=== PATIENT | female | born 1980 | race American Indian/Alaskan Native ===

== ENCOUNTER 2017-12-27 18:13 | Emergency (ER) | payer MEDICAID ==
[2017-12-27 18:47] VITALS: BP 140/86
[2017-12-27] MEDS ORDERED: NORCO 5/325 PO ONE (22:38)
--- NOTE | 2017-12-27 22:46 | Emergency Department Report ---
HPI - General Chief Complaint: Fall Time Seen by Provider: 12/27/17 22:31 - [facility] HPI: Geovany Blood The patient is 37-year-old female presenting with a chief complaint of pain after slip and fall. The patient states she was in [facility] at approximately 16: 30 she slipped and fell backwards striking her head. The patient states she did lose consciousness. The patient now complains of pain in her lower back, right foot and ankle, left shoulder and head. Location: [See above] Duration: Constant since 16:30 Quality: Pain Severity: 05/20 Modifying factors: [see above] Context: [see above] Mode of transportation: [not driving] ED Past Medical Hx - Past Medical History Hx Seizures: Yes Hx Asthma: Yes Additional medical history: BROCHITIS. ANEMIC - Surgical History Additional Surgical History: MULTIPLE FEET SURGERIES (arch support implants placement and removal), knee surgery - Family History Family history: no significant - Social History Smoking Status: Current Every Day Smoker (1/7 per day) Substance Use Type: None (denies illicit drug use) - Medications Home Medications: Home Medications Medication Instructions Recorded Confirmed Last Taken Type Cyclobenzaprine [Flexeril] 10 mg PO TID PRN #14 tablet 12/28/17 Unknown Rx HYDROcodone/ACETAMINOPHEN [[place] 1 - 2 each PO Q4-6H PRN #14 tablet 12/28/17 Unknown Rx 5-325 Tablet] ED Review of Systems ROS: Stated complaint: LOWER BACK PAIN Other details as noted in HPI Musculoskeletal: back pain, arthralgia, myalgia Neurological: headache Physical Exam - Physical Exam Vital Signs: Vital Signs 12/27/17 18:39 Temperature 98.1 F Pulse Rate 75 Respiratory 16 Rate Blood Pressure 140/86 O2 Sat by Pulse 98 Oximetry Physical Exam: GENERAL: The patient is well-developed well-nourished female sleeping on stretcher not appear to be in acute distress. [] HEENT: Normocephalic. Atraumatic. Extraocular motions are intact. Patient has moist mucous membranes. NECK: Supple. There is adnexal tenderness to palpation but no step-off CHEST/LUNGS: Clear to auscultation. There is no respiratory distress noted. HEART/CARDIOVASCULAR: Regular. There is no tachycardia. There is no gallop rub or murmur. ABDOMEN: Abdomen is soft, nontender. Patient has normal bowel sounds. There is no abdominal distention. SKIN: There is no rash. There is no edema. There is no diaphoresis. NEURO: The patient is initially asleep but is awakened with tactile stimuli and becomes alert, and oriented. The patient is cooperative. The patient has no focal neurologic deficits. The patient has normal speech MUSCULOSKELETAL: There is tenderness to palpation along the cervical and lumbar axial spine (no step-offs) there is pain in the left shoulder. There is tenderness to palpation of the medial aspect of the right ankle and dorsum of right foot. ED Course Vital Signs 12/27/17 18:39 Temperature 98.1 F Pulse Rate 75 Respiratory 16 Rate Blood Pressure 140/86 O2 Sat by Pulse 98 Oximetry ED Medical Decision Making - Radiology Data Radiology results: report reviewed (CT head, CT cervical spine), image reviewed (CT head, CT cervical spine, right ankle x-ray, right foot x-ray, left shoulder x-ray, lumbar spine x-ray) interpreted by me: right ankle x-ray-no fractures right foot x-ray- no acute fracture seen. Hardware in place from previous surgery left shoulder x-ray-no acute fracture or dislocation lumbar spine x-ray-no acute fractures [facility] [address] [place] [address] Cat Scan Report Signed Patient: KATE ZHENG MR#: [id number] : 1980 Acct:[id number] Age/Sex: 37 / F ADM Date: 12/27/17 Loc: ED Attending Dr: Ordering Physician: HERMINIA STRATTON MD Date of Service: 12/27/17 Procedure(s): CT head/brain wo con Accession Number(s): [id number] cc: HERMINIA STRATTON MD FINAL REPORT EXAM: CT HEAD/BRAIN WO CON HISTORY: pain after slip and fall COMPARISON: None available. TECHNIQUE: Axial images obtained skull base through vertex. FINDINGS: No acute intracranial hemorrhage, midline shift or pathologic extra axial fluid collection. Ventricles and cisterns are normal in size and configuration for the patient's age. Dominguez-white differentiation preserved. Calvarium grossly intact. Ocular globes are grossly unremarkable. Moderate mucosal thickening of the left maxillary sinus. Mastoid air cells are clear. IMPRESSION: No grossly acute intracranial abnormality. Transcribed By: LMA Dictated By: MILDRED DRIVER MD Electronically Authenticated By: MILDRED DRIVER MD Signed Date/Time: 12/27/172308 DD/ 08 TD/TT: 12/27/172308 [facility] [address] [place] [address] Cat Scan Report Signed Patient: KATE ZHENG MR#: [id number] : 1980 Acct:[id number] Age/Sex: 37 / F ADM Date: 12/27/17 Loc: ED Attending Dr: Ordering Physician: HERMINIA STRATTON MD Date of Service: 12/27/17 Procedure(s): CT cervical spine wo con Accession Number(s): [id number] cc: HERMINIA STRATTON MD FINAL REPORT EXAM: CT CERVICAL SPINE WO CON HISTORY: pain after slip and fall COMPARISON: None available. TECHNIQUE: Axial images obtained through the cervical spine. Additional sagittal and coronal reformatted images were obtained. FINDINGS: Straightening of the normal lordotic curvature of the cervical spine. Cervical vertebral body heights are preserved. No acute fracture or traumatic subluxation. Odontoid process, articular pillars and occipital condyles are intact. No significant bony encroachment upon the canal or foramen. IMPRESSION: No acute fracture or subluxation of the cervical spine. There is straightening of the normal lordotic curvature which may relate to patient positioning or muscle spasm. Transcribed By: LMA Dictated By: MILDRED DRIVER MD Electronically Authenticated By: MILDRED DRIVER MD Signed Date/Time: 12/27/172306 DD/ 06 TD/TT: 12/27/172306 - Differential Diagnosis close head injury, sprain, cervical strain, cervical fracture, lumbar strai Critical care attestation.: If time is entered above; I have spent that time in minutes in the direct care of this critically ill patient, excluding procedure time. ED Disposition Clinical Impression: Closed head injury, Acute cervical myofascial strain, Contusion of left shoulder, Contusion of right foot Disposition: DC-01 TO HOME OR SELFCARE Is pt being admited?: No Does the pt Need Aspirin: No Condition: Stable Instructions: Muscle Strain (ED), Minor Head Injury (ED), Concussion (ED) Additional Instructions: Return to the emergency department immediately should you develop worsening symptoms, fever, inability to tolerate food or liquid or any other concerns. Prescriptions: Cyclobenzaprine [Flexeril] 10 mg PO TID PRN #14 tablet PRN Reason: Muscle Spasm HYDROcodone/ACETAMINOPHEN [[place] 5-325 Tablet] 1 - 2 each PO Q4-6H PRN #14 tablet PRN Reason: Pain Referrals: JUNO SILVA MD [Primary Care Provider] - 3-5 Days Time of Disposition: 00:16
--- NOTE | 2017-12-27 23:11 | Cat Scan Report ---
FINAL REPORT EXAM: CT CERVICAL SPINE WO CON HISTORY: pain after slip and fall COMPARISON: None available. TECHNIQUE: Axial images obtained through the cervical spine. Additional sagittal and coronal reformatted images were obtained. FINDINGS: Straightening of the normal lordotic curvature of the cervical spine. Cervical vertebral body heights are preserved. No acute fracture or traumatic subluxation. Odontoid process, articular pillars and occipital condyles are intact. No significant bony encroachment upon the canal or foramen. IMPRESSION: No acute fracture or subluxation of the cervical spine. There is straightening of the normal lordotic curvature which may relate to patient positioning or muscle spasm.
--- NOTE | 2017-12-27 23:13 | Cat Scan Report ---
FINAL REPORT EXAM: CT HEAD/BRAIN WO CON HISTORY: pain after slip and fall COMPARISON: None available. TECHNIQUE: Axial images obtained skull base through vertex. FINDINGS: No acute intracranial hemorrhage, midline shift or pathologic extra axial fluid collection. Ventricles and cisterns are normal in size and configuration for the patient's age. Dominguez-white differentiation preserved. Calvarium grossly intact. Ocular globes are grossly unremarkable. Moderate mucosal thickening of the left maxillary sinus. Mastoid air cells are clear. IMPRESSION: No grossly acute intracranial abnormality.
--- NOTE | 2017-12-28 00:20 | XRay Report ---
FINAL REPORT EXAM: XR SHOULDER 2+V LT HISTORY: pain after slip and fall COMPARISON: None available. FINDINGS: Three views of left shoulder obtained. Mild osteophyte of the AC joint. Glenohumeral joint space preserved. No acute fracture dislocation. IMPRESSION: No acute bony abnormality.
--- NOTE | 2017-12-28 00:21 | XRay Report ---
FINAL REPORT EXAM: XR FOOT 2V RT HISTORY: pain after slip and fall COMPARISON: None available. FINDINGS: Two views of right foot obtained. Mild pes planus deformity. Small plantar calcaneal spur. Prior 1st metatarsal ostomy with bunionectomy and screw fixation. Joint spaces are preserved. No acute fracture or dislocation. IMPRESSION: No acute bony abnormality.
--- NOTE | 2017-12-28 00:22 | XRay Report ---
FINAL REPORT EXAM: XR ANKLE 2V RT HISTORY: pain after slip and fall COMPARISON: Right foot from the same date. FINDINGS: Two views of right ankle obtained. Small plantar calcaneal spur. Ankle mortise is preserved. No acute fracture or dislocation. IMPRESSION: No acute bony abnormality.
--- NOTE | 2017-12-28 00:23 | XRay Report ---
FINAL REPORT EXAM: XR SPINE LUMBOSACRAL 2-3V HISTORY: pain after slip and fall COMPARISON: None available. FINDINGS: Three views of the lumbar spine obtained. Lumbar vertebral body heights are preserved. Mild loss of disc height endplate osteophyte throughout the lumbar spine. Pedicles are intact. No spondylolisthesis. IUD projects over the midline of the pelvis. IMPRESSION: Lumbar vertebral body heights are preserved. Mild degenerative changes.
== END 2017-12-28 00:51 | disposition home or self-care (01) ==
LOC: ED 18:13
DX: S09.90XA Unspecified injury of head, initial encounter (principal); S40.012A Contusion of left shoulder, initial encounter; S90.31XA Contusion of right foot, initial encounter; S16.1XXA Strain of muscle, fascia and tendon at neck level, initial encounter; F17.200 Nicotine dependence, unspecified, uncomplicated; W01.0XXA Fall on same level from slipping, tripping and stumbling without subsequent striking against object, initial encounter; Y93.89 Activity, other specified; Y92.89 Other specified places as the place of occurrence of the external cause; Y99.8 Other external cause status
CPT/HCPCS: 36415; 70450; 72100; 72125; 84703; 99284

== ENCOUNTER 2018-09-26 19:28 | Emergency (ER) | payer MEDICAID, SELFPAY ==
[2018-09-26] MEDS ORDERED: TORADOL IM ONE (22:31)
--- NOTE | 2018-09-26 22:35 | Emergency Department Report ---
ED Lower Extremity HPI - General Chief Complaint: Extremity Injury, Lower Stated Complaint: LEFT ANKLE PAIN, RIGHT KNEE, AND CHEST PAIN Time Seen by Provider: 09/26/18 22:19 Source: patient Mode of arrival: Wheelchair Limitations: No Limitations - History of Present Illness Initial Comments: pt is a 37 y/o aaf who presents for left ankle pain and swelling s/p fall x 1 step today and twisting left ankle now only partial weight bearing wtih 7/10 pain and swelling and tingling, there are no relieving factors symptoms exacerbated by ambulation. Complaint: ankle injury Onset/Timin -: days(s) Injury: Ankle: Left Type of Injury: eversion Place: home Severity: moderate Severity scale (0 -10): 5 Improves With: nothing (regular was bothering him that L) Worsens With: weight bearing Context: fall (regular irregular. No) Associated Symptoms: snap/pop sensation, swelling, tingling, able to partially bear weight - Related Data Home Medications Medication Instructions Recorded Confirmed Last Taken ALBUTEROL Inhaler (OR & NICU) 2 puff IH QID PRN 01/25/16 12/15/17 12/15/17 [ProAir HFA Inhaler] Losartan [Cozaar] 100 mg PO QDAY 12/15/17 12/15/17 12/15/17 Previous Rx's Medication Instructions Recorded Last Taken Type levETIRAcetam [Keppra TAB] 1,000 mg PO BID #60 tab 03/04/17 12/14/17 Rx ALBUTEROL NEB's [Proventil 0.083% 2.5 mg IH Q4-6H 30 Days nebu 09/18/17 12/15/17 Rx NEBS] Codeine/Butalbital/ASA/Caffein 1 each PO Q8H PRN #15 capsule 04/10/18 Unknown Rx [Fiorinal with Codeine #3 Cap] Promethazine [Phenergan TAB] 25 mg PO Q6HR PRN #20 tab 04/10/18 Unknown Rx diazePAM TAB [Valium] 2 mg PO Q8H PRN #12 tablet 04/10/18 Unknown Rx Acetaminophen [Tylenol Arthritis] 650 mg PO Q8H PRN #12 tablet.er 05/15/18 Unknown Rx Butalb/Acetamin/Caff 50-325-40 1 tab PO Q8HR PRN #8 tablet 05/15/18 Unknown Rx [Fioricet] Acetaminophen [Tylenol Extra 1,000 mg PO QID PRN #30 tablet 09/26/18 Unknown Rx Strength] Cyclobenzaprine [Flexeril] 10 mg PO TID PRN #30 tablet 09/26/18 Unknown Rx Menthol/Camphor [[place] 1 applicatio TP QID PRN #1 tube 09/26/18 Unknown Rx Ointment] Allergies Allergy/AdvReac Type Severity Reaction Status Date / Time aspirin Allergy Hives Verified 05/15/18 09:40 ibuprofen [From Motrin] Allergy Hives Verified 05/15/18 09:40 Penicillins Allergy Hives Verified 05/15/18 09:40 shellfish derived Allergy Swelling,BREAK Verified 05/15/18 09:40 OUT WITH SCALES ED Review of Systems ROS: Stated complaint: LEFT ANKLE PAIN, RIGHT KNEE, AND CHEST PAIN Other details as noted in HPI Constitutional: denies: chills, fever Eyes: denies: eye pain, eye discharge, vision change ENT: denies: ear pain, throat pain Respiratory: no symptoms reported. denies: cough, shortness of breath, wheezing Cardiovascular: denies: chest pain, palpitations Endocrine: no symptoms reported Gastrointestinal: denies: abdominal pain, nausea, diarrhea Genitourinary: as per HPI Musculoskeletal: joint swelling Skin: denies: rash, lesions Neurological: denies: headache, weakness, paresthesias Psychiatric: denies: anxiety, depression Hematological/Lymphatic: denies: easy bleeding, easy bruising ED Past Medical Hx - Past Medical History Hx Hypertension: Yes Hx Diabetes: No Hx Headaches / Migraines: Yes (hx migraines) Hx Seizures: Yes Hx Psychiatric Treatment: Yes (depression) Hx Asthma: Yes Hx HIV: No Additional medical history: Anemia - Surgical History Additional Surgical History: right knee surgery, b/l foot surgery several years ago. foot surgery 09/2015 - Social History Smoking Status: Never Smoker Substance Use Type: None - Medications Home Medications: Home Medications Medication Instructions Recorded Confirmed Last Taken Type ALBUTEROL Inhaler (OR & NICU) 2 puff IH QID PRN 01/25/16 12/15/17 12/15/17 History [ProAir HFA Inhaler] levETIRAcetam [Keppra TAB] 1,000 mg PO BID #60 tab 03/04/17 12/15/17 12/14/17 Rx ALBUTEROL NEB's [Proventil 0.083% 2.5 mg IH Q4-6H 30 Days nebu 09/18/17 0 12/15/17 12/15/17 Rx NEBS] Losartan [Cozaar] 100 mg PO QDAY 12/15/17 12/15/17 12/15/17 History Codeine/Butalbital/ASA/Caffein 1 each PO Q8H PRN #15 capsule 04/10/18 Unknown Rx [Fiorinal with Codeine #3 Cap] Promethazine [Phenergan TAB] 25 mg PO Q6HR PRN #20 tab 04/10/18 Unknown Rx diazePAM TAB [Valium] 2 mg PO Q8H PRN #12 tablet 04/10/18 Unknown Rx Acetaminophen [Tylenol Arthritis] 650 mg PO Q8H PRN #12 tablet.er 05/15/18 Unknown Rx Butalb/Acetamin/Caff 50-325-40 1 tab PO Q8HR PRN #8 tablet 05/15/18 Unknown Rx [Fioricet] Acetaminophen [Tylenol Extra 1,000 mg PO QID PRN #30 tablet 09/26/18 Unknown Rx Strength] Cyclobenzaprine [Flexeril] 10 mg PO TID PRN #30 tablet 09/26/18 Unknown Rx Menthol/Camphor [[place] 1 applicatio TP QID PRN #1 tube 09/26/18 Unknown Rx Ointment] ED Physical Exam - General Limitations: No Limitations General appearance: alert, in no apparent distress - Head Head exam: Present: atraumatic, normocephalic - Eye Eye exam: Present: normal appearance - ENT ENT exam: Present: normal exam - Neck Neck exam: Present: normal inspection, full ROM (is management). Absent: tenderness, meningismus, lymphadenopathy, thyromegaly - Respiratory Respiratory exam: Present: normal lung sounds bilaterally. Absent: respiratory distress, wheezes, stridor, chest wall tenderness - Cardiovascular Cardiovascular Exam: Present: regular rate, normal rhythm, normal heart sounds. Absent: systolic murmur, diastolic murmur, rubs, gallop - GI/Abdominal GI/Abdominal exam: Present: soft, normal bowel sounds. Absent: tenderness, rebound, bruit, hernia - Rectal Rectal exam: Present: deferred - Extremities Exam Extremities exam: Present: tenderness (left ankle swelling ), normal capillary refill, joint swelling. Absent: pedal edema, calf tenderness - Expanded Lower Extremity Exam Left Ankle exam: Present: tenderness, swelling. Absent: abrasion, laceration, ecchymosis, deformity, crepidus, dislocation, erythema, anterior draw sign Foot/Toe exam: Present: full ROM. Absent: tenderness Neuro vascular tendon exam: Absent: motor deficit, sensory deficit, tendon deficit, abnormal 2-point discrimination, foot drop Gait: Positive: observed and limited by pain - Back Exam Back exam: Present: normal inspection, full ROM. Absent: tenderness, CVA tenderness (R), CVA tenderness (L), muscle spasm, paraspinal tenderness, rash noted - Neurological Exam Neurological exam: Present: alert, oriented X3, CN II-XII intact, abnormal gait (partial weight bearing ), reflexes normal. Absent: motor sensory deficit - Psychiatric Psychiatric exam: Present: normal affect, normal mood - Skin Skin exam: Present: warm, dry, intact, normal color. Absent: rash ED Course Vital Signs 09/26/18 19:40 Temperature 97.7 F Pulse Rate 88 Respiratory 16 Rate Blood Pressure 152/89 O2 Sat by Pulse 99 Oximetry ED Lower Extremity MDM - Radiology Data Radiology results: report reviewed, image reviewed no fracture mild soft tissue swelling , chronic ostoearthritis right knee no acute fracture no soft tissue abnormality - Medical Decision Making This is a fall down one step left ankle sprain left knee abrasion left knee with chronic osteoarthritis no acute fractureand soft tissue abnormality range of motion is intact negative drawer negative Rivera's test the left ankle is no open sore lesions are lacerations or bleeding joints are stable patient has partial weight bearing plan left [place] crutches follow up with orthopedic surgery in 2 days return to ED should symptoms worsen Splint check ankle stirrup, intact distal pulses intact spacing is appropriate pt given care instructions of same, verbalized understanding, crutches: patient demonstrated safe use of plain DC'd home in stable condition at this time Critical care attestation.: If time is entered above; I have spent that time in minutes in the direct care of this critically ill patient, excluding procedure time. ED Disposition Clinical Impression: Fall Qualifiers: Encounter type: initial encounter Qualified Code(s): W19.XXXA - Unspecified fall, initial encounter Left ankle sprain Qualifiers: Encounter type: initial encounter Involved ligament of ankle: unspecified ligament Qualified Code(s): S93.402A - Sprain of unspecified ligament of left ankle, initial encounter Strain of right knee Qualifiers: Encounter type: initial encounter Qualified Code(s): S86.911A - Strain of unspecified muscle(s) and tendon(s) at lower leg level, right leg, initial encounter Disposition: TO HOME OR SELFCARE Is pt being admited?: No Does the pt Need Aspirin: No Condition: Stable Instructions: Osteoarthritis (ED), Ankle Stirrup Splint (ED), Ankle Sprain (ED), Ankle Exercises (GEN), Knee Exercises (GEN), Crutch Instructions (ED) Prescriptions: Acetaminophen [Tylenol Extra Strength] 1,000 mg PO QID PRN #30 tablet PRN Reason: pain Cyclobenzaprine [Flexeril] 10 mg PO TID PRN #30 tablet PRN Reason: Muscle Spasm Menthol/Camphor [[place] Ointment] 1 applicatio TP QID PRN #1 tube PRN Reason: pain Referrals: JANAE GUILLAUME MD [Staff Physician] - 3-5 Days [facility] [Provider Group] - 3-5 Days Forms: Work/School Release Form(ED) Time of Disposition: 22:48
[2018-09-26] MEDS ORDERED: TYLENOL PO ONE (22:36)
[2018-09-26 23:20] VITALS: BP 123/90
--- NOTE | 2018-09-28 15:55 | XRay Report ---
FINAL REPORT EXAM: XR KNEE 3V RT HISTORY: knee injury in the right TECHNIQUE: AP, oblique, and lateral views of the right knee PRIORS: X-rays right knee 05/15/2018 FINDINGS: No acute fracture or dislocation is seen. The soft tissues are unremarkable with no evidence for sup rapatellar joint effusion. Joint spaces are maintained and bony mineralization is normal. Spurring off the posterior patella is seen. IMPRESSION: No acute abnormality of the right knee. Osteoarthritis of the patellofemoral joint.
--- NOTE | 2018-09-29 08:16 | XRay Report ---
FINAL REPORT EXAM: XR ANKLE 2V LT HISTORY: ankle injury TECHNIQUE: AP and lateral views of the left ankle PRIORS: None. FINDINGS: There is no evidence for acute fracture or dislocation. Soft tissue swelling off the medial malleolus . No radiopaque foreign bodies are seen. The ankle mortise is intact. Bony mineralization is normal and joint spaces are maintained. Small spurs off the plantar and posterior calcaneus is noted. IMPRESSION: No acute bony abnormality noted. Soft tissue swelling off the medial malleolus.
== END 2018-09-26 23:19 | disposition home or self-care (01) ==
LOC: MERGE 19:28 → ED 19:28
DX: S93.402A Sprain of unspecified ligament of left ankle, initial encounter (principal); S86.911A Strain of unspecified muscle(s) and tendon(s) at lower leg level, right leg, initial encounter; W10.9XXA Fall (on) (from) unspecified stairs and steps, initial encounter; I10 Essential (primary) hypertension; G43.909 Migraine, unspecified, not intractable, without status migrainosus; J45.909 Unspecified asthma, uncomplicated; F32.9 Major depressive disorder, single episode, unspecified; Z86.2 Personal history of diseases of the blood and blood-forming organs and certain disorders involving the immune mechanism; Z79.899 Other long term (current) drug therapy; Y93.89 Activity, other specified; Y99.8 Other external cause status; Y92.019 Unspecified place in single-family (private) house as the place of occurrence of the external cause

== ENCOUNTER 2018-10-21 20:05 | Emergency (ER) | payer MEDICAID ==
[2018-10-21] MEDS ORDERED: MORPHINE IV ONE (20:46)
[2018-10-21] MEDS ORDERED: ZOFRAN IV ONE (20:46)
--- NOTE | 2018-10-21 20:52 | Emergency Department Report ---
ED Chest Pain HPI - General Chief Complaint: Chest Pain Stated Complaint: SOB Time Seen by Provider: 10/21/18 20:39 Source: EMS Mode of arrival: Stretcher Limitations: No Limitations - History of Present Illness Initial Comments: 37-year-old female with history of asthma, anemia presents to ED with complaint of left-sided chest pain and shortness of breath 2 days. Patient states pain is sharp, constant, radiating into her left arm. Reports pain has a pleuritic component, pain is worse when lying back, better when sitting up. Patient denies leg pain or swelling. Denies cough or fever. PCP: Dr Rush ETIENNE Complaint: chest pain -: days(s) (2) Onset: during rest Pain Location: left chest Pain Radiation: LUE Severity: moderate Severity scale (0 -10): 0 Quality: sharp Consistency: constant Improves With: leaning foward Worsens With: supine re: nausea, diaphoresis, dyspnea Other Symptoms: denies: fever, leg swelling - Related Data Home Medications Medication Instructions Recorded Confirmed Last Taken ALBUTEROL Inhaler (OR & NICU) 2 puff IH QID PRN 01/25/16 12/15/17 12/15/17 [ProAir HFA Inhaler] Losartan [Cozaar] 100 mg PO QDAY 12/15/17 12/15/17 12/15/17 Previous Rx's Medication Instructions Recorded Last Taken Type levETIRAcetam [Keppra TAB] 1,000 mg PO BID #60 tab 03/04/17 12/14/17 Rx ALBUTEROL NEB's [Proventil 0.083% 2.5 mg IH Q4-6H 30 Days nebu 09/18/17 12/15/17 Rx NEBS] Codeine/Butalbital/ASA/Caffein 1 each PO Q8H PRN #15 capsule 04/10/18 Unknown Rx [Fiorinal with Codeine #3 Cap] Promethazine [Phenergan TAB] 25 mg PO Q6HR PRN #20 tab 04/10/18 Unknown Rx diazePAM TAB [Valium] 2 mg PO Q8H PRN #12 tablet 04/10/18 Unknown Rx Acetaminophen [Tylenol Arthritis] 650 mg PO Q8H PRN #12 tablet.er 05/15/18 Un known Rx Butalb/Acetamin/Caff 50-325-40 1 tab PO Q8HR PRN #8 tablet 05/15/18 Unknown Rx [Fioricet] Acetaminophen [Tylenol Extra 1,000 mg PO QID PRN #30 tablet 09/26/18 Unknown Rx Strength] Cyclobenzaprine [Flexeril] 10 mg PO TID PRN #30 tablet 09/26/18 Unknown Rx Menthol/Camphor [[place] 1 applicatio TP QID PRN #1 tube 09/26/18 Unknown Rx Ointment] ALBUTEROL Inhaler(NF) [VENTOLIN 1 puff IH Q4HR PRN #1 inha 10/21/18 Unknown Rx Inhaler(NF)] traMADol [Ultram] 50 mg PO Q6HR PRN #7 tablet 10/21/18 Unknown Rx Allergies Allergy/AdvReac Type Severity Reaction Status Date / Time aspirin Allergy Hives Verified 05/15/18 09:40 ibuprofen [From Motrin] Allergy Hives Verified 05/15/18 09:40 Penicillins Allergy Hives Verified 05/15/18 09:40 shellfish derived Allergy Swelling,BREAK Verified 05/15/18 09:40 OUT WITH SCALES Heart Score - HEART Score History: Slightly suspicious EKG: Non-specific Age: < 45 Risk factors: No known risk factors Troponin: < normal limit HEART Score: 1 ED Review of Systems ROS: Stated complaint: SOB Other details as noted in HPI Comment: All other systems reviewed and negative Constitutional: denies: chills, fever Respiratory: shortness of breath. denies: cough Cardiovascular: chest pain Gastrointestinal: nausea Musculoskeletal: other (denies leg pain or swelling) ED Past Medical Hx - Past Medical History Hx Hypertension: Yes Hx Diabetes: No Hx Headaches / Migraines: Yes (hx migraines) Hx Seizures: Yes Hx Psychiatric Treatment: Yes (depression) Hx Asthma: Yes Hx HIV: No Additional medical history: Anemia - Surgical History Additional Surgical History: right knee surgery, b/l foot surgery several years ago. foot surgery 09/2015 - Social History Smoking Status: Current Some Day Smoker Substance Use Type: None - Medications Home Medications: Home Medications Medication Instructions Recorded Confirmed Last Taken Type ALBUTEROL Inhaler (OR & NICU) 2 puff IH QID PRN 01/25/16 12/15/17 12/15/17 History [ProAir HFA Inhaler] levETIRAcetam [Keppra TAB] 1,000 mg PO BID #60 tab 03/04/17 12/15/17 12/14/17 Rx ALBUTEROL NEB's [Proventil 0.083% 2.5 mg IH Q4-6H 30 Days nebu 09/18/17 8 12/15/17 Rx NEBS] Losartan [Cozaar] 100 mg PO QDAY 12/15/17 12/15/17 12/15/17 History Codeine/Butalbital/ASA/Caffein 1 each PO Q8H PRN #15 capsule 04/10/18 Unknown Rx [Fiorinal with Codeine #3 Cap] Promethazine [Phenergan TAB] 25 mg PO Q6HR PRN #20 tab 04/10/18 Unknown Rx diazePAM TAB [Valium] 2 mg PO Q8H PRN #12 tablet 04/10/18 Unknown Rx Acetaminophen [Tylenol Arthritis] 650 mg PO Q8H PRN #12 tablet.er 05/15/18 Unknown Rx Butalb/Acetamin/Caff 50-325-40 1 tab PO Q8HR PRN #8 tablet 05/15/18 Unknown Rx [Fioricet] Acetaminophen [Tylenol Extra 1,000 mg PO QID PRN #30 tablet 09/26/18 Unknown Rx Strength] Cyclobenzaprine [Flexeril] 10 mg PO TID PRN #30 tablet 09/26/18 Unknown Rx Menthol/Camphor [[place] 1 applicatio TP QID PRN #1 tube 09/26/18 Unknown Rx Ointment] ALBUTEROL Inhaler(NF) [VENTOLIN 1 puff IH Q4HR PRN #1 inha 10/21/18 Unknown Rx Inhaler(NF)] traMADol [Ultram] 50 mg PO Q6HR PRN #7 tablet 10/21/18 Unknown Rx ED Physical Exam - General Limitations: No Limitations General appearance: alert, in no apparent distress - Head Head exam: Present: atraumatic, normocephalic - Eye Eye exam: Present: normal appearance - ENT ENT exam: Present: mucous membranes moist - Neck Neck exam: Present: normal inspection - Respiratory Respiratory exam: Present: normal lung sounds bilaterally. Absent: respiratory distress - Cardiovascular Cardiovascular Exam: Present: regular rate, normal rhythm - GI/Abdominal GI/Abdominal exam: Present: soft. Absent: distended, tenderness - Extremities Exam Extremities exam: Absent: pedal edema, calf tenderness - Neurological Exam Neurological exam: Present: alert, oriented X3 - Psychiatric Psychiatric exam: Present: normal affect, normal mood - Skin Skin exam: Present: warm, dry, intact, normal color ED Course Vital Signs 10/21/18 20:41 Temperature 99.1 F Pulse Rate 96 H Respiratory 18 Rate Blood Pressure 105/67 [Right] O2 Sat by Pulse 98 Oximetry SHA score - Sha Score Age > 65: (0) No Aspirin use within the Past 7 Days: (0) No 3 or more CAD Risk Factors: (0) No 2 or more Angina events in past 24 hrs: (1) Yes Known CAD with more than 50% Stenosis: (0) No Elevated Cardiac Markers: (0) No ST Deviation Greater than 0.5mm: (0) No SHA Score: 1 ED Medical Decision Making - Lab Data Result diagrams: 10/21/18 21:13 10/21/18 21:13 - EKG Data -: EKG Interpreted by Nv EKG shows normal: sinus rhythm, axis, intervals, QRS complexes Rate: normal - EKG Data Interpretation: other (S1Q3T3 finding) - Radiology Data Radiology results: report reviewed, image reviewed - Medical Decision Making 37-year-old female with pleuritic chest pain, shortness of breath. Patient in no respiratory distress, O2 sats normal. EKG shows no acute ST changes, troponin negative 2. Low suspicion for ACS. Patient's pain is positional and pleuritic. D-dimer elevated, so CTA chest obtained. CTA shows no evidence of PE, however shows multiple pulmonary nodules and lymphadenopathy, also enlarged spleen. Spoke with patient regarding these findings, states she has never been told of pulmonary nodules or lymphadenopathy. Advised patient that she will need repeat follow-up CT in 6 months to assess size of a nodules. 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 Advised patient to follow with her PCP as well. Will give pulmonology referral. Will also give a prescription for pain meds and albuterol inhaler. - Differential Diagnosis PE, ACS, pneumonia Critical care attestation.: If time is entered above; I have spent that time in minutes in the direct care of this critically ill patient, excluding procedure time. ED Disposition Clinical Impression: Chest pain, Pulmonary nodules/lesions, multiple, Hilar lymphadenopathy, Axillary lymphadenopathy Disposition: TO HOME OR SELFCARE Is pt being admited?: No Condition: Stable Instructions: Chest Pain (ED), Lymphadenopathy (ED), Pulmonary Nodules (ED) Prescriptions: traMADol [Ultram] 50 mg PO Q6HR PRN #7 tablet PRN Reason: Pain ALBUTEROL Inhaler(NF) [VENTOLIN Inhaler(NF)] 1 puff IH Q4HR PRN #1 inha PRN Reason: Wheezing Referrals: BETHANY CADENA MD [Staff Physician] - 3-5 Days PORSCHE JUSTIN MD [Staff Physician] - 3-5 Days JOSEF MARS MD [Staff Physician] - 3-5 Days PRIMARY CAREMD [Referring] - 3-5 Days Time of Disposition: 23:36
[2018-10-21 21:34] LABS: Basophils % (Auto) 0.7 % (0.0-1.8); Eosinophils % (Auto) 1.2 % (0.0-4.3); Hematocrit 35.4 % (30.3-42.9); Hemoglobin 12.3 gm/dl (10.1-14.3); Lymphocytes # (Auto) 0.6 K/mm3 (1.2-5.4); Mean Corpuscular HGB Conc 35 % (30-34); Mean Corpuscular Volume 100 fl (79-97); Monocytes # (Auto) 0.4 K/mm3 (0.0-0.8); Monocytes % (Auto) 11.3 % (0.0-7.3); Platelet Count 197 K/mm3 (140-440); Red Blood Count 3.52 M/mm3 (3.65-5.03); Red Cell Distribution Width 16.4 % (13.2-15.2)
[2018-10-21 21:50] LABS: INR 0.89 (0.87-1.13)
[2018-10-21 21:51] LABS: BUN/Creatinine Ratio 24; Blood Urea Nitrogen 12 mg/dL (7-17); Calcium 8.6 mg/dL (8.4-10.2); Hemolysis Index 24; Partial Thromboplastin Time 22.6 Sec. (24.2-36.6)
--- NOTE | 2018-10-21 22:33 | XRay Report ---
PROCEDURE: XR CHEST 1V AP TECHNIQUE: Frontal view of the chest HISTORY: chest pain COMPARISONS: None FINDINGS: There is no evidence of infiltrate, pneumothorax or pleural fluid collection. There appears to be mild prominence of the hilar structures bilaterally. The cardiac silhouette appears to be enlarged. The thoracic aorta and bony structures are unremarkable. Visualization of detail of the thoracic spin e is limited. IMPRESSION: 1. No evidence of an acute pulmonary process. 2. Enlarged cardiac silhouette. This may be exaggerated by AP technique. 3. Prominence of the hilar structures bilaterally. Comparison with previous imaging studies would be helpful. Alternatively PA and lateral views of the chest or CT chest may be helpful for further evaluation. This document is electronically signed by Radha Flores MD., October 21 2018 10:31:07 PM ET
--- NOTE | 2018-10-21 23:10 | Cat Scan Report ---
PROCEDURE: CT ANGIO CHEST HISTORY: chest pain FINDINGS: Contrast-enhanced CT angiography of the chest was performed following the intravenous admin istration of iodinated contrast. Sagittal and coronal MIP three-dimensional reformatted images were g enerated. These images demonstrate no CT evidence of pulmonary thromboembolic disease. There is no aortic disse ction. There is cardiomegaly. The thyroid gland is unremarkable. There are bilateral moderately enlarged axillary lymph nodes. Left axillary node, sagittal image 18 m easures 2.9 x 1.6 cm. Right axillary node, sagittal image 150 measures 4.5 x 1.1 cm. Right hilar node, image 48 measures 1.4 x 0.9 cm. Right hilar node, sagittal image 95 measures 1.8 x 1.4 cm left hilar node, image 50 measures 1.0 x 1.6 cm. There is a left upper lobe nodule, image 45, 0.7 cm. There is a left upper lobe nodule, image 44, 0.5 cm. There is a left upper lobe nodule, image 32, 0.4 cm. There is a second left upper lobe nodule, also image 32, 0.3 cm. There is a right lower lobe subpleural nodule, image 53, 0.5 cm. There is no pleural or pericardial effusion. In the upper abdomen the spleen is enlarged at 14.9 x 7.6 cm. There is a right adrenal nodule, 2.6 x 1.9 cm not characterized. The left adrenal is unremarkable. IMPRESSION: No CT evidence of pulmonary thromboembolic disease Cardiomegaly Pulmonary nodules. Follow-up chest CT is recommended in 6 months. Bilateral axillary and bilateral hilar lymphadenopathy Enlarged spleen Right adrenal nodule This document is electronically signed by Tomy Bowling MD., October 21 2018 11:08:21 PM ET
[2018-10-21 23:51] VITALS: BP 124/84
== END 2018-10-21 23:50 | disposition home or self-care (01) ==
LOC: ED 20:05 → MERGE 20:05 → ED 23:50
DX: R91.1 Solitary pulmonary nodule (principal); R59.1 Generalized enlarged lymph nodes; R07.89 Other chest pain; I10 Essential (primary) hypertension; G43.909 Migraine, unspecified, not intractable, without status migrainosus; F32.9 Major depressive disorder, single episode, unspecified; J45.909 Unspecified asthma, uncomplicated; F17.200 Nicotine dependence, unspecified, uncomplicated; Z86.2 Personal history of diseases of the blood and blood-forming organs and certain disorders involving the immune mechanism; Z79.899 Other long term (current) drug therapy; Z88.0 Allergy status to penicillin; Z88.6 Allergy status to analgesic agent; Z91.013 Allergy to seafood
CPT/HCPCS: 36415; 71045; 71275; 80048; 84484; 84703; 85025; 85379; 85610; 85730; 93005; 93010; 96374; 96375; 99285; J2270; J2405; Q9967

== ENCOUNTER 2018-10-25 00:39 | Emergency (ER) | payer MEDICAID ==
[2018-10-25] MEDS ORDERED: ASPIRIN PO ONE (01:12)
[2018-10-25 02:03] LABS: Eosinophils % (Auto) 0.9 % (0.0-4.3); Hematocrit 35.9 % (30.3-42.9); Hemoglobin 12.3 gm/dl (10.1-14.3); Lymphocytes # (Auto) 0.5 K/mm3 (1.2-5.4); Lymphocytes % (Auto) 14.5 % (13.4-35.0); Mean Corpuscular HGB Conc 34 % (30-34); Mean Corpuscular Volume 100 fl (79-97); Monocytes # (Auto) 0.3 K/mm3 (0.0-0.8); Monocytes % (Auto) 9.6 % (0.0-7.3); Platelet Count 223 K/mm3 (140-440); Red Blood Count 3.58 M/mm3 (3.65-5.03); Red Cell Distribution Width 16.3 % (13.2-15.2)
[2018-10-25 02:16] LABS: BUN/Creatinine Ratio 20; Blood Urea Nitrogen 10 mg/dL (7-17); Calcium 8.7 mg/dL (8.4-10.2); Hemolysis Index 10
--- NOTE | 2018-10-25 02:51 | Emergency Department Report ---
ED Chest Pain HPI - General Chief Complaint: Chest Pain Stated Complaint: CHEST PAIN Time Seen by Provider: 10/25/18 02:43 Source: patient, EMS Mode of arrival: Wheelchair Limitations: No Limitations - History of Present Illness Initial Comments: Ms. Jimenez is a 37-year-old female with history of asthma who presents with chest pain beginning since Friday. She has subjective fever with nonproductive cough. She also has shortness of breath. She currently has walking boot in place in the left lower extremity. Pain is 5/10. Sternal pain radiating to the left chest. Pain is worse with lying flat. MD Complaint: chest pain -: Gradual, days(s) (2) Onset: during rest Severity: moderate Severity scale (0 -10): 10 Quality: sharp Consistency: constant - Related Data Home Medications Medication Instructions Recorded Confirmed Last Taken ALBUTEROL Inhaler (OR & NICU) 2 puff IH QID PRN 01/25/16 12/15/17 12/15/17 [ProAir HFA Inhaler] Losartan [Cozaar] 100 mg PO QDAY 12/15/17 12/15/17 12/15/17 Previous Rx's Medication Instructions Recorded Last Taken Type levETIRAcetam [Keppra TAB] 1,000 mg PO BID #60 tab 03/04/17 12/14/17 Rx ALBUTEROL NEB's [Proventil 0.083% 2.5 mg IH Q4-6H 30 Days nebu 09/18/17 12/15/17 Rx NEBS] Codeine/Butalbital/ASA/Caffein 1 each PO Q8H PRN #15 capsule 04/10/18 Unknown Rx [Fiorinal with Codeine #3 Cap] Promethazine [Phenergan TAB] 25 mg PO Q6HR PRN #20 tab 04/10/18 Unknown Rx diazePAM TAB [Valium] 2 mg PO Q8H PRN #12 tablet 04/10/18 Unknown Rx Acetaminophen [Tylenol Arthritis] 650 mg PO Q8H PRN #12 tablet.er 05/15/18 Unknown Rx Butalb/Acetamin/Caff 50-325-40 1 tab PO Q8HR PRN #8 tablet 05/15/18 Unknown Rx [Fioricet] Acetaminophen [Tylenol Extra 1,000 mg PO QID PRN #30 tablet 09/26/18 Unknown Rx Strength] Cyclobenzaprine [Flexeril] 10 mg PO TID PRN #30 tablet 09/26/18 Unknown Rx Menthol/Camphor [[place] 1 applicatio TP QID PRN #1 tube 09/26/18 Unknown Rx Ointment] ALBUTEROL Inhaler(NF) [VENTOLIN 1 puff IH Q4HR PRN #1 inha 10/21/18 Unknown Rx Inhaler(NF)] traMADol [Ultram] 50 mg PO Q6HR PRN #7 tablet 10/21/18 Unknown Rx Prednisone [predniSONE 10 mg 10 mg PO .TAPER #1 tab.ds.pk 10/25/18 Unknown Rx (6-Day Pack, 21 Tabs)] Allergies Allergy/AdvReac Type Severity Reaction Status Date / Time aspirin Allergy Hives Verified 05/15/18 09:40 ibuprofen [From Motrin] Allergy Hives Verified 05/15/18 09:40 Penicillins Allergy Hives Verified 05/15/18 09:40 shellfish derived Allergy Swelling,BREAK Verified 05/15/18 09:40 OUT WITH SCALES Heart Score - HEART Score History: Slightly suspicious EKG: Normal Age: < 45 Risk factors: 1-2 risk factors Troponin: < normal limit HEART Score: 1 ED Review of Systems ROS: Stated complaint: CHEST PAIN Other details as noted in HPI Comment: All other systems reviewed and negative Constitutional: denies: fever, malaise Respiratory: shortness of breath Cardiovascular: chest pain ED Past Medical Hx - Past Medical History Previous Medical History?: Yes Hx Hypertension: Yes Hx Diabetes: No Hx Headaches / Migraines: Yes (hx migraines) Hx Seizures: Yes Hx Psychiatric Treatment: Yes (depression) Hx Asthma: Yes Hx HIV: No Additional medical history: Anemia - Surgical History Additional Surgical History: right knee surgery, b/l foot surgery several years ago. foot surgery 09/2015 - Social History Smoking Status: Never Smoker Substance Use Type: None - Medications Home Medications: Home Medications Medication Instructions Recorded Confirmed Last Taken Type ALBUTEROL Inhaler (OR & NICU) 2 puff IH QID PRN 01/25/16 12/15/17 12/15/17 History [ProAir HFA Inhaler] levETIRAcetam [Keppra TAB] 1,000 mg PO BID #60 tab 03/04/17 12/15/17 12/14/17 Rx ALBUTEROL NEB's [Proventil 0.083% 2.5 mg IH Q4-6H 30 Days nebu 09/18/17 12/15/17 12/15/17 Rx NEBS] Losartan [Cozaar] 100 mg PO QDAY 12/15/17 12/15/17 12/15/17 History Codeine/Butalbital/ASA/Caffein 1 each PO Q8H PRN #15 capsule 04/10/18 Unknown Rx [Fiorinal with Codeine #3 Cap] Promethazine [Phenergan TAB] 25 mg PO Q6HR PRN #20 tab 04/10/18 Unknown Rx diazePAM TAB [Valium] 2 mg PO Q8H PRN #12 tablet 04/10/18 Unknown Rx Acetaminophen [Tylenol Arthritis] 650 mg PO Q8H PRN #12 tablet.er 05/15/18 Unknown Rx Butalb/Acetamin/Caff 50-325-40 1 tab PO Q8HR PRN #8 tablet 05/15/18 Unknown Rx [Fioricet] Acetaminophen [Tylenol Extra 1,000 mg PO QID PRN #30 tablet 09/26/18 Unknown Rx Strength] Cyclobenzaprine [Flexeril] 10 mg PO TID PRN #30 tablet 09/26/18 Unknown Rx Menthol/Camphor [[place] 1 applicatio TP QID PRN #1 tube 09/26/18 Unknown Rx Ointment] ALBUTEROL Inhaler(NF) [VENTOLIN 1 puff IH Q4HR PRN #1 inha 10/21/18 Unknown Rx Inhaler(NF)] traMADol [Ultram] 50 mg PO Q6HR PRN #7 tablet 10/21/18 Unknown Rx Prednisone [predniSONE 10 mg 10 mg PO .TAPER #1 tab.ds.pk 10/25/18 Unknown Rx (6-Day Pack, 21 Tabs)] ED Physical Exam - General Limitations: No Limitations General appearance: alert, in no apparent distress - Head Head exam: Present: atraumatic, normocephalic - Eye Eye exam: Present: normal appearance - ENT ENT exam: Present: mucous membranes moist - Neck Neck exam: Present: normal inspection, full ROM - Respiratory Respiratory exam: Present: normal lung sounds bilaterally. Absent: respiratory distress, wheezes, rales, rhonchi - Cardiovascular Cardiovascular Exam: Present: regular rate, normal rhythm, normal heart sounds. Absent: systolic murmur, diastolic murmur, rubs, gallop - GI/Abdominal GI/Abdominal exam: Present: soft, normal bowel sounds. Absent: distended, tenderness, guarding, rebound - Extremities Exam Extremities exam: Present: normal inspection - Back Exam Back exam: Present: normal inspection - Neurological Exam Neurological exam: Present: alert, oriented X3 - Psychiatric Psychiatric exam: Present: normal affect, normal mood - Skin Skin exam: Present: warm, dry, intact, normal color. Absent: rash ED Course Vital Signs 10/25/18 10/25/18 01:00 01:08 Temperature 97.4 F L 97.4 F L Pulse Rate 101 H 100 H Respiratory 18 18 Rate Blood Pressure 149/100 149/100 O2 Sat by Pulse 100 100 Oximetry HAWA score - [place] Score Age > 65: (0) No Aspirin use within the Past 7 Days: (0) No 3 or more CAD Risk Factors: (0) No 2 or more Angina events in past 24 hrs: (1) Yes Known CAD with more than 50% Stenosis: (0) No Elevated Cardiac Markers: (0) No ST Deviation Greater than 0.5mm: (0) No HAWA Score: 1 ED Medical Decision Making - Lab Data Result diagrams: 10/25/18 01:51 10/25/18 01:51 Laboratory Results - last 24 hr 10/25/18 10/25/18 10/25/18 01:51 01:51 01:51 WBC 3.5 L RBC 3.58 L Hgb 12.3 Hct 35.9 MCV 100 H MCH 34 H MCHC 34 RDW 16.3 H Plt Count 223 Lymph % (Auto) 14.5 Angelina % (Auto) 9.6 H Eos % (Auto) 0.9 Baso % (Auto) 1.0 Lymph # 0.5 L Angelina # 0.3 Eos # 0.0 Baso # 0.0 Seg Neutrophils % 74.0 H Seg Neutrophils # 2.6 Sodium 138 Potassium 3.7 Chloride 100.8 Carbon Dioxide 26 Anion Gap 15 BUN 10 Creatinine 0.5 L Estimated GFR > 60 BUN/Creatinine Ratio 20 Glucose 116 H Calcium 8.7 Troponin T < 0.010 HCG, Qual Negative 10/25/18 03:35 WBC RBC Hgb Hct MCV MCH MCHC RDW Plt Count Lymph % (Auto) Angelina % (Auto) Eos % (Auto) Baso % (Auto) Lymph # Angelina # Eos # Baso # Seg Neutrophils % Seg Neutrophils # Sodium Potassium Chloride Carbon Dioxide Anion Gap BUN Creatinine Estimated GFR BUN/Creatinine Ratio Glucose Calcium Troponin T < 0.010 HCG, Qual - EKG Data -: EKG Interpreted by Me EKG shows normal: sinus rhythm, axis, intervals, QRS complexes, ST-T waves Rate: normal - Radiology Data Radiology results: report reviewed CT anginal chest negative for pulmonary embolism positive emphysematous changes positive gallstones - Medical Decision Making Mrs. Ledesma presents with chest pain shortness of breath cough subjective fever. CTA negative for pulmonary embolism negative for pneumonia. Prescribed prednisone for asthma exacerbation. Critical care attestation.: If time is entered above; I have spent that time in minutes in the direct care of this critically ill patient, excluding procedure time. ED Disposition Clinical Impression: Asthma exacerbation Disposition: DC-01 TO HOME OR SELFCARE Is pt being admited?: No Does the pt Need Aspirin: No Condition: Stable Instructions: Asthma (ED) Prescriptions: Prednisone [predniSONE 10 mg (6-Day Pack, 21 Tabs)] 10 mg PO .TAPER #1 tab.ds.pk Referrals: ALEX DE LA CRUZ MD [Primary Care Provider] - 3-5 Days
--- NOTE | 2018-10-25 03:30 | XRay Report ---
PROCEDURE: XR CHEST 1V AP TECHNIQUE: Chest radiograph single view. HISTORY: Chest Pain COMPARISONS: 10/21/2018 . FINDINGS: Heart: Normal. Mediastinum/Vessels: Normal. Lungs/Pleural space: Normal. Bony thorax: No acute osseous abnormality. Life support devices: None. IMPRESSION: No acute cardiopulmonary abnormality. This document is electronically signed by Esha Beltre DO., October 25 2018 03:27:49 AM ET
[2018-10-25] MEDS ORDERED: ASPIRIN ONE (04:00)
[2018-10-25] MEDS ORDERED: NORCO 5/325 ONE (04:01)
--- NOTE | 2018-10-25 04:38 | Cat Scan Report ---
PROCEDURE: CT ANGIO CHEST TECHNIQUE: A CT angiogram was performed following the intravenous injection of iodinated contrast. S agittal and coronal MIP reconstructions reviewed. HISTORY: chest pain COMPARISONS: 10/21/2018 FINDINGS: The heart size and thoracic aorta appear normal. Pericardial fluid is not seen. There is stable bilateral hilar adenopathy. The lungs reveal scattered stable subcentimeter in diameter nodules. The lungs appear slightly emphysematous. There are no infi ltrates or effusions. There is no evidence of pulmonary embolus or congestion. At the thoracic inlet the thyroid gland appears normal. In the upper abdomen there is stable splenomegaly. The gallbladder is normal size and contains multiple stones. The skeletal structures are well-maintained. IMPRESSION: No evidence of pulmonary embolus, vascular congestion, or aortic dissection. Mild emphysematous changes with a stable subcentimeter in diameter nodule is in both lungs since the prior study. Stable bilateral hilar adenopathy. Gallstones. Splenomegaly.. This document is electronically signed by Adam Renee MD., October 25 2018 04:36:23 AM ET
[2018-10-25] MEDS ORDERED: NORCO 5/325 PO ONE (05:51)
[2018-10-25 05:59] VITALS: BP 122/74
== END 2018-10-25 05:54 | disposition home or self-care (01) ==
LOC: MERGE 00:39 → ED 00:39
DX: J45.901 Unspecified asthma with (acute) exacerbation (principal); I10 Essential (primary) hypertension; G43.909 Migraine, unspecified, not intractable, without status migrainosus; F32.9 Major depressive disorder, single episode, unspecified; Z86.2 Personal history of diseases of the blood and blood-forming organs and certain disorders involving the immune mechanism; Z79.899 Other long term (current) drug therapy; Z91.013 Allergy to seafood; Z88.0 Allergy status to penicillin
CPT/HCPCS: 36415; 71045; 71275; 80048; 84484; 84703; 85025; 93005; 93010; 99285; Q9967

== ENCOUNTER 2018-11-02 14:21 | Inpatient (IN) | payer MEDICAID ==
[2018-11-02 15:22] LABS: Basophils % (Auto) 1.3 % (0.0-1.8); Eosinophils % (Auto) 0.5 % (0.0-4.3); Hematocrit 32.1 % (30.3-42.9); Lymphocytes # (Auto) 0.5 K/mm3 (1.2-5.4); Lymphocytes % (Auto) 15.9 % (13.4-35.0); Mean Corpuscular HGB Conc 34 % (30-34); Mean Corpuscular Volume 101 fl (79-97); Monocytes # (Auto) 0.3 K/mm3 (0.0-0.8); Monocytes % (Auto) 11.2 % (0.0-7.3); Platelet Count 186 K/mm3 (140-440); Red Blood Count 3.19 M/mm3 (3.65-5.03); Red Cell Distribution Width 16.4 % (13.2-15.2)
--- NOTE | 2018-11-02 15:35 | Emergency Department Report ---
ED Chest Pain HPI - General Chief Complaint: Chest Pain Stated Complaint: CHEST PAIN Time Seen by Provider: 11/02/18 14:40 Source: patient, EMS Mode of arrival: Stretcher Limitations: No Limitations - History of Present Illness Initial Comments: 37 year-old female presents to the emergency department with a complaint of midsternal left-sided chest pain that started earlier this morning. The patient says that this has been an acute on chronic problem that she has been here multiple times in the past week or so for similar symptoms. The chest pain is associated with some shortness of breath, nausea without vomiting. She has a past medical history of asthma, hypertension, anemia, seizures. The symptoms are worse when laying flat but there are no known alleviating factors. Her primary care physician is Dr. Mesha Beverly but she has not seen her regarding her symptoms. She denies any tobacco or illicit drug use or abuse. Recent travel or sick contacts at home. She says it feels like there are "bricks sitting on my chest." Severity scale (0 -10): 10 - Related Data Home Medications Medication Instructions Recorded Confirmed Last Taken Losartan [Cozaar] 100 mg PO QDAY 12/15/17 12/15/17 12/15/17 Previous Rx's Medication Instructions Recorded Last Taken Type levETIRAcetam [Keppra TAB] 1,000 mg PO BID #60 tab 03/04/17 12/14/17 Rx diazePAM TAB [Valium] 2 mg PO Q8H PRN #12 tablet 04/10/18 Unknown Rx Cyclobenzaprine [Flexeril] 10 mg PO TID PRN #30 tablet 09/26/18 Unknown Rx Menthol/Camphor [[place] 1 applicatio TP QID PRN #1 tube 09/26/18 Unknown Rx Ointment] ALBUTEROL Inhaler(NF) [VENTOLIN 1 puff IH Q4HR PRN #1 inha 10/21/18 Unknown Rx Inhaler(NF)] traMADol [Ultram] 50 mg PO Q6HR PRN #7 tablet 10/21/18 Unknown Rx Butalb/Acetaminophen/Caffeine 1 cap PO Q8HR PRN #10 cap 10/28/18 Unknown Rx [Fioricet 50-300-40 mg CAP] Allergies Allergy/AdvReac Type Severity Reaction Status Date / Time aspirin Allergy Hives Verified 05/15/18 09:40 ibuprofen [From Motrin] Allergy Hives Verified 05/15/18 09:40 Penicillins Allergy Hives Verified 05/15/18 09:40 shellfish derived Allergy Swelling,BREAK Verified 05/15/18 09:40 OUT WITH SCALES Heart Score - HEART Score History: Moderately suspicious EKG: Non-specific Age: < 45 Risk factors: 1-2 risk factors Troponin: < normal limit HEART Score: 3 - Critical Actions Critical Actions: 0-3 pts:0.9-1.7%risk of adverse cardiac event.Candidate for discharge ED Review of Systems ROS: Stated complaint: CHEST PAIN Other details as noted in HPI Comment: All other systems reviewed and negative Constitutional: denies: chills, fever Eyes: denies: eye pain, vision change ENT: denies: ear pain, throat pain Respiratory: shortness of breath. denies: cough Cardiovascular: chest pain. denies: edema Gastrointestinal: nausea. denies: vomiting Genitourinary: denies: dysuria, frequency Musculoskeletal: denies: back pain, joint swelling Skin: denies: rash, lesions Neurological: denies: headache, weakness ED Past Medical Hx - Past Medical History Hx Hypertension: Yes Hx Diabetes: No Hx Headaches / Migraines: Yes (hx migraines) Hx Seizures: Yes Hx Psychiatric Treatment: (depression) Hx Asthma: Yes Hx HIV: No Additional medical history: Anemia - Surgical History Additional Surgical History: right knee surgery, b/l foot surgery several years ago. foot surgery 09/2015 - Social History Smoking Status: Current Some Day Smoker Substance Use Type: None - Medications Home Medications: Home Medications Medication Instructions Recorded Confirmed Last Taken Type levETIRAcetam [Keppra TAB] 1,000 mg PO BID #60 tab 03/04/17 12/15/17 12/14/17 Rx Losartan [Cozaar] 100 mg PO QDAY 12/15/17 12/15/17 12/15/17 History diazePAM TAB [Valium] 2 mg PO Q8H PRN #12 tablet 04/10/18 Unknown Rx Cyclobenzaprine [Flexeril] 10 mg PO TID PRN #30 tablet 09/26/18 Unknown Rx Menthol/Camphor [[place] 1 applicatio TP QID PRN #1 tube 09/26/18 Unknown Rx Ointment] ALBUTEROL Inhaler(NF) [VENTOLIN 1 puff IH Q4HR PRN #1 inha 10/21/18 Unknown Rx Inhaler(NF)] traMADol [Ultram] 50 mg PO Q6HR PRN #7 tablet 10/21/18 Unknown Rx Butalb/Acetaminophen/Caffeine 1 cap PO Q8HR PRN #10 cap 10/28/18 Unknown Rx [Fioricet 50-300-40 mg CAP] ED Physical Exam - General Limitations: No Limitations - Other Other exam information: GENERAL: The patient is well-developed well-nourished. HEENT: Normocephalic. Atraumatic. Patient has moist mucous membranes. EYES: Extraocular motions are intact. Pupils are equal and reactive to light bilaterally. NECK: Supple. Trachea is midline. CHEST/LUNGS: Clear to auscultation. There is no respiratory distress noted. HEART/CARDIOVASCULAR: Regular. There is no tachycardia. There is no obvious murmur. ABDOMEN: Abdomen is soft, nontender. Patient has normal bowel sounds. There is no abdominal distention. SKIN: Skin is warm and dry. NEURO: The patient is awake, alert, and oriented. The patient is cooperative. The patient has no focal neurologic deficits. The patient has normal speech. MUSCULOSKELETAL: There is no tenderness or deformity. There is no evidence of acute injury. ED Course Vital Signs 11/02/18 11/02/18 11/02/18 15:05 15:07 15:09 Temperature Pulse Rate 84 84 84 Respiratory 20 16 22 Rate Blood Pressure 105/56 105/56 Blood Pressure [Right] O2 Sat by Pulse 94 94 Oximetry 11/02/18 11/02/18 11/02/18 15:11 16:07 16:08 Temperature 98.9 F Pulse Rate 87 97 H Respiratory 17 18 18 Rate Blood Pressure 105/56 Blood Pressure 108/63 [Right] O2 Sat by Pulse 97 100 Oximetry 11/02/18 19:31 Temperature Pulse Rate 89 Respiratory 18 Rate Blood Pressure Blood Pressure 139/78 [Right] O2 Sat by Pulse 98 Oximetry SHA score - Sha Score Age > 65: (0) No Aspirin use within the Past 7 Days: (0) No 3 or more CAD Risk Factors: (0) No 2 or more Angina events in past 24 hrs: (1) Yes Known CAD with more than 50% Stenosis: (0) No Elevated Cardiac Markers: (0) No ST Deviation Greater than 0.5mm: (0) No SHA Score: 1 ED Medical Decision Making - Lab Data Result diagrams: 11/02/18 14:59 11/02/18 14:59 - EKG Data -: EKG Interpreted by Me EKG shows normal: sinus rhythm, axis, intervals (prolonged QT and QTC intervals), QRS complexes, ST-T waves (flattening of T waves) Rate: normal - EKG Data When compared to previous EKG there are: changes noted (previous EKG did not have prolongation of QT and QTC intervals) Interpretation: other (sinus rhythm, normal axis, prolonged QT and QTC intervals, flattening of the T waves) - Radiology Data Radiology results: image reviewed - Medical Decision Making This patient presents with midsternal and left-sided chest pain that restarted this morning that has been going on essentially for the past week. EKG shows some nonspecific T-wave changes but there are no signs of ST elevation MA or dysrhythmia. Chest x-ray did not show any focal consolidation, pneumothorax, pneumonia, pleural effusions, or any other acute process. Labs thus far been unremarkable including negative troponins 2 and a negative d-dimer. However the patient continues to have chest pressure that feels like a "stack of bricks" and has failed outpatient treatment. Therefore the patient will be admitted to the hospital for further evaluation and treatment was accepted for admission by the hospitalist, Dr. Fuller. - Differential Diagnosis MA, PE, costochondritis, GERD Critical Care Time: No Critical care attestation.: If time is entered above; I have spent that time in minutes in the direct care of this critically ill patient, excluding procedure time. ED Disposition Clinical Impression: Acute chest pain, Ruled out for myocardial infarction Disposition: OP ADMIT IP TO THIS HOSP Is pt being admited?: Yes Condition: Fair Instructions: Chest Pain (ED) Referrals: PRIMARY CARE, [Primary Care Provider] - 3-5 Days Time of Disposition: 19:38
[2018-11-02 15:42] LABS: Alanine Aminotransferase 21 units/L (7-56); Albumin 3.7 g/dL (3.9-5); BUN/Creatinine Ratio 10; Blood Urea Nitrogen 6 mg/dL (7-17); Calcium 8.3 mg/dL (8.4-10.2); Hemolysis Index 11
[2018-11-02] MEDS ORDERED: PERCOCET 5/325 PO ONE (15:49)
[2018-11-02] MEDS ORDERED: TORADOL IM ONE (15:50)
[2018-11-02 16:06] LABS: INR 0.94 (0.87-1.13)
[2018-11-02 16:07] LABS: Partial Thromboplastin Time 33.9 Sec. (24.2-36.6)
--- NOTE | 2018-11-02 16:19 | XRay Report ---
AP CHEST : 11/02/18 14:21:00 CLINICAL: Chest pain. COMPARISON:10/28/18 and 10/25/18 FINDINGS: Normal heart and pulmonary vessels. The lungs are normally expanded and clear. The bones and soft tissues are unremarkable. IMPRESSION: No acute cardiopulmonary process.
[2018-11-02] MEDS ORDERED: MORPHINE IM ONE (17:45)
--- NOTE | 2018-11-02 19:08 | History and Physical Report ---
History of Present Illness Chief complaint: My chest keeps hurting History of present illness: 37 YO Female with Obesity, HTN, Migraine [place], NIcotine Dependence, Seizure Disorder, Depression, Asthma presents to ED for evaluation. Pt states that she has experienced pain in her chest over the past 1 week, with increasing frequency and intensity over the same time frame but acutely worsening this morning upon waking from sleep. Pt states that her pain is 10/10, Intermittent, substernal, crushing in nature, feels like "bricks sitting on my chest", nonradiating, worsened with exertion, relieved with rest, associated with shortness of breath. Pt acknowledges decreased exercise tolerance, Orthopnea/PND. Pt denies recent ill contacts, prolonged travel/immobility, individual/family history of DVT/PE, Hemoptysis, Skin Rash, Headache, productive cough, unintentional weight loss, or night sweats. EMS notified, and upon arrival the patient was found to be in distress and transported to [facility]. Pt seen and evaluated in ED and found to have symptoms consistent with Angina, as well as CHF. Pt admitted to telemetry. Cardiology consulted in ED. Past History Past Medical History: hypertension, migraines, seizures, other (Asthma, Depression) Past Surgical History: Other (Foot surgery) Social history: single, smoking. denies: alcohol abuse Family history: hypertension Medications and Allergies Allergies Allergy/AdvReac Type Severity Reaction Status Date / Time aspirin Allergy Hives Verified 05/15/18 09:40 ibuprofen [From Motrin] Allergy Hives Verified 05/15/18 09:40 Penicillins Allergy Hives Verified 05/15/18 09:40 shellfish derived Allergy Swelling,BREAK Verified 05/15/18 09:40 OUT WITH SCALES Home Medications Medication Instructions Recorded Confirmed Last Taken Type levETIRAcetam [Keppra TAB] 1,000 mg PO BID #60 tab 03/04/17 12/15/17 12/14/17 Rx Losartan [Cozaar] 100 mg PO QDAY 12/15/17 12/15/17 12/15/17 History diazePAM TAB [Valium] 2 mg PO Q8H PRN #12 tablet 04/10/18 Unknown Rx Cyclobenzaprine [Flexeril] 10 mg PO TID PRN #30 tablet 09/26/18 Unknown Rx Menthol/Camphor [[place] 1 applicatio TP QID PRN #1 tube 09/26/18 Unknown Rx Ointment] ALBUTEROL Inhaler(NF) [VENTOLIN 1 puff IH Q4HR PRN #1 inha 10/21/18 Unknown Rx Inhaler(NF)] traMADol [Ultram] 50 mg PO Q6HR PRN #7 tablet 10/21/18 Unknown Rx Butalb/Acetaminophen/Caffeine 1 cap PO Q8HR PRN #10 cap 10/28/18 Unknown Rx [Fioricet 50-300-40 mg CAP] Review of Systems Constitutional: no weight loss, no weight gain, no fever, no chills Ears, nose, mouth and throat: no ear pain, no ear discharge, no tinnitis, no decreased hearing, no nose pain, no nasal congestion, no nasal discharge Breasts: no change in shape, no swelling, no mass Cardiovascular: chest pain, orthopnea, shortness of breath, paroxysmal nocturnal dyspnea, decreased exercise tolerance Respiratory: no cough, no cough with sputum, no excessive sputum, no hemoptysis Gastrointestinal: no nausea, no vomiting, no diarrhea, no constipation Genitourinary Female: no pelvic pain, no flank pain, no menorrhagia, no dysuria, no urinary frequency Rectal: no pain, no incontinence, no bleeding Musculoskeletal: no neck pain, no shooting arm pain, no arm numbness/tingling, no low back pain Integumentary: no rash, no pruritis, no redness, no sores, no wounds Neurological: no transient paralysis, no paralysis, no weakness, no numbness, no tingling Psychiatric: no anxiety, no memory loss, no change in sleep habits, no sleep disturbances, no insomnia, no hypersomnia, no change in libido Endocrine: no cold intolerance, no heat intolerance, no excessive thirst, no polydipsia, no excessive sweating Hematologic/Lymphatic: no easy bruising, no easy bleeding, no lymphadenopathy, no lymphedema Allergic/Immunologic: no urticaria, no allergic rhinitis, no wheezing, no persistent infections, no anaphylaxis, no angioedema Exam - Constitutional Vitals: Temp Pulse Resp BP Pulse Ox 98.9 F 97 H 18 108/63 100 11/02/18 16:07 11/02/18 16:07 11/02/18 16:08 11/02/18 16:07 03/25/19 16:07 General appearance: Present: no acute distress, well-nourished - EENT Eyes: Present: PERRL ENT: hearing intact, clear oral mucosa - Neck Neck: Present: supple, normal ROM - Respiratory Respiratory effort: normal Respiratory: bilateral: CTA - Cardiovascular Heart Sounds: Present: S1 & S2. Absent: rub, click - Extremities Extremities: pulses symmetrical, No edema Peripheral Pulses: within normal limits - Abdominal General gastrointestinal: Present: soft, non-tender, non-distended, normal bowel sounds Female genitourinary: Present: normal - Integumentary Integumentary: Present: clear, warm, dry - Musculoskeletal Musculoskeletal: gait normal, strength equal bilaterally - Psychiatric Psychiatric: appropriate mood/affect, intact judgment & insight - Neurologic Neurologic: CNII-XII intact, moves all extremities Results - Labs CBC & Chem 7: 11/02/18 14:59 11/02/18 14:59 Labs: Abnormal lab results 11/02/18 11/02/18 Range/Units 14:59 14:59 WBC 2.9 L (4.5-11.0) K/mm3 RBC 3.19 L (3.65-5.03) M/mm3 MCV 101 H (79-97) fl MCH 35 H (28-32) pg RDW 16.4 H (13.2-15.2) % [place] % (Auto) 11.2 H (0.0-7.3) % Lymph # 0.5 L (1.2-5.4) K/mm3 Seg Neutrophils % 71.1 H (40.0-70.0) % BUN 6 L (7-17) mg/dL Creatinine 0.6 L (0.7-1.2) mg/dL Calcium 8.3 L (8.4-10.2) mg/dL Albumin 3.7 L (3.9-5) g/dL Assessment and Plan - Patient Problems (1) Angina at rest Current Visit: Yes Status: Acute Plan to address problem: Admit to telemetry, serial cardiac enzymes, stress test, BNP, D dimer, cardiology consulted in ED, morphine, supplemental oxygen, nitro, aspirin. (2) CHF (congestive heart failure) Current Visit: Yes Status: Suspected Qualifiers: Heart failure type: diastolic Heart failure chronicity: acute Qualified Code(s): I50.31 - Acute diastolic (congestive) heart failure Plan to address problem: Admit to telemetry, Echo, cardiology consulted in ED, strict I/O, daily weight, BNP, chest x ray, D dimer, afterload reduction, blood pressure control. (3) Fibromyalgia Current Visit: Yes Status: Suspected Plan to address problem: ESR, CRP, Rheumatoid Factor,lupus anticoagulant, outpatient rheumatology F/U (4) Seizure Current Visit: Yes Status: Acute Plan to address problem: Continue Keppra, seizure precautions, (5) Migraine Current Visit: Yes Status: Acute Qualifiers: Intractability: not intractable Plan to address problem: Currently stable, continue current therapy. (6) DVT prophylaxis Current Visit: No Status: Acute Plan to address problem: SCD to BLE while in bed,
[2018-11-02] MEDS ORDERED: PROVENTIL IH PRN (19:32)
[2018-11-02] MEDS ORDERED: NITROSTAT SL PRN (19:32)
[2018-11-02] MEDS ORDERED: ZOFRAN IV PRN (19:32)
[2018-11-02] MEDS ORDERED: SODIUM CHLORIDE FLUSH SYRINGE 10 ML IV PRN ×2 (19:32)
[2018-11-02] MEDS ORDERED: BABY ASPIRIN PO STA (19:32)
[2018-11-02] MEDS ORDERED: TYLENOL PO PRN (19:32)
[2018-11-02] MEDS ORDERED: NON-FORMULARY (Butalb/Acetaminophen/Caffeine [Fioricet 50-300-40 Mg Cap] 1 CAP) PO PRN (19:35)
[2018-11-02] MEDS ORDERED: VALIUM PO PRN (19:35)
[2018-11-02] MEDS ORDERED: NON-FORMULARY (Menthol/Camphor [Tiger Balm Ointment] 1 APPLICATIO) TP PRN (19:35)
[2018-11-02] MEDS ORDERED: FLEXERIL PO PRN (19:35)
[2018-11-02] MEDS ORDERED: ULTRAM PO PRN (19:35)
[2018-11-02] MEDS ORDERED: FIORICET PO PRN (19:45)
[2018-11-02 20:29] LABS: C-Reactive Protein 0.4 mg/dL (0.00-1.30); Chol/HDL Ratio 4.12 %
[2018-11-02] MEDS: SODIUM CHLORIDE FLUSH SYRINGE 10 ML IV SCH (21:29)
[2018-11-02] MEDS: KEPPRA PO SCH (21:32)
[2018-11-02] MEDS: MORPHINE IV PRN (21:33)
[2018-11-02] MEDS ORDERED: NON-FORMULARY (Levetiracetam [Keppra Tab] 1,000 MG) PO SCH (22:00)
[2018-11-03] MEDS: MORPHINE IV PRN ×3 (01:40→15:20)
[2018-11-03] MEDS ORDERED: COZAAR PO SCH (10:00)
[2018-11-03] MEDS ORDERED: NON-FORMULARY (Losartan [Cozaar] 100 MG) PO SCH (10:00)
--- NOTE | 2018-11-03 10:57 | Consultation ---
History of Present Illness Consult date: 11/03/18 Consult reason: chest pain History of present illness: Patient is a 37 year old woman who is admitted with chest pain. Patient reports intermittent chest pain for several weeks. Patient has been here multiple times in the past week or so for similar symptoms. The chest pain is associated with some shortness of breath, worse with lying. Patient gives a past medical history of asthma, hypertension, anemia, seizures. She denies prior cardiac history. An ECG shows sinus rhythm, no acute ischemic changes. Past History Past Medical History: hypertension, migraines, seizures, other (Asthma, Depression) Social history: single, smoking. denies: alcohol abuse Family history: hypertension Medications and Allergies Allergies Allergy/AdvReac Type Severity Reaction Status Date / Time aspirin Allergy Hives Verified 05/15/18 09:40 ibuprofen [From Motrin] Allergy Hives Verified 05/15/18 09:40 Penicillins Allergy Hives Verified 05/15/18 09:40 shellfish derived Allergy Swelling,BREAK Verified 05/15/18 09:40 OUT WITH SCALES Home Medications Medication Instructions Recorded Confirmed Last Taken Type levETIRAcetam [Keppra TAB] 1,000 mg PO BID #60 tab 03/04/17 12/15/17 12/14/17 Rx Losartan [Cozaar] 100 mg PO QDAY 12/15/17 12/15/17 12/15/17 History diazePAM TAB [Valium] 2 mg PO Q8H PRN #12 tablet 04/10/18 Unknown Rx Cyclobenzaprine [Flexeril] 10 mg PO TID PRN #30 tablet 09/26/18 Unknown Rx Menthol/Camphor [[place] 1 applicatio TP QID PRN #1 tube 09/26/18 Unknown Rx Ointment] ALBUTEROL Inhaler(NF) [VENTOLIN 1 puff IH Q4HR PRN #1 inha 10/21/18 Unknown Rx Inhaler(NF)] traMADol [Ultram] 50 mg PO Q6HR PRN #7 tablet 10/21/18 Unknown Rx Butalb/Acetaminophen/Caffeine 1 cap PO Q8HR PRN #10 cap 10/28/18 Unknown Rx [Fioricet 50-300-40 mg CAP] Active Meds: Active Medications Acetaminophen (Tylenol) 650 mg PO Q4H PRN PRN Reason: Pain MILD(1-3)/Fever >100.5/[place] Acetaminophen/Butalbital/Caffeine (Fioricet) 1 tab PO Q8H PRN PRN Reason: Pain, Moderate (4-6) Albuterol (Proventil) 2.5 mg IH Q4HRT PRN PRN Reason: Shortness Of Breath Cyclobenzaprine HCl (Flexeril) 10 mg PO TID PRN PRN Reason: Muscle Spasm Diazepam (Valium) 2 mg PO Q8H PRN PRN Reason: Anxiety/stress Enoxaparin Sodium (Lovenox) 40 mg SUB-Q QDAY@2200 [facility] Levetiracetam (Keppra) 1,000 mg PO BID [facility] Last Admin: 11/02/18 21:32 Dose: 1,000 mg Documented by: Losartan Potassium (Cozaar) 100 mg PO QDAY [facility] Morphine Sulfate (Morphine) 2 mg IV Q4H PRN PRN Reason: Pain, Moderate (4-6) Last Admin: 11/03/18 08:54 Dose: 2 mg Documented by: Nitroglycerin (Nitrostat) 0.4 mg SL Q5M PRN PRN Reason: Chest Pain Ondansetron HCl (Zofran) 4 mg IV Q8H PRN PRN Reason: Nausea And Vomiting Last Admin: 11/03/18 01:42 Dose: 4 mg Documented by: Sodium Chloride (Sodium Chloride Flush Syringe 10 Ml) 10 ml IV BID [facility] Last Admin: 11/02/18 21:29 Dose: 10 ml Documented by: Sodium Chloride (Sodium Chloride Flush Syringe 10 Ml) 10 ml IV PRN PRN PRN Reason: LINE FLUSH Tramadol HCl (Ultram) 50 mg PO Q6HR PRN PRN Reason: Pain Physical Examination Vital Signs Pulse Resp 84 20 11/02/18 15:05 11/02/18 15:05 General appearance: no acute distress HEENT: Positive: PERRL Neck: Positive: trachea midline Cardiac: Positive: Reg Rate and Rhythm Lungs: Positive: Decreased Breath Sounds Neuro: Positive: Grossly Intact Results 11/02/18 14:59 11/02/18 14:59 Cardiac Enzymes 11/02/18 Range/Units 14:59 AST 32 (5-40) units/L Coagulation 11/02/18 Range/Units 14:59 PT 13.1 (12.2-14.9) Sec. INR 0.94 (0.87-1.13) APTT 33.9 (24.2-36.6) Sec. Lipids 11/02/18 Range/Units 19:54 Triglycerides 161 H (2-149) mg/dL Cholesterol 128 (50-199) mg/dL HDL Cholesterol 31 L (40-59) mg/dL Cholesterol/HDL Ratio 4.12 % CBC 11/02/18 Range/Units 14:59 WBC 2.9 L (4.5-11.0) K/mm3 RBC 3.19 L (3.65-5.03) M/mm3 Hgb 11.0 (10.1-14.3) gm/dl Hct 32.1 (30.3-42.9) % Plt Count 186 (140-440) K/mm3 Lymph # 0.5 L (1.2-5.4) K/mm3 [place] # 0.3 (0.0-0.8) K/mm3 Eos # 0.0 (0.0-0.4) K/mm3 Baso # 0.0 (0.0-0.1) K/mm3 Comprehensive Metabolic Panel 11/02/18 Range/Units 14:59 Sodium 137 (137-145) mmol/L Potassium 3.9 (3.6-5.0) mmol/L Chloride 100.0 (98-107) mmol/L Carbon Dioxide 27 (22-30) mmol/L BUN 6 L (7-17) mg/dL Creatinine 0.6 L (0.7-1.2) mg/dL Glucose 82 (65-100) mg/dL Calcium 8.3 L (8.4-10.2) mg/dL AST 32 (5-40) units/L ALT 21 (7-56) units/L Alkaline Phosphatase 66 (35-129) units/L Total Protein 7.8 (6.3-8.2) g/dL Albumin 3.7 L (3.9-5) g/dL Assessment and Plan Chest pain Hypertension Seizure disorder Patient will undergo a persantine stress thallium test today, results are pending.
[2018-11-03] MEDS ORDERED: AFLURIA QUAD 2018-2019 SYRINGE IM ONE (12:00)
--- NOTE | 2018-11-03 14:35 | Progress Note ---
Assessment and Plan Assessment and plan: Chest pain. For stress test today cardiology following Shortness of breath. Echocardiogram to r/o CHF seizure disorder. Cont Keppra asthma Depression Obesity. diet and exercise Full code stataus History Interval history: Chest pain Shortness of breath Hospitalist Physical - Physical exam Narrative exam: GEN: Not in acute distress, lying in bed, Obese HEENT: Normocephalic, atraumatic, Neck: supple, No JVD heart: S1 and S2 reg, no murmurs, rubs or gallop Lungs: Clear to auscultation bilaterally, no wheeze Abd:soft, non tender, non distended, normal bowel sounds Ext: No edema,no clubbing, no cyanosis, Neuro:Awake,alert,oriented X 3, no focal signs, moves all ext Psych: normal mood - Constitutional Vitals: Temp Pulse Resp BP Pulse Ox 98.3 F 87 20 94/58 98 11/03/18 09:09 11/03/18 09:07 11/03/18 09:07 11/03/18 09:07 11/03/18 09:08 General appearance: Present: no acute distress Results - Labs CBC & Chem 7: 11/02/18 14:59 11/02/18 14:59 Labs: Laboratory Last Values WBC 2.9 K/mm3 (4.5-11.0) L 11/02/18 14:59 RBC 3.19 M/mm3 (3.65-5.03) L 11/02/18 14:59 Hgb 11.0 gm/dl (10.1-14.3) 11/02/18 14:59 Hct 32.1 % (30.3-42.9) 11/02/18 14:59 MCV 101 fl (79-97) H 11/02/18 14:59 MCH 35 pg (28-32) H 11/02/18 14:59 MCHC 34 % (30-34) 11/02/18 14:59 RDW 16.4 % (13.2-15.2) H 11/02/18 14:59 Plt Count 186 K/mm3 (140-440) 11/02/18 14:59 Lymph % (Auto) 15.9 % (13.4-35.0) 11/02/18 14:59 Day % (Auto) 11.2 % (0.0-7.3) H 11/02/18 14:59 Eos % (Auto) 0.5 % (0.0-4.3) 11/02/18 14:59 Baso % (Auto) 1.3 % (0.0-1.8) 11/02/18 14:59 Lymph # 0.5 K/mm3 (1.2-5.4) L 11/02/18 14:59 Day # 0.3 K/mm3 (0.0-0.8) 11/02/18 14:59 Eos # 0.0 K/mm3 (0.0-0.4) 11/02/18 14:59 Baso # 0.0 K/mm3 (0.0-0.1) 11/02/18 14:59 Seg Neutrophils % 71.1 % (40.0-70.0) H 11/02/18 14:59 Seg Neutrophils # 2.1 K/mm3 (1.8-7.7) 11/02/18 14:59 ESR 35 mm/Hr (0-20) 11/03/18 07:04 PT 13.1 Sec. (12.2-14.9) 11/02/18 14:59 INR 0.94 (0.87-1.13) 11/02/18 14:59 APTT 33.9 Sec. (24.2-36.6) 11/02/18 14:59 D-Dimer 181.40 ng/mlDDU (0-234) 11/02/18 14:59 Sodium 137 mmol/L (137-145) 11/02/18 14:59 Potassium 3.9 mmol/L (3.6-5.0) 11/02/18 14:59 Chloride 100.0 mmol/L (98-107) 11/02/18 14:59 Carbon Dioxide 27 mmol/L (22-30) 11/02/18 14:59 Anion Gap 14 mmol/L 11/02/18 14:59 BUN 6 mg/dL (7-17) L 11/02/18 14:59 Creatinine 0.6 mg/dL (0.7-1.2) L 11/02/18 14:59 Estimated GFR > 60 ml/min 11/02/18 14:59 BUN/Creatinine Ratio 10 % 11/02/18 14:59 Glucose 82 mg/dL (65-100) 11/02/18 14:59 Calcium 8.3 mg/dL (8.4-10.2) L 11/02/18 14:59 Total Bilirubin 0.60 mg/dL (0.1-1.2) 11/02/18 14:59 AST 32 units/L (5-40) 11/02/18 14:59 ALT 21 units/L (7-56) 11/02/18 14:59 Alkaline Phosphatase 66 units/L (35-129) 11/02/18 14:59 Troponin T < 0.010 ng/mL (0.00-0.029) 11/03/18 00:28 C-Reactive Protein 0.40 mg/dL (0.00-1.30) 11/03/18 07:04 NT-Pro-B Natriuret Pep 47.76 pg/mL (0-450) 11/02/18 19:54 Total Protein 7.8 g/dL (6.3-8.2) 11/02/18 14:59 Albumin 3.7 g/dL (3.9-5) L 11/02/18 14:59 Albumin/Globulin Ratio 0.9 % 11/02/18 14:59 Triglycerides 161 mg/dL (2-149) H 11/02/18 19:54 Cholesterol 128 mg/dL (50-199) 11/02/18 19:54 LDL Cholesterol Direct 86 mg/dL (50-130) 11/02/18 19:54 HDL Cholesterol 31 mg/dL (40-59) L 11/02/18 19:54 Cholesterol/HDL Ratio 4.12 % 11/02/18 19:54 Rheumatoid Factor < 10 IU/ml (0-13) 11/03/18 07:04 Active Medications - Current Medications Current Medications: Generic Name Dose Route Start Last Admin Trade Name Freq PRN Reason Stop Dose Admin Acetaminophen 650 mg 11/02/18 19:32 Tylenol PO Q4H PRN Pain MILD(1-3)/Fever >100.5/HAMLIN Acetaminophen/Butalbital/Caffeine 1 tab 11/02/18 19:45 Fioricet PO Q8H PRN Pain, Moderate (4-6) Albuterol 2.5 mg 11/02/18 19:32 Proventil IH Q4HRT PRN Shortness Of Breath Cyclobenzaprine HCl 10 mg 11/02/18 19:35 Flexeril PO TID PRN Muscle Spasm Diazepam 2 mg 11/02/18 19:35 Valium PO Q8H PRN Anxiety/stress Enoxaparin Sodium 40 mg 11/03/18 22:00 Lovenox SUB-Q QDAY@2200 DUSTIN Levetiracetam 1,000 mg 11/02/18 22:00 11/02/18 21:32 Keppra PO 1,000 mg BID [facility] Administration Losartan Potassium 100 mg 11/03/18 10:00 Cozaar PO QDAY DUSTIN Morphine Sulfate 2 mg 11/02/18 19:32 11/03/18 08:54 Morphine IV 2 mg Q4H PRN Administration Pain, Moderate (4-6) Nitroglycerin 0.4 mg 11/02/18 19:32 Nitrostat SL Q5M PRN Chest Pain Ondansetron HCl 4 mg 11/02/18 19:32 11/03/18 01:42 Zofran IV 4 mg Q8H PRN Administration Nausea And Vomiting Regadenoson 0.4 mg 11/03/18 15:07 11/03/18 14:12 Lexiscan IV 11/03/18 15:08 0.4 mg ONCE ONE Administration Sodium Chloride 10 ml 11/02/18 22:00 11/02/18 21:29 Sodium Chloride Flush Syringe 10 Ml IV 10 ml BID DUSTIN Administration Sodium Chloride 10 ml 11/02/18 19:32 Sodium Chloride Flush Syringe 10 Ml IV PRN PRN LINE FLUSH Tramadol HCl 50 mg 11/02/18 19:35 Ultram PO Q6HR PRN Pain
[2018-11-03] MEDS ORDERED: LEXISCAN IV ONE (15:07)
[2018-11-03] MEDS: KEPPRA PO SCH ×2 (15:19→21:00)
[2018-11-03] MEDS: SODIUM CHLORIDE FLUSH SYRINGE 10 ML IV SCH ×2 (15:20→21:00)
[2018-11-03] MEDS ORDERED: LOVENOX SUB-Q SCH (22:00)
--- NOTE | 2018-11-04 01:55 | Treadmill Report ---
THALLIUM STRESS TEST LEFT VENRICLE: Left ventricular chamber size is within normal spread. Perfusion study demonstrates some apical thinning, otherwise homogeneous uptake of the tracer in all segments, no significant defects identified. Gated analysis demonstrates normal left ventricular systolic function, ejection fraction of 67%. CONCLUSION: Normal myocardial perfusion study. JOB# [id number] CA/NTS
[2018-11-04] MEDS: MORPHINE IV PRN ×3 (08:14→16:19)
[2018-11-04] MEDS: KEPPRA PO SCH (09:34)
[2018-11-04] MEDS: SODIUM CHLORIDE FLUSH SYRINGE 10 ML IV SCH (09:36)
--- NOTE | 2018-11-04 11:43 | Progress Note ---
Assessment and Plan Chest pain normal myocardial perfusion stress thallium test. Hypertension Seizure disorder Plan: Echocardiogram for LVEF assessment. Subjective Date of service: 11/04/18 Interval history: Patient reports she is feeling somewhat better. Chest pain is less. Objective Vital Signs Temp Pulse Resp BP BP Pulse Ox 11/04/18 09:34 87 134/77 11/04/18 08:00 99.1 F 87 18 134/77 93 11/04/18 04:27 98.6 F 95 H 20 146/71 95 11/04/18 00:14 98.4 F 90 20 119/80 96 11/03/18 20:04 101.4 F H 93 H 20 104/75 100 11/03/18 20:00 90 11/03/18 14:23 102/52 11/03/18 14:20 104/54 11/03/18 14:19 96/51 11/03/18 14:18 87/51 11/03/18 14:16 90/53 11/03/18 14:15 101/59 11/03/18 14:13 106/58 11/03/18 14:12 109/60 11/03/18 14:10 105/57 11/03/18 12:19 105/58 11/03/18 12:15 103/58 11/03/18 12:14 93/47 11/03/18 12:10 108/54 - Physical Examination General: No Apparent Distress HEENT: Positive: PERRL Neck: Positive: trachea midline Cardiac: Positive: Reg Rate and Rhythm Lungs: Positive: Decreased Breath Sounds Neuro: Positive: Grossly Intact
--- NOTE | 2018-11-04 15:03 | Progress Note ---
Assessment and Plan Assessment and plan: Chest pain. Stress test neg cardiology following Shortness of breath. Echocardiogram to r/o CHF seizure disorder. Cont Keppra Asthma Depression Obesity. diet and exercise Full code status Discussed with Dr. Ching. Will obtain CT Angio. History Interval history: Still having Chest pain, shortness of breath Hospitalist Physical - Physical exam Narrative exam: GEN: Not in acute distress, lying in bed, Obese HEENT: Normocephalic, atraumatic, Neck: supple, No JVD heart: S1 and S2 reg, no murmurs, rubs or gallop Lungs: Clear to auscultation bilaterally, no wheeze Abd:soft, non tender, non distended, normal bowel sounds Ext: No edema,no clubbing, no cyanosis, Neuro:Awake,alert,oriented X 3, no focal signs, moves all ext Psych: normal mood - Constitutional Vitals: Temp Pulse Resp BP Pulse Ox 98.5 F 95 H 18 116/71 93 11/04/18 11:57 11/04/18 11:57 11/04/18 11:57 11/04/18 11:57 11/04/18 11:57 General appearance: Present: no acute distress Results - Labs CBC & Chem 7: 11/02/18 14:59 11/02/18 14:59 Labs: Laboratory Last Values WBC 2.9 K/mm3 (4.5-11.0) L 11/02/18 14:59 RBC 3.19 M/mm3 (3.65-5.03) L 11/02/18 14:59 Hgb 11.0 gm/dl (10.1-14.3) 11/02/18 14:59 Hct 32.1 % (30.3-42.9) 11/02/18 14:59 MCV 101 fl (79-97) H 11/02/18 14:59 MCH 35 pg (28-32) H 11/02/18 14:59 MCHC 34 % (30-34) 11/02/18 14:59 RDW 16.4 % (13.2-15.2) H 11/02/18 14:59 Plt Count 186 K/mm3 (140-440) 11/02/18 14:59 Lymph % (Auto) 15.9 % (13.4-35.0) 11/02/18 14:59 Tyler % (Auto) 11.2 % (0.0-7.3) H 11/02/18 14:59 Eos % (Auto) 0.5 % (0.0-4.3) 11/02/18 14:59 Baso % (Auto) 1.3 % (0.0-1.8) 11/02/18 14:59 Lymph # 0.5 K/mm3 (1.2-5.4) L 11/02/18 14:59 Tyler # 0.3 K/mm3 (0.0-0.8) 11/02/18 14:59 Eos # 0.0 K/mm3 (0.0-0.4) 11/02/18 14:59 Baso # 0.0 K/mm3 (0.0-0.1) 11/02/18 14:59 Seg Neutrophils % 71.1 % (40.0-70.0) H 11/02/18 14:59 Seg Neutrophils # 2.1 K/mm3 (1.8-7.7) 11/02/18 14:59 ESR 35 mm/Hr (0-20) 11/03/18 07:04 PT 13.1 Sec. (12.2-14.9) 11/02/18 14:59 INR 0.94 (0.87-1.13) 11/02/18 14:59 APTT 33.9 Sec. (24.2-36.6) 11/02/18 14:59 D-Dimer 181.40 ng/mlDDU (0-234) 11/02/18 14:59 Sodium 137 mmol/L (137-145) 11/02/18 14:59 Potassium 3.9 mmol/L (3.6-5.0) 11/02/18 14:59 Chloride 100.0 mmol/L (98-107) 11/02/18 14:59 Carbon Dioxide 27 mmol/L (22-30) 11/02/18 14:59 Anion Gap 14 mmol/L 11/02/18 14:59 BUN 6 mg/dL (7-17) L 11/02/18 14:59 Creatinine 0.6 mg/dL (0.7-1.2) L 11/02/18 14:59 Estimated GFR > 60 ml/min 11/02/18 14:59 BUN/Creatinine Ratio 10 % 11/02/18 14:59 Glucose 82 mg/dL (65-100) 11/02/18 14:59 Calcium 8.3 mg/dL (8.4-10.2) L 11/02/18 14:59 Total Bilirubin 0.60 mg/dL (0.1-1.2) 11/02/18 14:59 AST 32 units/L (5-40) 11/02/18 14:59 ALT 21 units/L (7-56) 11/02/18 14:59 Alkaline Phosphatase 66 units/L (35-129) 11/02/18 14:59 Troponin T < 0.010 ng/mL (0.00-0.029) 11/03/18 00:28 C-Reactive Protein 0.40 mg/dL (0.00-1.30) 11/03/18 07:04 NT-Pro-B Natriuret Pep 47.76 pg/mL (0-450) 11/02/18 19:54 Total Protein 7.8 g/dL (6.3-8.2) 11/02/18 14:59 Albumin 3.7 g/dL (3.9-5) L 11/02/18 14:59 Albumin/Globulin Ratio 0.9 % 11/02/18 14:59 Triglycerides 161 mg/dL (2-149) H 11/02/18 19:54 Cholesterol 128 mg/dL (50-199) 11/02/18 19:54 LDL Cholesterol Direct 86 mg/dL (50-130) 11/02/18 19:54 HDL Cholesterol 31 mg/dL (40-59) L 11/02/18 19:54 Cholesterol/HDL Ratio 4.12 % 11/02/18 19:54 Rheumatoid Factor < 10 IU/ml (0-13) 11/03/18 07:04 Active Medications - Current Medications Current Medications: Generic Name Dose Route Start Last Admin Trade Name Freq PRN Reason Stop Dose Admin Acetaminophen 650 mg 11/02/18 19:32 11/03/18 20:59 Tylenol PO 650 mg Q4H PRN Administration Pain MILD(1-3)/Fever >100.5/HAMLIN Acetaminophen/Butalbital/Caffeine 1 tab 11/02/18 19:45 Fioricet PO Q8H PRN Pain, Moderate (4-6) Albuterol 2.5 mg 03/25/19 19:32 Proventil IH Q4HRT PRN Shortness Of Breath Cyclobenzaprine HCl 10 mg 11/02/18 19:35 11/03/18 21:00 Flexeril PO 10 mg TID PRN Administration Muscle Spasm Diazepam 2 mg 11/02/18 19:35 Valium PO Q8H PRN Anxiety/stress Enoxaparin Sodium 40 mg 11/03/18 22:00 11/03/18 21:00 Lovenox SUB-Q 40 mg QDAY@2200 DUSTIN Administration Levetiracetam 1,000 mg 11/02/18 22:00 11/04/18 09:34 Keppra PO 1,000 mg BID DUSTIN Administration Losartan Potassium 100 mg 11/03/18 10:00 11/04/18 09:34 Cozaar PO 100 mg QDAY DUSTIN Administration Morphine Sulfate 2 mg 11/02/18 19:32 11/04/18 12:12 Morphine IV 2 mg Q4H PRN Administration Pain, Moderate (4-6) Nitroglycerin 0.4 mg 11/02/18 19:32 Nitrostat SL Q5M PRN Chest Pain Ondansetron HCl 4 mg 11/02/18 19:32 11/03/18 01:42 Zofran IV 4 mg Q8H PRN Administration Nausea And Vomiting Sodium Chloride 10 ml 11/02/18 22:00 11/04/18 09:36 Sodium Chloride Flush Syringe 10 Ml IV 10 ml BID DUSTIN Administration Sodium Chloride 10 ml 11/02/18 19:32 Sodium Chloride Flush Syringe 10 Ml IV PRN PRN LINE FLUSH Tramadol HCl 50 mg 11/02/18 19:35 11/03/18 21:03 Ultram PO 50 mg Q6HR PRN Administration Pain
--- NOTE | 2018-11-04 16:44 | Discharge Summary ---
Providers - Providers Date of Admission: 11/02/18 19:32 Date of discharge: 11/04/18 Attending physician: LIZABETH CABRERA 11/02/18 Consult to Cardiac Rehabilitation [CONS] Routine Reason For Exam: Phase I 11/02/18 19:32 Consult to Cardiology [CONS] Routine Consulting Provider: DIANN DOZIER Reason For Exam: chest pain Primary care physician: MAK MANCINI MD Hospitalization Condition: Fair Hospital course: Patient is 37-year-old with a hypertension, seizure disorder, asthma, obesity, depression. She presented with chest pain to the emergency department. She was seen and evaluated in the ED. Initial troponin was normal. She was admitted to rule out acute coronary syndrome. Stress test was done and it was negative. Patient was evaluated by cardiology. Chest pain determined to be noncardiac. She was subsequently discharged home to follow as an outpatient. Total time spent on discharge, 32 mins Disposition: DC-01 TO HOME OR SELFCARE - Discharge Diagnoses (1) SIRS (systemic inflammatory response syndrome) Status: Acute (2) GERD (gastroesophageal reflux disease) Status: Acute (3) Acute chest pain Status: Acute (4) Hypertension Status: Chronic Core Measure Documentation - Palliative Care Palliative Care/ Comfort Measures: Not Applicable - Core Measures Any of the following diagnoses?: none Exam - Constitutional Vitals: Temp Pulse Resp BP Pulse Ox 98.5 F 95 H 18 116/71 93 11/04/18 11:57 11/04/18 11:57 11/04/18 11:57 11/04/18 11:57 11/04/18 11:57 Plan Activity: advance as tolerated Diet: low fat, low cholesterol, low salt Additional Instructions: 1.Follow up with PCP in 1 week. 2.Follow up with Dr. Ching in 1 week Follow up with: PRIMARY CAREMD [Primary Care Provider] - 3-5 Days Prescriptions: Famotidine [Pepcid] 20 mg PO BID #30 tablet
[2018-11-04 17:00] VITALS: BP 99/57
[2018-11-04 19:09] LABS: BUN/Creatinine Ratio 18; Blood Urea Nitrogen 11 mg/dL (7-17); Calcium 8.2 mg/dL (8.4-10.2); Hemolysis Index 13
== END 2018-11-04 18:37 | disposition home or self-care (01) | DRG 292 ==
LOC: ED 14:21 → EEVIPCON 14:21 → 4A 19:32 → MERGE 19:32
PROVIDERS: ADMIT Internal Medicine; ATTEND Internal Medicine
DX: I11.0 Hypertensive heart disease with heart failure (principal); R65.10 Systemic inflammatory response syndrome (SIRS) of non-infectious origin without acute organ dysfunction; I50.31 Acute diastolic (congestive) heart failure; I20.8 Other forms of angina pectoris; G40.909 Epilepsy, unspecified, not intractable, without status epilepticus; J45.909 Unspecified asthma, uncomplicated; E66.9 Obesity, unspecified; G43.909 Migraine, unspecified, not intractable, without status migrainosus; F17.200 Nicotine dependence, unspecified, uncomplicated; M79.7 Fibromyalgia; F32.9 Major depressive disorder, single episode, unspecified; Z71.3 Dietary counseling and surveillance; Z68.31 Body mass index [BMI] 31.0-31.9, adult; Z82.49 Family history of ischemic heart disease and other diseases of the circulatory system; Z88.6 Allergy status to analgesic agent; Z88.0 Allergy status to penicillin; Z91.013 Allergy to seafood; Z79.899 Other long term (current) drug therapy
CPT/HCPCS: 36415; 71045; 78452; 80048; 80053; 80061; 83880; 84484; 85025; 85379; 85610; 85613; 85652; 85730; 86140; 86618; 90686; 93005; 93010; 93017; 93306; 96372; 96374; G0378; A9502; J1650; J1885; J2270; J2405; J2785; J3246

== ENCOUNTER 2018-11-16 17:57 | Emergency (ER) | payer MEDICAID ==
[2018-11-16 20:33] LABS: Hematocrit 33.6 % (30.3-42.9); Hemoglobin 11.2 gm/dl (10.1-14.3); Mean Corpuscular HGB Conc 33 % (30-34); Mean Corpuscular Volume 100 fl (79-97); Platelet Count 201 K/mm3 (140-440); Red Blood Count 3.37 M/mm3 (3.65-5.03); Red Cell Distribution Width 16.5 % (13.2-15.2)
--- NOTE | 2018-11-16 20:43 | Emergency Department Report ---
ED General Adult HPI - General Chief complaint: Seizure Stated complaint: SEIZURE Time Seen by Provider: 11/16/18 20:38 Source: patient, EMS (ems notes not available at time of chart dictation), RN notes reviewed, old records reviewed Mode of arrival: Stretcher Limitations: Physical Limitation - History of Present Illness Initial comments: Visit the [id number]-xry female. The patient has a past medical history of chronic broken right ankle, currently in a boot, reported fibromyalgia, chronic pain, hypertension, migraine, seizure disorder, depression, PTSD She reports her pain specialist, neurologist is Dr. Karen Fletcher She reports that she takes Keppra, 1 g, twice daily. She reports that she has not had a seizure for 2 years. She reports that she didn't take her seizure medicine today. She reports being on the bus, and believes that she had a seizure. Prior to the seizure, she denied any pain or complaints. She has no recollection of the event, but she reports that bystanders and the bus indicated that she had a generalized convulsive event, moving all extremities, that "looks like a seizure." After the seizure, the patient makes no complaint of headache, complains of neck pain, and right ankle pain. Pain is sharp, increases with palpation, range of motion, and it decreases with rest. The patient reports that she is not p regnant, reports that she has not delivery given within the past 6 weeks. She denies cough, abdominal pain, focal extremity weakness, numbness, bladder or bowel retention or incontinence, saddle anesthesia, and she denies urinary symptoms as well. -: Sudden Location: neck, right, lower extremity Radiation: non-radiation Severity scale (0 -10): 10 Quality: aching Consistency: intermittent Improves with: rest Worsens with: movement - Related Data Home Medications Medication Instructions Recorded Confirmed Last Taken Losartan [Cozaar] 100 mg PO QDAY 12/15/17 12/15/17 12/15/17 Previous Rx's Medication Instructions Recorded Last Taken Type diazePAM TAB [Valium] 2 mg PO Q8H PRN #12 tablet 04/10/18 Unknown Rx predniSONE [Deltasone] 3 tab PO QDAY 4 Days #12 tab 07/10/18 Unknown Rx Menthol/Camphor [[place] 1 applicatio TP QID PRN #1 tube 09/26/18 Unknown Rx Ointment] ALBUTEROL Inhaler(NF) [VENTOLIN 1 puff IH Q4HR PRN #1 inha 10/21/18 Unknown Rx Inhaler(NF)] Famotidine [Pepcid] 20 mg PO BID #30 tablet 11/04/18 Unknown Rx levETIRAcetam [Keppra TAB] 1,000 mg PO BID #60 tab 11/16/18 Unknown Rx Allergies Allergy/AdvReac Type Severity Reaction Status Date / Time aspirin Allergy Hives Verified 11/06/18 09:38 ibuprofen [From Motrin] Allergy Hives Verified 11/06/18 09:38 Penicillins Allergy Hives Verified 11/06/18 09:38 shellfish derived Allergy Hives Verified 11/06/18 09:38 ED Review of Systems ROS: Stated complaint: SEIZURE Other details as noted in HPI Constitutional: denies: fever, malaise Eyes: denies: vision change ENT: denies: epistaxis Respiratory: denies: cough Cardiovascular: denies: chest pain Genitourinary: denies: dysuria Musculoskeletal: arthralgia, myalgia Neurological: confusion. denies: weakness, numbness, paresthesias Psychiatric: denies: anxiety ED Past Medical Hx - Past Medical History Previous Medical History?: Yes Hx Hypertension: Yes Hx Diabetes: No Hx Headaches / Migraines: Yes (hx migraines) Hx Seizures: Yes Hx Psychiatric Treatment: (depression) Hx Asthma: Yes Hx HIV: No Additional medical history: Anemia - Surgical History Past Surgical History?: Yes Additional Surgical History: right knee surgery, b/l foot surgery several years ago. foot surgery 09/2015 - Social History Smoking Status: Former Smoker Substance Use Type: Prescribed - Medications Home Medications: Home Medications Medication Instructions Recorded Confirmed Last Taken Type Losartan [Cozaar] 100 mg PO QDAY 12/15/17 12/15/17 12/15/17 History diazePAM TAB [Valium] 2 mg PO Q8H PRN #12 tablet 04/10/18 Unknown Rx predniSONE [Deltasone] 3 tab PO QDAY 4 Days #12 tab 07/10/18 Unknown Rx Menthol/Camphor [[place] 1 applicatio TP QID PRN #1 tube 09/26/18 Unknown Rx Ointment] ALBUTEROL Inhaler(NF) [VENTOLIN 1 puff IH Q4HR PRN #1 inha 10/21/18 Unknown Rx Inhaler(NF)] Famotidine [Pepcid] 20 mg PO BID #30 tablet 11/04/18 Unknown Rx levETIRAcetam [Keppra TAB] 1,000 mg PO BID #60 tab 11/16/18 Unknown Rx ED Physical Exam - General Limitations: No Limitations General appearance: alert, in no apparent distress, obese, other (patient noted to be reading a book, speaking on a cellular phone, playing on a cellular phone, during her ER evaluation) - Head Head exam: Present: atraumatic, normocephalic - Eye Eye exam: Present: normal appearance, PERRL, EOMI, other (visual acuity intact to finger counting, color perception, reading at a close distance). Absent: nystagmus - ENT ENT exam: Present: normal exam, normal orophraynx, mucous membranes moist, normal external ear exam - Neck Neck exam: Present: normal inspection, tenderness (there is midline cervical spine tenderness, at/around C3, C4. No step-offs noted.) - Respiratory Respiratory exam: Present: normal lung sounds bilaterally. Absent: respiratory distress - Cardiovascular Cardiovascular Exam: Present: regular rate, normal rhythm, normal heart sounds. Absent: bradycardia, tachycardia, irregular rhythm, systolic murmur, diastolic murmur, rubs, gallop - GI/Abdominal GI/Abdominal exam: Present: soft. Absent: distended, tenderness, guarding, rebound, rigid, pulsatile mass - Extremities Exam Extremities exam: Present: normal inspection, full ROM, tenderness (the right ankle is tender on the right lateral malleolus, and right medial malleolus. There is no tenderness on the foot. The left foot is noted to be in a boot.), other (2+ pulses noted in the bilateral upper extremities, and right lower extremity. There is no long bony tenderness. There are no step-offs. The muscular compartments are soft.) - Back Exam Back exam: Present: normal inspection, full ROM. Absent: tenderness, CVA tenderness (R), paraspinal tenderness, vertebral tenderness - Neurological Exam Neurological exam: Present: alert, oriented X3, other (Extraocular movements intact. Tongue midline. No facial droop. Facial sensation intact to light touch in the V1, V2, V3 distribution bilaterally. 5 and 5 strength in 4 extremities.. Sensation is intact to light touch in 4 extremities.). Absent: motor sensory deficit - Psychiatric Psychiatric exam: Present: normal affect, normal mood - Skin Skin exam: Present: warm, dry, intact, normal color. Absent: rash ED Course Vital Signs 11/16/18 11/16/18 11/16/18 19:40 19:46 20:00 Temperature 99.1 F Pulse Rate 74 92 H 97 H Respiratory 15 Rate Blood Pressure 124/79 129/74 Blood Pressure 124/79 [Left] O2 Sat by Pulse 97 95 95 Oximetry 11/16/18 11/16/18 11/16/18 21:00 21:09 21:16 Temperature Pulse Rate 94 H 100 H Respiratory 17 24 20 Rate Blood Pressure 120/71 125/72 Blood Pressure [Left] O2 Sat by Pulse 93 99 Oximetry 11/16/18 11/16/18 11/16/18 21:39 22:34 22:46 Temperature Pulse Rate 93 H Respiratory 24 30 H Rate Blood Pressure 125/72 Blood Pressure [Left] O2 Sat by Pulse 95 98 Oximetry 11/16/18 23:00 Temperature Pulse Rate 88 Respiratory Rate Blood Pressure 119/75 Blood Pressure [Left] O2 Sat by Pulse 96 Oximetry - Reevaluation(s) Reevaluation #1: ga signal repairer aware 11/16/18 20:43 11/10/2018 2 11/10/2018 ALPRAZOLAM 1 MG TABLET 60.0 30 [place] STA [id number] ELA ([id number]) 0 [place] 10/31/2018 2 10/29/2018 OXYCODONE-ACETAMINOPHEN 10-325 120.0 30 [place] STA [id number] REBECCA ([id number]) 0 60.0 MME Comm Ins 10/31/2018 2 10/29/2018 CARISOPRODOL 350 MG TABLET 30.0 30 [place] STA [id number] REBECCA ([id number]) 0 Comm Ins 10/14/2018 1 10/14/2018 ALPRAZOLAM 1 MG TABLET 60.0 30 RI STA [id number] EXPRE ([id number]) 0 Comm Ins 10/05/2018 2 09/16/2018 OXYCODONE-ACETAMINOPHEN 10-325 120.0 30 [place] STA [id number] REBECCA ([id number]) 0 60.0 MME Comm Ins 10/05/2018 2 09/16/2018 CARISOPRODOL 350 MG TABLET 30.0 30 [place] STA [id number] REBECCA ([id number]) 0 [place] 09/16/2018 2 09/16/2018 ALPRAZOLAM 1 MG TABLET 60.0 30 [place] STA [id number] ELA ([id number]) 0 [place] 09/07/2018 2 08/16/2018 OXYCODONE-ACETAMINOPHEN 10-325 120.0 30 [place] STA [id number] REBECCA ([id number]) 0 60.0 MME Comm Ins 09/07/2018 2 08/18/2018 CARISOPRODOL 350 MG TABLET 30.0 30 [place] STA [id number] REBECCA ([id number]) 0 Comm Ins 08/24/2018 1 08/19/2018 ALPRAZOLAM 1 MG TABLET 30.0 30 RI STA [id number] EXPRE ([id number]) 0 Comm Ins 08/10/2018 2 07/20/2018 OXYCODONE-ACETAMINOPHEN 10-325 120.0 30 [place] STA [id number] REBECCA ([id number]) 0 60.0 MME Comm Ins Reevaluation #2: 11/16/18 23:21 Differential diagnosis, including but not limited to: Intracranial injury, cervical spine injury, musculoskeletal pain, right ankle sprain, strain, seizure, breakthrough seizure, medication noncompliance \\ Assessment and plan: 37-year-old female with probable breakthrough seizure, lik jocelin secondary to medication noncompliance. The patient is afebrile, with reassuring vital signs, clinically sober at this time, with a GCS of 15. Physical exam is unremarkable. She is loaded with Keppra, and her pain is treated with fentanyl. [place] prescription monitoring database is reviewed, patient on chronic pain and sedating medications, although she does not appear to be clinically impaired at this time. Noncontrast CT scan of the brain is negative, laboratory studies unremarkable, x-ray of the right ankle also unremarkable. We are waiting for CT scan of the cervical spine interpretation. Patient has been observed in the emergency room less far, for many hours, she is noted to be reading her book, without distress, and also has not had an additional convulsive event. Reevaluation #3: 11/17/18 00:37 CT scan of the cervical spine negative for acute disease. Patient appears comfortable. Patient observed in the ER for greater than 6 hours without recurrent event. Ankle pain is improved. She is counseled to expect to be sore. She is counseled to take the pain medication prescribed by her pain specialist, oxycodone, acetaminophen. Medically suitable for discharge at this point in time. She can follow up with an outpatient orthopedist for her chronic and acute ankle pain. ED Medical Decision Making - Lab Data Result diagrams: 11/16/18 20:09 11/16/18 20:09 Vital Signs 11/16/18 11/16/18 11/16/18 19:40 19:46 20:00 Temperature 99.1 F Pulse Rate 74 92 H 97 H Respiratory 15 Rate Blood Pressure 124/79 129/74 Blood Pressure 124/79 [Left] O2 Sat by Pulse 97 95 95 Oximetry 11/16/18 11/16/18 11/16/18 21:00 21:09 21:16 Temperature Pulse Rate 94 H 100 H Respiratory 17 24 20 Rate Blood Pressure 120/71 125/72 Blood Pressure [Left] O2 Sat by Pulse 93 99 Oximetry 11/16/18 21:39 Temperature Pulse Rate Respiratory 24 Rate Blood Pressure Blood Pressure [Left] O2 Sat by Pulse Oximetry Lab Results 11/16/18 11/16/18 11/16/18 Range/Units 20:04 20:09 20:09 WBC 3.0 L (4.5-11.0) K/mm3 RBC 3.37 L (3.65-5.03) M/mm3 Hgb 11.2 (10.1-14.3) gm/dl Hct 33.6 (30.3-42.9) % MCV 100 H (79-97) fl MCH 33 H (28-32) pg MCHC 33 (30-34) % RDW 16.5 H (13.2-15.2) % Plt Count 201 (140-440) K/mm3 Sodium 140 (137-145) mmol/L Potassium 4.0 (3.6-5.0) mmol/L Chloride 105.4 (98-107) mmol/L Carbon Dioxide 26 (22-30) mmol/L Anion Gap 13 mmol/L BUN 15 (7-17) mg/dL Creatinine 0.6 L (0.7-1.2) mg/dL Estimated GFR > 60 ml/min BUN/Creatinine Ratio 25 % Glucose 99 (65-100) mg/dL POC Glucose 94 (70-105) Calcium 8.4 (8.4-10.2) mg/dL - EKG Data 11/16/18 23:23 This is a normal sinus rhythm, 91 bpm, normal axis, QTC prolonged, borderline atrial enlargement, not consistent with ST elevation myocardial infarction, appears unchanged from prior EKG from 11/03/2018. This EKG is not consistent with ST elevation [place]. Of note, patient has had a negative nuclear stress test within the past year. - Radiology Data Radiology results: report reviewed, image reviewed Noncontrast CT scan of the brain is negative for acute disease. X-ray the ankle is negative for acute disease. Noncontrast CT scan of the cervical spine Critical care attestation.: If time is entered above; I have spent that time in minutes in the direct care of this critically ill patient, excluding procedure time. ED Disposition Clinical Impression: Seizure disorder, Right ankle pain, Neck pain Disposition: TO HOME OR SELFCARE Is pt being admited?: No Does the pt Need Aspirin: No Condition: Stable Additional Instructions: Do not drive or operate motor vehicles for the next 6 months. Make certain to remain compliant with Keppra medication. Noncompliance with seizure medications may result in breakthrough seizure, which in turn can cause , disability, paralysis, loss of quality of life. Weightbearing on the ankle as tolerated, take acetaminophen [id number] as needed for pain, and continue the long-term pain medications that your private neurologist has prescribed a few as needed for ankle pain, knee pain. Keep the soft collar in place, and follow up with either orthopedic surgery, spinal surgery, or neurology within the next 5-7 days for neck pain. Rest, avoid heavy lifting, strenuous physical activities, and Contact sports, athletics. Physical activity as tolerated. Avoid consumption of alcohol, and sedating substances. Return to the emergency room right away with new pain, worsened pain, migration of pain, projectile vomiting, change in mental status, confusion, inability to tolerate liquid feeds, new, worsening or different symptoms. Prescriptions: levETIRAcetam [Keppra TAB] 1,000 mg PO BID #60 tab Referrals: ASHLEY SMITH MD [Staff Physician] - 3-5 Days (spine surgery) DAVID DESAI MD [Staff Physician] - 3-5 Days (neurology/seizure/pain specialist) JANAE GUILLAUME MD [Staff Physician] - 3-5 Days (orthopedics)
[2018-11-16 20:49] LABS: BUN/Creatinine Ratio 25; Blood Urea Nitrogen 15 mg/dL (7-17); Calcium 8.4 mg/dL (8.4-10.2); Hemolysis Index 4
[2018-11-16] MEDS ORDERED: KEPPRA 1,000 MG/NS 0.75% 100ML 1,000 MG/100 ML BAG IV ONE (20:56)
[2018-11-16] MEDS ORDERED: SUBLIMAZE IV ONE (20:56)
--- NOTE | 2018-11-16 22:05 | XRay Report ---
PROCEDURE: XR ANKLE 3+V RT TECHNIQUE: Right ankle radiographs, AP, lateral, and oblique views. HISTORY: right ankle pain COMPARISONS: None . FINDINGS: Fracture (s) and/or Dislocation(s): None . Alignment: Normal . Joint space(s): Normal . Soft tissues: Normal . Bone mineralization: Normal . Foreign bodies: None . Calcaneal spurring: None . IMPRESSION: No acute abnormality. This document is electronically signed by Obey Ibrahim MD., November 16 2018 10:03:56 PM ET
--- NOTE | 2018-11-16 22:40 | Cat Scan Report ---
PROCEDURE: CT HEAD/BRAIN WO CON TECHNIQUE: CT images of the head were obtained without the use of IV contrast HISTORY: fall, seizure, amnesia COMPARISONS: 12/27/2017 FINDINGS: No CT evidence of intracranial mass, hemorrhage, acute territorial infarction, or hydrocephalus. Intr acranial arteries are symmetric in density. Calvarium is intact. Visualized paranasal sinuses and mas toids are aerated. IMPRESSION: No CT evidence of acute abnormality. This document is electronically signed by Laury Lee MD., November 16 2018 10:38:57 PM ET
[2018-11-16 23:32] VITALS: BP 119/75
--- NOTE | 2018-11-17 00:27 | Cat Scan Report ---
PROCEDURE: CT CERVICAL SPINE WO CON TECHNIQUE: Routine axial imaging was obtained of the cervical spine without IV contrast with sagitta l and coronal reconstructions. HISTORY: fall, seizure, amnesia COMPARISONS: 12/27/2017 FINDINGS: There is straightening of the usual cervical lordosis. The disc heights and alignment appear normal. The canal size is normal. The facet joints are normal in configuration. The prevertebral soft tissues and C1-C2 articulation appear intact. The surrounding soft tissues reveal secretions in the maxillar y and sphenoid sinuses bilaterally. IMPRESSION: No evidence of acute cervical spine trauma. Secretions in the maxillary and sphenoid sinuses bilaterally.. This document is electronically signed by Adam Renee MD., November 17 2018 12:25:34 AM ET
== END 2018-11-17 01:08 | disposition home or self-care (01) ==
LOC: ED 17:57
DX: G40.909 Epilepsy, unspecified, not intractable, without status epilepticus (principal); M25.571 Pain in right ankle and joints of right foot; M54.2 Cervicalgia; G43.909 Migraine, unspecified, not intractable, without status migrainosus; J45.909 Unspecified asthma, uncomplicated; F32.9 Major depressive disorder, single episode, unspecified; Z86.2 Personal history of diseases of the blood and blood-forming organs and certain disorders involving the immune mechanism; Z87.891 Personal history of nicotine dependence; Z79.899 Other long term (current) drug therapy; Z88.6 Allergy status to analgesic agent; Z88.0 Allergy status to penicillin; Z91.013 Allergy to seafood
CPT/HCPCS: 36415; 70450; 72125; 73610; 80048; 82962; 85027; 93005; 93010; 96365; 96375; 99285; J1953; J3010

== ENCOUNTER 2018-11-20 14:26 | Observation (INO) | payer MEDICAID ==
[2018-11-20] MEDS ORDERED: NACL 0.9% 1000 ML 1,000 ML IV ONE (14:54)
[2018-11-20] MEDS ORDERED: NACL 0.9% 500 ML 500 ML IV ONE (15:01)
[2018-11-20 15:24] LABS: Basophils % (Auto) 0.5 % (0.0-1.8); Eosinophils % (Auto) 0.8 % (0.0-4.3); Hematocrit 30.6 % (30.3-42.9); Hemoglobin 10.6 gm/dl (10.1-14.3); Lymphocytes # (Auto) 0.4 K/mm3 (1.2-5.4); Mean Corpuscular HGB Conc 35 % (30-34); Mean Corpuscular Volume 100 fl (79-97); Monocytes # (Auto) 0.3 K/mm3 (0.0-0.8); Monocytes % (Auto) 11.2 % (0.0-7.3); Platelet Count 186 K/mm3 (140-440); Red Blood Count 3.07 M/mm3 (3.65-5.03); Red Cell Distribution Width 16.2 % (13.2-15.2)
[2018-11-20 15:39] LABS: BUN/Creatinine Ratio 13; Blood Urea Nitrogen 8 mg/dL (7-17); Calcium 8.3 mg/dL (8.4-10.2); Hemolysis Index 10
[2018-11-20 15:53] LABS: Amphetamine Screen,Urine PRESUMPTIVE NEGATIVE; Benzodiazepines Screen,Urine PRESUMPTIVE NEGATIVE; Cannabinoid Screen,Urine PRESUMPTIVE NEGATIVE; Cocaine Screen,Urine PRESUMPTIVE NEGATIVE; Methadone Screen,Urine PRESUMPTIVE NEGATIVE; Opiate Screen,Urine PRESUMPTIVE NEGATIVE
[2018-11-20] MEDS ORDERED: KEPPRA 1,000 MG/NS 0.75% 100ML 1,000 MG/100 ML BAG IV ONE (16:00)
[2018-11-20] MEDS ORDERED: NORCO 5/325 PO ONE (16:07)
--- NOTE | 2018-11-20 16:10 | Emergency Department Report ---
HPI - General Chief Complaint: Seizure Time Seen by Provider: 11/20/18 15:58 - HPI HPI: 37 year-old female presents to the emergency department after having a seizure prior to arrival. The patient says that she was either on her way to [facility] or had just gotten there does not really remember what happened after that. She is currently awake and alert and complains of a headache and some generalized body aches. The patient has a past medical history of a seizure disorder, fibromyalgia, chronic pain, hypertension. She is on Keppra 1000 mg twice daily and says that she has been taking compliantly. Her primary care physician is a Dr. Beverly. The patient was just here about 4 days ago for a seizure and had a negative CT of the head done at that time. Prior to that, the patient says she has not had a seizure in 2 years. ED Past Medical Hx - Past Medical History Hx Hypertension: Yes Hx Diabetes: No Hx Headaches / Migraines: Yes (hx migraines) Hx Seizures: Yes Hx Psychiatric Treatment: (depression) Hx Asthma: Yes Hx HIV: No Additional medical history: Anemia - Surgical History Additional Surgical History: right knee surgery, b/l foot surgery several years ago. foot surgery 09/2015 - Social History Smoking Status: Former Smoker Substance Use Type: None - Medications Home Medications: Home Medications Medication Instructions Recorded Confirmed Last Taken Type Losartan [Cozaar] 100 mg PO QDAY 12/15/17 11/20/18 12/15/17 History diazePAM TAB [Valium] 2 mg PO Q8H PRN #12 tablet 04/10/18 11/20/18 Unknown Rx ALBUTEROL Inhaler(NF) [VENTOLIN 1 puff IH Q4HR PRN #1 inha 10/21/18 11/20/18 Unknown Rx Inhaler(NF)] Famotidine [Pepcid] 20 mg PO BID #30 tablet 11/04/18 11/20/18 Unknown Rx levETIRAcetam [Keppra TAB] 1,000 mg PO BID #60 tab 11/16/18 11/20/18 Unknown Rx ED Review of Systems ROS: Stated complaint: SEIZURES Other details as noted in HPI Comment: All other systems reviewed and negative Constitutional: denies: chills, fever Eyes: denies: eye pain, vision change ENT: denies: ear pain, throat pain Respiratory: denies: cough, shortness of breath Cardiovascular: denies: chest pain, palpitations Gastrointestinal: denies: abdominal pain, vomiting Genitourinary: denies: dysuria, discharge Musculoskeletal: myalgia. denies: back pain Skin: denies: rash, lesions Neurological: headache, other (seizure). denies: weakness, numbness Physical Exam - Physical Exam Vital Signs: Vital Signs 11/20/18 14:49 Temperature 98.6 F Pulse Rate 92 H Respiratory 18 Rate Blood Pressure 92/55 O2 Sat by Pulse 92 Oximetry Physical Exam: GENERAL: The patient is well-developed well-nourished. HEENT: Normocephalic. Atraumatic. Patient has moist mucous membranes. EYES: Extraocular motions are intact. Pupils are equal and reactive to light bilaterally. NECK: Supple. Trachea is midline. CHEST/LUNGS: Clear to auscultation. There is no respiratory distress noted. HEART/CARDIOVASCULAR: Regular. There is no tachycardia. There is no obvious murmur. ABDOMEN: Abdomen is soft, nontender. Patient has normal bowel sounds. There is no abdominal distention. SKIN: Skin is warm and dry. NEURO: The patient is awake, alert, and oriented. The patient is cooperative. The patient has no focal neurologic deficits. The patient has normal speech. Cranial nerves II through XII grossly intact. No pronator drip. No facial asymmetry. MUSCULOSKELETAL: There is no tenderness or deformity. There is no limitation range of motion. There is no evidence of acute injury. ED Course Vital Signs 11/20/18 14:49 Temperature 98.6 F Pulse Rate 92 H Respiratory 18 Rate Blood Pressure 92/55 O2 Sat by Pulse 92 Oximetry - Reevaluation(s) Reevaluation #1: 11/20/18 18:02 Patient does experience some seizure-like activity. With her history of seizure disorder, the patient was given some Ativan. Seizures have now stopped and the patient may be in a postictal state. ED Medical Decision Making - Lab Data Result diagrams: 11/20/18 15:00 11/20/18 15:00 - Radiology Data Radiology results: report reviewed PROCEDURE: CT HEAD/BRAIN WO CON TECHNIQUE: Axial helical imaging from the skull base to the vertex. HISTORY: seizures COMPARISONS: Head CT dated November 16, 2018 FINDINGS: There is no evidence of an acute intracranial process, intracranial hemorrhage or mass effect. The ventricles are normal size. The visualized portions of the orbits, paranasal and mastoid sinuses are notable for mild to moderate bilateral maxillary and sphenoid sinus mucosal thickening with an air- fluid level in the sphenoid sinus. The bony structures are unremarkable. There is no evidence of fracture. There is moderate to marked prominence of the adenoids. This is similar in appearance to the previous study. IMPRESSION: 1. No evidence of an acute intracranial process, intracranial hemorrhage or mass effect. 2. Paranasal sinus mucosal thickening with an air-fluid level in sphenoid sinus. This may represent changes of acute sinusitis. 3. Moderate to marked prominence of the adenoids. 4. No evidence of fracture. This document is electronically signed by Radha Flores MD., November 20 2018 07:34:18 PM ET Transcribed By: ED Dictated By: RADHA FLORES MD Electronically Authenticated By: RADHA FLORES MD Signed Date/Time: 11/20/181935 - Medical Decision Making This patient presents to the emergency department after having a seizure prior to presentation. However the patient also had some seizure-like activity once in the emergency department. She does apparently have a seizure disorder for which he takes Keppra by also think there could be a chance that the seizure- like activity witnessed here in the department was more likely to be pseudoseizures. A CT of the head was done and does not show any bleed, shift, mass, ischemia or any other acute process. Patient's labs are grossly unremarkable except for some low magnesium level which was replaced with 1 g of magnesium sulfate. She was loaded with a gram of Keppra and she was given some Ativan when the seizure-like activity began. The patient's pain control physician is also her neurologist and has privileges at this hospital. She will be admitted to the hospital for further evaluation and treatment and was acce pted by the hospitalist, Dr. Cardoso. - Differential Diagnosis epilepsy, pseudoseizures, electrolyte abnormalities, TIA Critical Care Time: No Critical care attestation.: If time is entered above; I have spent that time in minutes in the direct care of this critically ill patient, excluding procedure time. ED Disposition Clinical Impression: Seizure disorder, Recurrent seizures, Hypomagnesemia Disposition: [id number] OP ADMIT IP TO THIS HOSP Is pt being admited?: Yes Condition: Fair Time of Disposition: 20:52
[2018-11-20] MEDS ORDERED: MAGNESIUM SULFATE 1 GM in NACL 0.9% 50 ML IV ONE (16:30)
[2018-11-20] MEDS ORDERED: SUBLIMAZE IV ONE (17:43)
[2018-11-20] MEDS ORDERED: ATIVAN ONE (17:55)
[2018-11-20] MEDS ORDERED: ATIVAN IV ONE (17:59)
--- NOTE | 2018-11-20 19:36 | Cat Scan Report ---
PROCEDURE: CT HEAD/BRAIN WO CON TECHNIQUE: Axial helical imaging from the skull base to the vertex. HISTORY: seizures COMPARISONS: Head CT dated November 16, 2018 FINDINGS: There is no evidence of an acute intracranial process, intracranial hemorrhage or mass effect. The ventricles are normal size. The visualized portions of the orbits, paranasal and mastoid sinuses are notable for mild to moderate bilateral maxillary and sphenoid sinus mucosal thickening with an air-fluid level in the sphenoid si nus. The bony structures are unremarkable. There is no evidence of fracture. There is moderate to marked prominence of the adenoids. This is similar in appearance to the previous study. IMPRESSION: 1. No evidence of an acute intracranial process, intracranial hemorrhage or mass effect. 2. Paranasal sinus mucosal thickening with an air-fluid level in sphenoid sinus. This may represent c hanges of acute sinusitis. 3. Moderate to marked prominence of the adenoids. 4. No evidence of fracture. This document is electronically signed by Radha Flores MD., November 20 2018 07:34:18 PM ET
[2018-11-20] MEDS ORDERED: ZOFRAN IV PRN (21:55)
[2018-11-20] MEDS ORDERED: SODIUM CHLORIDE FLUSH SYRINGE 10 ML IV PRN (21:55)
[2018-11-20] MEDS ORDERED: DILAUDID IV PRN (21:55)
[2018-11-20] MEDS ORDERED: TYLENOL PO PRN (21:55)
[2018-11-20] MEDS ORDERED: PEPCID IV SCH (22:00)
[2018-11-20] MEDS ORDERED: D5NS 1,000 ML IV SCH (22:00)
[2018-11-20] MEDS: SODIUM CHLORIDE FLUSH SYRINGE 10 ML IV SCH (23:05)
[2018-11-20] MEDS: VIMPAT 100 MG in NACL 0.9% 100 ML IV SCH (23:05)
[2018-11-20] MEDS: PERCOCET 5/325 PO PRN (23:14)
[2018-11-21] MEDS ORDERED: KEPPRA 1,000 MG in NACL 0.9% 100 ML IV SCH (04:00)
[2018-11-21 05:57] LABS: Mean Corpuscular HGB Conc 34 % (30-34); Mean Corpuscular Volume 101 fl (79-97); Platelet Count 194 K/mm3 (140-440); Red Blood Count 3.26 M/mm3 (3.65-5.03)
[2018-11-21] MEDS ORDERED: PROAIR IH PRN (06:41)
[2018-11-21] MEDS ORDERED: VALIUM PO PRN (06:41)
--- NOTE | 2018-11-21 06:45 | Event Note ---
Date: 11/20/18 See H/p in reports Recurrent seizures Htn Asthma Added Vimpat IV Pt follows with Dr Perez
[2018-11-21] MEDS ORDERED: PROVENTIL IH PRN (06:51)
[2018-11-21 06:58] LABS: Alanine Aminotransferase 23 units/L (7-56); Albumin 3.6 g/dL (3.9-5); BUN/Creatinine Ratio 12; Blood Urea Nitrogen 7 mg/dL (7-17); Calcium 8.1 mg/dL (8.4-10.2); Hemolysis Index 6
[2018-11-21] MEDS: PERCOCET 5/325 PO PRN ×2 (07:05→12:58)
--- NOTE | 2018-11-21 07:13 | History and Physical Report ---
CHIEF COMPLAINT: Seizures prior to arrival. HISTORY OF PRESENT ILLNESS: A 37-year-old female with history of seizures, comes in for recurrent seizures. Two episodes of seizure prior to the Emergency Room. In the Emergency Room, apparently 3 episodes of tonic-clonic convulsions. The last seizures where 2 years ago. The patient states that she is compliant with p.o. Keppra. No noncompliance. The patient apparently had seizure 4 days ago, which she does not mention. PAST MEDICAL HISTORY: As mentioned, hypertension, seizure disorder, asthma and anemia. PAST SURGICAL HISTORY: Right knee surgery, bilateral foot surgery at the age of 3. SOCIAL HISTORY: Former smoker. FAMILY HISTORY: Hypertension. CURRENT MEDICATIONS: Losartan 100 mg once a day, Keppra 1000 mg twice a day. REVIEW OF SYSTEMS: Significant for recurrent seizures in the last 24 hours. Slightly postictal. Otherwise, no symptoms. A 14-point review of systems done. PHYSICAL EXAMINATION: GENERAL: A young female, cooperative during examination, able to give history. VITAL SIGNS: Temperature 98.6. Pulse is 108. Respirations are 18, blood pressure 136/76. HEENT: Unremarkable. Pupils equal and reactive. NECK: Supple, no lymphadenopathy, no thyromegaly. LUNGS: Clear to auscultation and percussion. Good air entry. CARDIOVASCULAR SYSTEM: S1, S2 heard. No gallop, no murmur, no rub. Apical impulse in left fifth intercostal space in midclavicular line. ABDOMEN: Soft and benign. No hepatosplenomegaly. No guarding, no rigidity. Hernial orifices are normal. EXTREMITIES: Good pedal pulses. No pedal edema. CENTRAL NERVOUS SYSTEM: Nonfocal exam. Alert and oriented. Slightly fatigued. LABORATORY DATA: Significant for white count of 2700, H and H of 10.6 and 30.6, platelet count of 186,000. Electrolytes are normal. Magnesium is low 1.5. Calcium is 8.3. Urine drug screen was negative. DIAGNOSTIC DATA: Head CT was no acute findings. Paranasal sinus mucosal thickening with air fluid level in the sphenoid sinus present. Moderate to marked prominence of the adenoids. No evidence of fracture. ASSESSMENT AND PLAN: 1. Uncontrolled seizure disorder. The patient's Keppra was increased to 1000 mg q. 12. IV Keppra initiated. To be transitioned to p.o. Keppra. The patient follows with Dr. Dunne. Dr. Dunne was asked to see the patient as a Neurology consult. IV Vimpat was added. To be transitioned to p.o. Vimpat if Dr. Dunne agrees. 2. Hypertension. Continue antihypertensives. 3. Asthma. Continue albuterol p.r.n. 4. Deep venous thrombosis prophylaxis, Lovenox 40 mg subcutaneous daily. JOB# [id number] PEACE/NTS
[2018-11-21 07:37] LABS: Basophils % (Manual) 0 % (0.0-1.8); Eosinophils % (Manual) 0 % (0.0-4.3); Total Cells Counted 100
[2018-11-21 07:38] LABS: Target Cells Rare
[2018-11-21 07:39] LABS: Tear Drop Cells Rare
[2018-11-21 07:40] LABS: Platelet Estimate Consistent w Auto
[2018-11-21] MEDS: SODIUM CHLORIDE FLUSH SYRINGE 10 ML IV SCH (09:03)
[2018-11-21] MEDS: VIMPAT 100 MG in NACL 0.9% 100 ML IV SCH (09:21)
[2018-11-21] MEDS ORDERED: NON-FORMULARY (Losartan [Cozaar] 100 MG) PO SCH (10:00)
[2018-11-21] MEDS ORDERED: COZAAR PO SCH (10:00)
[2018-11-21] MEDS ORDERED: PEPCID PO SCH (10:00)
--- NOTE | 2018-11-21 10:12 | Progress Note ---
Subjective Date of service: 11/21/18 Interval history: went over the ED note and did see that the potassium is low she has been on keppra therapy the spells as described is no typical she has negative CT of the head at this point lab's are ordered Thanks Objective - Vital Sign Vital Signs - 12hr 11/21/18 11/21/18 11/21/18 05:36 08:46 09:03 Temperature 98.4 F Pulse Rate 96 H Respiratory 24 Rate Blood Pressure 151/93 116/79 116/79 O2 Sat by Pulse 98 Oximetry 11/21/18 09:42 Temperature Pulse Rate Respiratory Rate Blood Pressure O2 Sat by Pulse 97 Oximetry - Laboratory Findings CBC and BMP: 11/21/18 05:29 11/21/18 05:29 Abnormal Lab Findings: Abnormal Labs 11/20/18 11/20/18 11/20/18 15:00 15:00 15:06 WBC 2.7 L RBC 3.07 L MCV 100 H MCH 34 H MCHC 35 H RDW 16.2 H [place] % (Auto) 11.2 H Lymph # 0.4 L Seg Neutrophils % 73.5 H Seg Neuts % (Manual) Nucleated RBC % Seg Neutrophils # Man Lymphocytes # (Manual) Chloride Creatinine 0.6 L Calcium 8.3 L Magnesium 1.50 L Albumin 11/21/18 11/21/18 05:29 05:29 WBC 2.3 L RBC 3.26 L MCV 101 H MCH 34 H MCHC RDW 17.0 H [place] % (Auto) Lymph # Seg Neutrophils % Seg Neuts % (Manual) 74.0 H Nucleated RBC % 1.0 H Seg Neutrophils # Man 1.7 L Lymphocytes # (Manual) 0.5 L Chloride 107.6 H Creatinine 0.6 L Calcium 8.1 L Magnesium Albumin 3.6 L
[2018-11-21 11:47] VITALS: BP 92/57
--- NOTE | 2018-11-21 14:50 | Consultation ---
HISTORY OF PRESENT ILLNESS: This is a 37-year-old black female, who ordinarily followed in the office. She presented to the Emergency Room for a seizure and was admitted subsequently. Plan to review my office notes. We will check blood levels. We will monitor the situation further. PAST MEDICAL HISTORY: Asthma, depression. Review of the Emergency Room note indicates that she was on her way to the [facility] and then she had difficulty with remembering, had a headache, generalized body aches. She has been taking Keppra twice daily, had a negative CT scan in the past. When she presented, her blood pressure is 92/55, pulse rate is 92. The patient had a low potassium at 2.7. PHYSICAL EXAMINATION: Reveals the patient to be alert, responsive. Affect is appropriate. Speech is clear. Motor and sensory examination was otherwise unremarkable. She is fully conscious and alert, but no focal motor weakness is noted. IMPRESSION: Generalized seizure disorder, history of depression, low potassium. CT scan of the head at this point is negative. PLAN: I review my outpatient office notes to make further recommendations. Obviously is worthwhile getting a Keppra blood level. We will get an MRI scan of the EEG once available. JOB# [id number] NELSY/NTS
--- NOTE | 2018-11-21 15:28 | Discharge Summary ---
Providers - Providers Date of Admission: 11/20/18 18:56 Date of discharge: 11/21/18 Attending physician: JESICA BRUNSON 11/20/18 21:55 Consult to Physician [CONS] Routine Comment: Consulting Provider: DAVID DESAI Physician Instructions: Reason For Exam: Seizures Primary care physician: [facility] Hospitalization Condition: Fair Hospital course: Seizures well controlled Discharge on Vimpat and Keppra 1000 po q12 F/u with Dr Guillen Disposition: DC-01 TO HOME OR SELFCARE Core Measure Documentation - Palliative Care Palliative Care/ Comfort Measures: Not Applicable - Core Measures Any of the following diagnoses?: none Exam - Constitutional Vitals: Temp Pulse Resp BP Pulse Ox 98.2 F 89 16 92/57 97 11/21/18 11:22 11/21/18 11:22 11/21/18 11:22 11/21/18 11:22 11/21/18 11:22 General appearance: Present: no acute distress, well-nourished - EENT Eyes: Present: PERRL ENT: hearing intact, clear oral mucosa - Neck Neck: Present: supple, normal ROM - Respiratory Respiratory effort: normal Respiratory: bilateral: CTA - Cardiovascular Heart Sounds: Present: S1 & S2. Absent: rub, click - Extremities Extremities: pulses symmetrical, No edema Peripheral Pulses: within normal limits - Abdominal General gastrointestinal: Present: soft, non-tender, non-distended, normal bowel sounds Female genitourinary: Present: normal - Integumentary Integumentary: Present: clear, warm, dry - Musculoskeletal Musculoskeletal: gait normal, strength equal bilaterally - Psychiatric Psychiatric: appropriate mood/affect, intact judgment & insight - Neurologic Neurologic: CNII-XII intact, moves all extremities Plan Activity: no restrictions Diet: regular Follow up with: MAK MANCINI MD [Primary Care Provider] - 3-5 Days DAVID DESAI MD [Staff Physician] - 7 Days
== END 2018-11-21 16:00 | disposition home or self-care (01) ==
LOC: ED 14:26 → 3A 18:40 → UNDOADMOB 18:40 → 3A 18:56
PROVIDERS: ADMIT Internal Medicine; ATTEND Internal Medicine
DX: G40.909 Epilepsy, unspecified, not intractable, without status epilepticus (principal); I10 Essential (primary) hypertension; J45.909 Unspecified asthma, uncomplicated; F32.9 Major depressive disorder, single episode, unspecified; G43.909 Migraine, unspecified, not intractable, without status migrainosus; Z87.891 Personal history of nicotine dependence; Z79.899 Other long term (current) drug therapy
CPT/HCPCS: 36415; 70450; 80048; 80053; 80177; 80307; 83036; 83735; 84703; 85007; 85025; 93005; 93010; 96365; 96366; 96367; 96375; 96376; 99284; C9254; G0378; J1953; J2060; J3010; J3475; J7040; J7042

== ENCOUNTER 2018-12-31 12:10 | Emergency (ER) | payer MEDICAID ==
[2018-12-31] MEDS ORDERED: KEPPRA 1,000 MG/NS 0.75% 100ML 1,000 MG/100 ML BAG IV ONE (12:48)
[2018-12-31] MEDS ORDERED: FIORICET PO ONE (12:56)
--- NOTE | 2018-12-31 13:02 | Emergency Department Report ---
HPI - General Chief Complaint: Seizure Time Seen by Provider: 12/31/18 12:47 - HPI HPI: Room 24 The patient is a 38-year-old female presenting with a chief complaint seizure. The patient has a history of epilepsy and says she's been compliant with her Keppra. The patient states this afternoon she is postop foam in her next memory is waking up on the ground with people around her. A witness at the bus stop stated patient seized for approximately 30 seconds. Patient now complains of headache which she states is unusual after her seizures. The patient states her last seizure occurred approximately one month ago. Location: Head, Duration: [See above] Quality: Pain Severity: 05/20 Modifying factors: [see above] Context: [see above] Mode of transportation: [not driving] ED Past Medical Hx - Past Medical History Hx Hypertension: Yes Hx Headaches / Migraines: Yes (hx migraines) Hx Seizures: Yes Hx Psychiatric Treatment: (depression) Hx Asthma: Yes Additional medical history: Anemia - Surgical History Past Surgical History?: No Additional Surgical History: right knee surgery, b/l foot surgery several years ago. foot surgery 09/2015 - Family History Family history: no significant - Social History Smoking Status: Never Smoker Substance Use Type: None (denies illicit drug use) - Medications Home Medications: Home Medications Medication Instructions Recorded Confirmed Last Taken Type Losartan [Cozaar] 100 mg PO QDAY 12/15/17 11/20/18 12/15/17 History diazePAM TAB [Valium] 2 mg PO Q8H PRN #12 tablet 04/10/18 11/20/18 Unknown Rx ALBUTEROL Inhaler(NF) [VENTOLIN 1 puff IH Q4HR PRN #1 inha 10/21/18 11/20/18 Unknown Rx Inhaler(NF)] Famotidine [Pepcid] 20 mg PO BID #30 tablet 11/04/18 11/20/18 Unknown Rx Lacosamide [Vimpat] 150 mg PO BID #60 tablet 11/21/18 Unknown Rx levETIRAcetam [Keppra] 1,000 mg PO Q12H #60 tablet 11/21/18 Unknown Rx levETIRAcetam [Keppra TAB] 1,000 mg PO BID #60 tab 12/31/18 Unknown Rx ED Review of Systems ROS: Stated complaint: LOC Other details as noted in HPI Constitutional: no symptoms reported Eyes: denies: eye pain ENT: denies: throat pain Respiratory: no symptoms reported Cardiovascular: denies: chest pain Endocrine: no symptoms reported Gastrointestinal: denies: abdominal pain Genitourinary: denies: dysuria Musculoskeletal: myalgia Neurological: headache Physical Exam - Physical Exam Vital Signs: Vital Signs 12/31/18 12:11 Temperature 98.5 F Pulse Rate 89 Respiratory 15 Rate Blood Pressure 119/67 O2 Sat by Pulse 96 Oximetry Physical Exam: GENERAL: The patient is well-developed well-nourished female lying on stretcher not appearing to be in acute distress. [] HEENT: Normocephalic. Atraumatic. Extraocular motions are intact. Patient has moist mucous membranes. NECK: Supple. There is mild axial tenderness to palpation. No axial step offs CHEST/LUNGS: Clear to auscultation. There is no respiratory distress noted. HEART/CARDIOVASCULAR: Regular. There is no tachycardia. There is no gallop rub or murmur. ABDOMEN: Abdomen is soft, nontender. Patient has normal bowel sounds. There is no abdominal distention. SKIN: There is no rash. There is no edema. There is no diaphoresis. NEURO: The patient is awake, alert, and oriented. The patient is cooperative. The patient has no focal neurologic deficits. The patient has normal speech. Cranial nerves II through XII grossly intact, no drift MUSCULOSKELETAL: There is no limitation range of motion. ED Course Vital Signs 12/31/18 12:11 Temperature 98.5 F Pulse Rate 89 Respiratory 15 Rate Blood Pressure 119/67 O2 Sat by Pulse 96 Oximetry - Reevaluation(s) Reevaluation #1: 12/31/18 18:05 Patient had apparent pseudoseizure-like activity. The patient stopped "shaking" when instructed ED Medical Decision Making - Lab Data Result diagrams: 12/31/18 13:00 12/31/18 13:00 Laboratory Tests 12/31/18 12/31/18 12/31/18 13:00 13:00 13:00 WBC 2.4 L RBC 3.21 L Hgb 10.8 Hct 32.5 MCV 101 H MCH 34 H MCHC 33 RDW 18.1 H Plt Count 189 Lymph % (Auto) 18.0 [place] % (Auto) 10.7 H Eos % (Auto) 0.8 Baso % (Auto) 1.0 Lymph # 0.4 L [place] # 0.3 Eos # 0.0 Baso # 0.0 Seg Neutrophils % 69.5 Seg Neutrophils # 1.7 L Sodium 137 Potassium 4.3 Chloride 101.5 Carbon Dioxide 25 Anion Gap 15 BUN 10 Creatinine 0.6 L Estimated GFR > 60 BUN/Creatinine Ratio 17 Glucose 91 Calcium 8.3 L Magnesium 1.50 L HCG, Qual Negative - Radiology Data Radiology results: report reviewed (CT head, CT cervical spine), image reviewed (CT head, CT cervical spine) [address] [address] Cat Scan Report Signed Patient: KATE ZHENG MR #: [id number] : 1980 Acct:[id number] Age/Sex: 38 / F ADM Date: 12/31/18 Loc: ED Attending Dr: Ordering Physician: HERMINIA STRATTON MD Date of Service: 12/31/18 Procedure(s): CT head/brain wo con Accession Number(s): [id number] cc: HERMINIA STRATTON MD PROCEDURE: CT HEAD/BRAIN WO CON TECHNIQUE: Computerized tomography of the head was performed without contrast material. CT DOSE LENGTH PRODUCT: 920.5 mGycm HISTORY: headache after seizure COMPARISONS: 11/20/2018 . FINDINGS: Interval clearing of paranasal sinuses. No acute air-fluid level visualized in the included air-filled sinuses. Bone windows demonstrate no acute fracture. The brain is without mass, mass effect, hemorrhage, or acute infarct. There is no extra-axial intracranial bleed, brain bleed, or midline shift. The ventricles and sulci are age-appropriate. IMPRESSION: No acute CVA, intracranial bleed, or brain mass This document is electronically signed by Robert Barnett MD., Dec 31 2018 02:24:51 PM ET Transcribed By: HARSHA Dictated By: ROBERT BARNETT MD Electronically Authenticated By: ROBERT BARNETT MD Signed Date/Time: 12/31/18 1426 DD/ 10 TD/TT: 12/31/[address] [address] Cat Scan Report Signed Patient: KATE ZHENG MR #: [id number] : 1980 Acct:[id number] Age/Sex: 38 / F ADM Date: 12/31/18 Loc: ED Attending Dr: Ordering Physician: HERMINIA STRATTON MD Date of Service: 12/31/18 Procedure(s): CT cervical spine wo con Accession Number(s): [id number] cc: HERMINIA STRATTON MD PROCEDURE: CT CERVICAL SPINE WO CON TECHNIQUE: Computerized tomography of the cervical spine was performed from the skull base to T1 without contrast material. CT DOSE LENGTH PRODUCT: 619.9 mGycm HISTORY: pain after seizure COMPARISONS: CT of the cervical spine performed on 11/16/2018 . FINDINGS: Straightening and mild reversal of the normal lordosis of the cervical spine. The paravertebral soft tissues are normal. Airways patent. C1-2: No significant abnormality . C2-3: No significant abnormality . C3-4: No significant abnormality . C4-5: No significant abnormality . C5-6: No significant abnormality . C6-7: No significant abnormality . C7-T1: No significant abnormality . Fractures: None . Other: No additional findings . IMPRESSION: No acute bony abnormality of the cervical spine . This document is electronically signed by Charu Reese MD., Dec 31 2018 02:48:23 PM ET Transcribed By: TASNEEM Dictated By: CHARU REESE MD Electronically Authenticated By: CHARU REESE MD Signed Date/Time: 12/31/18 145 DD/ 11 TD/TT: 12/31/181411 - Differential Diagnosis seizure Critical care attestation.: If time is entered above; I have spent that time in minutes in the direct care of this critically ill patient, excluding procedure time. ED Disposition Clinical Impression: Seizure Disposition: DC-01 TO HOME OR SELFCARE Is pt being admited?: No Does the pt Need Aspirin: No Condition: Stable Instructions: Epilepsy (ED) Additional Instructions: Return to the emergency department immediately should you develop worsening symptoms, fever, inability to tolerate food or liquid or any other concerns. Prescriptions: levETIRAcetam [Keppra TAB] 1,000 mg PO BID #60 tab Referrals: MARIVEL WILLS MD [Primary Care Provider] - 3-5 Days DAVID DESAI MD [Staff Physician] - 3-5 Days Time of Disposition: 18:07
[2018-12-31 13:16] LABS: Eosinophils % (Auto) 0.8 % (0.0-4.3); Hematocrit 32.5 % (30.3-42.9); Hemoglobin 10.8 gm/dl (10.1-14.3); Lymphocytes # (Auto) 0.4 K/mm3 (1.2-5.4); Mean Corpuscular HGB Conc 33 % (30-34); Mean Corpuscular Volume 101 fl (79-97); Monocytes # (Auto) 0.3 K/mm3 (0.0-0.8); Monocytes % (Auto) 10.7 % (0.0-7.3); Platelet Count 189 K/mm3 (140-440); Red Blood Count 3.21 M/mm3 (3.65-5.03); Red Cell Distribution Width 18.1 % (13.2-15.2)
[2018-12-31 13:35] LABS: BUN/Creatinine Ratio 17; Blood Urea Nitrogen 10 mg/dL (7-17); Calcium 8.3 mg/dL (8.4-10.2); Hemolysis Index 15
--- NOTE | 2018-12-31 14:26 | Cat Scan Report ---
PROCEDURE: CT HEAD/BRAIN WO CON TECHNIQUE: Computerized tomography of the head was performed without contrast material. CT DOSE LENGTH PRODUCT: 920.5 mGycm HISTORY: headache after seizure COMPARISONS: 11/20/2018 . FINDINGS: Interval clearing of paranasal sinuses. No acute air-fluid level visualized in the included air-fille d sinuses. Bone windows demonstrate no acute fracture. The brain is without mass, mass effect, hemorrhage, or acute infarct. There is no extra-axial intracranial bleed, brain bleed, or midline shift. The ventricles and sulci are age-appropriate. IMPRESSION: No acute CVA, intracranial bleed, or brain mass This document is electronically signed by Robert Barnett MD., Dec 31 2018 02:24:51 PM ET
[2018-12-31] MEDS ORDERED: ATIVAN ONE (14:27)
[2018-12-31] MEDS ORDERED: ATIVAN IM PRN (14:30)
[2018-12-31] MEDS ORDERED: AMMONIA INHALANT IH ONE ×2 (14:30→14:34)
--- NOTE | 2018-12-31 14:50 | Cat Scan Report ---
PROCEDURE: CT CERVICAL SPINE WO CON TECHNIQUE: Computerized tomography of the cervical spine was performed from the skull base to T1 wit hout contrast material. CT DOSE LENGTH PRODUCT: 619.9 mGycm HISTORY: pain after seizure COMPARISONS: CT of the cervical spine performed on 11/16/2018 . FINDINGS: Straightening and mild reversal of the normal lordosis of the cervical spine. The paravertebral soft tissues are normal. Airways patent. C1-2: No significant abnormality . C2-3: No significant abnormality . C3-4: No significant abnormality . C4-5: No significant abnormality . C5-6: No significant abnormality . C6-7: No significant abnormality . C7-T1: No significant abnormality . Fractures: None . Other: No additional findings . IMPRESSION: No acute bony abnormality of the cervical spine . This document is electronically signed by Charu Walker MD., Dec 31 2018 02:48:23 PM ET
[2018-12-31] MEDS ORDERED: MAGNESIUM SULFATE 2GM/50ML 2 GM/50 ML BAG IV ONE (15:09)
[2018-12-31] MEDS ORDERED: NACL 0.9% 1000 ML 1,000 ML IV ONE (16:34)
[2018-12-31] MEDS ORDERED: NACL 0.9% 1000 ML 1,000 ML ONE (16:35)
[2018-12-31 17:45] VITALS: BP 92/42
== END 2018-12-31 18:30 | disposition home or self-care (01) ==
LOC: ED 12:10
DX: R56.9 Unspecified convulsions (principal); I10 Essential (primary) hypertension; G43.909 Migraine, unspecified, not intractable, without status migrainosus; J45.909 Unspecified asthma, uncomplicated; Z88.8 Allergy status to other drugs, medicaments and biological substances; Z88.6 Allergy status to analgesic agent; Z88.0 Allergy status to penicillin; Z91.013 Allergy to seafood
CPT/HCPCS: 36415; 70450; 72125; 80048; 83735; 84703; 85025; 96361; 96365; 96375; 99285; J1953; J2060; J3475; J7030

== ENCOUNTER 2019-01-31 14:21 | Emergency (ER) | payer MEDICAID ==
--- NOTE | 2019-01-31 14:27 | Event Note ---
ED Screening Note ED Screening Note: pt presents with left sided CP that began 3 days ago states the pain is constant sharp, stabbing has associated N/V had before and states muscle strain worse with movement states she cannot lay all the way down no lifting +SOB PMHx asthma, HTN, anemia, seizures allergy: motrin/aspirin-swelling, PCN-swelling/rash former smoker, states quit week ago no ETOH no drug use This initial assessment/diagnostic orders/clinical plan/treatment(s) is/are subject to change based on patients health status, clinical progression and re- assessment by fellow clinical providers in the ED. Further treatment and workup at subsequent clinical providers discretion. Patient/guardian urged not to elope from the ED as their condition may be serious if not clinically assessed and managed. Initial orders include: CP protocol
[2019-01-31 15:36] LABS: Basophils # (Auto) 0.1 K/mm3 (0.0-0.1); Basophils % (Auto) 1.9 % (0.0-1.8); Eosinophils % (Auto) 0.5 % (0.0-4.3); Hematocrit 32.4 % (30.3-42.9); Lymphocytes # (Auto) 0.5 K/mm3 (1.2-5.4); Lymphocytes % (Auto) 18.7 % (13.4-35.0); Mean Corpuscular HGB Conc 34 % (30-34); Mean Corpuscular Volume 102 fl (79-97); Monocytes # (Auto) 0.3 K/mm3 (0.0-0.8); Monocytes % (Auto) 11.4 % (0.0-7.3); Platelet Count 215 K/mm3 (140-440); Red Blood Count 3.19 M/mm3 (3.65-5.03); Red Cell Distribution Width 18.8 % (13.2-15.2)
--- NOTE | 2019-01-31 15:36 | XRay Report ---
PROCEDURE: XR CHEST ROUTINE 2V TECHNIQUE: PA and lateral chest radiographs were obtained. HISTORY: CP COMPARISONS: None. FINDINGS: Frontal and lateral views of the chest were acquired and compared to the prior examination of July 10, 2018. The heart is normal in size. The lungs appear clear. The pleura and mediastinum are within normal patel its. IMPRESSION: No active disease in the chest This document is electronically signed by Tomy Bowling MD., January 31 2019 03:34:48 PM ET
[2019-01-31 16:15] LABS: BUN/Creatinine Ratio 17; Blood Urea Nitrogen 10 mg/dL (7-17); Calcium 8.5 mg/dL (8.4-10.2); Hemolysis Index 9
--- NOTE | 2019-01-31 17:37 | Emergency Department Report ---
<RAJ BELTRE - Last Filed: 01/31/19 17:34> ED Chest Pain HPI - General Chief Complaint: Chest Pain Stated Complaint: CHEST PAIN Time Seen by Provider: 01/31/19 14:24 Source: patient, EMS Mode of arrival: Wheelchair Limitations: No Limitations - History of Present Illness Initial Comments: Patient is a 38-year-old [place] female who is presenting with constant chest pain in the left chest and center chest for the past 3 days. Patient states she was moving and daughter and after watching a movie she left the movie theater became very nauseous and started having sharp chest pains have persisted since then. Patient states she's had nausea vomiting as well numerous times. He says she has some upper abdominal discomfort as well. She denies any cough cold congestion fevers or chills. She states there is no pleuritic component. Patient has had similar pains throughout the last year but has not been diagnosed with anything in particular. She had a stress test in October of this year that was negative. - Related Data Home Medications Medication Instructions Recorded Confirmed Last Taken Losartan [Cozaar] 100 mg PO QDAY 12/15/17 11/20/18 12/15/17 Previous Rx's Medication Instructions Recorded Last Taken Type diazePAM TAB [Valium] 2 mg PO Q8H PRN #12 tablet 04/10/18 Unknown Rx ALBUTEROL Inhaler(NF) [VENTOLIN 1 puff IH Q4HR PRN #1 inha 10/21/18 Unknown Rx Inhaler(NF)] Famotidine [Pepcid] 20 mg PO BID #30 tablet 11/04/18 Unknown Rx Lacosamide [Vimpat] 150 mg PO BID #60 tablet 11/21/18 Unknown Rx levETIRAcetam [Keppra] 1,000 mg PO Q12H #60 tablet 11/21/18 Unknown Rx levETIRAcetam [Keppra TAB] 1,000 mg PO BID #60 tab 12/31/18 Unknown Rx Hyoscyamine Subl [Levsin Sl 0.125 0.125 mg SL Q4HR PRN #20 tablet 01/31/19 Unkno wn Rx TAB] Ondansetron [Zofran Odt] 4 mg PO Q8HR #10 tab.rapdis 01/31/19 Unknown Rx Allergies Allergy/AdvReac Type Severity Reaction Status Date / Time aspirin Allergy Hives Verified 01/31/19 14:23 ibuprofen [From Motrin] Allergy Hives Verified 01/31/19 14:23 ketorolac [From Toradol] Allergy Unknown Verified 01/31/19 18:40 Penicillins Allergy Hives Verified 01/31/19 14:23 shellfish derived Allergy Hives Verified 01/31/19 14:23 Heart Score - HEART Score History: Slightly suspicious EKG: Normal Age: < 45 Risk factors: 1-2 risk factors Troponin: < normal limit HEART Score: 1 ED Review of Systems Comment: All other systems reviewed and negative ED Past Medical Hx - Past Medical History Hx Hypertension: Yes Hx Diabetes: No Hx Headaches / Migraines: Yes (hx migraines) Hx Seizures: Yes Hx Psychiatric Treatment: Yes (depression) Hx Asthma: Yes Hx HIV: No Additional medical history: Anemia - Surgical History Additional Surgical History: right knee surgery, b/l foot surgery several years ago. foot surgery 09/2015 - Social History Smoking Status: Former Smoker Substance Use Type: None - Medications Home Medications: Home Medications Medication Instructions Recorded Confirmed Last Taken Type Losartan [Cozaar] 100 mg PO QDAY 12/15/17 11/20/18 12/15/17 History diazePAM TAB [Valium] 2 mg PO Q8H PRN #12 tablet 04/10/18 11/20/18 Unknown Rx ALBUTEROL Inhaler(NF) [VENTOLIN 1 puff IH Q4HR PRN #1 inha 10/21/18 11/20/18 Unknown Rx Inhaler(NF)] Famotidine [Pepcid] 20 mg PO BID #30 tablet 11/04/18 11/20/18 Unknown Rx Lacosamide [Vimpat] 150 mg PO BID #60 tablet 11/21/18 Unknown Rx levETIRAcetam [Keppra] 1,000 mg PO Q12H #60 tablet 11/21/18 Unknown Rx levETIRAcetam [Keppra TAB] 1,000 mg PO BID #60 tab 12/31/18 Unknown Rx Hyoscyamine Subl [Levsin Sl 0.125 0.125 mg SL Q4HR PRN #20 tablet 01/31/19 Unknown Rx TAB] Ondansetron [Zofran Odt] 4 mg PO Q8HR #10 tab.rapdis 01/31/19 Unknown Rx ED Physical Exam - General Limitations: No Limitations General appearance: alert, in no apparent distress - Head Head exam: Present: atraumatic, normocephalic - Eye Eye exam: Present: normal appearance - ENT ENT exam: Present: mucous membranes moist - Neck Neck exam: Present: normal inspection - Respiratory Respiratory exam: Present: normal lung sounds bilaterally. Absent: respiratory distress, wheezes, rales, rhonchi - Cardiovascular Cardiovascular Exam: Present: regular rate, normal rhythm. Absent: systolic murmur, diastolic murmur, rubs, gallop - GI/Abdominal GI/Abdominal exam: Present: soft, tenderness, normal bowel sounds. Absent: distended, guarding, rebound - Extremities Exam Extremities exam: Present: normal inspection - Back Exam Back exam: Present: normal inspection - Neurological Exam Neurological exam: Present: alert, oriented X3 - Psychiatric Psychiatric exam: Present: normal affect, normal mood - Skin Skin exam: Present: warm, dry, intact, normal color. Absent: rash ED Course - Reevaluation(s) Reevaluation #1: 01/31/19 17:36 Patient has had several cardiac workups over the last year but has not had any evaluation for biliary colic. Patient has ultrasound has been ordered. Patient was given Toradol and Zofran for pain SHA score - Hsa Score Age > 65: (0) No Aspirin use within the Past 7 Days: (0) No 3 or more CAD Risk Factors: (0) No 2 or more Angina events in past 24 hrs: (1) Yes Known CAD with more than 50% Stenosis: (0) No Elevated Cardiac Markers: (0) No ST Deviation Greater than 0.5mm: (0) No SHA Score: 1 ED Medical Decision Making - Lab Data Result diagrams: 01/31/19 15:03 01/31/19 15:03 Lab Results 01/31/19 01/31/19 Range/Units 15:03 15:03 WBC 2.7 L (4.5-11.0) K/mm3 RBC 3.19 L (3.65-5.03) M/mm3 Hgb 11.0 (10.1-14.3) gm/dl Hct 32.4 (30.3-42.9) % MCV 102 H (79-97) fl MCH 34 H (28-32) pg MCHC 34 (30-34) % RDW 18.8 H (13.2-15.2) % Plt Count 215 (140-440) K/mm3 Lymph % (Auto) 18.7 (13.4-35.0) % [place] % (Auto) 11.4 H (0.0-7.3) % Eos % (Auto) 0.5 (0.0-4.3) % Baso % (Auto) 1.9 H (0.0-1.8) % Lymph # 0.5 L (1.2-5.4) K/mm3 [place] # 0.3 (0.0-0.8) K/mm3 Eos # 0.0 (0.0-0.4) K/mm3 Baso # 0.1 (0.0-0.1) K/mm3 Seg Neutrophils % 67.5 (40.0-70.0) % Seg Neutrophils # 1.8 (1.8-7.7) K/mm3 Sodium 137 (137-145) mmol/L Potassium 3.9 (3.6-5.0) mmol/L Chloride 102.1 (98-107) mmol/L Carbon Dioxide 25 (22-30) mmol/L Anion Gap 14 mmol/L BUN 10 (7-17) mg/dL Creatinine 0.6 L (0.7-1.2) mg/dL Estimated GFR > 60 ml/min BUN/Creatinine Ratio 17 % Glucose 123 H (65-100) mg/dL Calcium 8.5 (8.4-10.2) mg/dL Troponin T < 0.010 (0.00-0.029) ng/mL - EKG Data -: EKG Interpreted by Pr EKG shows normal: sinus rhythm, axis, intervals, QRS complexes, ST-T waves Rate: normal ED Disposition Clinical Impression: Abdominal pain, Gallbladder pain, Cholelithiasis Disposition: TO HOME OR SELFCARE Condition: Stable Instructions: Cholecystitis (ED), Biliary Colic (ED), Acute Nausea and Vomiting (ED) Prescriptions: Hyoscyamine Subl [Levsin Sl 0.125 TAB] 0.125 mg SL Q4HR PRN #20 tablet PRN Reason: Spasms Ondansetron [Zofran Odt] 4 mg PO Q8HR #10 tab.rapdis Referrals: ALEX DE LA CRUZ MD [Primary Care Provider] - 3-5 Days <INDERJITJAY JAY - Last Filed: 01/31/19 19:48> ED Review of Systems ROS: Stated complaint: CHEST PAIN Other details as noted in HPI ED Course Vital Signs 01/31/19 14:26 Temperature 99.3 F Pulse Rate 90 Respiratory 17 Rate Blood Pressure 117/79 O2 Sat by Pulse 99 Oximetry ED Medical Decision Making - Lab Data Result diagrams: 01/31/19 15:03 01/31/19 15:03 - Radiology Data Radiology results: report reviewed (ultrasound for probably record shows cholelithiasis without cholecystitis. No gallbladder wall thickening noted. No pericholecystic fluid noted.) - Medical Decision Making 38-year-old female to emergency Department complaining of nausea, vomiting and abdominal pain seen with Dr. Beltre. Gallbladder ultrasound was was ordered and does show: The physis. There is no evidence of any cholecystitis or any per icholecystic fluid. Patient had no reported history of diabetes. She has a long history of pain that has been suspected to be acid reflux and was in the movies consuming popcorn and other beverages and foods when this pain had beginning. It is very likely that the chest pain has been secondary to biliary system and patient's been advised of the importance of follow-up with GI for further testing likely a HIDA scan. We'll manage the patient's pain and advised her on a gallbladder diet until she can follow-up with the appropriate gastrointestinal specialist Critical care attestation.: If time is entered above; I have spent that time in minutes in the direct care o f this critically ill patient, excluding procedure time. ED Disposition Is pt being admited?: No Does the pt Need Aspirin: No
--- NOTE | 2019-01-31 18:33 | Ultrasound Report ---
PROCEDURE: US ABDOMEN LIMITED TECHNIQUE: Real-time sonography was performed of the right upper quadrant with image documentation. HISTORY: RUQ pain w/ n/v COMPARISONS: None . FINDINGS: Examination of the gallbladder demonstrates a gallbladder full of echogenic shadowing gallstones. The re is no evidence for distention, wall thickening, or pericholecystic fluid. No sonographic Hernandez's sign is elicited. Common bile duct is normal in diameter measuring 0.9 mm. The liver is normal and homogeneous in echogenicity without focal abnormality or intrahepatic biliary dilatation. The pancreas is not visualized due to bowel gas. The right kidney is normal in size without calculi or hydronephrosis. The right measures 11.8 cm in craniocaudal length. Aorta is normal in caliber measuring 2.3 cm in its proximal portion IMPRESSION: Cholelithiasis This document is electronically signed by Shabana Watson MD., January 31 2019 06:32:13 PM ET
[2019-01-31] MEDS ORDERED: TORADOL ONE (18:36)
[2019-01-31] MEDS ORDERED: TORADOL IM ONE (18:37)
[2019-01-31] MEDS ORDERED: LEVSIN SL SL ONE (19:50)
[2019-01-31 20:12] VITALS: BP 126/72
== END 2019-01-31 20:17 | disposition home or self-care (01) ==
LOC: ED 14:21
DX: K80.20 Calculus of gallbladder without cholecystitis without obstruction (principal); K82.9 Disease of gallbladder, unspecified; G43.909 Migraine, unspecified, not intractable, without status migrainosus; F32.9 Major depressive disorder, single episode, unspecified; D64.9 Anemia, unspecified; I10 Essential (primary) hypertension; Z87.891 Personal history of nicotine dependence; Z79.899 Other long term (current) drug therapy; Z88.6 Allergy status to analgesic agent; Z88.0 Allergy status to penicillin; Z91.013 Allergy to seafood
CPT/HCPCS: 36415; 71046; 76705; 80048; 84484; 85025; 93005; 93010; J1885

== ENCOUNTER 2019-03-07 18:09 | Emergency (ER) | payer SELFPAY ==
--- NOTE | 2019-03-07 18:38 | Emergency Department Report ---
ED Fall HPI - General Stated Complaint: FALL/ NECK,BACK PAIN Time Seen by Provider: 03/07/19 18:26 Source: patient, EMS Mode of arrival: Stretcher Limitations: No Limitations - History of Present Illness Initial Comments: She was 38-year-old female that presents emergency room after a fall. Patient states as a ground-level fall. Patient states she was at a store and slipped. Patient states she's not been able to move since falling due to pain. Patient is complaining of headache, neck pain and middle and lower back pain. She is also complaining of leg numbness. 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 denies: chest paint, shortness of breath, abdominal pain, hematuria, vertigo, confusion - Related Data Home Medications Medication Instructions Recorded Confirmed Last Taken Losartan [Cozaar] 100 mg PO QDAY 12/15/17 11/20/18 12/15/17 Previous Rx's Medication Instructions Recorded Last Taken Type diazePAM TAB [Valium] 2 mg PO Q8H PRN #12 tablet 04/10/18 Unknown Rx ALBUTEROL Inhaler(NF) [VENTOLIN 1 puff IH Q4HR PRN #1 inha 10/21/18 Unknown Rx Inhaler(NF)] Famotidine [Pepcid] 20 mg PO BID #30 tablet 11/04/18 Unknown Rx Lacosamide [Vimpat] 150 mg PO BID #60 tablet 11/21/18 Unknown Rx levETIRAcetam [Keppra] 1,000 mg PO Q12H #60 tablet 11/21/18 Unknown Rx levETIRAcetam [Keppra TAB] 1,000 mg PO BID #60 tab 12/31/18 Unknown Rx Hyoscyamine Subl [Levsin Sl 0.125 0.125 mg SL Q4HR PRN #20 tablet 01/31/19 Unknown Rx TAB] Ondansetron [Zofran Odt] 4 mg PO Q8HR #10 tab.rapdis 01/31/19 Unknown Rx HYDROcodone/APAP 5-325 [[place] 1 each PO Q4HR PRN #10 tablet 03/07/19 Unknown Rx 5/325] Metaxalone [Skelaxin] 800 mg PO TID PRN #15 tablet 03/07/19 Unknown Rx Allergies Allergy/AdvReac Type Severity Reaction Status Date / Time aspirin Allergy Hives Verified 01/31/19 14:23 ibuprofen [From Motrin] Allergy Hives Verified 01/31/19 14:23 ketorolac [From Toradol] Allergy Unknown Verified 01/31/19 18:40 Penicillins Allergy Hives Verified 01/31/19 14:23 shellfish derived Allergy Hives Verified 01/31/19 14:23 ED Review of Systems ROS: Stated complaint: FALL/ NECK,BACK PAIN Other details as noted in HPI Constitutional: denies: chills, fever Eyes: denies: eye pain, eye discharge, vision change ENT: denies: ear pain, throat pain Respiratory: denies: cough, shortness of breath, wheezing Cardiovascular: denies: chest pain, palpitations Endocrine: no symptoms reported Gastrointestinal: denies: abdominal pain, nausea, diarrhea Genitourinary: denies: urgency, dysuria, discharge Musculoskeletal: back pain. denies: joint swelling, arthralgia Skin: denies: rash, lesions Neurological: numbness. denies: headache, weakness Psychiatric: denies: anxiety, depression Hematological/Lymphatic: denies: easy bleeding, easy bruising ED Past Medical Hx - Past Medical History Previous Medical History?: Yes Hx Hypertension: Yes Hx Diabetes: No Hx Headaches / Migraines: Yes (hx migraines) Hx Seizures: Yes Hx Psychiatric Treatment: Yes (depression) Hx Asthma: Yes Hx HIV: No Additional medical history: Anemia - Surgical History Past Surgical History?: Yes Additional Surgical History: right knee surgery, b/l foot surgery several years ago. foot surgery 09/2015 - Family History Family history: no significant - Social History Smoking Status: Former Smoker Substance Use Type: None - Medications Home Medications: Home Medications Medication Instructions Recorded Confirmed Last Taken Type Losartan [Cozaar] 100 mg PO QDAY 12/15/17 11/20/18 12/15/17 History diazePAM TAB [Valium] 2 mg PO Q8H PRN #12 tablet 04/10/18 11/20/18 Unknown Rx ALBUTEROL Inhaler(NF) [VENTOLIN 1 puff IH Q4HR PRN #1 inha 10/21/18 11/20/18 Unknown Rx Inhaler(NF)] Famotidine [Pepcid] 20 mg PO BID #30 tablet 11/04/18 11/20/18 Unknown Rx Lacosamide [Vimpat] 150 mg PO BID #60 tablet 11/21/18 Unknown Rx levETIRAcetam [Keppra] 1,000 mg PO Q12H #60 tablet 11/21/18 Unknown Rx levETIRAcetam [Keppra TAB] 1,000 mg PO BID #60 tab 12/31/18 Unknown Rx Hyoscyamine Subl [Levsin Sl 0.125 0.125 mg SL Q4HR PRN #20 tablet 01/31/19 U nknown Rx TAB] Ondansetron [Zofran Odt] 4 mg PO Q8HR #10 tab.rapdis 01/31/19 Unknown Rx HYDROcodone/APAP 5-325 [[place] 1 each PO Q4HR PRN #10 tablet 03/07/19 Unknown Rx 5/325] Metaxalone [Skelaxin] 800 mg PO TID PRN #15 tablet 03/07/19 Unknown Rx ED Physical Exam - General Limitations: Physical Limitation General appearance: alert, in no apparent distress - Head Head exam: Present: atraumatic, normocephalic - Eye Eye exam: Present: normal appearance - ENT ENT exam: Present: mucous membranes moist - Neck Neck exam: Present: normal inspection, tenderness - Respiratory Respiratory exam: Present: normal lung sounds bilaterally. Absent: respiratory distress - Cardiovascular Cardiovascular Exam: Present: regular rate, normal rhythm. Absent: systolic murmur, diastolic murmur, rubs, gallop - GI/Abdominal GI/Abdominal exam: Present: soft, normal bowel sounds. Absent: distended, tenderness, guarding - Rectal Rectal exam: Present: normal inspection, normal rectal tone. Absent: tenderness - Extremities Exam Extremities exam: Present: normal inspection, full ROM. Absent: tenderness - Back Exam Back exam: Present: normal inspection, tenderness, vertebral tenderness - Neurological Exam Neurological exam: Present: alert, oriented X3 - Psychiatric Psychiatric exam: Present: normal affect, normal mood - Skin Skin exam: Present: warm, dry, intact, normal color. Absent: rash ED Course Vital Signs 03/07/19 03/07/19 03/07/19 18:33 20:46 21:55 Temperature 98 F Pulse Rate 74 89 Respiratory 16 20 20 Rate Blood Pressure 124/54 Blood Pressure 115/74 [Right] O2 Sat by Pulse 96 98 98 Oximetry 03/07/19 03/07/19 22:00 22:03 Temperature 98.2 F Pulse Rate 85 Respiratory 20 20 Rate Blood Pressure Blood Pressure 120/68 [Right] O2 Sat by Pulse 99 Oximetry - Reevaluation(s) Reevaluation #1: Initial evaluation done. The patient log rolled in accordance with ATLS guidelines. Patient complains of tenderness throughout the T and L-spine. Rectal exam done and normal rectal tone noted with female nurse in the room 03/07/19 18:38 Reevaluation #2: C-collar removed. Patient ambulatory room and around the ER without difficulties. Discussed all results with patient. Patient is stable discharge. Patient will be discharged home. Patient agrees to plan of care. Patient given discharge instructions. Patient given follow-up instructions. Patient voiced understanding of instructions. 03/07/19 21:38 ED Medical Decision Making - Lab Data Result diagrams: 03/07/19 19:15 03/07/19 19:15 - Radiology Data Radiology results: report reviewed CT thoracic spine wo con IMPRESSION: 1. No signs of acute bony trauma to the thoracic spine. CT L SPINE IMPRESSION: 1. No signs of acute bony trauma to the lumbar spine. 2. Right adrenal nodule seen. CT head/brain wo con IMPRESSION: 1. No focal mass, hemorrhage, hydrocephalus, or acute, large territorial infarct. CT cervical spine wo con IMPRESSION: 1. No signs of acute bony trauma to the cervical spine. - Medical Decision Making Patient is a 38-year-old female that presents emergency room with complaints of fall. Patient also complained of numbness in her legs. Patient has multiple complaints, to include back pain, neck pain and head injury and numbness in her legs. Patient ambulatory in ER. Patient had multiple CTs done which were all negative. Patient's labs unremarkable. Patient stable for discharge. Patient discharged home. - Differential Diagnosis fall. Neck pain. Back pain. Numbness. Critical care attestation.: If time is entered above; I have spent that time in minutes in the direct care of this critically ill patient, excluding procedure time. ED Disposition Clinical Impression: Neck pain Back pain Qualifiers: Back pain location: low back pain Chronicity: acute Back pain laterality: midline Sciatica presence: without sciatica Qualified Code(s): M54.5 - Low back pain Headache Qualifiers: Headache type: post-traumatic Headache chronicity pattern: acute headache Intractability: not intractable Qualified Code(s): G44.319 - Acute post- traumatic headache, not intractable Head injury Qualifiers: Encounter type: initial encounter Qualified Code(s): S09.90XA - Unspecified injury of head, initial encounter Thoracic back pain Qualifiers: Chronicity: acute Back pain laterality: midline Qualified Code(s): M54.6 - Pain in thoracic spine Low back sprain Qualifiers: Encounter type: initial encounter Qualified Code(s): S33.5XXA - Sprain of ligaments of lumbar spine, initial encounter Back contusion Qualifiers: Encounter type: initial encounter Laterality: unspecified laterality Qualified Code(s): S20.229A - Contusion of unspecified back wall of thorax, initial encounter Disposition: DC-01 TO HOME OR SELFCARE Is pt being admited?: No Does the pt Need Aspirin: No Condition: Stable Instructions: Minor Head Injury (ED), Low Back Strain (ED), Acute Low Back Pain (ED), Contusion in Adults (ED), Muscle Spasm (ED) Additional Instructions: Patient follow up with primary care in 2-3 days. Patient to follow up with orthopedist in 2-3 days. Patient to return to ER if condition worsens. Patient to rest. Patient to take meds as directed. Patient to avoid strenuous exercise until cleared by orthopedist or primary care. Prescriptions: HYDROcodone/APAP 5-325 [[place] 5/325] 1 each PO Q4HR PRN #10 tablet PRN Reason: Pain Metaxalone [Skelaxin] 800 mg PO TID PRN #15 tablet PRN Reason: Spasms Referrals: MARIVEL WILLS MD [Primary Care Provider] - 2-3 Days JANAE GUILLAUME MD [Staff Physician] - 2-3 Days Forms: Work/School Release Form(ED) Time of Disposition: 21:45
--- NOTE | 2019-03-07 19:22 | Cat Scan Report ---
CT head/brain wo con INDICATION / CLINICAL INFORMATION: 38 years Female; fall. head injury. neck/back pain. leg numbness. 38-year-old female with fall; head injury TECHNIQUE: Routine CT head without contrast. All CT scans at this location are performed using CT dos e reduction for ALARA by means of automated exposure control. Motion artifact COMPARISON: None. FINDINGS: BRAIN / INTRACRANIAL CONTENTS: No acute hemorrhage, mass effect, midline shift, hydrocephalus, or acu te, large territorial infarct. No significant white matter disease appreciated. CRANIOCERVICAL JUNCTION: No significant abnormality. ORBITS: No significant abnormality of visualized orbits. SINUSES / MASTOIDS: Mild to moderate mucosal thickening seen in the ethmoids. ADDITIONAL FINDINGS: Prominent soft tissues seen in the roof the nasopharynx, presumably related to r eactive adenoidal tissue. Small to moderately sized intraparotid lymph nodes seen bilaterally. IMPRESSION: 1. No focal mass, hemorrhage, hydrocephalus, or acute, large territorial infarct. Signer Name: Willard Whitley MD, III Signed: 03/07/2019 7:17 PM Workstation Name: [id number]
[2019-03-07 19:43] LABS: Hematocrit 31.9 % (30.3-42.9); Mean Corpuscular HGB Conc 34 % (30-34); Mean Corpuscular Volume 102 fl (79-97); Platelet Count 218 K/mm3 (140-440); Red Blood Count 3.14 M/mm3 (3.65-5.03); Red Cell Distribution Width 16.9 % (13.2-15.2)
--- NOTE | 2019-03-07 19:49 | Cat Scan Report ---
CT cervical spine wo con INDICATION / CLINICAL INFORMATION: 38 years Female; fall. head injury. neck/back pain. leg numbness. 38-year-old female TECHNIQUE: Axial CT images of the cervical spine were obtained. Sagittal and coronal reformatted images were pr oduced. All CT scans at this location are performed using CT dose reduction for ALARA by means of aut omated exposure control. Study limited by patient body habitus. COMPARISON: None available. FINDINGS: POST-SURGICAL CHANGES: None. ALIGNMENT: Normal cervical lordosis seen without significant scoliosis. VERTEBRAE: No signs of fracture. Vertebral bodies are grossly normal in height throughout. No signif icant facet joint disease or osseous foraminal narrowing appreciated. INTRAVERTEBRAL DISCS:Disc spaces are fairly well-maintained throughout without significant canal sten osis. PARASPINAL SOFT TISSUES: No significant abnormality. ADDITIONAL FINDINGS: Mild prominent lymph nodes identified, which are presumably reactive-please clin ically correlate. IMPRESSION: 1. No signs of acute bony trauma to the cervical spine. Signer Name: Willard Whitley MD, III Signed: 03/07/2019 7:45 PM Workstation Name: [id number]
--- NOTE | 2019-03-07 19:56 | Cat Scan Report ---
CT lumbar spine wo con INDICATION / CLINICAL INFORMATION: 38 years Female; MAIN: slip and fall injury. neck/back pain. leg numbness. TECHNIQUE: Axial CT images of the lumbar spine were obtained after administration of intrathecal contrast. Sagi ttal and coronal reformatted images were produced. All CT scans at this location are performed using CT dose reduction for ALARA by means of automated exposure control. COMPARISON: None available. FINDINGS: POST-SURGICAL CHANGES: None. ALIGNMENT: No significant abnormality. VERTEBRAE: No signs of fracture. Vertebral bodies are grossly normal in height throughout. No signif icant facet joint disease or osseous foraminal narrowing appreciated. INTERVERTEBRAL DISCS: There may be minimal disc bulge at L4-5. Overall, no significant canal stenosis appreciated. PARASPINAL SOFT TISSUES: No significant abnormality. ADDITIONAL FINDINGS: Intrauterine device noted. 2.5 cm soft tissue adrenal nodule seen on the right. Hounsfield units are estimated at a mean of 32. In and out of phase MRI may be helpful for further evaluation-this can be performed on an outpatient basis.. IMPRESSION: 1. No signs of acute bony trauma to the lumbar spine. 2. Right adrenal nodule seen. Signer Name: Willard Whitley MD, III Signed: 03/07/2019 7:52 PM Workstation Name: [id number]
--- NOTE | 2019-03-07 19:58 | Cat Scan Report ---
CT thoracic spine wo con INDICATION / CLINICAL INFORMATION: 38 years Female; fall. head injury. neck/back pain. leg numbness. TECHNIQUE: Axial CT images of the thoracic spine were obtained. Sagittal and coronal reformatted images were pr oduced. All CT scans at this location are performed using CT dose reduction for ALARA by means of aut omated exposure control. COMPARISON: None available. FINDINGS: POST-SURGICAL CHANGES: None. ALIGNMENT: No significant abnormality. VERTEBRAE: No signs of fracture. Vertebral bodies are grossly normal in height throughout. No signif icant facet joint disease or osseous foraminal narrowing appreciated. INTERVERTEBRAL DISCS: Mild disc space narrowing seen at multiple levels. There is anterior spondylosi s seen. No definitive signs of dominant herniation appreciated. PARASPINAL SOFT TISSUES: No significant abnormality. ADDITIONAL FINDINGS: Right adrenal nodule again noted-please see report from CT of the lumbar spine, performed same day, for pertinent information. IMPRESSION: 1. No signs of acute bony trauma to the thoracic spine. Signer Name: Willard Whitley MD, III Signed: 03/07/2019 7:54 PM Workstation Name: [id number]
[2019-03-07 20:06] LABS: Alanine Aminotransferase 24 units/L (7-56); Albumin 3.7 g/dL (3.9-5); BUN/Creatinine Ratio 14; Blood Urea Nitrogen 10 mg/dL (7-17); Calcium 8.7 mg/dL (8.4-10.2); Hemolysis Index 13
[2019-03-07] MEDS ORDERED: DILAUDID IV ONE (21:32)
[2019-03-07 22:53] VITALS: BP 120/68
== END 2019-03-07 22:00 | disposition home or self-care (01) ==
LOC: ED 18:09
DX: S33.5XXA Sprain of ligaments of lumbar spine, initial encounter (principal); S20.229A Contusion of unspecified back wall of thorax, initial encounter; S09.90XA Unspecified injury of head, initial encounter; M54.2 Cervicalgia; I10 Essential (primary) hypertension; G43.909 Migraine, unspecified, not intractable, without status migrainosus; F32.9 Major depressive disorder, single episode, unspecified; J45.909 Unspecified asthma, uncomplicated; Z98.890 Other specified postprocedural states; Z87.891 Personal history of nicotine dependence; Z79.899 Other long term (current) drug therapy; Z88.8 Allergy status to other drugs, medicaments and biological substances; Z88.6 Allergy status to analgesic agent; Z88.0 Allergy status to penicillin; Z91.013 Allergy to seafood; W01.0XXA Fall on same level from slipping, tripping and stumbling without subsequent striking against object, initial encounter; Y93.89 Activity, other specified; Y92.89 Other specified places as the place of occurrence of the external cause; Y99.8 Other external cause status
CPT/HCPCS: 36415; 70450; 72125; 72128; 72131; 80053; 84703; 85027; 99284

== ENCOUNTER 2019-04-04 17:51 | Inpatient (IN) | payer MEDICAID ==
--- NOTE | 2019-04-04 19:21 | Consultation ---
History of Present Illness Consult date: 04/04/19 Reason for Consult: STROKE History of present illness: 38 y/o woman presents with headache and dizziness and right sided numbness since 1030. Emergent telestroke consult requested. CT head reviewed and case discussed with ED staff. Medications and Allergies Allergies Allergy/AdvReac Type Severity Reaction Status Date / Time aspirin Allergy Hives Verified 04/04/19 18:09 ibuprofen [From Motrin] Allergy Hives Verified 04/04/19 18:09 ketorolac [From Toradol] Allergy Unknown Verified 04/04/19 18:09 Penicillins Allergy Hives Verified 04/04/19 18:09 shellfish derived Allergy Hives Verified 04/04/19 18:09 Home Medications Medication Instructions Recorded Confirmed Last Taken Type Losartan [Cozaar] 100 mg PO QDAY 12/15/17 11/20/18 12/15/17 History diazePAM TAB [Valium] 2 mg PO Q8H PRN #12 tablet 04/10/18 11/20/18 Unknown Rx ALBUTEROL Inhaler(NF) [VENTOLIN 1 puff IH Q4HR PRN #1 inha 10/21/18 11/20/18 Unknown Rx Inhaler(NF)] Famotidine [Pepcid] 20 mg PO BID #30 tablet 11/04/18 11/20/18 Unknown Rx Lacosamide [Vimpat] 150 mg PO BID #60 tablet 11/21/18 Unknown Rx levETIRAcetam [Keppra] 1,000 mg PO Q12H #60 tablet 11/21/18 Unknown Rx levETIRAcetam [Keppra TAB] 1,000 mg PO BID #60 tab 12/31/18 Unknown Rx Hyoscyamine Subl [Levsin Sl 0.125 0.125 mg SL Q4HR PRN #20 tablet 01/31/19 Unknown Rx TAB] Ondansetron [Zofran Odt] 4 mg PO Q8HR #10 tab.rapdis 01/31/19 Unknown Rx HYDROcodone/APAP 5-325 [[place] 1 each PO Q4HR PRN #10 tablet 03/07/19 Unknown Rx 5/325] Metaxalone [Skelaxin] 800 mg PO TID PRN #15 tablet 03/07/19 Unknown Rx Physical Examination - Vital Signs Vital Signs: Vital Signs Temp Pulse Resp BP Pulse Ox 98.9 F 76 16 105/68 96 04/04/19 18:09 04/04/19 18:09 04/04/19 18:09 04/04/19 18:09 04/04/19 18:09 - Assessment Assessment Interval: Baseline - Level of Consciousness 1a. Level of Consciousness: alert/keenly responsive - LOC Questions 1b. LOC Questions: answers both correctly - LOC Command 1c. LOC Commands: performs tasks correctly - Best Gaze 2. Best Gaze: normal - Visual 3. Visual: no visual loss - Facial Palsy 4. Facial Palsy: normal symmetrical movement - Motor Arm 5a. Motor Arm Left: no drift 5b. Motor Arm Right: no drift - Motor Leg 6a. Motor Leg Left: no drift 6b. Motor Leg Right: no drift - Limb Ataxia 7. Limb Ataxia: absent - Sensory 8. Sensory: mild/moderate sensory loss - Best Language 9. Best Language: no aphasia - Dysarthria 10. Dysarthria: normal - Extinction and Inattention 11. Extinction/Inattention: no abnormality - Scoring Total Score: 1 Stroke Severity: Minor Stroke Assessment and Plan [facility] Tele[facility]urology Consult Services Impression: R/O Stroke Differential Diagnosis: 1. Cardioembolic stroke 2. Small vessel disease/lacune 3. Thromboembolic, [id number] mechanism 4. Hypercoagulable state-related infarct 5. Thrombotic mechanism, large artery disease 6. Transient ischemic attack Comments: Last known well: 1030 Door time:1751 [facility] contacted: 1 [facility] at bedside: 1914 NIHSS assessment time:1914 Needle time:TPA not considered since she is out of the TPA window Patient was informed the Neurology Consult would happen via TeleHealth consult by way of interactive audio and video telecommunications and consented to receiving care in this manner. Discussion: Our recommendations are outlined below. Recommendations: STAT CTA head/neck given possible concern for posterior circulation stroke ASA, IV fluids and permissive hypertension (Keep BP < 220/110) Neurochecks Cardiac Telemetry Check lipid panel PT/OT/ST DVT prophylaxis Follow up with Neurology for further testing/evaluation Medical Decision Making: - Extensive number of diagnosis or management options are considered above. - Extensive amount of complex data reviewed. - High risk of complication and/or morbidity or mortality are associated with differential diagnostic considerations above. - There may be uncertain outcome and increased probability of prolonged functional impairment or high probability of severe prolonged functional impairment associated with some of these differential diagnosis. Medical Data Reviewed: 1.Data reviewed include clinical labs, radiology, Medical Tests; 2.Tests results discussed w/performing or interpreting physician; 3.Obtaining/reviewing old medical records; 4.Obtaining case history from another source; 5.Independent review of image, tracing or specimen.
--- NOTE | 2019-04-04 19:21 | Emergency Department Report ---
ED Headache HPI - General Chief Complaint: Headache Stated Complaint: HEADACHE/FALL/SEIZURE Time Seen by Provider: 04/04/19 18:57 Source: patient Exam Limitations: no limitations - History of Present Illness Initial Comments: 38 year-old female with a past medical history of obesity, migraines, seizures, hypertension, depression, and anemia presents to Hospital with a syncopal versus seizure episode, headache, and right-sided weakness/numbness. Patient states that she developed right-sided weakness to her arm and elevate since 10:30 AM that was mild. She continued to go to religion. At religion she started to feel sick. Her symptoms included a right-sided headache that felt like somebody was hitting her in the head, nausea, photosensitivity, dizzy like the room was spinn ing, and double vision. She was going to sit down and that was the last thing that she remembered. When she woke up she was surrounded by religion members. Patient has been compliant with her Keppra 1000 mg twice a day. Medical record review shows that she was on Vimpat in November, she is no longer taking that medication. She denies any current pain medication use. Her neurologist: Dr. Denton I called a code stroke after my initial contact with the patient Allergies/Adverse Reactions: Allergies aspirin Allergy (Verified 04/04/19 18:09) Hives ibuprofen [From Motrin] Allergy (Verified 04/04/19 18:09) Hives ketorolac [From Toradol] Allergy (Verified 04/04/19 18:09) Unknown Penicillins Allergy (Verified 04/04/19 18:09) Hives shellfish derived Allergy (Verified 04/04/19 18:09) Hives Home Medications: Ambulatory Orders diazePAM TAB [Valium] 2 mg PO Q8H PRN #12 tablet 04/10/18 ALBUTEROL Inhaler(NF) [VENTOLIN Inhaler(NF)] 1 puff IH Q4HR PRN #1 inha 10/21/18 Famotidine [Pepcid] 20 mg PO BID #30 tablet 11/04/18 levETIRAcetam [Keppra] 1,000 mg PO Q12H #60 tablet 11/21/18 HYDROcodone/APAP 5-325 [[place] 5/325] 1 each PO Q4HR PRN #10 tablet 03/07/19 amLODIPine 10 mg PO DAILY 04/04/19 ED Review of Systems ROS: Stated complaint: HEADACHE/FALL/SEIZURE Other details as noted in HPI Comment: All other systems reviewed and negative ED Past Medical Hx - Past Medical History Hx Hypertension: Yes Hx Diabetes: No Hx Headaches / Migraines: Yes (hx migraines) Hx Seizures: Yes Hx Psychiatric Treatment: Yes (depression) Hx Asthma: Yes Hx HIV: No Additional medical history: Anemia - Surgical History Additional Surgical History: right knee surgery, b/l foot surgery several years ago. foot surgery 09/2015 - Social History Smoking Status: Current Every Day Smoker Substance Use Type: None - Medications Home Medications: Home Medications Medication Instructions Recorded Confirmed Last Taken Type diazePAM TAB [Valium] 2 mg PO Q8H PRN #12 tablet 04/10/18 04/04/19 Unknown Rx ALBUTEROL Inhaler(NF) [VENTOLIN 1 puff IH Q4HR PRN #1 inha 10/21/18 04/04/19 Unknown Rx Inhaler(NF)] Famotidine [Pepcid] 20 mg PO BID #30 tablet 11/04/18 04/04/19 Unknown Rx levETIRAcetam [Keppra] 1,000 mg PO Q12H #60 tablet 11/21/18 04/04/19 Unknown Rx HYDROcodone/APAP 5-325 [[place] 1 each PO Q4HR PRN #10 tablet 03/07/19 04/04/19 Unknown Rx 5/325] amLODIPine 10 mg PO DAILY 04/04/19 04/04/19 Unknown History ED Physical Exam - General Limitations: No Limitations - Other Other exam information: General: No acute distress Head: Atraumatic Eyes: Normal appearance, Pupils equal and reactive to light, extraocular movements intact, photosensitivity to light ENT: Normal oropharynx Neck: Normal appearance, no posterior or midline tenderness, no meningismus Chest: Clear to auscultation bilaterally, no wheezes, rales, or crackles CV: Regular rate and rhythm Abdomen: soft, nontender, nondistended, no rebound or guarding Back: Nontender Extremity: Normal inspection, full range of motion, nontender Neuro: Alert and oriented 3, speech clear, patient is equal strength of right and left leg 5/5 in, she states she does not feel me touching her right arm or right leg Skin: No rash, redness, warmth ED Course Vital Signs 04/04/19 04/04/19 04/04/19 18:06 18:09 18:15 Temperature 98.9 F Pulse Rate 92 H 76 84 Respiratory 20 16 29 H Rate Blood Pressure 105/68 105/61 Blood Pressure [Left] O2 Sat by Pulse 97 96 97 Oximetry 04/04/19 04/04/19 04/04/19 18:31 18:45 19:01 Temperature Pulse Rate 87 90 85 Respiratory 37 H 32 H 22 Rate Blood Pressure 105/61 105/61 105/61 Blood Pressure [Left] O2 Sat by Pulse 96 99 97 Oximetry 04/04/19 04/04/19 04/04/19 19:15 19:21 19:33 Temperature Pulse Rate 89 94 H 106 H Respiratory 28 H 18 Rate Blood Pressure 105/61 117/59 Blood Pressure 117/59 [Left] O2 Sat by Pulse 97 100 98 Oximetry 04/04/19 04/04/19 04/04/19 19:45 20:17 20:31 Temperature Pulse Rate 80 88 Respiratory 25 H 23 33 H Rate Blood Pressure 117/59 117/59 131/77 Blood Pressure [Left] O2 Sat by Pulse 98 95 Oximetry 04/04/19 04/04/19 04/04/19 20:45 21:00 21:15 Temperature Pulse Rate 85 81 82 Respiratory 34 H 35 H 34 H Rate Blood Pressure 131/77 94/54 94/54 Blood Pressure [Left] O2 Sat by Pulse 95 93 92 Oximetry 04/04/19 04/04/19 04/04/19 21:31 21:45 22:00 Temperature Pulse Rate Respiratory 33 H 30 H 22 Rate Blood Pressure 94/54 94/54 117/80 Blood Pressure [Left] O2 Sat by Pulse 91 100 99 Oximetry 04/04/19 04/04/19 04/04/19 22:16 22:31 22:45 Temperature Pulse Rate Respiratory 33 H 35 H Rate Blood Pressure 117/80 112/71 112/71 Blood Pressure [Left] O2 Sat by Pulse 92 95 93 Oximetry 04/04/19 22:54 Temperature Pulse Rate 86 Respiratory Rate Blood Pressure Blood Pressure [Left] O2 Sat by Pulse Oximetry - Consultations Consultation #1: 04/04/19 19:43 Patient evaluated by neurology who recommends a CTA head and neck to rule out posterior circulation stroke. Awaiting lab results. Initial CT head unremarkable. ED Medical Decision Making - Lab Data Result diagrams: 04/04/19 19:45 04/04/19 19:45 Lab Results 04/04/19 04/04/19 04/04/19 Range/Units 19:23 19:45 19:45 WBC 2.8 L (4.5-11.0) K/mm3 RBC 3.34 L (3.65-5.03) M/mm3 Hgb 11.5 (10.1-14.3) gm/dl Hct 33.6 (30.3-42.9) % MCV 101 H (79-97) fl MCH 34 H (28-32) pg MCHC 34 (30-34) % RDW 16.0 H (13.2-15.2) % Plt Count 205 (140-440) K/mm3 Lymph % (Auto) 18.2 (13.4-35.0) % [place] % (Auto) 13.4 H (0.0-7.3) % Eos % (Auto) 1.5 (0.0-4.3) % Baso % (Auto) 2.2 H (0.0-1.8) % Lymph # 0.5 L (1.2-5.4) K/mm3 Ramsey # 0.4 (0.0-0.8) K/mm3 Eos # 0.0 (0.0-0.4) K/mm3 Baso # 0.1 (0.0-0.1) K/mm3 Seg Neutrophils % 64.7 (40.0-70.0) % Seg Neutrophils # 1.8 (1.8-7.7) K/mm3 PT 13.3 (12.2-14.9) Sec. INR 1.04 (0.87-1.13) APTT 33.6 (24.2-36.6) Sec. Thrombin Time 18.0 (15.1-19.6) Sec. Sodium (137-145) mmol/L Potassium (3.6-5.0) mmol/L Chloride (98-107) mmol/L Carbon Dioxide (22-30) mmol/L Anion Gap mmol/L BUN (7-17) mg/dL Creatinine (0.7-1.2) mg/dL Estimated GFR ml/min BUN/Creatinine Ratio % Glucose (65-100) mg/dL POC Glucose 162 H (70-105) Calcium (8.4-10.2) mg/dL Magnesium (1.7-2.3) mg/dL Total Creatine Kinase (30-135) units/L CK-MB (CK-2) (0.0-4.0) ng/mL CK-MB (CK-2) Rel Index (0-4) Troponin T (0.00-0.029) ng/mL HCG, Quant (0-4) mIU/mL Urine Color (Yellow) Urine Turbidity (Clear) Urine pH (5.0-7.0) Ur Specific [place] (1.003-1.030) Urine Protein (Negative) mg/dL Urine Glucose (UA) (Negative) mg/dL Urine Ketones (Negative) mg/dL Urine Blood (Negative) Urine Nitrite (Negative) Urine Bilirubin (Negative) Urine Urobilinogen (<2.0) mg/dL Ur Leukocyte Esterase (Negative) Urine WBC (Auto) (0.0-6.0) /HPF Urine RBC (Auto) (0.0-6.0) /HPF U Epithel Cells (Auto) (0-13.0) /HPF Urine Mucus /HPF Urine Opiates Screen Urine Methadone Screen Ur Barbiturates Screen Ur Phencyclidine Scrn Ur Amphetamines Screen U Benzodiazepines Scrn Urine Cocaine Screen U Marijuana (THC) Screen Drugs of Abuse Note Plasma/Serum Alcohol (0-0.07) % 04/04/19 04/04/19 04/04/19 Range/Units 19:45 19:45 19:45 WBC (4.5-11.0) K/mm3 RBC (3.65-5.03) M/mm3 Hgb (10.1-14.3) gm/dl Hct (30.3-42.9) % MCV (79-97) fl MCH (28-32) pg MCHC (30-34) % RDW (13.2-15.2) % Plt Count (140-440) K/mm3 Lymph % (Auto) (13.4-35.0) % [place] % (Auto) (0.0-7.3) % Eos % (Auto) (0.0-4.3) % Baso % (Auto) (0.0-1.8) % Lymph # (1.2-5.4) K/mm3 [place] # (0.0-0.8) K/mm3 Eos # (0.0-0.4) K/mm3 Baso # (0.0-0.1) K/mm3 Seg Neutrophils % (40.0-70.0) % Seg Neutrophils # (1.8-7.7) K/mm3 PT (12.2-14.9) Sec. INR (0.87-1.13) APTT (24.2-36.6) Sec. Thrombin Time (15.1-19.6) Sec. Sodium 142 (137-145) mmol/L Potassium 3.3 L (3.6-5.0) mmol/L Chloride 103.4 (98-107) mmol/L Carbon Dioxide 26 (22-30) mmol/L Anion Gap 16 mmol/L BUN 6 L (7-17) mg/dL Creatinine 0.5 L (0.7-1.2) mg/dL Estimated GFR > 60 ml/min BUN/Creatinine Ratio 12 % Glucose 115 H (65-100) mg/dL POC Glucose (70-105) Calcium 8.0 L (8.4-10.2) mg/dL Magnesium (1.7-2.3) mg/dL Total Creatine Kinase 219 H (30-135) units/L CK-MB (CK-2) 3.3 (0.0-4.0) ng/mL CK-MB (CK-2) Rel Index 1.5 (0-4) Troponin T < 0.010 (0.00-0.029) ng/mL HCG, Quant < 2 (0-4) mIU/mL Urine Color (Yellow) Urine Turbidity (Clear) Urine pH (5.0-7.0) Ur Specific [place] (1.003-1.030) Urine Protein (Negative) mg/dL Urine Glucose (UA) (Negative) mg/dL Urine Ketones (Negative) mg/dL Urine Blood (Negative) Urine Nitrite (Negative) Urine Bilirubin (Negative) Urine Urobilinogen (<2.0) mg/dL Ur Leukocyte Esterase (Negative) Urine WBC (Auto) (0.0-6.0) /HPF Urine RBC (Auto) (0.0-6.0) /HPF U Epithel Cells (Auto) (0-13.0) /HPF Urine Mucus /HPF Urine Opiates Screen Urine Methadone Screen Ur Barbiturates Screen Ur Phencyclidine Scrn Ur Amphetamines Screen U Benzodiazepines Scrn Urine Cocaine Screen U Marijuana (THC) Screen Drugs of Abuse Note Plasma/Serum Alcohol (0-0.07) % 04/04/19 04/04/19 04/04/19 Range/Units 19:45 19:45 Unknown WBC (4.5-11.0) K/mm3 RBC (3.65-5.03) M/mm3 Hgb (10.1-14.3) gm/dl Hct (30.3-42.9) % MCV (79-97) fl MCH (28-32) pg MCHC (30-34) % RDW (13.2-15.2) % Plt Count (140-440) K/mm3 Lymph % (Auto) (13.4-35.0) % [place] % (Auto) (0.0-7.3) % Eos % (Auto) (0.0-4.3) % Baso % (Auto) (0.0-1.8) % Lymph # (1.2-5.4) K/mm3 [place] # (0.0-0.8) K/mm3 Eos # (0.0-0.4) K/mm3 Baso # (0.0-0.1) K/mm3 Seg Neutrophils % (40.0-70.0) % Seg Neutrophils # (1.8-7.7) K/mm3 PT (12.2-14.9) Sec. INR (0.87-1.13) APTT (24.2-36.6) Sec. Thrombin Time (15.1-19.6) Sec. Sodium (137-145) mmol/L Potassium (3.6-5.0) mmol/L Chloride (98-107) mmol/L Carbon Dioxide (22-30) mmol/L Anion Gap mmol/L BUN (7-17) mg/dL Creatinine (0.7-1.2) mg/dL Estimated GFR ml/min BUN/Creatinine Ratio % Glucose (65-100) mg/dL POC Glucose (70-105) Calcium (8.4-10.2) mg/dL Magnesium 1.70 (1.7-2.3) mg/dL Total Creatine Kinase (30-135) units/L CK-MB (CK-2) (0.0-4.0) ng/mL CK-MB (CK-2) Rel Index (0-4) Troponin T (0.00-0.029) ng/mL HCG, Quant (0-4) mIU/mL Urine Color Yellow (Yellow) Urine Turbidity Cloudy (Clear) Urine pH 6.0 (5.0-7.0) Ur Specific [place] 1.046 H (1.003-1.030) Urine Protein 30 mg/dl (Negative) mg/dL Urine Glucose (UA) Neg (Negative) mg/dL Urine Ketones Neg (Negative) mg/dL Urine Blood Neg (Negative) Urine Nitrite Neg (Negative) Urine Bilirubin Neg (Negative) Urine Urobilinogen 4.0 (<2.0) mg/dL Ur Leukocyte Esterase Tr (Negative) Urine WBC (Auto) 5.0 (0.0-6.0) /HPF Urine RBC (Auto) 3.0 (0.0-6.0) /HPF U Epithel Cells (Auto) 10.0 (0-13.0) /HPF Urine Mucus Few /HPF Urine Opiates Screen Urine Methadone Screen Ur Barbiturates Screen Ur Phencyclidine Scrn Ur Amphetamines Screen U Benzodiazepines Scrn Urine Cocaine Screen U Marijuana (THC) Screen Drugs of Abuse Note Plasma/Serum Alcohol < 0.01 (0-0.07) % 04/04/19 Range/Units Unknown WBC (4.5-11.0) K/mm3 RBC (3.65-5.03) M/mm3 Hgb (10.1-14.3) gm/dl Hct (30.3-42.9) % MCV (79-97) fl MCH (28-32) pg MCHC (30-34) % RDW (13.2-15.2) % Plt Count (140-440) K/mm3 Lymph % (Auto) (13.4-35.0) % [place] % (Auto) (0.0-7.3) % Eos % (Auto) (0.0-4.3) % Baso % (Auto) (0.0-1.8) % Lymph # (1.2-5.4) K/mm3 [place] # (0.0-0.8) K/mm3 Eos # (0.0-0.4) K/mm3 Baso # (0.0-0.1) K/mm3 Seg Neutrophils % (40.0-70.0) % Seg Neutrophils # (1.8-7.7) K/mm3 PT (12.2-14.9) Sec. INR (0.87-1.13) APTT (24.2-36.6) Sec. Thrombin Time (15.1-19.6) Sec. Sodium (137-145) mmol/L Potassium (3.6-5.0) mmol/L Chloride (98-107) mmol/L Carbon Dioxide (22-30) mmol/L Anion Gap mmol/L BUN (7-17) mg/dL Creatinine (0.7-1.2) mg/dL Estimated GFR ml/min BUN/Creatinine Ratio % Glucose (65-100) mg/dL POC Glucose (70-105) Calcium (8.4-10.2) mg/dL Magnesium (1.7-2.3) mg/dL Total Creatine Kinase (30-135) units/L CK-MB (CK-2) (0.0-4.0) ng/mL CK-MB (CK-2) Rel Index (0-4) Troponin T (0.00-0.029) ng/mL HCG, Quant (0-4) mIU/mL Urine Color (Yellow) Urine Turbidity (Clear) Urine pH (5.0-7.0) Ur Specific [place] (1.003-1.030) Urine Protein (Negative) mg/dL Urine Glucose (UA) (Negative) mg/dL Urine Ketones (Negative) mg/dL Urine Blood (Negative) Urine Nitrite (Negative) Urine Bilirubin (Negative) Urine Urobilinogen (<2.0) mg/dL Ur Leukocyte Esterase (Negative) Urine WBC (Auto) (0.0-6.0) /HPF Urine RBC (Auto) (0.0-6.0) /HPF U Epithel Cells (Auto) (0-13.0) /HPF Urine Mucus /HPF Urine Opiates Screen Presumptive negative Urine Methadone Screen Presumptive negative Ur Barbiturates Screen Presumptive negative Ur Phencyclidine Scrn Presumptive negative Ur Amphetamines Screen Presumptive negative U Benzodiazepines Scrn Presumptive negative Urine Cocaine Screen Presumptive negative U Marijuana (THC) Screen Presumptive negative Drugs of Abuse Note Disclamer Plasma/Serum Alcohol (0-0.07) % - EKG Data -: EKG Interpreted by Mt EKG shows normal: sinus rhythm, axis (qrs 46), QRS complexes (qrsd 83), ST-T waves (no stemi/t inv) Rate: normal (85) - Radiology Data Radiology results: report reviewed CT HEAD WITHOUT CONTRAST INDICATION : Code stroke. Right sided weakness. TECHNIQUE: Axial, coronal and sagittal CT imaging was performed from the skull apex through the skull base without contrast. All CT scans at this location are performed using CT dose reduction for ALARA by means of automated exposure control. COMPARISON: Head CT from 03/07/2019. FINDINGS: PARENCHYMA: No mass, midline shift, hemorrhage, extraaxial collection or acute territorial infarction. VENTRICLES: Symmetric and normal in size. SOFT TISSUES: Soft tissues including the orbits appear normal. BONES: No acute osseous abnormality. SINUSES: No significant abnormality. ADDITIONAL FINDINGS: None. IMPRESSION: No acute intracranial abnormality. CTA of the brain: HISTORY: Right-sided weakness FINDINGS: Following intravenous injection of 100 mL of Omnipaque 350, thin section transverse images were obtained. Sagittal and coronal reformatted images are obtained. Distal vertebral arteries, origin of right PICA and basilar formation are normal. The Basilar artery and the basilar tip are normal. Posterior cerebral arteries are normal. Internal carotid arteries are normal from skull base to termination is. A1 and M1 segments are normal. All CT scans at this location are performed using CT dose reduction for ALARA by means of automated exposure control. Incidentally, focal calcific densities seen to the gland. This is nonspecific. IMPRESSION: Normal CTA of the brain. CTA NECK WITH CONTRAST HISTORY: Right-sided weakness COMPARISON: None. TECHNIQUE: Routine CTA of the neck was performed. 3-D/MIP reformats were postprocessed. Percentage stenosis is determined by direct quantitative measurements of diseased internal carotid artery diameter compared with normal distal internal carotid artery reference segments or by criteria similar to NASCET where applicable. All CT scans at this location are performed using CT dose reduction for ALARA by means of automated exposure control. CONTRAST: 100 ml of Omnipaque 350 FINDINGS: Aortic arch: No significant abnormality. Cervical vertebral arteries: No significant abnormality. Common carotid arteries: No significant abnormality. Carotid bifurcations: Normal Cervical internal carotid arteries: No significant abnormality. Additional findings: None. IMPRESSION: Normal carotid bifurcations - Medical Decision Making Neurology evaluated patient. Patient has a TPA candidate Recommend admission and stroke workup My differential also includes complex migraine Neuro consult rec cta to r/o post circ cva Benadryl and Reglan ordered for unilateral headache with associated right sided sensory deficit patient reports allergy to aspirin and therefore not provided ct head/cta head and neck: naf mild hypokalemia tx with po kcl, normal mag keppra 1 g provided for sz d/o - Differential Diagnosis complex migraine, CVA, ICH, seizure, Critical Care Time: No Critical care attestation.: If time is entered above; I have spent that time in minutes in the direct care of this critically ill patient, excluding procedure time. ED Disposition Clinical Impression: Right sided numbness, Seizure disorder, Hypokalemia Syncope Qualifiers: Syncope type: unspecified Qualified Code(s): R55 - Syncope and collapse Migraine Qualifiers: Intractability: not intractable Disposition: OP ADMIT IP TO THIS HOSP Is pt being admited?: Yes Condition: Stable Time of Disposition: 21:33 (Dr De Santiago/hosp) - Assessment Assessment Interval: Baseline - Level of Consciousness 1a. Level of Consciousness: alert/keenly responsive - LOC Questions 1b. LOC Questions: answers both correctly - LOC Command 1c. LOC Commands: performs tasks correctly - Best Gaze 2. Best Gaze: normal - Visual 3. Visual: no visual loss - Facial Palsy 4. Facial Palsy: normal symmetrical movement - Motor Arm 5a. Motor Arm Left: no drift 5b. Motor Arm Right: no drift - Motor Leg 6a. Motor Leg Left: no drift 6b. Motor Leg Right: no drift - Limb Ataxia 7. Limb Ataxia: absent - Sensory 8. Sensory: mild/moderate sensory loss - Best Language 9. Best Language: no aphasia - Dysarthria 10. Dysarthria: normal - Extinction and Inattention 11. Extinction/Inattention: no abnormality - Scoring Total Score: 1 Stroke Severity: Minor Stroke
[2019-04-04] MEDS ORDERED: BENADRYL IV ONE (19:25)
[2019-04-04] MEDS ORDERED: REGLAN IV ONE (19:25)
--- NOTE | 2019-04-04 19:46 | Cat Scan Report ---
CT HEAD WITHOUT CONTRAST INDICATION : Code stroke. Right sided weakness. TECHNIQUE: Axial, coronal and sagittal CT imaging was performed from the skull apex through the skul l base without contrast. All CT scans at this location are performed using CT dose reduction for ALA RA by means of automated exposure control. COMPARISON: Head CT from 03/07/2019. FINDINGS: PARENCHYMA: No mass, midline shift, hemorrhage, extraaxial collection or acute territorial infarctio n. VENTRICLES: Symmetric and normal in size. SOFT TISSUES: Soft tissues including the orbits appear normal. BONES: No acute osseous abnormality. SINUSES: No significant abnormality. ADDITIONAL FINDINGS: None. IMPRESSION: No acute intracranial abnormality. COMMUNICATION: Radiologist: Dr. Akbar Time of Discovery: 18:40 Time of Communication: 18:42 Licensed Practitioner Receiving Report: Dr. Fernandes Read Back Performed: Yes. Signer Name: Amrit Akbar MD Signed: 04/04/2019 7:42 PM Workstation Name: [id number]
[2019-04-04 19:56] LABS: Basophils # (Auto) 0.1 K/mm3 (0.0-0.1); Basophils % (Auto) 2.2 % (0.0-1.8); Eosinophils % (Auto) 1.5 % (0.0-4.3); Hematocrit 33.6 % (30.3-42.9); Hemoglobin 11.5 gm/dl (10.1-14.3); Lymphocytes # (Auto) 0.5 K/mm3 (1.2-5.4); Lymphocytes % (Auto) 18.2 % (13.4-35.0); Mean Corpuscular HGB Conc 34 % (30-34); Mean Corpuscular Volume 101 fl (79-97); Monocytes # (Auto) 0.4 K/mm3 (0.0-0.8); Monocytes % (Auto) 13.4 % (0.0-7.3); Platelet Count 205 K/mm3 (140-440); Red Blood Count 3.34 M/mm3 (3.65-5.03)
[2019-04-04 20:09] LABS: INR 1.04 (0.87-1.13)
[2019-04-04 20:13] LABS: BUN/Creatinine Ratio 12; Blood Urea Nitrogen 6 mg/dL (7-17); Hemolysis Index 8
[2019-04-04 20:27] LABS: Partial Thromboplastin Time 33.6 Sec. (24.2-36.6)
[2019-04-04 20:30] LABS: Creatine Kinase MB 3.3 ng/mL (0.0-4.0)
--- NOTE | 2019-04-04 20:50 | Cat Scan Report ---
CTA NECK WITH CONTRAST HISTORY: Right-sided weakness COMPARISON: None. TECHNIQUE: Routine CTA of the neck was performed. 3-D/MIP reformats were postprocessed. Percentage s tenosis is determined by direct quantitative measurements of diseased internal carotid artery diamete r compared with normal distal internal carotid artery reference segments or by criteria similar to NA SCET where applicable. All CT scans at this location are performed using CT dose reduction for ALARA by means of automated exposure control. CONTRAST: 100 ml of Omnipaque 350 FINDINGS: Aortic arch: No significant abnormality. Cervical vertebral arteries: No significant abnormality. Common carotid arteries: No significant abnormality. Carotid bifurcations: Normal Cervical internal carotid arteries: No significant abnormality. Additional findings: None. IMPRESSION: Normal carotid bifurcations Signer Name: Alberto Bernardo MD Signed: 04/04/2019 8:46 PM Workstation Name: [id number]
--- NOTE | 2019-04-04 20:57 | Cat Scan Report ---
CTA of the brain: HISTORY: Right-sided weakness FINDINGS: Following intravenous injection of 100 mL of Omnipaque 350, thin section transverse images were obtained. Sagittal and coronal reformatted images are obtained. Distal vertebral arteries, origin of right PICA and basilar formation are normal. The Basilar artery and the basilar tip are normal. Posterior cerebral arteries are normal. Internal carotid arteries are normal from skull base to termination is. A1 and M1 segments are normal . All CT scans at this location are performed using CT dose reduction for ALARA by means of automated e xposure control. Incidentally, focal calcific densities seen to the gland. This is nonspecific. IMPRESSION: Normal CTA of the brain. Signer Name: Albreto Bernardo MD Signed: 04/04/2019 8:53 PM Workstation Name: [id number]
[2019-04-04 20:59] LABS: Bilirubin,Urine NEG (Negative); Blood,Urine NEG (Negative); Color,Urine Yellow (Yellow); Mucus,Urine FEW /HPF
[2019-04-04 21:08] LABS: Amphetamine Screen,Urine PRESUMPTIVE NEGATIVE; Benzodiazepines Screen,Urine PRESUMPTIVE NEGATIVE; Cannabinoid Screen,Urine PRESUMPTIVE NEGATIVE; Cocaine Screen,Urine PRESUMPTIVE NEGATIVE; Methadone Screen,Urine PRESUMPTIVE NEGATIVE; Opiate Screen,Urine PRESUMPTIVE NEGATIVE
[2019-04-04] MEDS ORDERED: K-DUR PO ONE (21:16)
[2019-04-04] MEDS ORDERED: KEPPRA 1,000 MG/NS 0.75% 100ML 1,000 MG/100 ML BAG IV ONE (21:29)
--- NOTE | 2019-04-04 21:55 | History and Physical Report ---
History of Present Illness Date of examination: 04/04/19 History of present illness: 38-year-old woman with a history of hypertension, seizure, migraine comes emergency room because all she was at [employer] she felt dizzy. She sat down and then she tried to get and almost passed out. She did not lose consciousness, also complaining that she's been having right-sided weakness and numbness since 10 am, no headache eview Of Systems: Constitutional: no weight loss, fever, chills Ears, eyes, nose, mouth and throat: no nasal congestion, no nasal discharge, no sinus pressure, blurry vision, diplopia Neck: No neck pain or rigidity. Cardiovascular: No palpitations, chest pain Respiratory: No shortness of breath, cough Gastrointestinal: No hematochezia, abdominal pain Genitourinary : no dysuria, frequency , hematuria Musculoskeletal: no muscle ache , joint pain Integumentary: no rash, no pruritis Neurological: no parathesias, focal weakness Endocrine: no cold or heat intolerance, no polyuria or polydipsia Hematologic/Lymphatic: no easy bruising, no easy bleeding, no gland swelling Allergic/Immunologic: no urticaria, no angioedema. PAST MEDICAL HISTORY:hypertension, seizure, migraine PAST SURGICAL HISTORY: Foot FAMILY HISTORY:hypertension, diabetes SOCIAL HISTORY: Smoked 3 cigarettes a day, no drugs, alcohol Medications and Allergies Allergies Allergy/AdvReac Type Severity Reaction Status Date / Time aspirin Allergy Hives Verified 04/04/19 18:09 ibuprofen [From Motrin] Allergy Hives Verified 04/04/19 18:09 ketorolac [From Toradol] Allergy Unknown Verified 04/04/19 18:09 Penicillins Allergy Hives Verified 04/04/19 18:09 shellfish derived Allergy Hives Verified 04/04/19 18:09 Home Medications Medication Instructions Recorded Confirmed Last Taken Type diazePAM TAB [Valium] 2 mg PO Q8H PRN #12 tablet 04/10/18 04/04/19 Unknown Rx ALBUTEROL Inhaler(NF) [VENTOLIN 1 puff IH Q4HR PRN #1 inha 10/21/18 04/04/19 Unknown Rx Inhaler(NF)] Famotidine [Pepcid] 20 mg PO BID #30 tablet 11/04/18 04/04/19 Unknown Rx levETIRAcetam [Keppra] 1,000 mg PO Q12H #60 tablet 11/21/18 04/04/19 Unknown Rx HYDROcodone/APAP 5-325 [[place] 1 each PO Q4HR PRN #10 tablet 03/07/19 04/04/19 Unknown Rx 5/325] amLODIPine 10 mg PO DAILY 04/04/19 04/04/19 Unknown History Exam - Physical Exam Narrative exam: General Apperance: The patient sitting in bed no acute distress HEENT: Normocephalic, atraumatic. Pupils equally round and reactive to light, extraocular movement intact, and no sclericterus or JVD or thyromegaly or nodule. Neck supple, no carotid bruit, mucous membranes moist, no exudate or erythema Heart: S1-S2, regular is rhythm Lungs: Clear to auscultation bilaterally, breathing comfortable Abdomen: Positive bowel sounds, soft, nontender, nondistended, no organomegaly Extremities: No edema cyanosis clubbing Skin: no rash, nodule, warm and dry Neuro:CN 2 -12 intact, motor intact, right side paresthesia, speech is fluent - Constitutional Vitals: Temp Pulse Resp BP Pulse Ox 98.9 F 85 34 H 131/77 95 04/04/19 18:09 04/04/19 20:45 04/04/19 20:45 04/04/19 20:45 04/04/19 20:45 Results - Labs CBC & Chem 7: 04/04/19 19:45 04/04/19 19:45 Labs: Abnormal lab results 04/04/19 04/04/19 04/04/19 Range/Units 19:23 19:45 19:45 WBC 2.8 L (4.5-11.0) K/mm3 RBC 3.34 L (3.65-5.03) M/mm3 MCV 101 H (79-97) fl MCH 34 H (28-32) pg RDW 16.0 H (13.2-15.2) % [place] % (Auto) 13.4 H (0.0-7.3) % Baso % (Auto) 2.2 H (0.0-1.8) % Lymph # 0.5 L (1.2-5.4) K/mm3 Potassium (3.6-5.0) mmol/L BUN (7-17) mg/dL Creatinine (0.7-1.2) mg/dL Glucose (65-100) mg/dL POC Glucose 162 H (70-105) Calcium (8.4-10.2) mg/dL Total Creatine Kinase 219 H (30-135) units/L Ur Specific [place] (1.003-1.030) 04/04/19 04/04/19 Range/Units 19:45 Unknown WBC (4.5-11.0) K/mm3 RBC (3.65-5.03) M/mm3 MCV (79-97) fl MCH (28-32) pg RDW (13.2-15.2) % [place] % (Auto) (0.0-7.3) % Baso % (Auto) (0.0-1.8) % Lymph # (1.2-5.4) K/mm3 Potassium 3.3 L (3.6-5.0) mmol/L BUN 6 L (7-17) mg/dL Creatinine 0.5 L (0.7-1.2) mg/dL Glucose 115 H (65-100) mg/dL POC Glucose (70-105) Calcium 8.0 L (8.4-10.2) mg/dL Total Creatine Kinase (30-135) units/L Ur Specific [place] 1.046 H (1.003-1.030) - Imaging and Cardiology CT Scan - head: report reviewed Assessment and Plan Head and neck CTA Assessment Acute CVA Hypertension seizure Admit to medicine [facility] [place] MRI of the head, cardiac enzymes, lipid profile do neuro checks consult neurology, PT, OT Diet Plavix, statin IV hydralazine as needed for blood pressure control DVT prophylaxis
[2019-04-04] MEDS ORDERED: ZOFRAN IV PRN (23:34)
[2019-04-04] MEDS ORDERED: REGLAN PO PRN (23:34)
[2019-04-04] MEDS ORDERED: DULCOLAX PR PRN (23:34)
[2019-04-04] MEDS ORDERED: SODIUM CHLORIDE FLUSH SYRINGE 10 ML IV PRN (23:34)
[2019-04-04] MEDS ORDERED: MILK OF MAGNESIA PO PRN (23:34)
[2019-04-05 08:34] LABS: Chol/HDL Ratio 3.6 %
[2019-04-05] MEDS: TYLENOL PO PRN ×3 (09:10→22:02)
[2019-04-05] MEDS: PLAVIX PO SCH (09:10)
[2019-04-05] MEDS: LOVENOX SUB-Q SCH (09:10)
--- NOTE | 2019-04-05 10:58 | Progress Note ---
Assessment and Plan Assessment and plan: Acute CVA. Continue CVA pathway. Follow-up MRI/MRA, echocardiogram. PT/OT. CTA head and neck unremarkable. Patient has a history of migraines. Therefore, I question possible complex migraine presentation. Neurology consultation pending. Seizure disorder. Continue AEDs and seizure precautions. Hypertension. Continue antihypertensive medications. History Interval history: 38-year-old woman with a history of hypertension, seizure, migraine comes [facility] room because all she was at [employer] she felt dizzy. She sat down and then she tried to get and almost passed out. She did not lose consciousness, also complaining that she's been having right-sided weakness and numbness Hospitalist Physical - Constitutional Vitals: Temp Pulse Resp BP Pulse Ox 98.7 F 83 18 118/77 98 04/05/19 08:16 04/05/19 07:08 04/05/19 08:16 04/05/19 08:16 04/05/19 04:43 General appearance: Present: no acute distress, well-nourished - EENT Eyes: Present: PERRL, EOM intact ENT: hearing intact, clear oral mucosa, dentition normal - Neck Neck: Present: supple, normal ROM - Respiratory Respiratory effort: normal Respiratory: bilateral: CTA - Cardiovascular Rhythm: regular Heart Sounds: Present: S1 & S2. Absent: gallop, rub - Extremities Extremities: no ischemia, No edema, Full ROM - Abdominal General gastrointestinal: soft, non-tender, non-distended, normal bowel sounds - Integumentary Integumentary: Present: clear, warm, dry - Neurologic Neurologic: CNII-XII intact, moves all extremities Results - Labs CBC & Chem 7: 04/04/19 19:45 04/04/19 19:45 Labs: Laboratory Last Values WBC 2.8 K/mm3 (4.5-11.0) L 04/04/19 19:45 RBC 3.34 M/mm3 (3.65-5.03) L 04/04/19 19:45 Hgb 11.5 gm/dl (10.1-14.3) 04/04/19 19:45 Hct 33.6 % (30.3-42.9) 04/04/19 19:45 MCV 101 fl (79-97) H 04/04/19 19:45 MCH 34 pg (28-32) H 04/04/19 19:45 MCHC 34 % (30-34) 04/04/19 19:45 RDW 16.0 % (13.2-15.2) H 04/04/19 19:45 Plt Count 205 K/mm3 (140-440) 04/04/19 19:45 Lymph % (Auto) 18.2 % (13.4-35.0) 04/04/19 19:45 [place] % (Auto) 13.4 % (0.0-7.3) H 04/04/19 19:45 Eos % (Auto) 1.5 % (0.0-4.3) 04/04/19 19:45 Baso % (Auto) 2.2 % (0.0-1.8) H 04/04/19 19:45 Lymph # 0.5 K/mm3 (1.2-5.4) L 04/04/19 19:45 [place] # 0.4 K/mm3 (0.0-0.8) 04/04/19 19:45 Eos # 0.0 K/mm3 (0.0-0.4) 04/04/19 19:45 Baso # 0.1 K/mm3 (0.0-0.1) 04/04/19 19:45 Seg Neutrophils % 64.7 % (40.0-70.0) 04/04/19 19:45 Seg Neutrophils # 1.8 K/mm3 (1.8-7.7) 04/04/19 19:45 PT 13.3 Sec. (12.2-14.9) 04/04/19 19:45 INR 1.04 (0.87-1.13) 04/04/19 19:45 APTT 33.6 Sec. (24.2-36.6) 04/04/19 19:45 18.0 Sec. (15.1-19.6) 04/04/19 19:45 Sodium 142 mmol/L (137-145) 04/04/19 19:45 Potassium 3.3 mmol/L (3.6-5.0) L 04/04/19 19:45 Chloride 103.4 mmol/L (98-107) 04/04/19 19:45 Carbon Dioxide 26 mmol/L (22-30) 04/04/19 19:45 16 mmol/L 04/04/19 19:45 BUN 6 mg/dL (7-17) L 04/04/19 19:45 0.5 mg/dL (0.7-1.2) L 04/04/19 19:45 Estimated GFR > 60 ml/min 04/04/19 19:45 12 % 04/04/19 19:45 Glucose 115 mg/dL (65-100) H 04/04/19 19:45 POC Glucose 162 (70-105) H 04/04/19 19:23 Calcium 8.0 mg/dL (8.4-10.2) L 04/04/19 19:45 Magnesium 1.70 mg/dL (1.7-2.3) 04/04/19 19:45 219 units/L (30-135) H 04/04/19 19:45 CK-MB (CK-2) 3.3 ng/mL (0.0-4.0) 04/04/19 19:45 CK-MB (CK-2) Rel Index 1.5 (0-4) 04/04/19 19:45 < 0.010 ng/mL (0.00-0.029) 04/04/19 19:45 Triglycerides 92 mg/dL (2-149) 04/05/19 07:01 Cholesterol 119 mg/dL (50-199) 04/05/19 07:01 85 mg/dL (50-130) 04/05/19 07:01 33 mg/dL (40-59) L 04/05/19 07:01 3.60 % 04/05/19 07:01 HCG, Quant < 2 mIU/mL (0-4) 04/04/19 19:45 Yellow (Yellow) 04/04/19 Unknown Cloudy (Clear) 04/04/19 Unknown 6.0 (5.0-7.0) 04/04/19 Unknown Ur Specific [place] 1.046 (1.003-1.030) H 04/04/19 Unknown 30 mg/dl mg/dL (Negative) 04/04/19 Unknown Neg mg/dL (Negative) 04/04/19 Unknown Neg mg/dL (Negative) 04/04/19 Unknown Neg (Negative) 04/04/19 Unknown Neg (Negative) 04/04/19 Unknown Neg (Negative) 04/04/19 Unknown 4.0 mg/dL (<2.0) 04/04/19 Unknown Ur Leukocyte Esterase Tr (Negative) 04/04/19 Unknown 5.0 /HPF (0.0-6.0) 04/04/19 Unknown 3.0 /HPF (0.0-6.0) 04/04/19 Unknown U Epithel Cells (Auto) 10.0 /HPF (0-13.0) 04/04/19 Unknown Few /HPF 04/04/19 Unknown Presumptive negative 04/04/19 Unknown Presumptive negative 04/04/19 Unknown Ur Barbiturates Screen Presumptive negative 04/04/19 Unknown Ur Phencyclidine Scrn Presumptive negative 04/04/19 Unknown Ur Amphetamines Screen Presumptive negative 04/04/19 Unknown U Benzodiazepines Scrn Presumptive negative 04/04/19 Unknown Presumptive negative 04/04/19 Unknown U Marijuana (THC) Screen Presumptive negative 04/04/19 Unknown Disclamer 04/04/19 Unknown Plasma/Serum Alcohol < 0.01 % (0-0.07) 04/04/19 19:45 Active Medications - Current Medications Current Medications: Generic Name Dose Route Start Last Admin Trade Name Freq PRN Reason Stop Dose Admin Acetaminophen 650 mg 04/04/19 23:34 04/05/19 09:10 Tylenol PO 650 mg Q4H PRN Administration Pain, Mild (1-3) Atorvastatin Calcium 40 mg 04/05/19 22:00 Lipitor PO QHS [facility] Bisacodyl 10 mg 04/04/19 23:34 Dulcolax [place] QDAY PRN Constipation Clopidogrel Bisulfate 75 mg 04/05/19 10:00 04/05/19 09:10 Plavix PO 75 mg QDAY [facility] Administration Enoxaparin Sodium 40 mg 04/05/19 10:00 04/05/19 09:10 Lovenox SUB-Q 40 mg QDAY [facility] Administration Magnesium Hydroxide 30 ml 04/04/19 23:34 Milk Of Magnesia PO Q4H PRN Constipation Metoclopramide HCl 10 mg 04/04/19 23:34 Reglan PO Q6H PRN Nausea And Vomiting Ondansetron HCl 4 mg 04/04/19 23:34 Zofran IV Q8H PRN Nausea And Vomiting Oxycodone/Acetaminophen 1 tab 04/04/19 23:34 Percocet 5/325 PO Q6H PRN Pain, Moderate (4-6) Sodium Chloride 10 ml 04/04/19 23:34 Sodium Chloride Flush Syringe 10 Ml IV PRN PRN LINE FLUSH
[2019-04-05] MEDS: PERCOCET 5/325 PO PRN (12:21)
--- NOTE | 2019-04-05 14:06 | Consultation ---
History of Present Illness Consult date: 04/05/19 Reason for Consult: Right sided weakness/numbness Chief complaint: Right sided weakness/numbness History of present illness: Patient is a 38-year-old woman with a history of hypertension, obesity, migraines, history of seizures, depression, anemia. She presented yesterday with symptoms of right-sided numbness and weakness, and with a loss of consciousness while at [employer]. Patient states that around 10:30 or 11 AM yesterday, she was getting ready for [employer], and she noted that her right arm and right leg were weak and also noted decreased sensation on the right side. She then went to [employer], and while at [employer] she noted that she began to have symptoms of hot flashes, and sat down. When standing up approximately 10-15 minutes later, she suddenly lost consciousness, and woke up a few minutes later. She is not aware if she had seizure-like activity while she had lost consciousness yesterday. She states that she's been compliant with Keppra 1000 mg twice a day. The patient also states that her right-sided numbness and weakness has persisted since yesterday. She notes that she is planning to move to [place] soon, and has been under increased stress due to the impending move. Past History Past Medical History: other (hypertension, depression, obesity, migraines, seizures, anemia) Social history: lives with family, smoking (smokes about 3 cigarettes per day) Family history: no significant family history Medications and Allergies Allergies Allergy/AdvReac Type Severity Reaction Status Date / Time aspirin Allergy Hives Verified 04/04/19 18:09 ibuprofen [From Motrin] Allergy Hives Verified 04/04/19 18:09 ketorolac [From Toradol] Allergy Unknown Verified 04/04/19 18:09 Penicillins Allergy Hives Verified 04/04/19 18:09 shellfish derived Allergy Hives Verified 04/04/19 18:09 Home Medications Medication Instructions Recorded Confirmed Last Taken Type diazePAM TAB [Valium] 2 mg PO Q8H PRN #12 tablet 04/10/18 04/04/19 Unknown Rx ALBUTEROL Inhaler(NF) [VENTOLIN 1 puff IH Q4HR PRN #1 inha 10/21/18 04/04/19 Unknown Rx Inhaler(NF)] Famotidine [Pepcid] 20 mg PO BID #30 tablet 11/04/18 04/04/19 Unknown Rx levETIRAcetam [Keppra] 1,000 mg PO Q12H #60 tablet 11/21/18 04/04/19 Unknown Rx HYDROcodone/APAP 5-325 [[place] 1 each PO Q4HR PRN #10 tablet 03/07/19 04/04/19 Unknown Rx 5/325] amLODIPine 10 mg PO DAILY 04/04/19 04/04/19 Unknown History Active Meds: Active Medications Acetaminophen (Tylenol) 650 mg PO Q4H PRN PRN Reason: Pain, Mild (1-3) Last Admin: 04/05/19 09:10 Dose: 650 mg Documented by: Atorvastatin Calcium (Lipitor) 40 mg PO QHS [facility] Bisacodyl (Dulcolax) 10 mg ND QDAY PRN PRN Reason: Constipation Clopidogrel Bisulfate (Plavix) 75 mg PO QDAY [facility] Last Admin: 04/05/19 09:10 Dose: 75 mg Documented by: Enoxaparin Sodium (Lovenox) 40 mg SUB-Q QDAY [facility] Last Admin: 04/05/19 09:10 Dose: 40 mg Documented by: Magnesium Hydroxide (Milk Of Magnesia) 30 ml PO Q4H PRN PRN Reason: Constipation Metoclopramide HCl (Reglan) 10 mg PO Q6H PRN PRN Reason: Nausea And Vomiting Ondansetron HCl (Zofran) 4 mg IV Q8H PRN PRN Reason: Nausea And Vomiting Oxycodone/Acetaminophen (Percocet 5/325) 1 tab PO Q6H PRN PRN Reason: Pain, Moderate (4-6) Last Admin: 04/05/19 12:21 Dose: 1 tab Documented by: Sodium Chloride (Sodium Chloride Flush Syringe 10 Ml) 10 ml IV PRN PRN PRN Reason: LINE FLUSH Review of Systems All systems: negative Neurological: weakness, parathesias Physical Examination - Vital Signs Vital Signs: Vital Signs Pulse Resp Pulse Ox 92 H 20 97 04/04/19 18:06 04/04/19 18:06 04/04/19 18:06 - Constitutional General appearance: comfortable - EENT EENT: Present: ATNC, PERRL, mucous membranes moist, hearing intact, vision intact - Respiratory Respiratory: Present: lungs clear, normal breath sounds - Cardiovascular Cardiovascular: Present: regular rate, normal S1, normal S2 Extremities: Present: no peripheral edema bilatateraly, no clubbing, cyanosis, no inflammation - Gastrointestinal Gastrointestinal: Present: normoactive bowel sounds, soft, non-tender - Integumentary Integumentary: Present: normal - Neurologic Cranial nerve examination: PERRL, EOMI, VFF, face symmetric, intact shoulder shrug, other ( decreased sensations on the right side of the face) Speech examination: intact Sensorimotor examination: other (vision known to have normal and equal strength in all extremities, however when testing for right upper extremity drift, the patient had an abrupt drift of the right arm.) Motor examination - right side: 5/5: biceps, triceps, wrist flexion, wrist extension, shelving supervisor, hip flexors, knee extensors, dorsiflexion, toe extension (EHL), plantarflexion Motor examination - left side: 5/5: biceps, triceps, wrist flexion, wrist extension, shelving supervisor, hip flexors, knee extensors, dorsiflexion, toe extension (EHL), plantarflexion Detailed sensory examination: other (decreased on the right side upper extremity and lower extremity to light touch.) Reflexes: 2+: ankle, bicep, knee, tricep Cerebellar examination: other (b/l intact to FTN and HTS) - Musculoskeletal Musculoskeletal: Present: no fluid collection, no pain, normal range of motion - Level of Consciousness 1a. Level of Consciousness: alert/keenly responsive - LOC Questions 1b. LOC Questions: answers both correctly - LOC Command 1c. LOC Commands: performs tasks correctly - Best Gaze 2. Best Gaze: normal - Visual 3. Visual: no visual loss - Facial Palsy 4. Facial Palsy: normal symmetrical movement - Motor Arm 5a. Motor Arm Left: no drift 5b. Motor Arm Right: drift (Noted to have no abrupt drift however has normal strength when tested objectively.) - Motor Leg 6a. Motor Leg Left: no drift 6b. Motor Leg Right: no drift - Limb Ataxia 7. Limb Ataxia: absent - Sensory 8. Sensory: mild/moderate sensory loss - Best Language 9. Best Language: no aphasia - Dysarthria 10. Dysarthria: normal - Extinction and Inattention 11. Extinction/Inattention: no abnormality - Scoring Total Score: 2 Stroke Severity: Minor Stroke Results - Laboratory Findings CBC and BMP: 04/04/19 19:45 04/04/19 19:45 Abnormal Lab Findings: Abnormal Labs 04/04/19 04/04/19 04/04/19 19:23 19:45 19:45 WBC 2.8 L RBC 3.34 L MCV 101 H MCH 34 H RDW 16.0 H [place] % (Auto) 13.4 H Baso % (Auto) 2.2 H Lymph # 0.5 L Potassium BUN Creatinine Glucose POC Glucose 162 H Calcium Total Creatine Kinase 219 H HDL Cholesterol Ur Specific [place] 04/04/19 04/04/19 04/05/19 19:45 Unknown 07:01 WBC RBC MCV MCH RDW [place] % (Auto) Baso % (Auto) Lymph # Potassium 3.3 L BUN 6 L Creatinine 0.5 L Glucose 115 H POC Glucose Calcium 8.0 L Total Creatine Kinase HDL Cholesterol 33 L Ur Specific [place] 1.046 H Assessment and Plan Patient is a 38-year-old woman with a history of hypertension, obesity, migraines, history of seizures, depression, anemia, who p/w right sided numbness and weakness, and a loss of consciousness. According the patient's clinical findings, it is possible that she's had an acute ischemic stroke. Alternatively, the patient may have conversion disorder, as she is under increased amounts of stress with her upcoming move to [place]. MRI is pending. Plan: 1. Possible ischemic stroke. - MRI brain pending. Echocardiogram pending. LDL 85. - CT brain revealed possible chronic subcortical ischemic stroke - CTA head and neck did not reveal any significant abnormalities. Continue patient on aspirin 81 mg daily, as there is evidence of possible previous stroke on CT scan. - Check hemoglobin A1c. 2. Blood pressure: - Recommend BP goal of less than 220/120 fpr the next 24 hours, to allow for permissive hypertension. Telemetry monitoring while in-house Recommend PT and OT. Speech therapy not indicated as patient does not have any evidence of dysarthri a or aphagia. - DVT Ppx: Recommend lovenox Will continue to follow this patient. Js Jones M.D. Neurology
--- NOTE | 2019-04-05 18:00 | Magnetic Resonance Report ---
MR brain wo con INDICATION / CLINICAL INFORMATION: 38 years Female; stroke. TECHNIQUE: Multiplanar, multisequence MR images of the brain were obtained. Motion artifact COMPARISON: CT - 04/04/2019 FINDINGS: BRAIN / INTRACRANIAL CONTENTS: No acute hemorrhage, mass effect, midline shift, hydrocephalus, or acu te, large territorial infarct. No chronic infarct or atrophy. No significant white matter abnormality . CRANIOCERVICAL JUNCTION: No significant abnormality. VASCULAR FLOW-VOIDS: No significant abnormality. ORBITS: No significant abnormality of visualized orbits. SINUSES / MASTOIDS: No significant abnormality of the visualized paranasal sinuses or mastoid air jayjay ls. ADDITIONAL FINDINGS: Mildly prominent soft tissues seen in the roof the nasopharynx, presumably relat ed to reactive adenoidal tissue. Small, presumed intraparotid lymph nodes seen bilaterally. IMPRESSION: 1. No focal mass, hemorrhage, hydrocephalus, or acute ischemia. Signer Name: Willard Whitley MD, III Signed: 04/05/2019 5:55 PM Workstation Name: [id number]
--- NOTE | 2019-04-05 18:01 | Magnetic Resonance Report ---
MRA head without contrast CLINICAL HISTORY: Cerebrovascular accident, weakness FINDINGS: No MRA exams available for comparison. The motion degrades the image quality at. 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 The distal right vertebral artery is clearly dominant. The irregularity of the distal internal carotid a rteries appears to be related to the degree of motion or possibly mild atherosclerotic disease. There is no clear evidence of significant focal stenosis involving anterior circulation vessels. Furthermo re, there is no gross evidence of intracranial aneurysm. 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 The motion degrades image quality. However, the MRA of the head is otherwise grossly unremarkable. Signer Name: Alan Vides MD Signed: 04/05/2019 5:57 PM Workstation Name: [id number]
[2019-04-06 07:43] VITALS: BP 100/66
[2019-04-06] MEDS: PERCOCET 5/325 PO PRN (08:42)
[2019-04-06] MEDS: PLAVIX PO SCH (10:18)
[2019-04-06] MEDS: LOVENOX SUB-Q SCH (10:18)
--- NOTE | 2019-04-06 11:20 | Progress Note ---
Assessment and Plan Patient is a 38-year-old woman with a history of hypertension, obesity, migraines, history of seizures, depression, anemia, who p/w right sided numbness and weakness, and a loss of consciousness. According the patient's clinical findings, it is likely that the patient has conversion disorder, as she is under increased amounts of stress with her upcoming move to [place]. MRI did not show any evidence of infarction.. Plan: 1. Conversion disorder: - MRI brain did not show any acute abnormalities. - Echo: 55-60%, LA normal size. LDL 85. - CT brain unremarkable - CTA head and neck did not reveal any significant abnormalities. Can discontinue Aspirin, as there no evidence of stroke on CT scan or MRI brain. Recommend for patient to continue to follow up with psychiatry outpatient, and she stated that she has an appointment scheduled for this Friday. 2. Blood pressure: - Recommend BP goal of normotension. Telemetry monitoring while in-house Speech therapy not indicated as patient does not have any evidence of dysarthri a or aphagia. - DVT Ppx: Recommend lovenox Ok to discharge patient from neurologic standpoint. Will sign off. Please call with any questions. Js Jones M.D. Neurology Subjective Date of service: 04/06/19 Principal diagnosis: conversion disorder Interval history: No acute events overnight. Right sided paresthesias somewhat improved today. Objective - Vital Sign Vital Signs - 12hr 04/05/19 04/06/19 04/06/19 23:35 03:57 04:00 Temperature 98.2 F 98.2 F Pulse Rate 82 79 Respiratory 18 18 18 Rate Blood Pressure 108/60 94/45 O2 Sat by Pulse 92 98 Oximetry 04/06/19 04/06/19 04/06/19 07:42 08:42 08:47 Temperature 98.6 F Pulse Rate Respiratory 18 20 Rate Blood Pressure 100/66 O2 Sat by Pulse 97 Oximetry - General Apperance Constitutional: comfortable - EENT EENT: ATNC, PERRL, mucous membranes moist, hearing intact, vision intact - Respiratory Respiratory: lungs clear, normal breath sounds - Cardiovascular Cardiovascular: regular rate, normal S1, normal S2 Extremities: no peripheral edema bilat, no clubbing, cyanosis - Gastrointestinal Gastrointestinal: normoactive bowel sounds, soft, non-tender - Integumentary Integumentary: normal - Neurologic Cranial nerve examination: PERRL, EOMI, VFF, V1/V2/V3 grossly intact, face symmetric, tongue midline, intact shoulder shrug Speech examination: intact Detailed motor examination: full strength in all kendra Motor examination - right side: 5/5: biceps, triceps, wrist flexion, wrist extension, revenue stamper, hip flexors, knee extensors, dorsiflexion, toe extension (EHL), plantarflexion Motor examination - left side: 5/5: biceps, triceps, wrist flexion, wrist extension, revenue stamper, hip flexors, knee extensors, dorsiflexion, toe extension (EHL), plantarflexion Detailed sensory examination: intact, light touch Reflex and gait examination: intact Reflexes: 2+: ankle, bicep, knee, tricep Cerebellar examination: other (b/l intact FTN and HTS) - Musculoskeletal Musculoskeletal: no fluid collection, no pain, normal range of motion - Psychiatric Psychiatric: mood/affect appropriate - Laboratory Findings CBC and BMP: 04/04/19 19:45 04/04/19 19:45 Abnormal Lab Findings: Abnormal Labs 04/04/19 04/04/19 04/04/19 19:23 19:45 19:45 WBC 2.8 L RBC 3.34 L MCV 101 H MCH 34 H RDW 16.0 H Aiken % (Auto) 13.4 H Baso % (Auto) 2.2 H Lymph # 0.5 L Potassium BUN Creatinine Glucose POC Glucose 162 H Calcium Total Creatine Kinase 219 H HDL Cholesterol Ur Specific [place] 04/04/19 04/04/19 04/05/19 19:45 Unknown 07:01 WBC RBC MCV MCH RDW Aiken % (Auto) Baso % (Auto) Lymph # Potassium 3.3 L BUN 6 L Creatinine 0.5 L Glucose 115 H POC Glucose Calcium 8.0 L Total Creatine Kinase HDL Cholesterol 33 L Ur Specific [place] 1.046 H
--- NOTE | 2019-04-06 12:31 | Discharge Summary ---
Providers - Providers Date of Admission: 04/04/19 21:53 Date of discharge: 04/06/19 Attending physician: LIZABETH CABRERA 04/04/19 Consult to Physician [CONS] Routine Comment: Consulting Provider: SHIRLEY DUTTON Physician Instructions: Reason For Exam: rt side weakned=nn 04/04/19 23:34 Occupational Therapy Evaluate and Treat [CONS] Routine Comment: Reason For Exam: Neuro deficits Physical Therapy Evaluation and Treat [CONS] Routine Comment: Reason For Exam: Neuro deficits [facility] Condition: Fair Disposition: DC-01 TO HOME OR SELFCARE Exam - Constitutional Vitals: Temp Pulse Resp BP Pulse Ox 98.6 F 79 20 100/66 97 04/06/19 07:42 04/06/19 03:57 04/06/19 08:42 04/06/19 07:42 04/06/19 08:47 Plan Activity: advance as tolerated Diet: low fat, low cholesterol, low salt Plan of Treatment: 1.Follow up with PCP or Marie Cardenas in 1 week. 2.follow up with Psychiatry, [facility] in 1 week. Assessment: 1.Conversion disorder Follow up with: MARIE WILLS MD [Primary Care Provider] - 7 Days
== END 2019-04-06 13:57 | disposition home or self-care (01) | DRG 880 ==
LOC: ED 17:51 → 4A 21:53
PROVIDERS: ADMIT Internal Medicine; ATTEND Internal Medicine
DX: F44.6 Conversion disorder with sensory symptom or deficit (principal); E87.6 Hypokalemia; G40.909 Epilepsy, unspecified, not intractable, without status epilepticus; I10 Essential (primary) hypertension; F32.9 Major depressive disorder, single episode, unspecified; F17.210 Nicotine dependence, cigarettes, uncomplicated; Z82.49 Family history of ischemic heart disease and other diseases of the circulatory system; Z83.3 Family history of diabetes mellitus; Z88.6 Allergy status to analgesic agent; Z88.8 Allergy status to other drugs, medicaments and biological substances; Z88.0 Allergy status to penicillin; Z91.013 Allergy to seafood; Z79.51 Long term (current) use of inhaled steroids; Z71.6 Tobacco abuse counseling
CPT/HCPCS: 36415; 70450; 70496; 70498; 70544; 70551; 80048; 80061; 80307; 80320; 81001; 82550; 82553; 82962; 83036; 83735; 84484; 84702; 85025; 85610; 85670; 85730; 93005; 93010; 93308; 93321; 93325; 96365; 96375; 99406; G0378; A9270-GY; G0480; J1200; J1650; J1953; J2765; Q9967

== ENCOUNTER 2019-04-20 16:23 | Emergency (ER) | payer MEDICAID ==
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
[2019-04-20] MEDS ORDERED: PERCOCET 5/325 PO ONE (19:45)
[2019-04-20] MEDS ORDERED: ZOFRAN ODT PO ONE (19:45)
[2019-04-20] MEDS ORDERED: BACTRIM DS PO ONE (19:45)
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
[2019-04-21 06:38] VITALS: BP 116/70
== END 2019-04-20 20:15 | disposition home or self-care (01) ==
LOC: ED 16:23
DX: S71.131A Puncture wound without foreign body, right thigh, initial encounter (principal); L03.115 Cellulitis of right lower limb; I10 Essential (primary) hypertension; G43.909 Migraine, unspecified, not intractable, without status migrainosus; F32.9 Major depressive disorder, single episode, unspecified; J45.909 Unspecified asthma, uncomplicated; D64.9 Anemia, unspecified; F17.200 Nicotine dependence, unspecified, uncomplicated; Z79.899 Other long term (current) drug therapy; Z98.890 Other specified postprocedural states; Z88.6 Allergy status to analgesic agent; Z88.0 Allergy status to penicillin; Z91.013 Allergy to seafood; W32.0XXA Accidental handgun discharge, initial encounter; Y93.89 Activity, other specified; Y92.009 Unspecified place in unspecified non-institutional (private) residence as the place of occurrence of the external cause; Y99.8 Other external cause status
CPT/HCPCS: Q0162

== ENCOUNTER 2019-06-12 16:48 | Emergency (ER) | payer MEDICAID ==
[2019-06-12] MEDS ORDERED: levETIRAcetam 1000 MG/NS 0.75% 1,000 MG/100 ML BAG IV ONE (17:27)
[2019-06-12 18:21] LABS: Hematocrit 38.3 % (30.3-42.9); Hemoglobin 12.9 gm/dl (10.1-14.3); Mean Corpuscular HGB Conc 34 % (30-34); Mean Corpuscular Volume 99 fl (79-97); Platelet Count 176 K/mm3 (140-440); Red Blood Count 3.87 M/mm3 (3.65-5.03); Red Cell Distribution Width 14.4 % (13.2-15.2)
[2019-06-12 18:32] LABS: BUN/Creatinine Ratio 20; Blood Urea Nitrogen 12 mg/dL (7-17); Calcium 8.6 mg/dL (8.4-10.2); Hemolysis Index 27
--- NOTE | 2019-06-12 18:37 | Emergency Department Report ---
ED Seizure HPI - General Chief Complaint: Seizure Stated Complaint: SEIZURE Source: patient Mode of arrival: Stretcher Limitations: No Limitations - History of Present Illness Initial Comments: Patient is a 38-year-old -[place] female with a history of chronic seizure disorder and migraine headaches who presented to the ED after having a single seizure episode about one hour ago that he states was witnessed and that it lasted about one minute. Patient states that she is on Keppra but has not taken her medications in the last 2 days after she ran out of it. Patient states that she has a prescription already in the pharmacy she just has not been able to pick it up. Patient states that she is currently having headache and dizziness following the seizure. Patient denies chest pain, nausea, vomiting, change in vision, syncope, palpitations, shortness of breath, fever, chills, cough, abdominal pain, loss of consciousness. MD Complaint: seizure, other (dizziness and headache) -: Sudden, hour(s) (1) Description of Episode: loss of consciousness -: minutes(s) (1) Witnessed:: Yes Trauma: No Seizure History: known seizure disorder, history of non-compliance Place: home Possible Precipitating Event: medication (noncompliant with medications) Associated Symptoms: denies other symptoms. denies: chest pain, confusion, cough, diaphoresis, fever/chills, loss of appetite, malaise, rash, shortness of breath, syncope, weakness, shoulder dislocation Treatments Prior to Arrival: none - Related Data Home Medications Medication Instructions Recorded Confirmed Last Taken amLODIPine 10 mg PO DAILY 04/04/19 04/04/19 Unknown Previous Rx's Medication Instructions Recorded Last Taken Type diazePAM TAB [Valium] 2 mg PO Q8H PRN #12 tablet 04/10/18 Unknown Rx ALBUTEROL Inhaler(NF) [VENTOLIN 1 puff IH Q4HR PRN #1 inha 10/21/18 Unknown Rx Inhaler(NF)] Famotidine [Pepcid] 20 mg PO BID #30 tablet 11/04/18 Unknown Rx levETIRAcetam [Keppra] 1,000 mg PO Q12H #60 tablet 11/21/18 Unknown Rx HYDROcodone/APAP 5-325 [[place] 1 each PO Q4HR PRN #10 tablet 03/07/19 Unknown Rx 5-325 mg TAB] Acetaminophen/Codeine [Tylenol 1 tab PO Q6H PRN #15 tab 04/20/19 Unknown Rx /Codeine # 3 tab] Sulfamethoxazole/Trimethoprim 1 each PO Q12H #20 tablet 04/20/19 Unknown Rx [Bactrim DS TAB] Allergies Allergy/AdvReac Type Severity Reaction Status Date / Time aspirin Allergy Hives Verified 04/04/19 18:09 ibuprofen [From Motrin] Allergy Hives Verified 04/04/19 18:09 ketorolac [From Toradol] Allergy Unknown Verified 04/04/19 18:09 Penicillins Allergy Hives Verified 04/04/19 18:09 shellfish derived Allergy Hives Verified 04/04/19 18:09 ED Review of Systems ROS: Stated complaint: SEIZURE Other details as noted in HPI Constitutional: denies: chills, fever Eyes: denies: eye pain, eye discharge, vision change ENT: denies: ear pain, throat pain Respiratory: denies: cough, shortness of breath, wheezing Cardiovascular: denies: chest pain, palpitations Endocrine: no symptoms reported Gastrointestinal: denies: abdominal pain, nausea, diarrhea Genitourinary: denies: urgency, dysuria, discharge Musculoskeletal: denies: back pain, joint swelling, arthralgia Skin: denies: rash, lesions Neurological: headache, other (seizure). denies: weakness, paresthesias Psychiatric: denies: anxiety, depression Hematological/Lymphatic: denies: easy bleeding, easy bruising ED Past Medical Hx - Past Medical History Hx Hypertension: Yes Hx Congestive Heart Failure: No Hx Diabetes: No Hx Headaches / Migraines: Yes (hx migraines) Hx Seizures: Yes Hx Psychiatric Treatment: Yes (depression) Hx Asthma: Yes Hx COPD: No Hx HIV: No Additional medical history: Anemia - Surgical History Past Surgical History?: No Additional Surgical History: right knee surgery, b/l foot surgery several years ago. foot surgery 09/2015 - Social History Smoking Status: Current Every Day Smoker Substance Use Type: None - Medications Home Medications: Home Medications Medication Instructions Recorded Confirmed Last Taken Type diazePAM TAB [Valium] 2 mg PO Q8H PRN #12 tablet 04/10/18 04/04/19 Unknown Rx ALBUTEROL Inhaler(NF) [VENTOLIN 1 puff IH Q4HR PRN #1 inha 10/21/18 04/04/19 Unknown Rx Inhaler(NF)] Famotidine [Pepcid] 20 mg PO BID #30 tablet 11/04/18 04/04/19 Unknown Rx levETIRAcetam [Keppra] 1,000 mg PO Q12H #60 tablet 11/21/18 04/04/19 Unknown Rx HYDROcodone/APAP 5-325 [[place] 1 each PO Q4HR PRN #10 tablet 03/07/19 04/04/19 Unknown Rx 5-325 mg TAB] amLODIPine 10 mg PO DAILY 04/04/19 04/04/19 Unknown History Acetaminophen/Codeine [Tylenol 1 tab PO Q6H PRN #15 tab 04/20/19 Unknown Rx /Codeine # 3 tab] Sulfamethoxazole/Trimethoprim 1 each PO Q12H #20 tablet 04/20/19 Unknown Rx [Bactrim DS TAB] ED Physical Exam - General Limitations: No Limitations General appearance: alert, in no apparent distress - Head Head exam: Present: atraumatic, normocephalic, normal inspection - Eye Eye exam: Present: normal appearance, PERRL, EOMI. Absent: scleral icterus Pupils: Present: normal accommodation - ENT ENT exam: Present: normal exam, normal orophraynx, mucous membranes moist, TM's normal bilaterally, normal external ear exam - Neck Neck exam: Present: normal inspection, full ROM - Respiratory Respiratory exam: Present: normal lung sounds bilaterally. Absent: respiratory distress, wheezes, rales, stridor, chest wall tenderness, accessory muscle use, decreased breath sounds - Cardiovascular Cardiovascular Exam: Present: regular rate, normal rhythm, normal heart sounds. Absent: systolic murmur, diastolic murmur, rubs, gallop - GI/Abdominal GI/Abdominal exam: Present: soft, normal bowel sounds. Absent: tenderness, guarding, hyperactive bowel sounds, hypoactive bowel sounds - Extremities Exam Extremities exam: Present: normal inspection, full ROM, normal capillary refill - Back Exam Back exam: Present: normal inspection, full ROM - Neurological Exam Neurological exam: Present: alert, oriented X3, CN II-XII intact, normal gait, reflexes normal - Psychiatric Psychiatric exam: Present: normal affect, normal mood - Skin Skin exam: Present: warm, dry, intact, normal color. Absent: rash ED Course - Reevaluation(s) Reevaluation #1: 06/12/19 18:49 This is a 38-year-old female with a history of chronic seizure disorder and who is noncompliant with her medications who presented to the ED with a single episode of seizure about one hour ago. Patient also complained of dizziness and headache after the seizure episode. She is noncompliant with her medications having taken her last Keppra medications 2 days ago. Labs were drawn and patient started on Keppra 1g IV. Just when the patient was receiving her IV Keppra, the patient got news that her daughter had just in an MVC and was needed at home urgently. Patient decided to sign out AMA immediately. Patient was offered an Oral Keppra before she left but she declined. She said that she would pick her Keppra prescriptions the next day. Patient was otherwise advised to return to the ED immediately if symptoms get worse. 06/12/19 19:03 ED Medical Decision Making - Lab Data Result diagrams: 06/12/19 18:07 - Medical Decision Making This is a 38-year-old female with a history of chronic seizure disorder and who is noncompliant with her medications who presented to the ED with a single episode of seizure about one hour ago. Patient also complained of dizziness and headache after the seizure episode. She is noncompliant with her medications having taken her last Keppra medications 2 days ago. Labs were drawn and patient started on Keppra 1g IV. Just when the patient was receiving her IV Keppra, the patient got news that her daughter had just in an MVC and was needed at home urgently. Patient decided to sign out AMA immediately. Patient was offered an Oral Keppra before she left but she declined. She said that she would pick her Keppra prescriptions the next day. Patient was otherwise advised to return to the ED immediately if symptoms get worse. - Differential Diagnosis seizures; headache Critical care attestation.: If time is entered above; I have spent that time in minutes in the direct care of this critically ill patient, excluding procedure time. ED Disposition Clinical Impression: Seizure disorder, Dizziness and giddiness Headache Qualifiers: Headache type: post-traumatic Headache chronicity pattern: unspecified pattern Intractability: not intractable Qualified Code(s): G44.309 - Post-traumatic headache, unspecified, not intractable Disposition: DC-07 LEFT AGAINST MED ADVICE Is pt being admited?: No Does the pt Need Aspirin: No Condition: Stable Instructions: Recurrent Seizures Adult (ED) Time of Disposition: 18:24 Print Language: LITHUANIAN
[2019-06-12 18:55] LABS: Alanine Aminotransferase 27 units/L (7-56); Albumin 3.7 g/dL (3.9-5); Bilirubin,Direct < 0.2 mg/dL (0-0.2)
[2019-06-12 19:00] LABS: Basophils % (Manual) 0 % (0.0-1.8); Total Cells Counted 100
[2019-06-12 19:01] LABS: Anisocytosis Few; Platelet Estimate Consistent w Auto; Poikilocytosis Few
[2019-06-12 19:02] LABS: Ovalocytes Few
[2019-06-12 19:11] VITALS: BP 129/81
== END 2019-06-12 18:23 | disposition left against medical advice (07) ==
LOC: ED 16:48
DX: G40.909 Epilepsy, unspecified, not intractable, without status epilepticus (principal); I10 Essential (primary) hypertension; E11.9 Type 2 diabetes mellitus without complications; G43.909 Migraine, unspecified, not intractable, without status migrainosus; F32.9 Major depressive disorder, single episode, unspecified; J45.909 Unspecified asthma, uncomplicated; D64.9 Anemia, unspecified; F17.200 Nicotine dependence, unspecified, uncomplicated; Z98.890 Other specified postprocedural states; Z79.899 Other long term (current) drug therapy; Z88.0 Allergy status to penicillin; Z91.14 Patient's other noncompliance with medication regimen; Z91.013 Allergy to seafood; Z88.6 Allergy status to analgesic agent; Z88.8 Allergy status to other drugs, medicaments and biological substances
CPT/HCPCS: 36415; 80048; 80076; 83735; 84703; 85007; 85025; 99284; J1953

== ENCOUNTER 2019-10-01 10:09 | Emergency (ER) | payer MEDICAID ==
[2019-10-01 10:13] VITALS: BP 127/93
== END 2019-10-01 11:10 | disposition left against medical advice (07) ==
LOC: ED 10:09
DX: M79.605 Pain in left leg (principal); Z53.21 Procedure and treatment not carried out due to patient leaving prior to being seen by health care provider

== ENCOUNTER 2020-02-08 07:50 | Emergency (ER) | payer MEDICAID ==
--- NOTE | 2020-02-08 09:22 | XRay Report ---
CHEST 2 VIEWS INDICATION: cough. COMPARISON: 10/28/2018 FINDINGS: Support devices: None. Heart: Within normal limits. Lungs/pleura: No acute air space or interstitial disease. No pneumothorax. Additional findings: None. IMPRESSION: No acute findings. Signer Name: Peña Valentino Jr, MD Signed: 02/08/2020 9:18 AM Workstation Name: [id number]
--- NOTE | 2020-02-08 09:34 | Emergency Department Report ---
- General Chief Complaint: Upper Respiratory Infection Stated Complaint: CHEST PAIN, COUGH, HEADACHE Time Seen by Provider: 02/08/20 08:42 Source: patient Mode of arrival: Ambulatory Limitations: No Limitations - History of Present Illness Initial Comments: Patient is 39 years old female with history of asthma. Patient presented to the ER with chief complaint of persistent cough for approximately 1 month now. Patient stated that she has been using her albuterol with no improvement. Patient denied any fever or chills. No chest pain or shortness of breath. Patient also denied any nausea or vomiting. MD Complaint: cough -: week(s) Severity: moderate - Related Data Home Medications Medication Instructions Recorded Confirmed Last Taken amLODIPine 10 mg PO DAILY 04/04/19 04/04/19 Unknown Previous Rx's Medication Instructions Recorded Last Taken Type diazePAM TAB [Valium] 2 mg PO Q8H PRN #12 tablet 04/10/18 Unknown Rx ALBUTEROL Inhaler(NF) [VENTOLIN 1 puff IH Q4HR PRN #1 inha 10/21/18 Unknown Rx Inhaler(NF)] Famotidine [Pepcid] 20 mg PO BID #30 tablet 11/04/18 Unknown Rx levETIRAcetam [Keppra] 1,000 mg PO Q12H #60 tablet 11/21/18 Unknown Rx HYDROcodone/APAP 5-325 [[place] 1 each PO Q4HR PRN #10 tablet 03/07/19 Unknown Rx 5-325 mg TAB] Acetaminophen/Codeine [Tylenol 1 tab PO Q6H PRN #15 tab 04/20/19 Unknown Rx /Codeine # 3 tab] Sulfamethoxazole/Trimethoprim 1 each PO Q12H #20 tablet 04/20/19 Unknown Rx [Bactrim DS TAB] HYDROcodone/APAP 5-325 [[place] 1 each PO Q6HR PRN #10 tablet 01/28/20 Unknown Rx 5/325] Allergies Allergy/AdvReac Type Severity Reaction Status Date / Time aspirin Allergy Hives Verified 10/01/19 10:11 ibuprofen [From Motrin] Allergy Hives Verified 10/01/19 10:11 ketorolac [From Toradol] Allergy Unknown Verified 10/01/19 10:18 Penicillins Allergy Hives Verified 10/01/19 10:11 shellfish derived Allergy Hives Verified 10/01/19 10:11 ED Review of Systems ROS: Stated complaint: CHEST PAIN, COUGH, HEADACHE Other details as noted in HPI Comment: All other systems reviewed and negative Constitutional: denies: chills, fever Respiratory: cough. denies: shortness of breath, SOB with exertion, SOB at rest, wheezing Cardiovascular: denies: chest pain, palpitations Gastrointestinal: denies: abdominal pain, nausea, vomiting Musculoskeletal: denies: back pain Neurological: denies: headache, weakness, numbness, paresthesias, confusion ED Past Medical Hx - Past Medical History Previous Medical History?: Yes Hx Hypertension: Yes Hx Congestive Heart Failure: No Hx Diabetes: No Hx Headaches / Migraines: Yes (hx migraines) Hx Seizures: Yes Hx Psychiatric Treatment: Yes (depression) Hx Asthma: Yes Hx COPD: No Hx HIV: Yes Additional medical history: Anemia - Surgical History Past Surgical History?: Yes Additional Surgical History: right knee surgery, b/l foot surgery several years ago. foot surgery 09/2015 - Social History Smoking Status: Current Every Day Smoker Substance Use Type: None - Medications Home Medications: Home Medications Medication Instructions Recorded Confirmed Last Taken Type diazePAM TAB [Valium] 2 mg PO Q8H PRN #12 tablet 04/10/18 04/04/19 Unknown Rx ALBUTEROL Inhaler(NF) [VENTOLIN 1 puff IH Q4HR PRN #1 inha 10/21/18 04/04/19 Unknown Rx Inhaler(NF)] Famotidine [Pepcid] 20 mg PO BID #30 tablet 11/04/18 04/04/19 Unknown Rx levETIRAcetam [Keppra] 1,000 mg PO Q12H #60 tablet 11/21/18 04/04/19 Unknown Rx HYDROcodone/APAP 5-325 [[place] 1 each PO Q4HR PRN #10 tablet 03/07/19 04/04/19 Unknown Rx 5-325 mg TAB] amLODIPine 10 mg PO DAILY 04/04/19 04/04/19 Unknown History Acetaminophen/Codeine [Tylenol 1 tab PO Q6H PRN #15 tab 04/20/19 Unknown Rx /Codeine # 3 tab] Sulfamethoxazole/Trimethoprim 1 each PO Q12H #20 tablet 04/20/19 Unknown Rx [Bactrim DS TAB] HYDROcodone/APAP 5-325 [[place] 1 each PO Q6HR PRN #10 tablet 01/28/20 Unknown Rx 5/325] ED Physical Exam - General Limitations: No Limitations General appearance: alert, in no apparent distress - Head Head exam: Present: atraumatic, normocephalic, normal inspection - Eye Eye exam: Present: normal appearance, PERRL - ENT ENT exam: Present: normal exam, normal orophraynx, mucous membranes moist - Neck Neck exam: Present: normal inspection, full ROM. Absent: tenderness, meningismus - Respiratory Respiratory exam: Present: normal lung sounds bilaterally, rales. Absent: res piratory distress, wheezes, rhonchi, chest wall tenderness, accessory muscle use, decreased breath sounds, prolonged expiratory - Cardiovascular Cardiovascular Exam: Present: regular rate, normal rhythm, normal heart sounds - GI/Abdominal GI/Abdominal exam: Present: soft, normal bowel sounds. Absent: distended, tenderness, guarding, rebound, rigid, organomegaly, mass, bruit, pulsatile mass, hernia - Extremities Exam Extremities exam: Present: normal inspection, full ROM, normal capillary refill. Absent: tenderness, pedal edema, joint swelling, calf tenderness - Back Exam Back exam: Present: normal inspection, full ROM. Absent: CVA tenderness (R), CVA tenderness (L) - Neurological Exam Neurological exam: Present: alert, oriented X3, CN II-XII intact, normal gait, reflexes normal. Absent: motor sensory deficit - Psychiatric Psychiatric exam: Present: normal mood - Skin Skin exam: Present: warm, intact, normal color ED Course Vital Signs 02/08/20 07:53 Temperature 97.4 F L Pulse Rate 95 H Respiratory 16 Rate Blood Pressure 127/71 O2 Sat by Pulse 98 Oximetry ED Medical Decision Making - Radiology Data Radiology results: report reviewed - Medical Decision Making Patient is 39 years old female with history of asthma. Patient presented to the ER with chief complaint of persistent cough for approximately 1 month now. Patient stated that she has been using her albuterol with no improvement. Patient denied any fever or chills. No chest pain or shortness of breath. Patient also denied any nausea or vomiting. Chest x-ray is unremarkable. Patient symptoms is consistent for asthmatic bronchitis. Patient given a Solu-Medrol and given prescription for Zithromax prednisone and Robitussin and advised to follow-up with her primary care physician in the next 2 to 3 days and to return to the ER if she develop any new symptoms. Critical care attestation.: If time is entered above; I have spent that time in minutes in the direct care of this critically ill patient, excluding procedure time. ED Disposition Clinical Impression: Asthmatic bronchitis Disposition: TO HOME OR SELFCARE Is pt being admited?: No Condition: Stable Instructions: Chronic Bronchitis (ED) Referrals: PHYLLIS MCCRAY JR, MD [Primary Care Provider] - 3-5 Days
[2020-02-08] MEDS ORDERED: methylPREDNISolone Sod Succinate 125 MG/2 ML INJ IM ONE (09:35)
[2020-02-08 10:00] VITALS: BP 134/75
== END 2020-02-08 10:09 | disposition home or self-care (01) ==
LOC: ED 07:50
DX: J45.909 Unspecified asthma, uncomplicated (principal); I10 Essential (primary) hypertension; G43.909 Migraine, unspecified, not intractable, without status migrainosus; Z21 Asymptomatic human immunodeficiency virus [HIV] infection status; F32.9 Major depressive disorder, single episode, unspecified; F17.200 Nicotine dependence, unspecified, uncomplicated; Z79.1 Long term (current) use of non-steroidal anti-inflammatories (NSAID); Z79.899 Other long term (current) drug therapy; Z88.6 Allergy status to analgesic agent; Z88.0 Allergy status to penicillin; Z91.013 Allergy to seafood; Z88.8 Allergy status to other drugs, medicaments and biological substances
CPT/HCPCS: 71046; 96372; 99283; J2930

== ENCOUNTER 2020-02-28 08:08 | Emergency (ER) | payer MEDICAID | END 2020-02-28 08:09 | disposition left against medical advice (07) | LOC: ED 08:08 | DX: M54.9 Dorsalgia, unspecified (principal); Z53.21 Procedure and treatment not carried out due to patient leaving prior to being seen by health care provider ==

== ENCOUNTER 2020-05-02 12:04 | Emergency (ER) | payer MEDICAID ==
--- NOTE | 2020-05-02 13:14 | XRay Report ---
LEFT FOOT 2 VIEW INDICATION / CLINICAL INFORMATION: trauma/pain. COMPARISON: None available. FINDINGS: BONES/JOINT(S): No acute fracture or subluxation. Previous arthrodesis in the hindfoot without apprec iable hardware fracture or malalignment. Previous bunionectomy in the great toe. SOFT TISSUES: No significant abnormality. ADDITIONAL FINDINGS: None. Signer Name: Delonte Lind MD Signed: 05/02/2020 1:09 PM Workstation Name: [id number]
--- NOTE | 2020-05-02 13:14 | XRay Report ---
LEFT ANKLE 2 VIEW INDICATION / CLINICAL INFORMATION: trauma/pain. COMPARISON: None available. FINDINGS: BONES/JOINT(S): No acute fracture or subluxation. Previous arthrodesis in the hindfoot without apprec iable hardware fracture or malalignment. Previous bunionectomy in the great toe. SOFT TISSUES: No significant abnormality. ADDITIONAL FINDINGS: None. Signer Name: Delonte Lind MD Signed: 05/02/2020 1:10 PM Workstation Name: [id number]
[2020-05-02] MEDS ORDERED: HYDROcodone/ACETAMINOPHEN 10-325MG TAB PO ONE (14:26)
--- NOTE | 2020-05-02 14:33 | Emergency Department Report ---
ED Lower Extremity HPI - General Chief Complaint: Extremity Injury, Lower Stated Complaint: SWOLLEN ANKLES Time Seen by Provider: 05/02/20 14:24 Source: patient Mode of arrival: Wheelchair Limitations: No Limitations - History of Present Illness Initial Comments: 39-year-old obese female presents to the emergency room for left ankle pain and injury. Patient states that she was walking up the stairs and took a step and felt something pop. Patient states that she has had prior surgery to the affected foot a couple months ago. Patient states his pain to ambulate or dorsiflex. MD Complaint: ankle injury Onset/Timin -: days(s) Injury: Ankle: Left Type of Injury: hyperflexion Place: home Severity scale (0 -10): 7 Improves With: immobilization Worsens With: weight bearing, movement, palpation Associated Symptoms: snap/pop sensation, swelling - Related Data Home Medications Medication Instructions Recorded Confirmed Last Taken amLODIPine 10 mg PO DAILY 04/04/19 04/04/19 Unknown Previous Rx's Medication Instructions Recorded Last Taken Type diazePAM TAB [Valium] 2 mg PO Q8H PRN #12 tablet 04/10/18 Unknown Rx ALBUTEROL Inhaler(NF) [VENTOLIN 1 puff IH Q4HR PRN #1 inha 10/21/18 Unknown Rx Inhaler(NF)] Famotidine [Pepcid] 20 mg PO BID #30 tablet 11/04/18 Unknown Rx levETIRAcetam [Keppra] 1,000 mg PO Q12H #60 tablet 11/21/18 Unknown Rx HYDROcodone/APAP 5-325 [[place] 1 each PO Q4HR PRN #10 tablet 03/07/19 Unknown Rx 5-325 mg TAB] Acetaminophen/Codeine [Tylenol 1 tab PO Q6H PRN #15 tab 04/20/19 Unknown Rx /Codeine # 3 tab] Sulfamethoxazole/Trimethoprim 1 each PO Q12H #20 tablet 04/20/19 Unknown Rx [Bactrim DS TAB] HYDROcodone/APAP 5-325 [[place] 1 each PO Q6HR PRN #10 tablet 01/28/20 Unknown Rx 5/325] Azithromycin [Zithromax Z-JOSE] 250 mg PO DAILY 1 Days tab 02/08/20 Unknown Rx Prednisone [predniSONE 10 mg 10 mg PO .TAPER #1 tab.ds.pk 02/08/20 Unknown Rx (6-Day Pack, 21 Tabs)] guaiFENesin/CODEINE [Robitussin AC] 10 ml PO TID PRN #100 ml 02/08/20 Unknown Rx Acetaminophen/Codeine [Tylenol 1 tab PO Q8H PRN #3 tab 03/27/20 Unknown Rx /Codeine # 3 tab] traMADoL [Ultram 50 MG tab] 50 mg PO Q6HR PRN #12 tablet 05/02/20 Unknown Rx Allergies Allergy/AdvReac Type Severity Reaction Status Date / Time aspirin Allergy Hives Verified 10/01/19 10:11 ibuprofen [From Motrin] Allergy Hives Verified 10/01/19 10:11 ketorolac [From Toradol] Allergy Unknown Verified 10/01/19 10:18 Penicillins Allergy Hives Verified 10/01/19 10:11 shellfish derived Allergy Hives Verified 10/01/19 10:11 ED Review of Systems ROS: Stated complaint: SWOLLEN ANKLES Other details as noted in HPI ED Past Medical Hx - Past Medical History Previous Medical History?: Yes Hx Hypertension: Yes Hx Congestive Heart Failure: No Hx Diabetes: No Hx Headaches / Migraines: Yes (hx migraines) Hx Seizures: Yes Hx Psychiatric Treatment: Yes (depression) Hx Asthma: Yes Hx COPD: No Hx HIV: Yes Additional medical history: Anemia - Surgical History Past Surgical History?: Yes Additional Surgical History: right knee surgery, b/l foot surgery several years ago. foot surgery 09/2015 - Social History Smoking Status: Never Smoker Substance Use Type: None - Medications Home Medications: Home Medications Medication Instructions Recorded Confirmed Last Taken Type diazePAM TAB [Valium] 2 mg PO Q8H PRN #12 tablet 04/10/18 04/04/19 Unknown Rx ALBUTEROL Inhaler(NF) [VENTOLIN 1 puff IH Q4HR PRN #1 inha 10/21/18 04/04/19 Unknown Rx Inhaler(NF)] Famotidine [Pepcid] 20 mg PO BID #30 tablet 11/04/18 04/04/19 Unknown Rx levETIRAcetam [Keppra] 1,000 mg PO Q12H #60 tablet 11/21/18 04/04/19 Unknown Rx HYDROcodone/APAP 5-325 [[place] 1 each PO Q4HR PRN #10 tablet 03/07/19 04/04/19 Unknown Rx 5-325 mg TAB] amLODIPine 10 mg PO DAILY 04/04/19 04/04/19 Unknown History Acetaminophen/Codeine [Tylenol 1 tab PO Q6H PRN #15 tab 04/20/19 Unknown Rx /Codeine # 3 tab] Sulfamethoxazole/Trimethoprim 1 each PO Q12H #20 tablet 04/20/19 Unknown Rx [Bactrim DS TAB] HYDROcodone/APAP 5-325 [[place] 1 each PO Q6HR PRN #10 tablet 01/28/20 Unknown Rx 5/325] Azithromycin [Zithromax Z-JOSE] 250 mg PO DAILY 1 Days tab 02/08/20 Unknown Rx Prednisone [predniSONE 10 mg 10 mg PO .TAPER #1 tab.ds.pk 02/08/20 Unknown Rx (6-Day Pack, 21 Tabs)] guaiFENesin/CODEINE [Robitussin AC] 10 ml PO TID PRN #100 ml 02/08/20 Unknown Rx Acetaminophen/Codeine [Tylenol 1 tab PO Q8H PRN #3 tab 03/27/20 Unknown Rx /Codeine # 3 tab] traMADoL [Ultram 50 MG tab] 50 mg PO Q6HR PRN #12 tablet 05/02/20 Unknown Rx ED Physical Exam - General Limitations: No Limitations General appearance: alert, in no apparent distress - Head Head exam: Present: atraumatic, normocephalic - Eye Eye exam: Present: normal appearance - ENT ENT exam: Present: mucous membranes moist - Expanded Lower Extremity Exam Left Upper Leg exam: Present: normal inspection Knee exam: Present: normal inspection Lower Leg exam: Present: normal inspection Ankle exam: Present: full ROM, tenderness, swelling Foot/Toe exam: Present: normal inspection, full ROM Neuro vascular tendon exam: Present: no vascular compromise - Neurological Exam Neurological exam: Present: alert, oriented X3, normal gait - Psychiatric Psychiatric exam: Present: normal affect, normal mood - Skin Skin exam: Present: warm, dry, intact, normal color. Absent: rash ED Course Vital Signs 05/02/20 12:10 Temperature 97.9 F Pulse Rate 108 H Respiratory 18 Rate Blood Pressure 109/65 O2 Sat by Pulse 98 Oximetry ED Lower Extremity MDM - Radiology Data Radiology results: report reviewed Patient: KATE ZHENG MR #: [id number] : 1980 Acct:[id number] Age/Sex: 39 / F ADM Date: 05/02/20 Loc: ED Attending Dr: Ordering Physician: AL SARABIA MD Date of Service: 05/02/20 Procedure(s): XR ankle 2V LT Accession Number(s): [id number] cc: AL SARABIA MD Fluoro Time In Minutes: LEFT ANKLE 2 VIEW INDICATION / CLINICAL INFORMATION: trauma/pain. COMPARISON: None available. FINDINGS: BONES/JOINT(S): No acute fracture or subluxation. Previous arthrodesis in the hindfoot without appreciable hardware fracture or malalignment. Previous bunionectomy in the great toe. SOFT TISSUES: No significant abnormality. ADDITIONAL FINDINGS: None. Signer Name: Delonte Lind MD Signed: 05/02/2020 1:10 PM Workstation Name: [id number] Transcribed By: FANTASMA Dictated By: Delonte Lind MD Electronically Authenticated By: Delonte Lind MD Signed Date/Time: 05/02/201309 DD/ 09 TD/TT: - Medical Decision Making 39-year-old obese female presents to the emergency room for left ankle pain and injury. Patient states that she was walking up the stairs and took a step and felt something pop. Patient states that she has had prior surgery to the affected foot a couple months ago. Patient states his pain to ambulate or dorsiflex. X-ray is negative for any acute abnormalities but does show hardware but no misalignment or fracture. Patient will be given [place] 10 mg p.o. in ER and to follow-up with her orthopedic provider. Patient can take Tylenol for pain management. Critical care attestation.: If time is entered above; I have spent that time in minutes in the direct care of this critically ill patient, excluding procedure time. ED Disposition Clinical Impression: Ankle sprain Disposition: DC-01 TO HOME OR SELFCARE Is pt being admited?: No Does the pt Need Aspirin: No Condition: Stable Instructions: Ankle Sprain (ED), Ankle Stirrup Splint (ED) Additional Instructions: X-rays negative for any acute findings hardware is intact with no fractures. I recommend that ankle splint and to follow-up with orthopedic provider. You can take Tylenol or tramadol for pain management. Prescriptions: traMADoL [Ultram 50 MG tab] 50 mg PO Q6HR PRN #12 tablet PRN Reason: Pain Referrals: PRIMARY CAREMD [Primary Care Provider] - 3-5 Days JANAE GUILLAUME MD [Staff Physician] - 3-5 Days Forms: Work/School Release Form(ED)
[2020-05-02 14:34] VITALS: BP 109/65
== END 2020-05-02 15:22 | disposition home or self-care (01) ==
LOC: ED 12:04
DX: S93.402A Sprain of unspecified ligament of left ankle, initial encounter (principal); I10 Essential (primary) hypertension; G43.909 Migraine, unspecified, not intractable, without status migrainosus; F32.9 Major depressive disorder, single episode, unspecified; J45.909 Unspecified asthma, uncomplicated; D64.9 Anemia, unspecified; Z21 Asymptomatic human immunodeficiency virus [HIV] infection status; Z79.899 Other long term (current) drug therapy; Z86.69 Personal history of other diseases of the nervous system and sense organs; Z88.6 Allergy status to analgesic agent; Z88.8 Allergy status to other drugs, medicaments and biological substances; Z88.0 Allergy status to penicillin; Z91.013 Allergy to seafood; Z98.890 Other specified postprocedural states; X58.XXXA Exposure to other specified factors, initial encounter; Y93.01 Activity, walking, marching and hiking; Y92.009 Unspecified place in unspecified non-institutional (private) residence as the place of occurrence of the external cause; Y99.8 Other external cause status

== ENCOUNTER 2020-05-12 11:19 | Emergency (ER) | payer MEDICAID ==
[2020-05-12] MEDS ORDERED: oxyCODONE /ACETAMINOPHEN 5-325MG TAB PO ONE ×2 (12:15→13:51)
--- NOTE | 2020-05-12 12:31 | Emergency Department Report ---
ED General Adult HPI - General Chief complaint: Extremity Injury, Lower Stated complaint: LFT FOOT SWELLING/PAIN PUI?: No Time Seen by Provider: 05/12/20 12:03 Source: family Mode of arrival: Wheelchair Limitations: No Limitations - History of Present Illness Initial comments: 39-year-old female presenting with chief complaint of left foot and ankle pain onset over 1 week ago. She was seen here at that time and had x-rays that were negative for acute findings. She has had prior surgery in this area. She states that symptoms have not worsened but denies any associated systemic symptoms such as fever, chills. Does report associated swelling. Pain worsens with movement and improves with immobilization. No definite injury. She describes the pain is severe. - Related Data Home Medications Medication Instructions Recorded Confirmed Last Taken amLODIPine 10 mg PO DAILY 04/04/19 04/04/19 Unknown Previous Rx's Medication Instructions Recorded Last Taken Type diazePAM TAB [Valium] 2 mg PO Q8H PRN #12 tablet 04/10/18 Unknown Rx ALBUTEROL Inhaler(NF) [VENTOLIN 1 puff IH Q4HR PRN #1 inha 10/21/18 Unknown Rx Inhaler(NF)] Famotidine [Pepcid] 20 mg PO BID #30 tablet 11/04/18 Unknown Rx levETIRAcetam [Keppra] 1,000 mg PO Q12H #60 tablet 11/21/18 Unknown Rx HYDROcodone/APAP 5-325 [[place] 1 each PO Q4HR PRN #10 tablet 03/07/19 Unknown Rx 5-325 mg TAB] Sulfamethoxazole/Trimethoprim 1 each PO Q12H #20 tablet 04/20/19 Unknown Rx [Bactrim DS TAB] HYDROcodone/APAP 5-325 [[place] 1 each PO Q6HR PRN #10 tablet 01/28/20 Unknown Rx 5/325] Azithromycin [Zithromax Z-JOSE] 250 mg PO DAILY 1 Days tab 02/08/20 Unknown Rx Prednisone [predniSONE 10 mg 10 mg PO .TAPER #1 tab.ds.pk 02/08/20 Unknown Rx (6-Day Pack, 21 Tabs)] guaiFENesin/CODEINE [Robitussin AC] 10 ml PO TID PRN #100 ml 02/08/20 Unknown Rx Acetaminophen/Codeine [Tylenol 1 tab PO Q8H PRN #3 tab 03/27/20 Unknown Rx /Codeine # 3 tab] traMADoL [Ultram 50 MG tab] 50 mg PO Q6HR PRN #12 tablet 05/02/20 Unknown Rx Acetaminophen/Codeine [Tylenol 1 tab PO Q6H PRN #4 tab 05/12/20 Unknown Rx /Codeine # 3 tab] Clindamycin [Clindamycin CAP] 300 mg PO Q6H #40 capsule 05/12/20 Unknown Rx Allergies Allergy/AdvReac Type Severity Reaction Status Date / Time aspirin Allergy Hives Verified 10/01/19 10:11 ibuprofen [From Motrin] Allergy Hives Verified 10/01/19 10:11 ketorolac [From Toradol] Allergy Unknown Verified 10/01/19 10:18 Penicillins Allergy Hives Verified 10/01/19 10:11 shellfish derived Allergy Hives Verified 10/01/19 10:11 ED Review of Systems ROS: Stated complaint: LFT FOOT SWELLING/PAIN Other details as noted in HPI Comment: All other systems reviewed and negative Musculoskeletal: as per HPI ED Past Medical Hx - Past Medical History Previous Medical History?: Yes Hx Hypertension: Yes Hx Congestive Heart Failure: No Hx Diabetes: No Hx Headaches / Migraines: Yes (hx migraines) Hx Seizures: Yes Hx Psychiatric Treatment: Yes (depression) Hx Asthma: Yes Hx COPD: No Hx HIV: Yes Additional medical history: Anemia - Surgical History Past Surgical History?: Yes Additional Surgical History: right knee surgery, b/l foot surgery several years ago. foot surgery 09/2015 - Social History Smoking Status: Never Smoker Substance Use Type: None - Medications Home Medications: Home Medications Medication Instructions Recorded Confirmed Last Taken Type diazePAM TAB [Valium] 2 mg PO Q8H PRN #12 tablet 04/10/18 04/04/19 Unknown Rx ALBUTEROL Inhaler(NF) [VENTOLIN 1 puff IH Q4HR PRN #1 inha 10/21/18 04/04/19 Unknown Rx Inhaler(NF)] Famotidine [Pepcid] 20 mg PO BID #30 tablet 11/04/18 04/04/19 Unknown Rx levETIRAcetam [Keppra] 1,000 mg PO Q12H #60 tablet 11/21/18 04/04/19 Unknown Rx HYDROcodone/APAP 5-325 [[place] 1 each PO Q4HR PRN #10 tablet 03/07/19 04/04/19 Unknown Rx 5-325 mg TAB] amLODIPine 10 mg PO DAILY 04/04/19 04/04/19 Unknown History Sulfamethoxazole/Trimethoprim 1 each PO Q12H #20 tablet 04/20/19 Unknown Rx [Bactrim DS TAB] HYDROcodone/APAP 5-325 [[place] 1 each PO Q6HR PRN #10 tablet 01/28/20 Unknown Rx 5/325] Azithromycin [Zithromax Z-JOSE] 250 mg PO DAILY 1 Days tab 02/08/20 Unknown Rx Prednisone [predniSONE 10 mg 10 mg PO .TAPER #1 tab.ds.pk 02/08/20 Unknown Rx (6-Day Pack, 21 Tabs)] guaiFENesin/CODEINE [Robitussin AC] 10 ml PO TID PRN #100 ml 02/08/20 Unknown Rx Acetaminophen/Codeine [Tylenol 1 tab PO Q8H PRN #3 tab 03/27/20 Unknown Rx /Codeine # 3 tab] traMADoL [Ultram 50 MG tab] 50 mg PO Q6HR PRN #12 tablet 05/02/20 Unknown Rx Acetaminophen/Codeine [Tylenol 1 tab PO Q6H PRN #4 tab 05/12/20 Unknown Rx /Codeine # 3 tab] Clindamycin [Clindamycin CAP] 300 mg PO Q6H #40 capsule 05/12/20 Unknown Rx ED Physical Exam - General Limitations: No Limitations General appearance: alert, in no apparent distress - Head Head exam: Present: atraumatic, normocephalic - Eye Eye exam: Present: normal appearance - ENT ENT exam: Present: mucous membranes moist - Neck Neck exam: Present: normal inspection - Respiratory Respiratory exam: Present: normal lung sounds bilaterally. Absent: respiratory distress - Cardiovascular Cardiovascular Exam: Present: regular rate, normal rhythm. Absent: systolic murmur, diastolic murmur, rubs, gallop - GI/Abdominal GI/Abdominal exam: Present: soft, normal bowel sounds - Extremities Exam Extremities exam: Present: other (There is pain and swelling noted from the mid calf to the foot on the left lower extremity, sensation and pulses normal, tenderness noted, mild warmth but no significant color change) - Back Exam Back exam: Present: normal inspection - Neurological Exam Neurological exam: Present: alert, oriented X3 - Psychiatric Psychiatric exam: Present: normal affect, normal mood - Skin Skin exam: Present: warm, dry, intact, normal color. Absent: rash ED Course Vital Signs 05/12/20 05/12/20 11:26 12:34 Temperature 99.0 F Pulse Rate 109 H Respiratory 18 18 Rate Blood Pressure 118/72 O2 Sat by Pulse 98 Oximetry ED Medical Decision Making - Lab Data Result diagrams: 05/12/20 12:28 05/12/20 12:28 - Medical Decision Making Patient presenting with left lower extremity pain and swelling onset over 1 week ago. On review of her record she has been here multiple times for similar. On my exam today,There is pain and swelling noted from the mid calf to the foot on the left lower extremity, sensation and pulses normal, tenderness noted, mild warmth but no significant color change. No sign of compartment syndrome or ischemic limb. We will check basic labs as well as ultrasound to rule out DVT. Percocet given for pain. Patient with extensive visits here for similar complaints, somewhat concerning for drug-seeking behavior. We will treat for any possible cellulitis with antibiotics and refer to her primary care doctor for outpatient follow-up. - Differential Diagnosis Chronic pain, cellulitis, DVT Critical care attestation.: If time is entered above; I have spent that time in minutes in the direct care of this critically ill patient, excluding procedure time. ED Disposition Clinical Impression: Lower extremity pain, left Disposition: DC-01 TO HOME OR SELFCARE Is pt being admited?: No Condition: Good Instructions: Arthralgia (ED) Prescriptions: Clindamycin [Clindamycin CAP] 300 mg PO Q6H #40 capsule Acetaminophen/Codeine [Tylenol /Codeine # 3 tab] 1 tab PO Q6H PRN #4 tab PRN Reason: Pain , Severe (7-10) Referrals: PHYLLIS MCCRAY JR, MD [Primary Care Provider] - 3-5 Days Time of Disposition: 13:50
[2020-05-12 12:39] VITALS: BP 118/72
[2020-05-12 13:05] LABS: Hematocrit 28.5 % (30.3-42.9); Hemoglobin 9.8 gm/dl (10.1-14.3); Mean Corpuscular HGB Conc 34 % (30-34); Mean Corpuscular Volume 103 fl (79-97); Platelet Count 257 K/mm3 (140-440); Red Blood Count 2.76 M/mm3 (3.65-5.03); Red Cell Distribution Width 17.1 % (13.2-15.2)
--- NOTE | 2020-05-12 13:21 | Vascular Lab Report ---
DUPLEX DOPPLER LOWER EXTREMITY VEINS, LEFT INDICATION: swelling. TECHNIQUE: Duplex doppler imaging was performed through the veins of the left lower extremity using venous compr ession and other maneuvers. COMPARISON: No relevant prior imaging study available. FINDINGS: Left Common femoral vein: Negative. Left Superficial femoral vein: Negative. Left Popliteal vein: Negative. Left Calf veins: Negative. Additional findings: None.. IMPRESSION: 1. No sonographic evidence for DVT in the left lower extremity. Signer Name: Patrick Petersen MD Signed: 05/12/2020 1:17 PM Workstation Name: [id number]
[2020-05-12 13:36] LABS: Blood Urea Nitrogen 13 mg/dL (7-17); Calcium 8.9 mg/dL (8.4-10.2); Hemolysis Index 16
[2020-05-12 13:37] LABS: BUN/Creatinine Ratio 26
[2020-05-12 14:34] LABS: Anisocytosis 1+; Basophils % (Manual) 0 % (0.0-1.8); Eosinophils % (Manual) 0 % (0.0-4.3); Macrocytosis 1+; Platelet Estimate Consistent w Auto; Tear Drop Cells Few; Total Cells Counted 100
== END 2020-05-12 14:14 | disposition home or self-care (01) ==
LOC: ED 11:19
DX: M79.662 Pain in left lower leg (principal); I10 Essential (primary) hypertension; G43.909 Migraine, unspecified, not intractable, without status migrainosus; R56.9 Unspecified convulsions; F32.9 Major depressive disorder, single episode, unspecified; J45.909 Unspecified asthma, uncomplicated; Z21 Asymptomatic human immunodeficiency virus [HIV] infection status; Z98.890 Other specified postprocedural states; Z79.2 Long term (current) use of antibiotics; Z79.899 Other long term (current) drug therapy; Z88.8 Allergy status to other drugs, medicaments and biological substances; Z88.0 Allergy status to penicillin; Z91.013 Allergy to seafood; Z88.6 Allergy status to analgesic agent
CPT/HCPCS: 36415; 80048; 84703; 85007; 85025; 86140

== ENCOUNTER 2020-11-18 22:51 | Emergency (ER) | payer MEDICAID ==
[2020-11-19] MEDS ORDERED: SODIUM CHLORIDE 0.9% 1000 ML 1,000 ML IV ONE ×2 (00:37→04:00)
[2020-11-19] MEDS ORDERED: MORPHINE 4 MG/1 ML INJ IV ONE ×2 (00:38→04:00)
[2020-11-19] MEDS ORDERED: ONDANSETRON 4 MG/2 ML INJ IV ONE ×2 (00:38→04:00)
--- NOTE | 2020-11-19 00:41 | Event Note ---
ED Screening Note Date of service: 11/19/20 Time: 00:38 ED Screening Note: Patient is a 39-year-old -[place] female with a history of HIV, chronic recurrent seizures, anxiety and depression, asthma, hypertension, tobacco abuse and s/p cholecystectomy 1 week ago presents to the ED with complaint of acute onset persistent constant nonradiating left-sided chest pain with shortness of breath, nausea and vomiting and persistent dry cough for the last 4 hours. Patient states that the symptoms started while she was at rest playing video games on her phone and have been persistent since the onset. Patient denies dizziness, syncope, headache, abdominal pain, diarrhea, dysuria, urinary f requency and urgency, palpitations, sore throat or hematemesis. This initial assessment/diagnostic orders/clinical plan/treatment(s) is/are subject to change based on patients health status, clinical progression and re- assessment by fellow clinical providers in the ED. Further treatment and workup at subsequent clinical providers discretion. Patient/guardian urged not to elope from the ED as their condition may be serious if not clinically assessed and managed. Initial orders include: CBC, CMP, troponin, EKG, CTA chest, urinalysis
[2020-11-19 01:12] LABS: Basophils % (Auto) 0.5 % (0.0-1.8); Eosinophils # (Auto) 0.1 K/mm3 (0.0-0.4); Hemoglobin 11.1 gm/dl (10.1-14.3); Lymphocytes # (Auto) 0.5 K/mm3 (1.2-5.4); Lymphocytes % (Auto) 12.4 % (13.4-35.0); Mean Corpuscular HGB Conc 34 % (30-34); Mean Corpuscular Volume 104 fl (79-97); Monocytes # (Auto) 0.5 K/mm3 (0.0-0.8); Monocytes % (Auto) 11.2 % (0.0-7.3); Platelet Count 203 K/mm3 (140-440); Red Blood Count 3.16 M/mm3 (3.65-5.03); Red Cell Distribution Width 18.3 % (13.2-15.2)
[2020-11-19 01:34] LABS: Alanine Aminotransferase 21 units/L (7-56); Albumin 4.2 g/dL (3.9-5); Blood Urea Nitrogen 12 mg/dL (7-17); Calcium 8.3 mg/dL (8.4-10.2); Hemolysis Index 8
[2020-11-19 01:36] LABS: BUN/Creatinine Ratio 24
[2020-11-19 01:42] LABS: Bilirubin,Urine NEG (Negative); Blood,Urine SM (Negative); Color,Urine Amber (Yellow); Mucus,Urine FEW /HPF
--- NOTE | 2020-11-19 04:39 | Cat Scan Report ---
CTA CHEST WITH IV CONTRAST INDICATION: Left sided chest pain: s/p recent Cholecystectomy. TECHNIQUE: Axial CT images were obtained through the chest after injection of IV contrast. 3 plane MIP reconstru ctions were produced. All CT scans at this location are performed using CT dose reduction for ALARA b y means of automated exposure control. COMPARISON: None available. FINDINGS: Pulmonary Arteries: No pulmonary emboli. Thoracic Aorta: No acute abnormality. Heart: Normal. Lungs: Mild mosaic attenuation within both lungs may be due to mild air trapping. Pleura: No pleural effusion. No pneumothorax. Lymph Nodes: No significant adenopathy. Additional Findings: None. Upper Abdomen: 2.7 cm right adrenal nodule is most likely an adenoma. Skeletal Structures: No significant osseous abnormality. IMPRESSION: 1. No CT evidence for pulmonary embolism. 2. No acute findings. Signer Name: Khanh Lobo MD Signed: 11/19/2020 4:34 AM Workstation Name: [id number]
--- NOTE | 2020-11-19 04:54 | Emergency Department Report ---
ED Chest Pain HPI - General Chief Complaint: Chest Pain Stated Complaint: CHEST PAIN Time Seen by Provider: 11/19/20 04:02 Source: patient Mode of arrival: Ambulatory Limitations: No Limitations - History of Present Illness Initial Comments: 39-year-old female, history of HIV, chronic recurrent seizures, anxiety and depression, asthma, hypertension, fibromyalgia, CHF, presents to ED with chest pain. Patient states pain is located in the middle and left chest. Patient reports onset while sitting up in bed playing on her cell phone. Patient reports onset 4 hours prior to ED arrival. Patient reports one episode of nausea and vomiting. She reports some mild shortness of breath. She denies any fever, cough, leg pain or swelling. Patient states the chest pain is worse with deep breath and with movement and when changing positions. Patient states pain is sharp in nature. No relief with Tylenol at home. Patient is status post cholecystectomy 1 week ago. MD Complaint: chest pain -: hour(s) (4) Onset: during rest Pain Location: substernal, left chest Pain Radiation: none Severity: moderate Severity scale (0 -10): 10 Quality: sharp Improves With: nothing Worsens With: inspiration, palpation, movement re: nausea, vomting, dyspnea. denies: diaphoresis Other Symptoms: denies: cough, fever, leg swelling - Related Data Home Medications Medication Instructions Recorded Confirmed Last Taken amLODIPine 10 mg PO DAILY 04/04/19 04/04/19 Unknown Previous Rx's Medication Instructions Recorded Last Taken Type Famotidine [Pepcid] 20 mg PO BID #30 tablet 11/04/18 Unknown Rx levETIRAcetam [Keppra] 1,000 mg PO Q12H #60 tablet 11/21/18 Unknown Rx Sulfamethoxazole/Trimethoprim 1 each PO Q12H #20 tablet 04/20/19 Unknown Rx [Bactrim DS TAB] Acetaminophen/Codeine [Tylenol 1 tab PO Q8H PRN #3 tab 03/27/20 Unknown Rx /Codeine # 3 tab] traMADoL [Ultram 50 MG tab] 50 mg PO Q6HR PRN #12 tablet 05/02/20 Unknown Rx AtorvaSTATin [Lipitor] 20 mg PO QHS #30 tab 11/18/20 Unknown Rx Cetirizine HCl [ZyrTEC 10mg rapdis] 10 mg PO DAILY PRN #14 tab.rapdis 11/18/20 Unknown Rx Gabapentin 100 mg PO Q8HR #30 capsule 11/18/20 Unknown Rx Nicotine [Habitrol] 21 mg TD QDAY@2100 #30 patch 11/18/20 Unknown Rx Allergies Allergy/AdvReac Type Severity Reaction Status Date / Time aspirin Allergy Hives Verified 10/01/19 10:11 ibuprofen [From Motrin] Allergy Hives Verified 10/01/19 10:11 ketorolac [From Toradol] Allergy Unknown Verified 10/01/19 10:18 Penicillins Allergy Hives Verified 10/01/19 10:11 shellfish derived Allergy Hives Verified 10/01/19 10:11 Heart Score - HEART Score History: Slightly suspicious EKG: Non-specific Age: < 45 Risk factors: 1-2 risk factors Troponin: < normal limit HEART Score: 2 - EKG Read Time Time EKG Completed: 00:55 EKG Read Time: 01:00 ED Review of Systems ROS: Stated complaint: CHEST PAIN Other details as noted in HPI Comment: All other systems reviewed and negative Constitutional: denies: chills, fever Respiratory: shortness of breath. denies: cough Cardiovascular: chest pain Gastrointestinal: nausea, vomiting Musculoskeletal: other (Denies leg pain or swelling) ED Past Medical Hx - Past Medical History Previous Medical History?: Yes Hx Hypertension: Yes Hx CVA: Yes Hx Congestive Heart Failure: No Hx Diabetes: No Hx Headaches / Migraines: Yes (hx migraines) Hx Seizures: Yes Hx Psychiatric Treatment: Yes (depression, Anxiety) Hx Asthma: Yes Hx COPD: No Hx HIV: Yes Additional medical history: Anemia - Surgical History Past Surgical History?: Yes Additional Surgical History: right knee surgery, b/l foot surgery several years ago. foot surgery 09/2015 - Social History Smoking Status: Current Every Day Smoker Substance Use Type: None - Medications Home Medications: Home Medications Medication Instructions Recorded Confirmed Last Taken Type Famotidine [Pepcid] 20 mg PO BID #30 tablet 11/04/18 04/04/19 Unknown Rx levETIRAcetam [Keppra] 1,000 mg PO Q12H #60 tablet 11/21/18 04/04/19 Unknown Rx amLODIPine 10 mg PO DAILY 04/04/19 04/04/19 Unknown History Sulfamethoxazole/Trimethoprim 1 each PO Q12H #20 tablet 04/20/19 Unknown Rx [Bactrim DS TAB] Acetaminophen/Codeine [Tylenol 1 tab PO Q8H PRN #3 tab 03/27/20 Unknown Rx /Codeine # 3 tab] traMADoL [Ultram 50 MG tab] 50 mg PO Q6HR PRN #12 tablet 05/02/20 Unknown Rx AtorvaSTATin [Lipitor] 20 mg PO QHS #30 tab 11/18/20 Unknown Rx Cetirizine HCl [ZyrTEC 10mg rapdis] 10 mg PO DAILY PRN #14 tab.rapdis 11/18/20 Unknown Rx Gabapentin 100 mg PO Q8HR #30 capsule 11/18/20 Unknown Rx Nicotine [Habitrol] 21 mg TD QDAY@2100 #30 patch 11/18/20 Unknown Rx ED Physical Exam - General Limitations: No Limitations General appearance: alert, in no apparent distress - Head Head exam: Present: atraumatic, normocephalic - Eye Eye exam: Present: normal appearance, EOMI - ENT ENT exam: Present: mucous membranes moist - Neck Neck exam: Present: normal inspection - Respiratory Respiratory exam: Present: normal lung sounds bilaterally, chest wall tenderness. Absent: respiratory distress - Cardiovascular Cardiovascular Exam: Present: regular rate, normal rhythm - GI/Abdominal GI/Abdominal exam: Present: soft. Absent: distended, tenderness - Extremities Exam Extremities exam: Present: normal inspection. Absent: pedal edema, calf tenderness - Neurological Exam Neurological exam: Present: alert, oriented X3 - Psychiatric Psychiatric exam: Present: normal affect, normal mood - Skin Skin exam: Present: warm, dry, intact ED Course Vital Signs 11/19/20 11/19/20 11/19/20 00:31 04:16 04:30 Temperature 98.6 F Pulse Rate 98 H 96 H 91 H Respiratory 18 17 21 Rate Blood Pressure 93/57 125/62 O2 Sat by Pulse 97 99 99 Oximetry HAWA score - Hawa Score Age > 65: (0) No Aspirin use within the Past 7 Days: (0) No 3 or more CAD Risk Factors: (0) No 2 or more Angina events in past 24 hrs: (1) Yes Known CAD with more than 50% Stenosis: (0) No Elevated Cardiac Markers: (0) No ST Deviation Greater than 0.5mm: (0) No HAWA Score: 1 ED Medical Decision Making - Lab Data Result diagrams: 11/19/20 00:46 11/19/20 00:46 - EKG Data -: EKG Interpreted by Me EKG shows normal: sinus rhythm, axis, intervals, QRS complexes Rate: normal - EKG Data Interpretation: other (T wave inversions in the inferior lateral leads) Critical care attestation.: If time is entered above; I have spent that time in minutes in the direct care of this critically ill patient, excluding procedure time. ED Disposition Clinical Impression: Chest pain Disposition: - TO HOME OR SELFCARE Is pt being admited?: No Condition: Stable Instructions: Nonspecific Chest Pain, Adult Referrals: PRIMARY CARE, [Primary Care Provider] - 3-5 Days Time of Disposition: 04:58
[2020-11-19 05:41] VITALS: BP 136/67
== END 2020-11-19 05:40 | disposition home or self-care (01) ==
LOC: ED 22:51
DX: R07.89 Other chest pain (principal); I10 Essential (primary) hypertension; G43.909 Migraine, unspecified, not intractable, without status migrainosus; R56.9 Unspecified convulsions; J45.909 Unspecified asthma, uncomplicated; Z21 Asymptomatic human immunodeficiency virus [HIV] infection status; F17.200 Nicotine dependence, unspecified, uncomplicated; Z98.890 Other specified postprocedural states; Z79.899 Other long term (current) drug therapy; Z88.8 Allergy status to other drugs, medicaments and biological substances; Z88.0 Allergy status to penicillin; Z91.013 Allergy to seafood
CPT/HCPCS: 36415; 71275; 80053; 81001; 83880; 84484; 84703; 85025; 93005; 96361; 96374; 96375; 99284; J2270; J2405; J7030; Q9967

== ENCOUNTER 2021-01-25 12:47 | Emergency (ER) | payer MEDICAID ==
[2021-01-25 13:16] VITALS: BP 123/72
[2021-01-25] MEDS ORDERED: levETIRAcetam 1000 MG/NS 0.75% 1,000 MG/100 ML BAG IV ONE (13:19)
[2021-01-25] MEDS ORDERED: ACETAMINOPHEN 500 MG TAB PO ONE (13:19)
--- NOTE | 2021-01-25 13:25 | Emergency Department Report ---
ED Seizure HPI - General Chief Complaint: Seizure Stated Complaint: SEIZURE Time Seen by Provider: 01/25/21 13:14 Source: patient, EMS Mode of arrival: Stretcher Limitations: No Limitations - History of Present Illness Initial Comments: Chief complaint: Seizure HPI: This is a 40-year-old female with history of seizure, hypertension, migraine headache, depression, anxiety, anemia HIV on ART who presents with seizure. Patient had seizure immobilization. Passenger called 911. EMS witnessed active seizure. Patient has mild headache. She does not recall being transported to the hospital. She last remembers sitting at the bus stop. Prior to seizure, patient was in her normal state of health MD Complaint: seizure -: minutes(s) (Several minutes) Description of Episode: loss of consciousness, tonic-clonic movement Witnessed:: Yes Trauma: No Seizure History: known seizure disorder Place: street/outdoors Possible Precipitating Event: none Associated Symptoms: other (Headache post seizure) - Related Data Home Medications Medication Instructions Recorded Confirmed Last Taken amLODIPine 10 mg PO DAILY 04/04/19 04/04/19 Unknown Previous Rx's Medication Instructions Recorded Last Taken Type Famotidine [Pepcid] 20 mg PO BID #30 tablet 11/04/18 Unknown Rx levETIRAcetam [Keppra] 1,000 mg PO Q12H #60 tablet 11/21/18 Unknown Rx Sulfamethoxazole/Trimethoprim 1 each PO Q12H #20 tablet 04/20/19 Unknown Rx [Bactrim DS TAB] Acetaminophen/Codeine [Tylenol 1 tab PO Q8H PRN #3 tab 03/27/20 Unknown Rx /Codeine # 3 tab] traMADoL [Ultram 50 MG tab] 50 mg PO Q6HR PRN #12 tablet 05/02/20 Unknown Rx AtorvaSTATin [Lipitor] 20 mg PO QHS #30 tab 11/18/20 Unknown Rx Cetirizine HCl [ZyrTEC 10mg rapdis] 10 mg PO DAILY PRN #14 tab.rapdis 11/18/20 Unknown Rx Gabapentin 100 mg PO Q8HR #30 capsule 11/18/20 Unknown Rx Nicotine [Habitrol] 21 mg TD QDAY@2100 #30 patch 11/18/20 Unknown Rx Allergies Allergy/AdvReac Type Severity Reaction Status Date / Time aspirin Allergy Hives Verified 10/01/19 10:11 ibuprofen [From Motrin] Allergy Hives Verified 10/01/19 10:11 ketorolac [From Toradol] Allergy Unknown Verified 10/01/19 10:18 Penicillins Allergy Hives Verified 10/01/19 10:11 shellfish derived Allergy Hives Verified 10/01/19 10:11 ED Review of Systems ROS: Stated complaint: SEIZURE Other details as noted in HPI Comment: All other systems reviewed and negative Constitutional: denies: fever, malaise Respiratory: denies: cough, shortness of breath Gastrointestinal: denies: abdominal pain, nausea, vomiting Neurological: headache ED Past Medical Hx - Past Medical History Previous Medical History?: Yes Hx Hypertension: Yes Hx CVA: Yes Hx Congestive Heart Failure: No Hx Diabetes: No Hx Headaches / Migraines: Yes (hx migraines) Hx Seizures: Yes Hx Psychiatric Treatment: Yes (depression, Anxiety) Hx Asthma: Yes Hx COPD: No Hx HIV: Yes Additional medical history: Anemia - Surgical History Past Surgical History?: Yes Additional Surgical History: right knee surgery, b/l foot surgery several years ago. foot surgery 09/2015 - Social History Smoking Status: Never Smoker - Medications Home Medications: Home Medications Medication Instructions Recorded Confirmed Last Taken Type Famotidine [Pepcid] 20 mg PO BID #30 tablet 11/04/18 04/04/19 Unknown Rx levETIRAcetam [Keppra] 1,000 mg PO Q12H #60 tablet 11/21/18 04/04/19 Unknown Rx amLODIPine 10 mg PO DAILY 04/04/19 04/04/19 Unknown History Sulfamethoxazole/Trimethoprim 1 each PO Q12H #20 tablet 04/20/19 Unknown Rx [Bactrim DS TAB] Acetaminophen/Codeine [Tylenol 1 tab PO Q8H PRN #3 tab 03/27/20 Unknown Rx /Codeine # 3 tab] traMADoL [Ultram 50 MG tab] 50 mg PO Q6HR PRN #12 tablet 05/02/20 Unknown Rx AtorvaSTATin [Lipitor] 20 mg PO QHS #30 tab 11/18/20 Unknown Rx Cetirizine HCl [ZyrTEC 10mg rapdis] 10 mg PO DAILY PRN #14 tab.rapdis 11/18/20 Unknown Rx Gabapentin 100 mg PO Q8HR #30 capsule 11/18/20 Unknown Rx Nicotine [Habitrol] 21 mg TD QDAY@2100 #30 patch 11/18/20 Unknown Rx ED Physical Exam - General Limitations: No Limitations General appearance: alert, in no apparent distress - Head Head exam: Present: atraumatic, normocephalic - Eye Eye exam: Present: normal appearance - ENT ENT exam: Present: mucous membranes moist - Neck Neck exam: Present: normal inspection, full ROM - Respiratory Respiratory exam: Present: normal lung sounds bilaterally. Absent: respiratory distress, wheezes, rales, rhonchi - Cardiovascular Cardiovascular Exam: Present: regular rate, normal rhythm, normal heart sounds. Absent: systolic murmur, diastolic murmur, rubs, gallop - GI/Abdominal GI/Abdominal exam: Present: soft, normal bowel sounds. Absent: distended, tenderness, guarding, rebound - Extremities Exam Extremities exam: Present: normal inspection - Neurological Exam Neurological exam: Present: alert, oriented X3 - Psychiatric Psychiatric exam: Present: normal affect, normal mood - Skin Skin exam: Present: warm, dry, intact, normal color. Absent: rash ED Course Vital Signs 01/25/21 13:15 Temperature 98.7 F Pulse Rate 93 H Respiratory 21 Rate Blood Pressure 123/72 [Left] O2 Sat by Pulse 95 Oximetry ED Medical Decision Making - Medical Decision Making Breakthrough seizure, patient received IV Keppra load. Also received Tylenol for tension headache. Patient left in middle of care for infusion. Patient left AGAINST MEDICAL ADVICE. She did not complete her treatment. I anticipated discharge home. No further action needed. Critical care attestation.: If time is entered above; I have spent that time in minutes in the direct care of this critically ill patient, excluding procedure time. ED Disposition Clinical Impression: Seizure, Tension headache Disposition: [id number]-07 LEFT AGAINST MED ADVICE Is pt being admited?: No Does the pt Need Aspirin: No Condition: Stable
== END 2021-01-25 14:41 | disposition left against medical advice (07) ==
LOC: ED 12:47
DX: R56.9 Unspecified convulsions (principal); G44.209 Tension-type headache, unspecified, not intractable; I10 Essential (primary) hypertension; G43.909 Migraine, unspecified, not intractable, without status migrainosus; F32.9 Major depressive disorder, single episode, unspecified; F41.9 Anxiety disorder, unspecified; Z86.73 Personal history of transient ischemic attack (TIA), and cerebral infarction without residual deficits; Z98.890 Other specified postprocedural states; Z79.899 Other long term (current) drug therapy; Z88.0 Allergy status to penicillin; Z91.013 Allergy to seafood; Z88.8 Allergy status to other drugs, medicaments and biological substances
CPT/HCPCS: J1953

== ENCOUNTER 2021-01-25 22:02 | Inpatient (IN) | payer MEDICAID ==
[2021-01-25] MEDS ORDERED: ALTEPLASE 100 MG INJ KIT ONE (22:19)
--- NOTE | 2021-01-25 22:20 | Consultation ---
Medications and Allergies Allergies Allergy/AdvReac Type Severity Reaction Status Date / Time aspirin Allergy Hives Verified 10/01/19 10:11 ibuprofen [From Motrin] Allergy Hives Verified 10/01/19 10:11 ketorolac [From Toradol] Allergy Unknown Verified 10/01/19 10:18 Penicillins Allergy Hives Verified 10/01/19 10:11 shellfish derived Allergy Hives Verified 10/01/19 10:11 Home Medications Medication Instructions Recorded Confirmed Last Taken Type Famotidine [Pepcid] 20 mg PO BID #30 tablet 11/04/18 04/04/19 Unknown Rx levETIRAcetam [Keppra] 1,000 mg PO Q12H #60 tablet 11/21/18 04/04/19 Unknown Rx amLODIPine 10 mg PO DAILY 04/04/19 04/04/19 Unknown History Sulfamethoxazole/Trimethoprim 1 each PO Q12H #20 tablet 04/20/19 Unknown Rx [Bactrim DS TAB] Acetaminophen/Codeine [Tylenol 1 tab PO Q8H PRN #3 tab 03/27/20 Unknown Rx /Codeine # 3 tab] traMADoL [Ultram 50 MG tab] 50 mg PO Q6HR PRN #12 tablet 05/02/20 Unknown Rx AtorvaSTATin [Lipitor] 20 mg PO QHS #30 tab 11/18/20 Unknown Rx Cetirizine HCl [ZyrTEC 10mg rapdis] 10 mg PO DAILY PRN #14 tab.rapdis 11/18/20 Unknown Rx Gabapentin 100 mg PO Q8HR #30 capsule 11/18/20 Unknown Rx Nicotine [Habitrol] 21 mg TD QDAY@2100 #30 patch 11/18/20 Unknown Rx Assessment and Plan [facility] Consult Note # Demographics Consult Type: Acute Stroke Level 1 (0-4.5 hrs) Patient Location: Emergency Room First Name: Pratik Last Name: Baltazar Date of : 1980 Age: 40 Gender: Female Time of Initial Page ( Time): 01/25/2021, 22:07 Time of Return Call ( Time): 01/25/2021, 22:07 # HPI History: 40F with left side numbness, called 911. Last known well time was about 21:35. No prior similar. Also with headache and neck pain. # Scores Time of exam and NIHSS (): 01/25/2021, 22:10 Level of Consciousness 1a: [0] = Alert; keenly responsive LOC Questions 1b: [0] = Answers both questions correctly LOC Commands 1c: [0] = Performs both tasks correctly Best Gaze 2: [0] = Normal Visual 3: [0] = No visual loss Facial Palsy 4: [1] = Minor paralysis Motor Arm Left 5a: [0] = No drift Motor Arm Right 5b: [0] = No drift Motor Leg Left 6a: [2] = Some effort against gravity Motor Leg Right 6b: [0] = No drift Limb Ataxia 7: [0] = Absent Sensory 8: [1] = [id number] sensory loss Best Language 9: [0] = No aphasia Dysarthria 10: [0] = Normal Extinction and Inattention 11: [0] = No abnormality NIHSS Total: 4 # PMH-FH-SH Past Medical History: hypertension HIV # Data Time Head CT personally read by me ( Time): 01/25/2021, 22:[address]: no bleed preliminarily reviewed by me, please refer to radiology read for official lashae ding # Assessment Impression: Ischemic Stroke (Acute) vs mimic. Current deficit is estimated to be disabling, patient was unable to stand due to left leg weakness and balance trouble. # Plan Thrombolytic/Intervention: IV thrombolytic Thrombolytic Dosing: IV alteplase 0.9 mg/kg, max dose 90 mg; 10% of dose given over 1 minute IVP, remaining 90% given as infusion over 1 hour Intraarterial Exclusion: pending CTA head/neck. Imaging: (urgency: STAT): CT Angiogram Head and CT Angiogram Neck Imaging: (urgency: routine): MRI Brain without contrast Diagnostic Test: echo with bubble study Thrombolytic Administration Recommendations: I reviewed the risks/benefits/alternatives of IV thrombolytic therapy with the patient. They understand there is potential of life threatening hemorrhage from IV thrombolysis. I stated that I believe benefits outweighs risk. They wish to proceed with IV thrombolytic therapy. I have collected independent history specific to time last normal or last known well. We have collaborated with the ED provider and at this time, we have the most current timeline with the information that is available. BP goal< 180/105 for 24hrs post Thrombolytic administration Use Labetolol 10-20mg IV prn or Nicardipine gtt to maintain BP parameters No antiplatelets or anticoagulants for next 24 hrs unless indicated for emergent IA procedure or other life threatening situation ICU admission Call back if there is any decline in neurological condition Other: LDL < 70 telemetry monitoring I have discussed my recommendations with the referring provider Additional Recommendations: If large vessel occlusion found on CTA head/neck urgent transfer for thrombectomy, otherwise can admit locally. Disposition: admit # Logistics Telemedicine: Interactive 2 way audio and visual telecommunication technology was utilized during this visit
--- NOTE | 2021-01-25 22:31 | Emergency Department Report ---
- General Stated complaint: STROKE SX Time Seen by Provider: 01/25/21 22:05 - History of Present Illness Initial comments: 40-year-old female with history of hypertension, HIV, and seizure disorder on Keppra brought in by EMS with new onset of left-sided numbness. ThE last known well time was 9:30 PM, which is 30 minutes prior to arrival. She states that she had new onset of a headache with slight neck pain on the left side as well as left-sided numbness. She said she does not feel anything on the left side of her body when she tried walking she was unable. She also has some weakness on the left side. She denies any recent trauma. She denies any other associated symptoms. - Related Data Home Medications Medication Instructions Recorded Confirmed Last Taken amLODIPine 10 mg PO DAILY 04/04/19 04/04/19 Unknown Previous Rx's Medication Instructions Recorded Last Taken Type Famotidine [Pepcid] 20 mg PO BID #30 tablet 11/04/18 Unknown Rx levETIRAcetam [Keppra] 1,000 mg PO Q12H #60 tablet 11/21/18 Unknown Rx Sulfamethoxazole/Trimethoprim 1 each PO Q12H #20 tablet 04/20/19 Unknown Rx [Bactrim DS TAB] Acetaminophen/Codeine [Tylenol 1 tab PO Q8H PRN #3 tab 03/27/20 Unknown Rx /Codeine # 3 tab] traMADoL [Ultram 50 MG tab] 50 mg PO Q6HR PRN #12 tablet 05/02/20 Unknown Rx AtorvaSTATin [Lipitor] 20 mg PO QHS #30 tab 11/18/20 Unknown Rx Cetirizine HCl [ZyrTEC 10mg rapdis] 10 mg PO DAILY PRN #14 tab.rapdis 11/18/20 Unknown Rx Gabapentin 100 mg PO Q8HR #30 capsule 11/18/20 Unknown Rx Nicotine [Habitrol] 21 mg TD QDAY@2100 #30 patch 11/18/20 Unknown Rx Allergies Allergy/AdvReac Type Severity Reaction Status Date / Time aspirin Allergy Hives Verified 10/01/19 10:11 ibuprofen [From Motrin] Allergy Hives Verified 10/01/19 10:11 ketorolac [From Toradol] Allergy Unknown Verified 10/01/19 10:18 Penicillins Allergy Hives Verified 10/01/19 10:11 shellfish derived Allergy Hives Verified 10/01/19 10:11 ED Review of Systems ROS: Stated complaint: STROKE SX Other details as noted in HPI Constitutional: denies: chills, fever Eyes: denies: eye pain, vision change ENT: denies: throat pain, other Respiratory: denies: cough, shortness of breath Cardiovascular: denies: chest pain Gastrointestinal: denies: abdominal pain, nausea, vomiting Genitourinary: denies: dysuria Musculoskeletal: denies: back pain Skin: denies: rash Neurological: headache, weakness, numbness, abnormal gait ED Past Medical Hx - Past Medical History Hx Hypertension: Yes Hx CVA: No Hx Congestive Heart Failure: No Hx Diabetes: No Hx Headaches / Migraines: Yes (hx migraines) Hx Seizures: Yes Hx Psychiatric Treatment: Yes (depression, Anxiety) Hx Asthma: Yes Hx COPD: No Hx HIV: Yes Additional medical history: Anemia - Surgical History Additional Surgical History: right knee surgery, b/l foot surgery several years ago. foot surgery 09/2015 - Social History Smoking Status: Never Smoker - Medications Home Medications: Home Medications Medication Instructions Recorded Confirmed Last Taken Type Famotidine [Pepcid] 20 mg PO BID #30 tablet 11/04/18 04/04/19 Unknown Rx levETIRAcetam [Keppra] 1,000 mg PO Q12H #60 tablet 11/21/18 04/04/19 Unknown Rx amLODIPine 10 mg PO DAILY 04/04/19 04/04/19 Unknown History Sulfamethoxazole/Trimethoprim 1 each PO Q12H #20 tablet 04/20/19 Unknown Rx [Bactrim DS TAB] Acetaminophen/Codeine [Tylenol 1 tab PO Q8H PRN #3 tab 03/27/20 Unknown Rx /Codeine # 3 tab] traMADoL [Ultram 50 MG tab] 50 mg PO Q6HR PRN #12 tablet 05/02/20 Unknown Rx AtorvaSTATin [Lipitor] 20 mg PO QHS #30 tab 11/18/20 Unknown Rx Cetirizine HCl [ZyrTEC 10mg rapdis] 10 mg PO DAILY PRN #14 tab.rapdis 11/18/20 Unknown Rx Gabapentin 100 mg PO Q8HR #30 capsule 11/18/20 Unknown Rx Nicotine [Habitrol] 21 mg TD QDAY@2100 #30 patch 11/18/20 Unknown Rx ED Physical Exam - General General appearance: alert, in no apparent distress - Head Head exam: Present: atraumatic, normocephalic - Eye Eye exam: Present: PERRL, EOMI - ENT ENT exam: Present: other (mild left facial droop, otherwise normal) - Neck Neck exam: Present: normal inspection, full ROM - Respiratory Respiratory exam: Present: normal lung sounds bilaterally - Cardiovascular Cardiovascular Exam: Present: regular rate, normal rhythm - GI/Abdominal GI/Abdominal exam: Present: soft. Absent: distended, tenderness, guarding, rebound - Extremities Exam Extremities exam: Present: other (2+ edema of RLE, 3+ edema of LLE.) - Assessment Assessment Interval: Baseline - Level of Consciousness 1a. Level of Consciousness: alert/keenly responsive - LOC Questions 1b. LOC Questions: answers both correctly - LOC Command 1c. LOC Commands: performs tasks correctly - Best Gaze 2. Best Gaze: normal - Visual 3. Visual: no visual loss - Facial Palsy 4. Facial Palsy: minor paralysis - Motor Arm 5a. Motor Arm Left: drift 5b. Motor Arm Right: no drift - Motor Leg 6a. Motor Leg Left: some gravity effort 6b. Motor Leg Right: no drift - Limb Ataxia 7. Limb Ataxia: present 1 limb - Sensory 8. Sensory: severe/total sensory loss - Best Language 9. Best Language: no aphasia - Dysarthria 10. Dysarthria: normal - Extinction and Inattention 11. Extinction/Inattention: no abnormality - Scoring Total Score: 7 Stroke Severity: Moderate Stroke ED Course Vital Signs 01/25/21 01/25/21 01/25/21 22:40 22:48 23:00 Pulse Rate 91 H 90 91 H Respiratory 18 24 Rate Blood Pressure 115/77 Blood Pressure [Left] O2 Sat by Pulse 97 96 Oximetry 01/25/21 01/25/21 01/25/21 23:01 23:02 23:16 Pulse Rate 92 H 90 103 H Respiratory 23 22 Rate Blood Pressure 141/92 123/85 Blood Pressure 115/77 [Left] O2 Sat by Pulse 96 97 Oximetry 01/25/21 01/25/21 01/25/21 23:17 23:30 23:32 Pulse Rate 89 88 89 Respiratory 23 38 H 24 Rate Blood Pressure 134/78 Blood Pressure 123/85 134/78 [Left] O2 Sat by Pulse 96 92 96 Oximetry 01/25/21 01/25/21 01/25/21 23:46 23:47 23:48 Pulse Rate 89 89 91 H Respiratory 24 23 34 H Rate Blood Pressure 122/53 122/53 Blood Pressure 122/53 [Left] O2 Sat by Pulse 95 96 95 Oximetry 01/26/21 01/26/21 01/26/21 00:00 00:02 00:06 Pulse Rate 86 89 87 Respiratory 29 H 22 30 H Rate Blood Pressure 131/88 131/88 Blood Pressure 131/88 [Left] O2 Sat by Pulse 97 96 92 Oximetry 01/26/21 01/26/21 01/26/21 00:10 00:16 00:17 Pulse Rate 87 88 86 Respiratory 23 20 22 Rate Blood Pressure 131/88 138/95 Blood Pressure 126/77 [Left] O2 Sat by Pulse 95 98 96 Oximetry 01/26/21 01/26/21 01/26/21 00:20 00:26 00:30 Pulse Rate 86 79 81 Respiratory 34 H 21 34 H Rate Blood Pressure 138/95 120/63 122/53 Blood Pressure [Left] O2 Sat by Pulse 94 95 94 Oximetry 01/26/21 01/26/21 01/26/21 00:32 00:36 00:40 Pulse Rate 86 84 92 H Respiratory 22 29 H 34 H Rate Blood Pressure 122/53 122/53 Blood Pressure 122/58 [Left] O2 Sat by Pulse 96 88 89 Oximetry 01/26/21 01/26/21 01/26/21 00:47 01:00 01:17 Pulse Rate 88 75 83 Respiratory 24 29 H 24 Rate Blood Pressure 143/67 Blood Pressure 132/78 121/65 [Left] O2 Sat by Pulse 96 94 97 Oximetry 01/26/21 01/26/21 01/26/21 01:30 01:47 02:10 Pulse Rate 78 80 77 Respiratory 31 H 22 30 H Rate Blood Pressure 131/73 148/102 Blood Pressure 131/73 [Left] O2 Sat by Pulse 92 95 97 Oximetry 01/26/21 02:17 Pulse Rate 77 Respiratory 26 H Rate Blood Pressure Blood Pressure 137/79 [Left] O2 Sat by Pulse 97 Oximetry ED Medical Decision Making - Lab Data Result diagrams: 01/25/21 22:35 01/25/21 22:35 Lab Results 01/25/21 01/25/21 01/25/21 Range/Units 22:35 22:35 22:35 WBC 3.4 L (4.5-11.0) K/mm3 RBC 2.51 L (3.65-5.03) M/mm3 Hgb 9.0 L (10.1-14.3) gm/dl Hct 26.6 L (30.3-42.9) % MCV 106 H (79-97) fl MCH 36 H (28-32) pg MCHC 34 (30-34) % RDW 19.7 H (13.2-15.2) % Plt Count 188 (140-440) K/mm3 Lymph % (Auto) 16.0 (13.4-35.0) % [place] % (Auto) 8.5 H (0.0-7.3) % Eos % (Auto) 2.7 (0.0-4.3) % Baso % (Auto) 0.6 (0.0-1.8) % Lymph # (Auto) 0.5 L (1.2-5.4) K/mm3 [place] # (Auto) 0.3 (0.0-0.8) K/mm3 Eos # (Auto) 0.1 (0.0-0.4) K/mm3 Baso # (Auto) 0.0 (0.0-0.1) K/mm3 Seg Neutrophils % 72.2 H (40.0-70.0) % Seg Neutrophils # 2.4 (1.8-7.7) K/mm3 PT 14.2 (12.2-14.9) Sec. INR 1.05 (0.87-1.13) APTT 32.1 (24.2-36.6) Sec. Thrombin Time 15.8 (15.1-19.6) Sec. Sodium 138 (137-145) mmol/L Potassium 3.3 L (3.6-5.0) mmol/L Chloride 102.0 (98-107) mmol/L Carbon Dioxide 28 (22-30) mmol/L Anion Gap 11 mmol/L BUN 7 (7-17) mg/dL Creatinine 0.5 L (0.6-1.2) mg/dL Estimated GFR > 60 ml/min BUN/Creatinine Ratio 14 % Glucose 91 (65-100) mg/dL Calcium 7.9 L (8.4-10.2) mg/dL Total Bilirubin 1.10 (0.1-1.2) mg/dL AST 27 (5-40) units/L ALT 12 (7-56) units/L Alkaline Phosphatase 66 (35-129) units/L Total Creatine Kinase 95 (30-135) units/L CK-MB (CK-2) 1.5 (0.0-4.0) ng/mL CK-MB (CK-2) Rel Index 1.5 (0-4) Troponin T < 0.010 (0.00-0.029) ng/mL Total Protein 6.1 L (6.3-8.2) g/dL Albumin 3.6 L (3.9-5) g/dL Albumin/Globulin Ratio 1.4 % Plasma/Serum Alcohol (0-0.07) % // Range/Units 22:35 WBC (4.5-11.0) K/mm3 RBC (3.65-5.03) M/mm3 Hgb (10.1-14.3) gm/dl Hct (30.3-42.9) % MCV (79-97) fl MCH (28-32) pg MCHC (30-34) % RDW (13.2-15.2) % Plt Count (140-440) K/mm3 Lymph % (Auto) (13.4-35.0) % [place] % (Auto) (0.0-7.3) % Eos % (Auto) (0.0-4.3) % Baso % (Auto) (0.0-1.8) % Lymph # (Auto) (1.2-5.4) K/mm3 [place] # (Auto) (0.0-0.8) K/mm3 Eos # (Auto) (0.0-0.4) K/mm3 Baso # (Auto) (0.0-0.1) K/mm3 Seg Neutrophils % (40.0-70.0) % Seg Neutrophils # (1.8-7.7) K/mm3 PT (12.2-14.9) Sec. INR (0.87-1.13) APTT (24.2-36.6) Sec. Thrombin Time (15.1-19.6) Sec. Sodium (137-145) mmol/L Potassium (3.6-5.0) mmol/L Chloride (98-107) mmol/L Carbon Dioxide (22-30) mmol/L Anion Gap mmol/L BUN (7-17) mg/dL Creatinine (0.6-1.2) mg/dL Estimated GFR ml/min BUN/Creatinine Ratio % Glucose (65-100) mg/dL Calcium (8.4-10.2) mg/dL Total Bilirubin (0.1-1.2) mg/dL AST (5-40) units/L ALT (7-56) units/L Alkaline Phosphatase (35-129) units/L Total Creatine Kinase (30-135) units/L CK-MB (CK-2) (0.0-4.0) ng/mL CK-MB (CK-2) Rel Index (0-4) Troponin T (0.00-0.029) ng/mL Total Protein (6.3-8.2) g/dL Albumin (3.9-5) g/dL Albumin/Globulin Ratio % Plasma/Serum Alcohol < 0.01 (0-0.07) % - EKG Data -: EKG Interpreted by [facility] - EKG Data 01/25/21 23:16 Normal sinus rhythm. Normal axis. Normal intervals. No ectopy. No significant ST segment or T wave abnormalities. - Radiology Data Examination: CT of the head without contrast Clinical information: Stroke symptoms Comparison: CT of the head without contrast, 11/17/2020 Technical: Multiple axial CT images of the head were obtained without intravenous contrast. Sagittal and coronal reformats were obtained. All CTs at this facility utilize dose reduction techniques including automated exposure control, iterative reconstruction and weight based dosing when appropriate to reduce patient radiation dose to as low as reasonable achievable. Findings: INTRACRANIAL CONTENTS: There is no CT evidence of acute intracranial hemorrhage or large territorial infarct. The ventricular system is normal in size. There is no mass effect or midline shift. SKULL: No acute bony abnormality is visualized. ORBITS: The bilateral orbits and globes appear normal PARANASAL SINUSES / MASTOID AIR CELLS: Paranasal sinuses and mastoid air cells appear clear. Impression: 1. No CT evidence of acute intracranial process. This study was designated as a code stroke protocol. Findings were called to Dr. Torres in the Emergency Department at 9:45 PM CRITICAL RESULT: Time of Discovery (CONSULTANT EDUCATION/CDT): 9:40 PM Time of Communication (CONSULTANT EDUCATION/CDT): 9:45 PM Licensed Practitioner Receiving Report: Dr. Torres Read-Back Performed: Yes. Signer Name: Layne Ortiz MD Signed: 01/25/2021 9:46 PM Workstation Name: [id number] CT angio head INDICATION / CLINICAL INFORMATION: 40 years Female; CODE STROKE PROTOCOL!!! Stroke-Like symptoms. TECHNIQUE: Thin cut axial images obtained through the head during IV bolus contrast administration. Sagittal, coronal, and 3 plane MIP reconstructions performed by the technologist. NASCET type criteria used evaluate stenoses. Automated exposure control utilized for radiation reduction purposes. COMPARISON: None available. FINDINGS: INTERNAL CAROTID ARTERIES: There is no clear CTA evidence of significant stenosis involving intracranial ICAs by NASCET criteria. 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 There is also relative hypoplasia of the basilar artery though there is no significant focal narrowing. CEREBRAL ARTERIES: The motion degrades image quality and the distal cerebral branches. However, there is no clear evidence of significant focal stenosis involving the proximal cerebral arteries or evidence of large vessel occlusion. No ANEURYSM: None identified. ADDITIONAL FINDINGS: Remainder of the surrounding soft tissues are grossly normal. IMPRESSION: There is no CTA evidence of large vessel occlusion involving intracranial vessels. The CTA neck will be dictated separately. Signer Name: Alan Vides MD Signed: 10:20 PM Workstation Name: [id number] CT angio neck INDICATION / CLINICAL INFORMATION: 40 years Female; CODE STROKE PROTOCOL!!! Stroke-Like symptoms. TECHNIQUE: Thin cut axial images obtained through the head during IV bolus contrast administration. Sagittal, coronal, and 3 plane MIP reconstructions performed by the technologist. NASCET type criteria used evaluate stenoses. All CT scans at this location are performed using CT dose reduction for ALARA by means of automated exposure control. COMPARISON: The study is compared to the previous CTA of 11/17/2020. FINDINGS: CAROTID ARTERIES: There is notable beam hardening artifact from the patient's body habitus. However, there is no significant developing a stenosis involving the carotid arteries by NASCET criteria. There is heterogeneous attenuation projected within the carotid ligaments at. However, the contour appears fairly well-maintained without significant interval change from the prior study. VERTEBRAL ARTERIES: The proximal vertebral arteries are also obscured by the beam hardening as well as the contrast within the adjacent venous structures at. However, there is mild developmental hypoplasia of the left vertebral artery which correlates with prior exam. There is no clear evidence of developing stenosis of the vertebral vessels at. ARCH: There is no focal stenosis involving origins of the arch vessels. There is mild calcification of the aortic arch. ADDITIONAL FINDINGS: Remainder of the surrounding soft tissues are grossly normal. IMPRESSION: There is notable beam hardening artifact resulting from the habitus. However, there is no CTA evidence of significant developing stenosis involving the carotid or vertebral arteries by NASCET criteria. Signer Name: Alan Vides MD Signed: 01/25/2021 10:34 PM Workstation Name: [id number] CHEST 1 VIEW, 01/25/2021 10:42 PM CLINICAL INFORMATION/INDICATION: Stroke symptoms COMPARISON: Chest radiograph, 02/08/2020 FINDINGS: SUPPORT DEVICES: None. HEART: The cardiac silhouette is normal in size. LUNGS/PLEURA: The lungs are clear of focal airspace disease or significant pleural effusion. ADDITIONAL FINDINGS: No additional acute findings. IMPRESSION: 1. No evidence of acute cardiopulmonary process. Signer Name: Layne Ortiz MD Signed: 01/25/2021 10:57 PM Workstation Name: [id number] Examination: CT of the head without contrast Clinical information: Headache and stroke symptoms. The patient recently received tPA. Comparison: CT of the head, 01/25/2021 Technical: Multiple axial CT images of the head were obtained without intravenous contrast. Sagittal and coronal reformats were obtained. All CTs at this facility utilize dose reduction techniques including automated exposure control, iterative reconstruction and weight based dosing when a ppropriate to reduce patient radiation dose to as low as reasonable achievable. Findings: INTRACRANIAL CONTENTS: There is no CT evidence of acute intracranial hemorrhage or large territorial infarct. The ventricular system remains normal in size. There is no mass effect or midline shift. SKULL: No acute bony abnormality is visualized. ORBITS: The bilateral orbits and globes appear normal PARANASAL SINUSES / MASTOID AIR CELLS: Paranasal sinuses and mastoid air cells appear clear. Impression: 1. No CT evidence of acute intracranial process. No CT evidence of significant interval change from the recent previous study. Signer Name: Layne Ortiz MD Signed: 01/26/2021 1:41 AM Workstation Name: [id number] - Medical Decision Making 40-year-old female brought in by EMS with new onset of left-sided numbness, headache, neck pain, and weakness which prevents her from being able to get up and walk. Last known well was 30 minutes prior to arrival at 9:30 PM. Upon arrival to the emergency department I immediately performed examination which revealed a mild left-sided facial droop as well as weakness in the left arm and left leg. She has no sensation to the left side of her body. Fingerstick blood glucose was 103. Stroke alert was initiated with full set of labs, Noncon CT of the head, and CTA of the head and neck to assess for large vessel occlusion versus carotid dissection. NIH stroke scale score was 7 At 10:18 PM I spoke over the phone with Dr. Palomino of teleneurology who has examined the patient and feels that she is a good candidate to receive TPA given the acute onset of her deficits. He reviewed the Noncon CT of the head and there is no evidence of intracranial bleeding. This was confirmed by the radiologist, Dr. Ortiz at 10:45 PM. Given that the patient is young and has headache/neck pain, I specifically asked him about whether evidence of a carotid dissection would change whether we give TPA. He stated that he recommends still proceeding with TPA administration even if there is evidence of dissection on CTA. On repeat examination after the patient returned from the CT scanner, she still has all of the deficits and the weakness in her left leg seems to be slightly worse. Teleneurologist is in the process of speaking to her about TPA administration, and should she agree to proceed even with the risks we will administer TPA. Afterward at 11:00 PM, I confirmed with the patient that she wants to proceed with TPA administration. I also spoke again with the teleneurologist who still wants to proceed with TPA administration as well. The patient understands all the risks including the 5% risk of intracranial bleeding and the possibility of permanent/temporary disability and/or and she still wants to proceed with TPA. CTA of the head and neck reveals no evidence of large vessel occlusion, stenosis, or dissection. Patient will be admitted to the ICU for further management. All this was explained to the patient who expressed understanding agreement with the plan of care. Labs have resulted and reveal no significant change from prior or significant abnormalities with the exception of mild hypokalemia with potassium of 3.3 which I have ordered IV repletion for. I spoke over the telephone with Dr. Wasserman who agrees to accept the patient for admission and will assume care At 1:25 AM, the nurse, Freddie informed me that the patient reports her headache is getting worse. Therefore I ordered repeat Noncon head CT to assess for evidence of intracranial hemorrhage. I spoke over the phone with the admitting physician, Dr. Wasserman regarding the situation and my order and he indicated agreement with this course of action Repeat CT of the head shows no evidence of ICH or interval change. Critical Care Time: Yes (80 mins) Critical care time in (mins) excluding proc time.: 80 Critical care attestation.: If time is entered above; I have spent that time in minutes in the direct care of this critically ill patient, excluding procedure time. Critical care time was spent in the assessment and management and care of acute ly life-threatening stroke and administration of IV TPA ED Disposition Clinical Impression: Hypokalemia Stroke Qualifiers: CVA mechanism: unspecified Qualified Code(s): I63.9 - Cerebral infarction, unspecified Disposition: DC-09 OP ADMIT IP TO THIS HOSP Is pt being admited?: Yes Condition: Critical
[2021-01-25] MEDS ORDERED: ALTEPLASE 100 MG INJ KIT IV ONE ×2 (22:35)
[2021-01-25] MEDS ORDERED: SODIUM CHLORIDE 0.9% 50 ML IVPB IV ONE (22:35)
--- NOTE | 2021-01-25 22:51 | Cat Scan Report ---
Examination: CT of the head without contrast Clinical information: Stroke symptoms Comparison: CT of the head without contrast, 11/17/2020 Technical: Multiple axial CT images of the head were obtained without intravenous contrast. Sagittal and coronal reformats were obtained. All CTs at this facility utilize dose reduction techniques inc luding automated exposure control, iterative reconstruction and weight based dosing when appropriate to reduce patient radiation dose to as low as reasonable achievable. Findings: INTRACRANIAL CONTENTS: There is no CT evidence of acute intracranial hemorrhage or large territorial infarct. The ventricular system is normal in size. There is no mass effect or midline shift. SKULL: No acute bony abnormality is visualized. ORBITS: The bilateral orbits and globes appear normal PARANASAL SINUSES / MASTOID AIR CELLS: Paranasal sinuses and mastoid air cells appear clear. Impression: 1. No CT evidence of acute intracranial process. This study was designated as a code stroke protocol. Findings were called to Dr. Torres in the Emergen cy Department at 9:45 PM CRITICAL RESULT: Time of Discovery (COOKER HELPER/CDT): 9:40 PM Time of Communication (COOKER HELPER/CDT): 9:45 PM Licensed Practitioner Receiving Report: Dr. Torres Read-Back Performed: Yes. Signer Name: Layne Ortiz MD Signed: 01/25/2021 10:46 PM Workstation Name: [id number]
[2021-01-25 22:57] LABS: Basophils % (Auto) 0.6 % (0.0-1.8); Eosinophils # (Auto) 0.1 K/mm3 (0.0-0.4); Eosinophils % (Auto) 2.7 % (0.0-4.3); Hematocrit 26.6 % (30.3-42.9); Lymphocytes # (Auto) 0.5 K/mm3 (1.2-5.4); Mean Corpuscular HGB Conc 34 % (30-34); Mean Corpuscular Volume 106 fl (79-97); Monocytes # (Auto) 0.3 K/mm3 (0.0-0.8); Monocytes % (Auto) 8.5 % (0.0-7.3); Platelet Count 188 K/mm3 (140-440); Red Blood Count 2.51 M/mm3 (3.65-5.03); Red Cell Distribution Width 19.7 % (13.2-15.2)
[2021-01-25 22:59] LABS: INR 1.05 (0.87-1.13)
[2021-01-25 23:00] LABS: Partial Thromboplastin Time 32.1 Sec. (24.2-36.6); Thrombin Time 15.8 Sec. (15.1-19.6)
[2021-01-25 23:14] LABS: Creatine Kinase MB 1.5 ng/mL (0.0-4.0)
[2021-01-25 23:15] LABS: Alanine Aminotransferase 12 units/L (7-56); Albumin 3.6 g/dL (3.9-5); Blood Urea Nitrogen 7 mg/dL (7-17); Calcium 7.9 mg/dL (8.4-10.2); Hemolysis Index 10
--- NOTE | 2021-01-25 23:24 | Cat Scan Report ---
CT angio head INDICATION / CLINICAL INFORMATION: 40 years Female; CODE STROKE PROTOCOL!!! Stroke-Like symptoms. TECHNIQUE: Thin cut axial images obtained through the head during IV bolus contrast administration. S agittal, coronal, and 3 plane MIP reconstructions performed by the technologist. NASCET type criteria used evaluate stenoses. Automated exposure control utilized for radiation reduction purposes. COMPARISON: None available. FINDINGS: INTERNAL CAROTID ARTERIES: There is no clear CTA evidence of significant stenosis involving intracran ial ICAs by NASCET criteria. 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 There is also relative hypoplasia of the basilar artery though there is no significant focal narrowing. CEREBRAL ARTERIES: The motion degrades image quality and the distal cerebral branches. However, there is no clear evidence of significant focal stenosis involving the proximal cerebral arteries or evide nce of large vessel occlusion. No ANEURYSM: None identified. ADDITIONAL FINDINGS: Remainder of the surrounding soft tissues are grossly normal. IMPRESSION: There is no CTA evidence of large vessel occlusion involving intracranial vessels. The CTA neck will be dictated separately. Signer Name: Alan Vides MD Signed: 01/25/2021 11:20 PM Workstation Name: [id number]
[2021-01-25 23:28] LABS: BUN/Creatinine Ratio 14
--- NOTE | 2021-01-25 23:38 | Cat Scan Report ---
CT angio neck INDICATION / CLINICAL INFORMATION: 40 years Female; CODE STROKE PROTOCOL!!! Stroke-Like symptoms. TECHNIQUE: Thin cut axial images obtained through the head during IV bolus contrast administration. S agittal, coronal, and 3 plane MIP reconstructions performed by the technologist. NASCET type criteria used evaluate stenoses. All CT scans at this location are performed using CT dose reduction for ALAR A by means of automated exposure control. COMPARISON: The study is compared to the previous CTA of 11/17/2020. FINDINGS: CAROTID ARTERIES: There is notable beam hardening artifact from the patient's body habitus. However, there is no significant developing a stenosis involving the carotid arteries by NASCET criteria. Ther e is heterogeneous attenuation projected within the carotid ligaments at. However, the contour appear s fairly well-maintained without significant interval change from the prior study. VERTEBRAL ARTERIES: The proximal vertebral arteries are also obscured by the beam hardening as well a s the contrast within the adjacent venous structures at. However, there is mild developmental hypopla trinh of the left vertebral artery which correlates with prior exam. There is no clear evidence of deve loping stenosis of the vertebral vessels at. ARCH: There is no focal stenosis involving origins of the arch vessels. There is mild calcification o f the aortic arch. ADDITIONAL FINDINGS: Remainder of the surrounding soft tissues are grossly normal. IMPRESSION: There is notable beam hardening artifact resulting from the habitus. However, there is no CTA evidenc e of significant developing stenosis involving the carotid or vertebral arteries by NASCET criteria. Signer Name: Alan Vides MD Signed: 01/25/2021 11:34 PM Workstation Name: [id number]
[2021-01-25] MEDS ORDERED: POTASSIUM CHLORIDE 10 MEQ 10 MEQ/100 ML BAG IV SCH (23:45)
--- NOTE | 2021-01-26 00:01 | XRay Report ---
CHEST 1 VIEW, 01/25/2021 10:42 PM CLINICAL INFORMATION/INDICATION: Stroke symptoms COMPARISON: Chest radiograph, 02/08/2020 FINDINGS: SUPPORT DEVICES: None. HEART: The cardiac silhouette is normal in size. LUNGS/PLEURA: The lungs are clear of focal airspace disease or significant pleural effusion. ADDITIONAL FINDINGS: No additional acute findings. IMPRESSION: 1. No evidence of acute cardiopulmonary process. Signer Name: Layne Ortiz MD Signed: 01/25/2021 11:57 PM Workstation Name: [id number]
[2021-01-26] MEDS ORDERED: ACETAMINOPHEN 500 MG TAB PO ONE (00:08)
[2021-01-26] MEDS ORDERED: POTASSIUM CHLORIDE ER 20 MEQ TAB PO ONE (00:09)
[2021-01-26] MEDS ORDERED: ONDANSETRON 4 MG/2 ML INJ IV PRN (01:04)
[2021-01-26] MEDS ORDERED: ALBUTEROL 2.5 MG/3 ML NEBU IH PRN (01:04)
[2021-01-26] MEDS ORDERED: ACETAMINOPHEN 325 MG TAB PO PRN (01:04)
[2021-01-26] MEDS ORDERED: traMADol 50 MG TAB PO PRN (01:09)
[2021-01-26] MEDS ORDERED: hydrALAZINE 20 MG/1 ML INJ IV PRN (01:10)
--- NOTE | 2021-01-26 01:16 | History and Physical Report ---
History of Present Illness Date of examination: 01/26/21 Date of admission: 01/25/21 23:44 Chief complaint: Left-sided numbness Left-sided weakness History of present illness: 40-year-old female with history of hypertension, HIV, and seizure disorder on Keppra was brought to the emergency room because of new onset of left-sided numbness. Patient's last known well time was 9:30 PM, which is 30 minutes prior to arrival. She states that she had new onset of a headache with slight neck pain on the left side as well as left-sided numbness. She said she does not feel anything on the left side of her body when she tried walking she was unable. She also has some weakness on the left side. She denies any recent trauma. She denies any other associated symptoms. Initial CT scan of the head shows no acute intracranial abnormality. Patient is seen and evaluated by telemetry neurology and patient is given TPA Past History Past Medical History: HIV/AIDS, hypertension, seizures, other (Migraine headache depression anxiety) Medications and Allergies Allergies Allergy/AdvReac Type Severity Reaction Status Date / Time aspirin Allergy Hives Verified 10/01/19 10:11 ibuprofen [From Motrin] Allergy Hives Verified 10/01/19 10:11 ketorolac [From Toradol] Allergy Unknown Verified 10/01/19 10:18 Penicillins Allergy Hives Verified 10/01/19 10:11 shellfish derived Allergy Hives Verified 10/01/19 10:11 Home Medications Medication Instructions Recorded Confirmed Last Taken Type Famotidine [Pepcid] 20 mg PO BID #30 tablet 11/04/18 04/04/19 Unknown Rx levETIRAcetam [Keppra] 1,000 mg PO Q12H #60 tablet 11/21/18 04/04/19 Unknown Rx amLODIPine 10 mg PO DAILY 04/04/19 04/04/19 Unknown History Sulfamethoxazole/Trimethoprim 1 each PO Q12H #20 tablet 04/20/19 Unknown Rx [Bactrim DS TAB] Acetaminophen/Codeine [Tylenol 1 tab PO Q8H PRN #3 tab 03/27/20 Unknown Rx /Codeine # 3 tab] traMADoL [Ultram 50 MG tab] 50 mg PO Q6HR PRN #12 tablet 05/02/20 Unknown Rx AtorvaSTATin [Lipitor] 20 mg PO QHS #30 tab 11/18/20 Unknown Rx Cetirizine HCl [ZyrTEC 10mg rapdis] 10 mg PO DAILY PRN #14 tab.rapdis 11/18/20 Unknown Rx Gabapentin 100 mg PO Q8HR #30 capsule 11/18/20 Unknown Rx Nicotine [Habitrol] 21 mg TD QDAY@2100 #30 patch 11/18/20 Unknown Rx Review of Systems Neurological: weakness, numbness, gait dysfunction Exam - Constitutional Vitals: Temp Pulse Resp BP Pulse Ox 88 24 132/78 96 01/26/21 00:47 01/26/21 00:47 01/26/21 00:47 01/26/21 00:47 General appearance: Present: no acute distress, well-nourished - EENT Eyes: Present: PERRL ENT: hearing intact, clear oral mucosa - Neck Neck: Present: supple, normal ROM - Respiratory Respiratory effort: normal Respiratory: bilateral: CTA - Cardiovascular Heart Sounds: Present: S1 & S2. Absent: rub, click - Extremities Extremities: pulses symmetrical, No edema Peripheral Pulses: within normal limits - Abdominal General gastrointestinal: Present: soft, non-tender, non-distended, normal bowel sounds Female genitourinary: Present: normal - Integumentary Integumentary: Present: clear, warm, dry - Musculoskeletal Musculoskeletal: gait normal, strength equal bilaterally - Psychiatric Psychiatric: appropriate mood/affect, intact judgment & insight - Neurologic Neurologic: CNII-XII intact, other (Left-sided numbness left-sided weakness, headache) HEART Score - HEART Score Troponin: Troponin T < 0.010 ng/mL (0.00-0.029) 01/25/21 22:35 Results - Labs CBC & Chem 7: 01/25/21 22:35 01/25/21 22:35 Labs: Laboratory Last Values WBC 3.4 K/mm3 (4.5-11.0) L 01/25/21 22:35 RBC 2.51 M/mm3 (3.65-5.03) L 01/25/21 22:35 Hgb 9.0 gm/dl (10.1-14.3) L 01/25/21 22:35 Hct 26.6 % (30.3-42.9) L 01/25/21 22:35 MCV 106 fl (79-97) H 01/25/21 22:35 MCH 36 pg (28-32) H 01/25/21 22:35 MCHC 34 % (30-34) 01/25/21 22:35 RDW 19.7 % (13.2-15.2) H 01/25/21 22:35 Plt Count 188 K/mm3 (140-440) 01/25/21 22:35 Lymph % (Auto) 16.0 % (13.4-35.0) 01/25/21 22:35 [place] % (Auto) 8.5 % (0.0-7.3) H 01/25/21 22:35 Eos % (Auto) 2.7 % (0.0-4.3) 01/25/21 22:35 Baso % (Auto) 0.6 % (0.0-1.8) 01/25/21 22:35 Lymph # (Auto) 0.5 K/mm3 (1.2-5.4) L 01/25/21 22:35 [place] # (Auto) 0.3 K/mm3 (0.0-0.8) 01/25/21 22:35 Eos # (Auto) 0.1 K/mm3 (0.0-0.4) 01/25/21 22:35 Baso # (Auto) 0.0 K/mm3 (0.0-0.1) 01/25/21 22:35 Seg Neutrophils % 72.2 % (40.0-70.0) H 01/25/21 22:35 Seg Neutrophils # 2.4 K/mm3 (1.8-7.7) 01/25/21 22:35 PT 14.2 Sec. (12.2-14.9) 01/25/21 22:35 INR 1.05 (0.87-1.13) 01/25/21 22:35 APTT 32.1 Sec. (24.2-36.6) 01/25/21 22:35 Thrombin Time 15.8 Sec. (15.1-19.6) 01/25/21 22:35 Sodium 138 mmol/L (137-145) 01/25/21 22:35 Potassium 3.3 mmol/L (3.6-5.0) L 01/25/21 22:35 Chloride 102.0 mmol/L (98-107) 01/25/21 22:35 Carbon Dioxide 28 mmol/L (22-30) 01/25/21 22:35 Anion Gap 11 mmol/L 01/25/21 22:35 BUN 7 mg/dL (7-17) 01/25/21 22:35 Creatinine 0.5 mg/dL (0.6-1.2) L 01/25/21 22:35 Estimated GFR > 60 ml/min 01/25/21 22:35 BUN/Creatinine Ratio 14 % 01/25/21 22:35 Glucose 91 mg/dL (65-100) 01/25/21 22:35 Calcium 7.9 mg/dL (8.4-10.2) L 01/25/21 22:35 Total Bilirubin 1.10 mg/dL (0.1-1.2) 01/25/21 22:35 AST 27 units/L (5-40) 01/25/21 22:35 ALT 12 units/L (7-56) 01/25/21 22:35 Alkaline Phosphatase 66 units/L (35-129) 01/25/21 22:35 Total Creatine Kinase 95 units/L (30-135) 01/25/21 22:35 CK-MB (CK-2) 1.5 ng/mL (0.0-4.0) 01/25/21 22:35 CK-MB (CK-2) Rel Index 1.5 (0-4) 01/25/21 22:35 Troponin T < 0.010 ng/mL (0.00-0.029) 01/25/21 22:35 Total Protein 6.1 g/dL (6.3-8.2) L 01/25/21 22:35 Albumin 3.6 g/dL (3.9-5) L 01/25/21 22:35 Albumin/Globulin Ratio 1.4 % 01/25/21 22:35 Plasma/Serum Alcohol < 0.01 % (0-0.07) 01/25/21 22:35 - Imaging and Cardiology CT Scan - head: report reviewed Assessment and Plan VTE prophylaxis?: Mechanical Plan of care discussed with patient/family: Yes - Patient Problems (1) CVA (cerebral vascular accident) Current Visit: Yes Status: Acute Qualifiers: CVA mechanism: unspecified Qualified Code(s): I63.9 - Cerebral infarction, unspecified Plan to address problem: Admit the patient to the ICU. Put the patient on CVA pathway. Patient is seen and evaluated by telemetry neurology and patient is status post TPA. We will hold the aspirin for 24 hours. Lipitor 40 mg p.o. daily. Will consult PT OT any speech evaluation. We also order MRI of the brain MRI of the brain and neck with and without contrast. We also consult neurology evaluation (2) Seizure Current Visit: No Status: Acute Plan to address problem: Stable we will continue the Keppra 1000 mg p.o. twice daily. Neurology evaluation (3) Hypokalemia Current Visit: Yes Status: Acute Plan to address problem: Patient got 40 mill equivalent of potassium chloride p.o. x1 dose. We will repeat the BMP in the morning (4) History of HIV infection Current Visit: No Status: Acute Plan to address problem: Stable continue the home medication. Outpatient follow-up with HIV clinic (5) Hypertension Current Visit: No Status: Acute Plan to address problem: Hydralazine 10 mg IV every 6 hours as needed. We will continue the home medication. We will monitor the blood pressure closely (6) Migraine Current Visit: No Status: Acute Qualifiers: Migraine type: other Status migrainosus presence: without status migrain osus Intractability: not intractable Qualified Code(s): G43.809 - Other migraine, not intractable, without status migrainosus Plan to address problem: Tylenol 650 mg p.o. every 6 hours as needed. Tramadol 50 mg p.o. every 6 hours as needed. We will continue the Keppra 1000 mg p.o. every 12 hours (7) DVT prophylaxis Current Visit: No Status: Acute Plan to address problem: SCD for DVT prophylaxis because patient is status post TPA. Pepcid 20 mg p.o. twice daily for GI prophylaxis. Patient is a full code
[2021-01-26] MEDS ORDERED: D5W/0.9% NACL 1,000 ML IV SCH (02:00)
[2021-01-26] MEDS: levETIRAcetam 500 MG TAB PO SCH ×2 (02:07→12:15)
--- NOTE | 2021-01-26 02:46 | Cat Scan Report ---
Examination: CT of the head without contrast Clinical information: Headache and stroke symptoms. The patient recently received tPA. Comparison: CT of the head, 01/25/2021 Technical: Multiple axial CT images of the head were obtained without intravenous contrast. Sagittal and coronal reformats were obtained. All CTs at this facility utilize dose reduction techniques inc luding automated exposure control, iterative reconstruction and weight based dosing when appropriate to reduce patient radiation dose to as low as reasonable achievable. Findings: INTRACRANIAL CONTENTS: There is no CT evidence of acute intracranial hemorrhage or large territorial infarct. The ventricular system remains normal in size. There is no mass effect or midline shift. SKULL: No acute bony abnormality is visualized. ORBITS: The bilateral orbits and globes appear normal PARANASAL SINUSES / MASTOID AIR CELLS: Paranasal sinuses and mastoid air cells appear clear. Impression: 1. No CT evidence of acute intracranial process. No CT evidence of significant interval change from the recent previous study. Signer Name: Layne Ortiz MD Signed: 01/26/2021 2:41 AM Workstation Name: [id number]
[2021-01-26] MEDS ORDERED: NICOTINE 21 MG/24 HR PATCH TD SCH ×2 (05:40→21:00)
[2021-01-26 08:44] LABS: Hemoglobin 10.2 gm/dl (10.1-14.3); Mean Corpuscular HGB Conc 34 % (30-34); Mean Corpuscular Volume 105 fl (79-97); Platelet Count 189 K/mm3 (140-440); Red Blood Count 2.85 M/mm3 (3.65-5.03); Red Cell Distribution Width 19.8 % (13.2-15.2)
[2021-01-26] MEDS ORDERED: ESCITALOPRAM 10 MG TAB PO ONE (09:00)
[2021-01-26 09:02] LABS: Blood Urea Nitrogen 7 mg/dL (7-17); Calcium 8.3 mg/dL (8.4-10.2); Hemolysis Index 29
--- NOTE | 2021-01-26 09:22 | Consultation ---
Medications and Allergies Allergies Allergy/AdvReac Type Severity Reaction Status Date / Time aspirin Allergy Hives Verified 10/01/19 10:11 ibuprofen [From Motrin] Allergy Hives Verified 10/01/19 10:11 ketorolac [From Toradol] Allergy Unknown Verified 10/01/19 10:18 Penicillins Allergy Hives Verified 10/01/19 10:11 shellfish derived Allergy Hives Verified 10/01/19 10:11 Home Medications Medication Instructions Recorded Confirmed Last Taken Type Famotidine [Pepcid] 20 mg PO BID #30 tablet 11/04/18 04/04/19 Unknown Rx levETIRAcetam [Keppra] 1,000 mg PO Q12H #60 tablet 11/21/18 04/04/19 Unknown Rx amLODIPine 10 mg PO DAILY 04/04/19 04/04/19 Unknown History Sulfamethoxazole/Trimethoprim 1 each PO Q12H #20 tablet 04/20/19 Unknown Rx [Bactrim DS TAB] Acetaminophen/Codeine [Tylenol 1 tab PO Q8H PRN #3 tab 03/27/20 Unknown Rx /Codeine # 3 tab] traMADoL [Ultram 50 MG tab] 50 mg PO Q6HR PRN #12 tablet 05/02/20 Unknown Rx AtorvaSTATin [Lipitor] 20 mg PO QHS #30 tab 11/18/20 Unknown Rx Cetirizine HCl [ZyrTEC 10mg rapdis] 10 mg PO DAILY PRN #14 tab.rapdis 11/18/20 Unknown Rx Gabapentin 100 mg PO Q8HR #30 capsule 11/18/20 Unknown Rx Nicotine [Habitrol] 21 mg TD QDAY@2100 #30 patch 11/18/20 Unknown Rx Active Meds: Active Medications Acetaminophen (Acetaminophen 325 Mg Tab) 650 mg PO Q4H PRN PRN Reason: Pain MILD(1-3)/Fever >100.5/[place] Albuterol (Albuterol 2.5 Mg/3 Ml Nebu) 2.5 mg IH Q4HRT PRN PRN Reason: Shortness Of Breath Atorvastatin Calcium (Atorvastatin 40 Mg Tab) 40 mg PO QHS DUSTIN Emtricitabine (Emtricitabine 200 Mg Cap) 200 mg PO QDAY DUSTIN Famotidine (Famotidine 20 Mg/2 Ml Inj) 20 mg IV BID DUSTIN Hydralazine HCl (Hydralazine 20 Mg/1 Ml Inj) 10 mg IV Q6H PRN PRN Reason: SBP >/=180; DBP >/=110 Dextrose/Sodium Chloride (D5ns) 1,000 mls @ 100 mls/hr IV DIRECT DUSTIN Levetiracetam (Levetiracetam 500 Mg Tab) 1,000 mg PO Q12HR [facility] Last Admin: 01/26/21 02:07 Dose: 1,000 mg Documented by: Nicotine (Nicotine 21 Mg/24 Hr Patch) 21 mg TD QDAY [facility] Last Admin: 01/26/21 06:00 Dose: 21 mg Documented by: Ondansetron HCl (Ondansetron 4 Mg/2 Ml Inj) 4 mg IV Q8H PRN PRN Reason: Nausea And Vomiting Sodium Chloride (Sodium Chloride 0.9% 10 Ml Flush Syringe) 10 ml IV BID DUSTIN Sodium Chloride (Sodium Chloride 0.9% 10 Ml Flush Syringe) 10 ml IV PRN PRN PRN Reason: LINE FLUSH Tenofovir Disoproxil Fumarate (Tenofovir 300 Mg Tab) 300 mg PO QDAY DUSTIN Tramadol HCl (Tramadol 50 Mg Tab) 50 mg PO Q6HR PRN PRN Reason: Pain, Moderate (4-6) Physical Examination - Vital Signs Vital Signs: Vital Signs Pulse 91 H 01/25/21 22:40 Results - Laboratory Findings CBC and BMP: 01/26/21 08:09 01/26/21 08:09 Abnormal Lab Findings: Abnormal Labs 01/25/21 01/25/21 01/26/21 22:35 22:35 08:09 WBC 3.4 L 3.1 L RBC 2.51 L 2.85 L Hgb 9.0 L Hct 26.6 L 30.0 L MCV 106 H 105 H MCH 36 H 36 H RDW 19.7 H 19.8 H [place] % (Auto) 8.5 H Lymph # (Auto) 0.5 L Seg Neutrophils % 72.2 H Potassium 3.3 L Creatinine 0.5 L Calcium 7.9 L Total Protein 6.1 L Albumin 3.6 L 01/26/21 08:09 WBC RBC Hgb Hct MCV MCH RDW [place] % (Auto) Lymph # (Auto) Seg Neutrophils % Potassium Creatinine Calcium 8.3 L Total Protein Albumin
[2021-01-26 09:32] LABS: BUN/Creatinine Ratio 18
[2021-01-26] MEDS: EMTRICITABINE 200 MG CAP PO SCH ×2 (09:50→09:55)
[2021-01-26] MEDS: TENOFOVIR 300 MG TAB PO SCH ×2 (09:51→09:56)
[2021-01-26] MEDS ORDERED: DOLUTEGRAVIR 50 MG, TENOFOVIR 300 MG, EMTRICITABINE 200 MG PO SCH (10:00)
[2021-01-26] MEDS ORDERED: SULFAMETHOXAZOLE/TRIMETHOPRIM 800/160MG DS TAB PO SCH (10:00)
[2021-01-26] MEDS ORDERED: FAMOTIDINE 20 MG/2 ML INJ IV SCH (10:00)
[2021-01-26] MEDS ORDERED: NON-FORMULARY EACH (Amlodipine 10 MG) PO SCH (10:00)
[2021-01-26] MEDS ORDERED: DOLUTEGRAVIR 50 MG TAB PO SCH (10:00)
[2021-01-26] MEDS ORDERED: amLODIPine 10 MG TAB PO SCH (10:00)
--- NOTE | 2021-01-26 13:11 | Magnetic Resonance Report ---
MRI BRAIN WITHOUT CONTRAST INDICATION / CLINICAL INFORMATION: stroke. TECHNIQUE: Multiplanar, multisequence MR images of the brain were obtained. COMPARISON: Head CT on 01/25/2021 FINDINGS: BRAIN / INTRACRANIAL CONTENTS: No acute ischemia, acute hemorrhage, mass effect, midline shift, or hy drocephalus. No chronic infarct or significant atrophy. No significant demyelinating changes. CRANIOCERVICAL JUNCTION: No significant abnormality. VASCULAR FLOW-VOIDS: No significant abnormality. ORBITS: No significant abnormality of visualized orbits. SINUSES / MASTOIDS: No significant abnormality of visualized sinuses and mastoid air cells. ADDITIONAL FINDINGS: None. IMPRESSION: 1. No acute infarct or other acute intracranial abnormality identified. Signer Name: Delonte Lind MD Signed: 01/26/2021 1:06 PM Workstation Name: [id number]
--- NOTE | 2021-01-26 17:46 | Event Note ---
Date: 01/26/21 I have seen and examined the patient. Patient was seen in the ED, was going to leave AMA. I warned the patient that leaving AMA could be detrimental to her since she did receive the TPA. Patient decided to remain at the hospital for continued treatment. Explained to the patient the continue work-up for stroke. All questions answered, plan outlined below. (1) CVA (cerebral vascular accident) Current Visit: Yes Status: Acute Qualifiers: CVA mechanism: unspecified Qualified Code(s): I63.9 - Cerebral infarction, unspecified Plan to address problem: Patient to be admitted to ICU Hold anticoagulation for [address] of head and neck reviewed, no abnormalities MRI of the brain pending MRA of head and neck pending Echocardiogram pending Lipitor started PT/OT/SP ordered. Neurology consulted (2) Seizure Current Visit: No Status: Acute Plan to address problem: Keppra 1000 mg twice daily (3) Hypokalemia Current Visit: Yes Status: Acute Plan to address problem: Replete as needed, continue to follow (4) History of HIV infection Current Visit: No Status: Acute Plan to address problem: Continue Biktarvy Follow-up in the outpatient setting (5) Hypertension Current Visit: No Status: Acute Plan to address problem: Hydralazine as needed (6) Migraine Current Visit: No Status: Acute Qualifiers: Migraine type: other Status migrainosus presence: without status migrainosus Intractability: not intractable Qualified Code(s): G43.809 - Other migraine, not intractable, without status migrainosus Plan to address problem: Tylenol, tramadol DVT prophylaxis: SCDs CODE STATUS: Full code Disposition: Continue work-up for acute CVA
--- NOTE | 2021-01-26 19:43 | Electrocardiograph Report ---
[facility] Test Date: 2021-01-25 Test Time: 22:40:30 Pat Name: KATE ZHENG Department: Room: [place] [address] Gender: F [employer]: JUAN : 1980 Requested By: INDIGO AC Order Number: [id number] Reading MD: Agustin Collins Measurements Intervals [place] Rate: 91 P: 50 VT: 159 QRS: 35 QRSD: 83 T: -59 QT: 367 QTc: 453 Interpretive Statements Sinus rhythm Probable left atrial enlargement Nonspecific T abnrm, anterolateral leads Compared to ECG 11/19/2020 00:55:23 T-wave abnormality no longer present Electronically Signed On 01-26-2021 19:43:16 EDT by Agustin Collins
[2021-01-26 21:20] VITALS: BP 136/74
--- NOTE | 2021-01-27 14:31 | Discharge Summary ---
Providers - Providers Date of Admission: 01/25/21 23:44 Date of discharge: 01/26/21 Attending physician: RADHA GUDINO MD 01/26/21 Consult to Physician [CONS] Routine Comment: Consulting Provider: SCOUT HUBBARD Physician Instructions: Reason For Exam: cva Consult to Physician [CONS] Routine Comment: Spoke with Dr. Lee @ 0621 Consulting Provider: CHARITO LEE Physician Instructions: Reason For Exam: cva 01/26/21 01:05 Occupational Therapy Evaluate and Treat [CONS] Routine Comment: Reason For Exam: Neuro deficits Physical Therapy Evaluation and Treat [CONS] Routine Comment: Reason For Exam: Neuro deficits Primary care physician: STEM ROLLER Hospitalization Reason for admission: left sided numbness Condition: Serious Hospital course: 40-year-old -[place] female with past medical history as below who presented with acute left-sided numbness. Patient was admitted to the hospital through the ED, all diagnostics listed below. CT of the head was negative. Patient was given TPA and was advised to be admitted to the hospital for ICU care for at least 24 hours and then transition to the floor for continued work- up of acute left-sided numbness/rule out stroke. However patient left AMA. The overnight doctor was informed of this, I was not informed of this. Please see AMA records for details. (1) CVA (cerebral vascular accident) Current Visit: Yes Status: Acute Qualifiers: CVA mechanism: unspecified Qualified Code(s): I63.9 - Cerebral infarction, unspecified Plan to address problem: Patient to be admitted to ICU Hold anticoagulation for [address] of head and neck reviewed, no abnormalities MRI of the brain pending MRA of head and neck pending Echocardiogram pending Lipitor started PT/OT/SP ordered. Neurology consulted (2) Seizure Current Visit: No Status: Acute Plan to address problem: Keppra 1000 mg twice daily (3) Hypokalemia Current Visit: Yes Status: Acute Plan to address problem: Replete as needed, continue to follow (4) History of HIV infection Current Visit: No Status: Acute Plan to address problem: Continue Biktarvy Follow-up in the outpatient setting (5) Hypertension Current Visit: No Status: Acute Plan to address problem: Hydralazine as needed (6) Migraine Current Visit: No Status: Acute Qualifiers: Migraine type: other Status migrainosus presence: without status migrainosus Intractability: not intractable Qualified Code(s): G43.809 - Other migraine, not intractable, without status migrainosus Plan to address problem: Tylenol, tramadol Disposition: [id number] LEFT AGAINST MED ADVICE Final Discharge Diagnosis (Prints w/discharge instructions): Left-sided upper and lower extremity weakness. Left-sided upper and lower extremity paresthesia. Seizure disorder. Hypokalemia. History of HIV infection. Hypertension. Migraine headache. Obesity Time spent for discharge: 10 minutes Core Measure Documentation - Palliative Care Palliative Care/ Comfort Measures: Not Applicable - Core Measures Any of the following diagnoses?: none Exam - Physical Exam Narrative exam: Patient was not examined at the time of discharge - Constitutional Vitals: Temp Pulse Resp BP Pulse Ox 87 29 H 136/74 98 01/26/21 21:01 01/26/21 21:01 01/26/21 21:01 01/26/21 19:01 Plan Follow up with: MAK MANCINI MD [Primary Care Provider] - 7 Days Forms: AMA Form
== END 2021-01-26 21:44 | disposition left against medical advice (07) | DRG 61 ==
LOC: ED 22:02 → CC1 23:44
PROVIDERS: ADMIT Hospitalist; ATTEND Family Medicine
DX: I63.89 Other cerebral infarction (principal); B20 Human immunodeficiency virus [HIV] disease; G81.94 Hemiplegia, unspecified affecting left nondominant side; Z53.29 Procedure and treatment not carried out because of patient's decision for other reasons; Z20.822 Contact with and (suspected) exposure to COVID-19; E87.6 Hypokalemia; I10 Essential (primary) hypertension; G43.909 Migraine, unspecified, not intractable, without status migrainosus; G40.909 Epilepsy, unspecified, not intractable, without status epilepticus; E66.9 Obesity, unspecified; J45.909 Unspecified asthma, uncomplicated; F41.9 Anxiety disorder, unspecified; R29.707 NIHSS score 7; F32.9 Major depressive disorder, single episode, unspecified; Z88.6 Allergy status to analgesic agent; Z88.0 Allergy status to penicillin; Z91.013 Allergy to seafood; Z88.8 Allergy status to other drugs, medicaments and biological substances; Z79.899 Other long term (current) drug therapy; Z68.36 Body mass index [BMI] 36.0-36.9, adult
CPT/HCPCS: 36415; 70450; 70496; 70498; 70551; 71045; 80048; 80053; 80320; 82550; 82553; 82962; 84484; 84703; 85025; 85027; 85610; 85670; 85730; 93005; 93306; 96374; 96375; 96376; 99292; G0378; G0480; J1953; J2997; Q9967; U0003

== ENCOUNTER 2021-02-01 15:00 | Emergency (ER) | payer MEDICAID ==
[2021-02-01] MEDS ORDERED: MORPHINE 4 MG/1 ML INJ IV ONE (15:39)
[2021-02-01] MEDS ORDERED: SODIUM CHLORIDE 0.9% 1000 ML 1,000 ML IV ONE (15:39)
--- NOTE | 2021-02-01 16:00 | Emergency Department Report ---
HPI - General Chief Complaint: Seizure Time Seen by Provider: 02/01/21 15:32 - HPI HPI: This is a 40-year-old -[place] female presents to the emergency department via EMS from a nearby bus stop in which the patient had a witnessed seizure that supposedly lasted for about 2 minutes. The patient says that she remembers being at the bus stop and then in the ambulance. At the time of my examination the patient is awake, alert, oriented and just complains of some generalized weakness, mild headache and back pain. The patient was just recently here, discharged a few days ago, after being here for a stroke work-up. Patient has a past medical history of hypertension, CHF, HIV, fibromyalgia, seizures, electrolyte imbalances. The patient takes Keppra 1500 mg twice daily and says that she has been compliant with her medication. ED Past Medical Hx - Past Medical History Hx Hypertension: Yes Hx CVA: No Hx Congestive Heart Failure: No Hx Diabetes: No Hx Headaches / Migraines: Yes (hx migraines) Hx Seizures: Yes Hx Psychiatric Treatment: Yes (depression, Anxiety) Hx Asthma: Yes Hx COPD: No Hx HIV: Yes Additional medical history: Anemia - Surgical History Additional Surgical History: right knee surgery, b/l foot surgery several years ago. foot surgery 09/2015 - Social History Smoking Status: Former Smoker Substance Use Type: None - Medications Home Medications: Home Medications Medication Instructions Recorded Confirmed Last Taken Type Famotidine [Pepcid] 20 mg PO BID #30 tablet 11/04/18 04/04/19 Unknown Rx levETIRAcetam [Keppra] 1,000 mg PO Q12H #60 tablet 11/21/18 04/04/19 Unknown Rx amLODIPine 10 mg PO DAILY 04/04/19 04/04/19 Unknown History Sulfamethoxazole/Trimethoprim 1 each PO Q12H #20 tablet 04/20/19 Unknown Rx [Bactrim DS TAB] Acetaminophen/Codeine [Tylenol 1 tab PO Q8H PRN #3 tab 03/27/20 Unknown Rx /Codeine # 3 tab] traMADoL [Ultram 50 MG tab] 50 mg PO Q6HR PRN #12 tablet 05/02/20 Unknown Rx AtorvaSTATin [Lipitor] 20 mg PO QHS #30 tab 11/18/20 Unknown Rx Cetirizine HCl [ZyrTEC 10mg rapdis] 10 mg PO DAILY PRN #14 tab.rapdis 11/18/20 Unknown Rx Gabapentin 100 mg PO Q8HR #30 capsule 11/18/20 Unknown Rx Nicotine [Habitrol] 21 mg TD QDAY@2100 #30 patch 11/18/20 Unknown Rx ED Review of Systems ROS: Stated complaint: SEIZURE Other details as noted in HPI Comment: All other systems reviewed and negative Constitutional: denies: chills, fever Eyes: denies: eye pain, vision change ENT: denies: ear pain Respiratory: denies: cough, shortness of breath Cardiovascular: denies: chest pain, palpitations Gastrointestinal: denies: abdominal pain, vomiting Genitourinary: denies: dysuria, discharge Musculoskeletal: back pain. denies: arthralgia Skin: denies: rash, lesions Neurological: headache, other (seizure) Physical Exam - Physical Exam Vital Signs: Vital Signs 02/01/21 15:30 Temperature 98.2 F Pulse Rate 98 H Respiratory 19 Rate Blood Pressure 117/70 O2 Sat by Pulse 93 Oximetry Physical Exam: GENERAL: The patient is well-developed well-nourished. HENT: Normocephalic. Atraumatic. Patient has moist mucous membranes. EYES: Extraocular motions are intact. No nystagmus. NECK: Supple. Trachea is midline. CHEST/LUNGS: Clear to auscultation. There is no respiratory distress noted. HEART/CARDIOVASCULAR: Regular. There is no tachycardia. There is no murmur. ABDOMEN: Abdomen is soft, nontender. Patient has normal bowel sounds. SKIN: Skin is warm and dry. NEURO: The patient is awake, alert, and oriented. The patient is cooperative. The patient has no focal neurologic deficits. Normal speech. Cranial nerves II through XII grossly intact. No facial asymmetry. No pronator drift. MUSCULOSKELETAL: There is no tenderness or deformity. There is no limitation range of motion. ED Course Vital Signs 02/01/21 15:30 Temperature 98.2 F Pulse Rate 98 H Respiratory 19 Rate Blood Pressure 117/70 O2 Sat by Pulse 93 Oximetry ED Medical Decision Making - Lab Data Result diagrams: 02/01/21 15:54 02/01/21 15:54 Lab Results 02/01/21 02/01/21 02/01/21 Range/Units 15:54 15:54 15:54 WBC 4.3 L (4.5-11.0) K/mm3 RBC 2.68 L (3.65-5.03) M/mm3 Hgb 9.5 L (10.1-14.3) gm/dl Hct 28.6 L (30.3-42.9) % MCV 106 H (79-97) fl MCH 36 H (28-32) pg MCHC 33 (30-34) % RDW 20.6 H (13.2-15.2) % Plt Count 182 (140-440) K/mm3 Lymph % (Auto) 15.1 (13.4-35.0) % [place] % (Auto) 7.5 H (0.0-7.3) % Eos % (Auto) 1.3 (0.0-4.3) % Baso % (Auto) 1.2 (0.0-1.8) % Lymph # (Auto) 0.6 L (1.2-5.4) K/mm3 [place] # (Auto) 0.3 (0.0-0.8) K/mm3 Eos # (Auto) 0.1 (0.0-0.4) K/mm3 Baso # (Auto) 0.1 (0.0-0.1) K/mm3 Seg Neutrophils % 74.9 H (40.0-70.0) % Seg Neutrophils # 3.2 (1.8-7.7) K/mm3 Sodium 137 (137-145) mmol/L Potassium 3.9 (3.6-5.0) mmol/L Chloride 104.5 (98-107) mmol/L Carbon Dioxide 25 (22-30) mmol/L Anion Gap 11 mmol/L BUN 9 (7-17) mg/dL Creatinine 0.5 L (0.6-1.2) mg/dL Estimated GFR > 60 ml/min BUN/Creatinine Ratio 18 % Glucose 97 (65-100) mg/dL Calcium 8.3 L (8.4-10.2) mg/dL Total Bilirubin 1.60 H (0.1-1.2) mg/dL AST 31 (5-40) units/L ALT 15 (7-56) units/L Alkaline Phosphatase 71 (35-129) units/L Total Creatine Kinase 124 (30-135) units/L Total Protein 7.0 (6.3-8.2) g/dL Albumin 4.0 (3.9-5) g/dL Albumin/Globulin Ratio 1.3 % TSH 2.170 (0.270-4.200) mlU/mL Urine Color (Yellow) Urine Turbidity (Clear) Urine pH (5.0-7.0) Ur Specific [place] (1.003-1.030) Urine Protein (Negative) mg/dL Urine Glucose (UA) (Negative) mg/dL Urine Ketones (Negative) mg/dL Urine Blood (Negative) Urine Nitrite (Negative) Urine Bilirubin (Negative) Urine Urobilinogen (<2.0) mg/dL Ur Leukocyte Esterase (Negative) Urine WBC (Auto) (0.0-6.0) /HPF Urine RBC (Auto) (0.0-6.0) /HPF U Epithel Cells (Auto) (0-13.0) /HPF Urine Opiates Screen Urine Methadone Screen Ur Barbiturates Screen Ur Phencyclidine Scrn Ur Amphetamines Screen U Benzodiazepines Scrn Urine Cocaine Screen U Marijuana (THC) Screen Drugs of Abuse Note Plasma/Serum Alcohol (0-0.07) % 02/01/21 02/01/21 02/01/21 Range/Units 15:54 17:25 17:25 WBC (4.5-11.0) K/mm3 RBC (3.65-5.03) M/mm3 Hgb (10.1-14.3) gm/dl Hct (30.3-42.9) % MCV (79-97) fl MCH (28-32) pg MCHC (30-34) % RDW (13.2-15.2) % Plt Count (140-440) K/mm3 Lymph % (Auto) (13.4-35.0) % [place] % (Auto) (0.0-7.3) % Eos % (Auto) (0.0-4.3) % Baso % (Auto) (0.0-1.8) % Lymph # (Auto) (1.2-5.4) K/mm3 [place] # (Auto) (0.0-0.8) K/mm3 Eos # (Auto) (0.0-0.4) K/mm3 Baso # (Auto) (0.0-0.1) K/mm3 Seg Neutrophils % (40.0-70.0) % Seg Neutrophils # (1.8-7.7) K/mm3 Sodium (137-145) mmol/L Potassium (3.6-5.0) mmol/L Chloride (98-107) mmol/L Carbon Dioxide (22-30) mmol/L Anion Gap mmol/L BUN (7-17) mg/dL Creatinine (0.6-1.2) mg/dL Estimated GFR ml/min BUN/Creatinine Ratio % Glucose (65-100) mg/dL Calcium (8.4-10.2) mg/dL Total Bilirubin (0.1-1.2) mg/dL AST (5-40) units/L ALT (7-56) units/L Alkaline Phosphatase (35-129) units/L Total Creatine Kinase (30-135) units/L Total Protein (6.3-8.2) g/dL Albumin (3.9-5) g/dL Albumin/Globulin Ratio % TSH (0.270-4.200) mlU/mL Urine Color [place] (Yellow) Urine Turbidity Clear (Clear) Urine pH 5.0 (5.0-7.0) Ur Specific [place] 1.018 (1.003-1.030) Urine Protein <15 mg/dl (Negative) mg/dL Urine Glucose (UA) Neg (Negative) mg/dL Urine Ketones Neg (Negative) mg/dL Urine Blood Sm (Negative) Urine Nitrite Neg (Negative) Urine Bilirubin Neg (Negative) Urine Urobilinogen 4.0 (<2.0) mg/dL Ur Leukocyte Esterase Neg (Negative) Urine WBC (Auto) < 1.0 (0.0-6.0) /HPF Urine RBC (Auto) 2.0 (0.0-6.0) /HPF U Epithel Cells (Auto) < 1.0 (0-13.0) /HPF Urine Opiates Screen Negative Urine Methadone Screen Negative Ur Barbiturates Screen Negative Ur Phencyclidine Scrn Negative Ur Amphetamines Screen Negative U Benzodiazepines Scrn Negative Urine Cocaine Screen Negative U Marijuana (THC) Screen Negative Drugs of Abuse Note Disclamer Plasma/Serum Alcohol < 0.01 (0-0.07) % - Medical Decision Making This patient presents with the complaint of having a seizure at at a local bus stop that was witnessed by bystanders. At the time of my examination she is awake, alert, oriented, AAO x3. She does not have any focal, motor or sensory deficits and her cranial nerves are intact. As the patient just recently was here for a full stroke work-up including CT, CT angiography and MRI of the brain, and the patient has a known seizure disorder with only one seizure today, I did not feel that she required any advanced imaging of the head/brain at this time. The patient had already taken her seizure medications just prior to the seizure occurring. The patient's labs have been mostly unremarkable including CBC, metabolic panel, urinalysis, UDS, normal thyroid function. There is some slight elevation in the bilirubin, but the patient does not complain of abdominal pain, nor does she appeared jaundiced. There is some anemia, but not at a level that requires transfusion. At 1 point, about 2.5 hours into the patient's ED course, the patient got up from her room and began leaving saying something about a family member being injured. She was told that the work-up was not yet complete and that leaving at this time could cause further seizures, debility, or even . The patient has a normal decision-making capacity and understands the risks but has still decided to leave AMA. However, the patient is refusing to sign any AMA paperwor k. Critical Care Time: No Critical care attestation.: If time is entered above; I have spent that time in minutes in the direct care of this critically ill patient, excluding procedure time. ED Disposition Clinical Impression: Seizure disorder, Anemia Disposition: DC-07 LEFT AGAINST MED ADVICE Is pt being admited?: No Time of Disposition: 19:02
[2021-02-01 16:13] LABS: Basophils # (Auto) 0.1 K/mm3 (0.0-0.1); Basophils % (Auto) 1.2 % (0.0-1.8); Eosinophils # (Auto) 0.1 K/mm3 (0.0-0.4); Eosinophils % (Auto) 1.3 % (0.0-4.3); Hematocrit 28.6 % (30.3-42.9); Hemoglobin 9.5 gm/dl (10.1-14.3); Lymphocytes # (Auto) 0.6 K/mm3 (1.2-5.4); Lymphocytes % (Auto) 15.1 % (13.4-35.0); Mean Corpuscular HGB Conc 33 % (30-34); Mean Corpuscular Volume 106 fl (79-97); Monocytes # (Auto) 0.3 K/mm3 (0.0-0.8); Monocytes % (Auto) 7.5 % (0.0-7.3); Platelet Count 182 K/mm3 (140-440); Red Blood Count 2.68 M/mm3 (3.65-5.03)
[2021-02-01 16:24] LABS: Red Cell Distribution Width 20.6 % (13.2-15.2)
[2021-02-01 16:31] LABS: Alanine Aminotransferase 15 units/L (7-56); Blood Urea Nitrogen 9 mg/dL (7-17); Calcium 8.3 mg/dL (8.4-10.2); Hemolysis Index 8
[2021-02-01 16:38] LABS: BUN/Creatinine Ratio 18
[2021-02-01 17:41] LABS: Bilirubin,Urine NEG (Negative); Blood,Urine SM (Negative); Color,Urine Amber (Yellow); Protein,Urine <15 mg/dL mg/dL (Negative); WBC,Urine < 1.0 /HPF (0.0-6.0)
[2021-02-01 17:50] LABS: Amphetamine Screen,Urine Negative; Benzodiazepines Screen,Urine Negative; Cannabinoid Screen,Urine Negative; Cocaine Screen,Urine Negative; Methadone Screen,Urine Negative; Opiate Screen,Urine Negative
[2021-02-01 18:04] VITALS: BP 116/56
== END 2021-02-01 18:05 | disposition left against medical advice (07) ==
LOC: ED 15:00
DX: I10 Essential (primary) hypertension (principal); G43.909 Migraine, unspecified, not intractable, without status migrainosus; F32.9 Major depressive disorder, single episode, unspecified; F41.9 Anxiety disorder, unspecified; J45.909 Unspecified asthma, uncomplicated; Z21 Asymptomatic human immunodeficiency virus [HIV] infection status; Z87.891 Personal history of nicotine dependence; Z98.890 Other specified postprocedural states; Z79.899 Other long term (current) drug therapy; Z88.0 Allergy status to penicillin; Z91.013 Allergy to seafood; Z88.8 Allergy status to other drugs, medicaments and biological substances
CPT/HCPCS: 36415; 80053; 80307; 81001; 82550; 84443; 85025; 96361; 96374; 99284; J2270; J7030; 80320; G0480

== ENCOUNTER 2021-02-10 16:03 | Emergency (ER) | payer MEDICAID ==
--- NOTE | 2021-02-10 17:35 | Emergency Department Report ---
ED General Adult HPI - General Chief complaint: Extremity Injury, Lower Stated complaint: SOB/RIGHT FOOT PAIN Time Seen by Provider: 02/10/21 17:15 Source: patient, EMS Mode of arrival: Ambulatory Limitations: No Limitations - History of Present Illness Initial comments: 40-year-old female presents to the ER today with complaints mainly of right great toe pain. Patient states that she saw her meat department manager last Friday for ingrown toenail. Patient states that the meat department manager ended up removing her entire toenail from her right great toe. She states since her procedure she is continuing to have pain to the right toe, and yellow drainage which look like pus and also some bleeding from the toe. She is currently taking Bactrim and she states that she has been compliant with that. She states that she is concerned that the toe might be infected. She denies any recent injury since the procedure to the toe. Patient also complains of shortness of breath which started this morning. She states that she notices mainly when she she exerts herself. She reports associated cough but denies any wheezing. She states that she has "a little" chest discomfort with the shortness of breath. She states that she did use her nebulizer treatment once this morning and her inhaler once this morning with no relief of her shortness of breath. She denies any URI symptoms, fever or chills. She denies any lower extremity swelling or calf pain. She denies any ill contacts or recent travel. Past medical history significant for: HIV, patient states that she is compliant with her medication but does not recall her last CD4 count or her viral load as she has not followed up with her doctor in "a while". He also has a past medical history of seizure disorders, hypertension and asthma. MD Complaint: right great toe pain/SOB -: days(s) - Related Data Home Medications Medication Instructions Recorded Confirmed Last Taken amLODIPine 10 mg PO DAILY 04/04/19 04/04/19 Unknown Previous Rx's Medication Instructions Recorded Last Taken Type Famotidine [Pepcid] 20 mg PO BID #30 tablet 11/04/18 Unknown Rx levETIRAcetam [Keppra] 1,000 mg PO Q12H #60 tablet 11/21/18 Unknown Rx traMADoL [Ultram 50 MG tab] 50 mg PO Q6HR PRN #12 tablet 09/22/20 Unknown Rx AtorvaSTATin [Lipitor] 20 mg PO QHS #30 tab 11/18/20 Unknown Rx Cetirizine HCl [ZyrTEC 10mg rapdis] 10 mg PO DAILY PRN #14 tab.rapdis 11/18/20 Unknown Rx Gabapentin 100 mg PO Q8HR #30 capsule 11/18/20 Unknown Rx Nicotine [Habitrol] 21 mg TD QDAY@2100 #30 patch 11/18/20 Unknown Rx Acetaminophen/Codeine [Tylenol 1 tab PO Q8H PRN #3 tab 02/10/21 Unknown Rx /Codeine # 3 tab] Bacitracin Zinc/Polymyxin B 1 applic TP BID #30 gm 02/10/21 Unknown Rx [Double Antibiotic Ointment] Benzonatate [Tessalon Perles] 100 mg PO Q8HR PRN #30 capsule 02/10/21 Unknown Rx Sulfamethoxazole/Trimethoprim 1 each PO Q12H #10 tablet 02/10/21 Unknown Rx [Bactrim DS TAB] Allergies Allergy/AdvReac Type Severity Reaction Status Date / Time aspirin Allergy Hives Verified 02/01/21 15:42 ibuprofen [From Motrin] Allergy Hives Verified 02/01/21 15:42 ketorolac [From Toradol] Allergy Unknown Verified 02/01/21 15:42 Penicillins Allergy Hives Verified 02/01/21 15:42 shellfish derived Allergy Hives Verified 02/01/21 15:42 tramadol Allergy Hives Verified 02/01/21 15:42 ED Review of Systems ROS: Stated complaint: SOB/RIGHT FOOT PAIN Other details as noted in HPI Comment: All other systems reviewed and negative Constitutional: denies: chills, fever Eyes: denies: eye pain, eye discharge, vision change ENT: denies: ear pain, throat pain, dental pain, hearing loss, epistaxis, congestion Respiratory: cough, shortness of breath, SOB with exertion. denies: SOB at rest, stridor, wheezing Cardiovascular: denies: chest pain, palpitations, dyspnea on exertion, edema, syncope, paroxysmal nocturnal dyspnea Gastrointestinal: denies: abdominal pain, nausea, vomiting, diarrhea, constipation, hematemesis, hematochezia Genitourinary: denies: urgency, dysuria, frequency, hematuria, discharge Musculoskeletal: arthralgia (left great toe pain ). denies: back pain, joint swelling Skin: denies: rash, lesions, change in color, change in hair/nails, pruritus Neurological: denies: headache, weakness, numbness, paresthesias, confusion, abnormal gait, vertigo Psychiatric: denies: anxiety, depression, auditory hallucinations, visual hallucinations, homicidal thoughts, suicidal thoughts Hematological/Lymphatic: denies: easy bleeding, easy bruising, swollen glands ED Past Medical Hx - Past Medical History Previous Medical History?: Yes Hx Hypertension: Yes Hx CVA: No Hx Congestive Heart Failure: No Hx Diabetes: No Hx Headaches / Migraines: Yes (hx migraines) Hx Seizures: Yes Hx Psychiatric Treatment: Yes (depression, Anxiety) Hx Asthma: Yes Hx COPD: No Hx HIV: Yes Additional medical history: Anemia - Surgical History Past Surgical History?: Yes Additional Surgical History: right knee surgery, b/l foot surgery several years ago. Right great toe removal od ingrown toenail. foot surgery 09/2015 - Social History Smoking Status: Former Smoker Substance Use Type: Alcohol - Medications Home Medications: Home Medications Medication Instructions Recorded Confirmed Last Taken Type Famotidine [Pepcid] 20 mg PO BID #30 tablet 11/04/18 04/04/19 Unknown Rx levETIRAcetam [Keppra] 1,000 mg PO Q12H #60 tablet 11/21/18 04/04/19 Unknown Rx amLODIPine 10 mg PO DAILY 04/04/19 04/04/19 Unknown History traMADoL [Ultram 50 MG tab] 50 mg PO Q6HR PRN #12 tablet 05/02/20 Unknown Rx AtorvaSTATin [Lipitor] 20 mg PO QHS #30 tab 11/18/20 Unknown Rx Cetirizine HCl [ZyrTEC 10mg rapdis] 10 mg PO DAILY PRN #14 tab.rapdis 11/18/20 Unknown Rx Gabapentin 100 mg PO Q8HR #30 capsule 11/18/20 Unknown Rx Nicotine [Habitrol] 21 mg TD QDAY@2100 #30 patch 11/18/20 Unknown Rx Acetaminophen/Codeine [Tylenol 1 tab PO Q8H PRN #3 tab 02/10/21 Unknown Rx /Codeine # 3 tab] Bacitracin Zinc/Polymyxin B 1 applic TP BID #30 gm 02/10/21 Unknown Rx [Double Antibiotic Ointment] Benzonatate [Tessalon Perles] 100 mg PO Q8HR PRN #30 capsule 02/10/21 Unknown Rx Sulfamethoxazole/Trimethoprim 1 each PO Q12H #10 tablet 02/10/21 Unknown Rx [Bactrim DS TAB] ED Physical Exam - General Limitations: No Limitations General appearance: alert, in no apparent distress - Head Head exam: Present: atraumatic, normocephalic, normal inspection - Eye Eye exam: Present: normal appearance, PERRL, EOMI Pupils: Present: normal accommodation - ENT ENT exam: Present: normal exam, mucous membranes moist - Neck Neck exam: Present: normal inspection, full ROM - Respiratory Respiratory exam: Present: normal lung sounds bilaterally. Absent: respiratory distress, wheezes, rales, rhonchi - Cardiovascular Cardiovascular Exam: Present: regular rate, normal rhythm, normal heart sounds - GI/Abdominal GI/Abdominal exam: Present: soft. Absent: distended, tenderness, guarding, rebound - Expanded Lower Extremity Exam Left Foot/Toe exam: Present: full ROM, tenderness (distal aspect of left great to ). Absent: swelling, abrasion, laceration, ecchymosis, deformity, crepidus Neuro vascular tendon exam: Present: no vascular compromise. Absent: abnormal cap refill Gait: Positive: observed and normal 1 - exposed nail bed s/p complete removal of nail. There is some yellow crusting and small area of dried blood noted. The nail bed is TTP. There is no cellulitis, pus drainage, or active bleeding ED Course Vital Signs 02/10/21 02/10/21 16:27 18:58 Temperature 99.4 F Pulse Rate 94 H 90 Respiratory 18 20 Rate Blood Pressure 148/82 Blood Pressure 122/70 [Right] O2 Sat by Pulse 97 97 Oximetry ED Medical Decision Making - EKG Data EKG shows normal: sinus rhythm Rate: normal (92) - EKG Data Interpretation: normal EKG - Radiology Data Radiology results: report reviewed Patient: KATE ZHENG MR #: [id number] : 1980 Acct:[id number] Age/Sex: 40 / F ADM Date: 02/10/21 Loc: ED Attending Dr: Ordering Physician: GUERA VAN Date of Service: 02/10/21 Procedure(s): XR chest routine 2V Accession Number(s): [id number] cc: GUERA VAN Fluoro Time In Minutes: CHEST 2 VIEWS INDICATION / CLINICAL INFORMATION: sob/cough/hx htn. COMPARISON: 01/25/21 FINDINGS: SUPPORT DEVICES: None. HEART / MEDIASTINUM: No significant abnormality. LUNGS / PLEURA: No significant pulmonary or pleural abnormality. No pneumothorax. ADDITIONAL FINDINGS: No significant additional findings. IMPRESSION: 1. No acute findings. No change. Signer Name: Renae Juarez MD Signed: 02/10/2021 6:00 PM Workstation Name: [id number] Transcribed By: DT Dictated By: Magen Juarez MD Electronically Authenticated By: Magen Juarez MD Signed Date/Time: 02/10/21 1800 DD/ 58 TD/TT: - Medical Decision Making Patient main reason for coming to the ER was for pain to her right great toe. Patient did not mention anything to me about shortness of breath until I read it on her chart in the process of me walking out of the room. Patient is currently resting comfortably. She sitting up in the bed cutting her fingernails with a defect cutter and on her phone. She is not in any acute pain or respiratory distress. She has no wheezing, rhonchi or rales on exam. Her vital signs have been stable. She is not toxic or ill-appearing. Her chest x- ray shows nothing acute. EKG shows normal sinus rhythm without any STEMI, significant dysrhythmias or acute ischemic changes. I do not suspect PE, VT/unstable angina, aortic dissection/aneurysm or any other emergent cardiopulmonary etiology at this time warranting any additional testing, admission or specialist consult at this time. Suspect her shortness of breath is likely related to her asthma and recommend that instead of using her nebulizer treatments or an inhaler once a day she needs to use it every 4 hours. Since she is not wheezing and not go to give her any prescription for steroids. She will be given some Tessalon Perles to help with the cough. Her toe does not show significant signs of infection and no active bleeding. She states that she only has 2 left of the Bactrim, as a precaution we will give her an additional 5 days but informed her to keep it clean with soap and water and apply thin layer of Neosporin and follow-up with her meat department manager. Patient expressed understanding of instructions and agree with plan. Patient stable at time of discharge. Critical care attestation.: If time is entered above; I have spent that time in minutes in the direct care of this critically ill patient, excluding procedure time. ED Disposition Clinical Impression: Asthma, Wound of toenail Disposition: DC- TO HOME OR SELFCARE Is pt being admited?: No Does the pt Need Aspirin: No Condition: Stable Instructions: Wound Care, Adult, Asthma, Adult, [id number], Asthma (ED) Additional Instructions: Keep the wound clean daily with soap and water. Dry well and apply thin layer of the antibiotic ointment after cleaning. Take the bactrim as prescribed. I recommend that you use your nebulizer machine every 4 to help with your shortn ess of breath and take the cough medication as prescribed. Take the Tylenol threes as prescribed to help with your pain. Follow-up closely with your meat department manager and your primary care doctor. Return to the ER if your symptoms changes or worsens in any way. Prescriptions: Sulfamethoxazole/Trimethoprim [Bactrim DS TAB] 1 each PO Q12H #10 tablet Bacitracin Zinc/Polymyxin B [Double Antibiotic Ointment] 1 applic TP BID #30 gm Benzonatate [Tessalon Perles] 100 mg PO Q8HR PRN #30 capsule PRN Reason: Cough Acetaminophen/Codeine [Tylenol /Codeine # 3 tab] 1 tab PO Q8H PRN #3 tab PRN Reason: Pain , Severe (7-10) Referrals: ALEX DE LA CRUZ MD [Staff Physician] - 3-5 Days Time of Disposition: 19:00
--- NOTE | 2021-02-10 18:04 | XRay Report ---
CHEST 2 VIEWS INDICATION / CLINICAL INFORMATION: sob/cough/hx htn. COMPARISON: 01/25/21 FINDINGS: SUPPORT DEVICES: None. HEART / MEDIASTINUM: No significant abnormality. LUNGS / PLEURA: No significant pulmonary or pleural abnormality. No pneumothorax. ADDITIONAL FINDINGS: No significant additional findings. IMPRESSION: 1. No acute findings. No change. Signer Name: Renae Juarez MD Signed: 02/10/2021 6:00 PM Workstation Name: [id number]
[2021-02-10 18:59] VITALS: BP 122/70
--- NOTE | 2021-02-15 10:55 | Electrocardiograph Report ---
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
== END 2021-02-10 19:11 | disposition home or self-care (01) ==
LOC: ED 16:03
DX: S91.101A Unspecified open wound of right great toe without damage to nail, initial encounter (principal); J45.909 Unspecified asthma, uncomplicated; I10 Essential (primary) hypertension; G43.909 Migraine, unspecified, not intractable, without status migrainosus; F32.9 Major depressive disorder, single episode, unspecified; F41.9 Anxiety disorder, unspecified; Z79.899 Other long term (current) drug therapy; Z98.890 Other specified postprocedural states; Z87.891 Personal history of nicotine dependence; X58.XXXA Exposure to other specified factors, initial encounter; Y93.89 Activity, other specified; Y92.89 Other specified places as the place of occurrence of the external cause; Y99.8 Other external cause status
CPT/HCPCS: 71046; 93005; 99283

== ENCOUNTER 2021-04-03 16:41 | Emergency (ER) | payer MEDICAID | END 2021-04-03 21:29 | disposition left against medical advice (07) | LOC: ED 16:41 | DX: J02.9 Acute pharyngitis, unspecified (principal); Z53.21 Procedure and treatment not carried out due to patient leaving prior to being seen by health care provider ==

== ENCOUNTER 2021-07-24 08:49 | Emergency (ER) | payer MEDICAID ==
--- NOTE | 2021-07-24 09:28 | Emergency Department Report ---
Minor Respiratory - HPI Chief Complaint: Upper Respiratory Infection Stated Complaint: cough Time Seen by Provider: 07/24/21 09:27 Duration: 1 week Severity: severe Other History: 40-year-old -Wallisian female presents to the emergency room for 1 week history of cough, fever, chest pain with cough, and sweats. Patient has a past medical history of HIV depression anxiety, hypertension and asthma. ED Review of Systems ROS: Stated complaint: cough Other details as noted in HPI Comment: All other systems reviewed and negative ED Past Medical Hx - Past Medical History Hx Hypertension: Yes Hx CVA: No Hx Congestive Heart Failure: No Hx Diabetes: No Hx Headaches / Migraines: Yes (hx migraines) Hx Seizures: Yes Hx Psychiatric Treatment: Yes (depression, Anxiety) Hx Asthma: Yes Hx COPD: No Hx HIV: Yes Additional medical history: Anemia - Surgical History Additional Surgical History: right knee surgery, b/l foot surgery several years ago. Right great toe removal od ingrown toenail. foot surgery 09/2015 - Social History Smoking Status: Former Smoker Substance Use Type: Alcohol - Medications Home Medications: Home Medications Medication Instructions Recorded Confirmed Last Taken Type Famotidine [Pepcid] 20 mg PO BID #30 tablet 11/04/18 04/04/19 Unknown Rx levETIRAcetam [Keppra] 1,000 mg PO Q12H #60 tablet 11/21/18 04/04/19 Unknown Rx amLODIPine 10 mg PO DAILY 04/04/19 04/04/19 Unknown History traMADoL [Ultram 50 MG tab] 50 mg PO Q6HR PRN #12 tablet 05/02/20 Unknown Rx AtorvaSTATin [Lipitor] 20 mg PO QHS #30 tab 11/18/20 Unknown Rx Cetirizine HCl [ZyrTEC 10mg rapdis] 10 mg PO DAILY PRN #14 tab.rapdis 11/18/20 Unknown Rx Gabapentin 100 mg PO Q8HR #30 capsule 11/18/20 Unknown Rx Nicotine [Habitrol] 21 mg TD QDAY@2100 #30 patch 11/18/20 Unknown Rx Acetaminophen/Codeine [Tylenol 1 tab PO Q8H PRN #3 tab 02/10/21 Unknown Rx /Codeine # 3 tab] Bacitracin Zinc/Polymyxin B 1 applic TP BID #30 gm 02/10/21 Unknown Rx [Double Antibiotic Ointment] Benzonatate [Tessalon Perles] 100 mg PO Q8HR PRN #30 capsule 02/10/21 Unknown Rx Sulfamethoxazole/Trimethoprim 1 each PO Q12H #10 tablet 02/10/21 Unknown Rx [Bactrim DS TAB] Albuterol Sulfate [Proventil Hfa] 6.7 gm IH QID #1 hfa.aer.ad 07/24/21 Unknown Rx Prednisone [predniSONE 10 mg 10 mg PO .TAPER #1 tab.ds.pk 07/24/21 Unknown Rx (6-Day Pack, 21 Tabs)] Promethazine HCl/Codeine 5 ml PO QID PRN #110 ml 07/24/21 Unknown Rx [Promethazine-Codeine Solution] Sulfamethoxazole/Trimethoprim 1 each PO BID 7 Days #14 tablet 07/24/21 Unknown Rx [Bactrim DS TAB] Minor Respiratory Exam - Exam General: Vital signs noted. No distress. Alert and acting appropriately. HEENT: Yes Moist Mucous Membranes, No Pharyngeal Erythema, No Pharyngeal Exudates, No Rhinorrhea, No Conjuctival Injection, No Frontal Tenderness, No Maxillary Tenderness Ear: Neither TM Bulge, Neither TM Erythema, Neither EAC Pain, Neither EAC Discharge Neck: Yes Supple, No Adenopathy Lungs: Yes Ronchi, No Good Air Exchange, No Wheezes, No Stridor Heart: Yes Regular, No Murmur Abdomen: Yes Normal Bowel Sounds, No Tenderness, No Peritoneal Signs Skin: No Rash, No Edema Neurologic: Alert and oriented, no deficits. Musculoskeletal: Unremarkable. ED Course Vital Signs 07/24/21 08:53 Temperature 98.8 F Pulse Rate 86 Respiratory 16 Rate Blood Pressure 185/103 [Right] O2 Sat by Pulse 98 Oximetry ED Medical Decision Making - Radiology Data Radiology results: report reviewed [facility] [address] [place] [address] XRay Report Signed Patient: KATE ZHENG MR #: [id number] : 1980 Acct:[id number] Age/Sex: 40 / F ADM Date: 07/24/21 Loc: ED Attending Dr: Ordering Physician: BREE CONDON Date of Service: 07/24/21 Procedure(s): XR chest routine 2V Accession Number(s): [id number] cc: BREE CONDON Fluoro Time In Minutes: CHEST 2 VIEWS INDICATION / CLINICAL INFORMATION: sob,cough and rales. COMPARISON: 01/11/2021 FINDINGS: SUPPORT DEVICES: None. HEART / MEDIASTINUM: No significant abnormality. LUNGS / PLEURA: No significant pulmonary or pleural abnormality. No pneumothorax. ADDITIONAL FINDINGS: No significant additional findings. IMPRESSION: 1. No acute findings. Signer Name: Dipak Craven DO Signed: 07/24/2021 10:51 AM Workstation Name: [id number] Transcribed By: DEEPA Dictated By: DIPAK CRAVEN DO Electronically Authenticated By: DIPAK CRAVEN DO Signed Date/Time: 07/24/211050 DD/ 50 TD/TT: Print Cancel - Medical Decision Making 40-year-old -Wallisian female presents to the emergency room for 1 week history of cough, fever, chest pain with cough, and sweats. Patient has a past medical history of HIV depression anxiety, hypertension and asthma. Critical care attestation.: If time is entered above; I have spent that time in minutes in the direct care of this critically ill patient, excluding procedure time. ED Disposition Clinical Impression: Upper respiratory infection Disposition: HOME / SELF CARE / HOMELESS Is pt being admited?: No Does the pt Need Aspirin: No Condition: Stable Instructions: Upper Respiratory Infection, Adult, [id number] Additional Instructions: Chest x-ray is negative for any pneumonia. I am treating you presumptively with Bactrim because of your history and symptoms at this time. I would like for you to increase your fluid intake take your antibiotics complete your steroid use your albuterol inhaler and follow-up with your primary care provider. Prescriptions: Sulfamethoxazole/Trimethoprim [Bactrim DS TAB] 1 each PO BID 7 Days #14 tablet Prednisone [predniSONE 10 mg (6-Day Pack, 21 Tabs)] 10 mg PO .TAPER #1 tab.ds.pk Promethazine HCl/Codeine [Promethazine-Codeine Solution] 5 ml PO QID PRN #110 ml PRN Reason: Cough Albuterol Sulfate [Proventil Hfa] 6.7 gm IH QID #1 hfa.aer.ad Referrals: PRIMARY CARE, [Primary Care Provider] - 3-5 Days Your, primary care provider [Other] - 3-5 Days Forms: Work/School Release Form(ED) Time of Disposition: 12:22
[2021-07-24] MEDS ORDERED: dexAMETHasone 20 MG/5 ML VIAL IM ONE (10:02)
[2021-07-24] MEDS ORDERED: IPRATROPIUM/ALBUTEROL SULFATE 3 ML AMPUL.NEB IH ONE (10:02)
--- NOTE | 2021-07-24 10:57 | XRay Report ---
CHEST 2 VIEWS INDICATION / CLINICAL INFORMATION: sob,cough and rales. COMPARISON: 01/11/2021 FINDINGS: SUPPORT DEVICES: None. HEART / MEDIASTINUM: No significant abnormality. LUNGS / PLEURA: No significant pulmonary or pleural abnormality. No pneumothorax. ADDITIONAL FINDINGS: No significant additional findings. IMPRESSION: 1. No acute findings. Signer Name: Dipak Craven DO Signed: 07/24/2021 10:51 AM Workstation Name: [id number]
[2021-07-24 11:17] VITALS: BP 164/85
[2021-07-24] MEDS ORDERED: ACETAMINOPHEN 500 MG TAB PO ONE (11:32)
== END 2021-07-24 12:29 | disposition home or self-care (01) ==
LOC: ED 08:49
DX: J06.9 Acute upper respiratory infection, unspecified (principal); Z87.891 Personal history of nicotine dependence; F10.20 Alcohol dependence, uncomplicated; I10 Essential (primary) hypertension; J45.909 Unspecified asthma, uncomplicated
CPT/HCPCS: 71046; 94640; 96372; 99284; J1100; 94644

== ENCOUNTER 2021-10-05 10:00 | Emergency (ER) | payer MEDICAID ==
[2021-10-05] MEDS ORDERED: HALOPERIDOL LACTATE 5 MG/1 ML INJ IM ONE (10:07)
[2021-10-05 10:09] VITALS: BP 132/82
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
--- NOTE | 2021-10-05 10:46 | XRay Report ---
XR tibia fibula 2V RT INDICATION / CLINICAL INFORMATION: fall, R tib/fib pain . COMPARISON: None available. FINDINGS: No acute fracture. Normal alignment. Joint spaces are preserved. No destructive osseous lesion or s uspicious periosteal reaction. Impression: 1.No acute fracture. Signer Name: Jake Ruiz MD Signed: 10/05/2021 10:42 AM Workstation Name: [id number]
--- NOTE | 2021-10-05 10:47 | XRay Report ---
XR chest routine 2V INDICATION / CLINICAL INFORMATION: cough, hiv COMPARISON: 07/24/2021 FINDINGS: SUPPORT DEVICES: None. HEART / MEDIASTINUM: Stable. LUNGS / PLEURA: Lungs are clear. Costophrenic sulci are sharp. No pneumothorax. ADDITIONAL FINDINGS: No significant additional findings. IMPRESSION: 1. Cardiomegaly is unchanged. Signer Name: Jake Ruiz MD Signed: 10/05/2021 10:43 AM Workstation Name: [email or web address]
== END 2021-10-05 11:50 | disposition home or self-care (01) ==
LOC: ED 10:00
DX: S89.91XA Unspecified injury of right lower leg, initial encounter (principal); J06.9 Acute upper respiratory infection, unspecified; B97.89 Other viral agents as the cause of diseases classified elsewhere; I10 Essential (primary) hypertension; G43.909 Migraine, unspecified, not intractable, without status migrainosus; J45.909 Unspecified asthma, uncomplicated; Z87.891 Personal history of nicotine dependence; Z72.89 Other problems related to lifestyle; Z88.0 Allergy status to penicillin; Z88.8 Allergy status to other drugs, medicaments and biological substances; Z88.6 Allergy status to analgesic agent; Z91.013 Allergy to seafood; Z79.899 Other long term (current) drug therapy; W18.39XA Other fall on same level, initial encounter; Y93.89 Activity, other specified; Y92.89 Other specified places as the place of occurrence of the external cause; Y99.8 Other external cause status
CPT/HCPCS: 71046; 73590; 96372; 99283; J1630

== ENCOUNTER 2021-10-15 17:32 | Emergency (ER) | payer MEDICAID ==
[2021-10-15] MEDS ORDERED: oxyCODONE /ACETAMINOPHEN 5-325MG TAB PO ONE (20:20)
[2021-10-15] MEDS ORDERED: predniSONE 20 MG TAB PO ONE (20:21)
--- NOTE | 2021-10-15 20:24 | Emergency Department Report ---
ED Extremity Problem HPI - General Chief complaint: Extremity Injury, Lower Stated complaint: RT LEG/HEAD/CHEST PAIN Time Seen by Provider: 10/15/21 20:19 Source: patient Mode of arrival: Ambulatory Limitations: No Limitations - History of Present Illness Initial comments: 40-year-old female presents to the emergency department for evaluation of right knee pain and swelling. She states that she injured her knee on 10/05 while attempting to crawl out of the backseat of her daughters to do her car. She states that she was seen here on 224 and had a negative x-ray but is still having pain and swelling to that knee. She denies any other injuries. Patient states that she has been evaluated and bear any weight on the right lower extremity and crawled on the floor at home but was noted ambulating around the room without a problem. MD Complaint: extremity pain -: Gradual, week(s) (1.5) Location: right, lower extremity, knee History of Same: Yes -: No fever, No associated dyspnea, No associated chest pain Radiation: distal Severity scale (0 -10): 4 Quality: aching Consistency: constant Worsens with: weight bearing, walking Associated Symptoms: denies: chest pain, shortness of breath, fever, myalgias, arthralgias - Related Data Home Medications Medication Instructions Recorded Confirmed Last Taken amLODIPine 10 mg PO DAILY 04/04/19 04/04/19 Unknown Previous Rx's Medication Instructions Recorded Last Taken Type Famotidine [Pepcid] 20 mg PO BID #30 tablet 11/04/18 Unknown Rx levETIRAcetam [Keppra] 1,000 mg PO Q12H #60 tablet 11/21/18 Unknown Rx AtorvaSTATin [Lipitor] 20 mg PO QHS #30 tab 11/18/20 Unknown Rx Cetirizine HCl [ZyrTEC 10mg rapdis] 10 mg PO DAILY PRN #14 tab.rapdis 11/18/20 Unknown Rx Gabapentin 100 mg PO Q8HR #30 capsule 11/18/20 Unknown Rx Nicotine [Habitrol] 21 mg TD QDAY@2100 #30 patch 11/18/20 Unknown Rx Bacitracin Zinc/Polymyxin B 1 applic TP BID #30 gm 02/10/21 Unknown Rx [Double Antibiotic Ointment] Promethazine HCl/Codeine 5 ml PO QID PRN #110 ml 07/24/21 Unknown Rx [Promethazine-Codeine Solution] Albuterol Sulfate [Proventil Hfa] 6.7 gm IH QID #1 hfa.aer.ad 10/05/21 Unknown Rx Benzonatate [Tessalon Perles] 100 mg PO Q8HR PRN #30 capsule 10/05/21 Unknown Rx Metaxalone [Skelaxin] 800 mg PO TID #10 tablet 10/05/21 Unknown Rx predniSONE [Deltasone] 50 mg PO QDAY #5 tab 10/05/21 Unknown Rx Acetaminophen/Codeine [Tylenol 1 tab PO Q6H PRN #10 tab 10/15/21 Unknown Rx /Codeine # 3 tab] Allergies Allergy/AdvReac Type Severity Reaction Status Date / Time aspirin Allergy Hives Verified 07/24/21 11:20 ibuprofen [From Motrin] Allergy Hives Verified 07/24/21 11:20 ketorolac [From Toradol] Allergy Unknown Verified 07/24/21 11:20 Penicillins Allergy Hives Verified 07/24/21 11:20 shellfish derived Allergy Hives Verified 07/24/21 11:20 tramadol Allergy Hives Verified 07/24/21 11:20 ED Review of Systems ROS: Stated complaint: RT LEG/HEAD/CHEST PAIN Other details as noted in HPI Comment: All other systems reviewed and negative Constitutional: denies: chills, fever Eyes: denies: eye pain ENT: denies: ear pain Respiratory: denies: cough, shortness of breath, SOB with exertion, SOB at rest Cardiovascular: denies: chest pain, palpitations, dyspnea on exertion Endocrine: no symptoms reported Gastrointestinal: denies: abdominal pain, nausea, vomiting, diarrhea, hematemesis, melena, hematochezia Genitourinary: denies: urgency, dysuria Musculoskeletal: denies: back pain Skin: denies: rash Neurological: denies: headache, weakness, numbness, paresthesias, abnormal gait Psychiatric: denies: anxiety, depression Hematological/Lymphatic: denies: easy bleeding, easy bruising ED Past Medical Hx - Past Medical History Previous Medical History?: Yes Hx Hypertension: Yes Hx CVA: No Hx Congestive Heart Failure: No Hx Diabetes: No Hx Headaches / Migraines: Yes (hx migraines) Hx Seizures: Yes Hx Psychiatric Treatment: Yes (depression, Anxiety) Hx Asthma: Yes Hx COPD: No Hx HIV: Yes Additional medical history: Anemia - Surgical History Past Surgical History?: Yes Additional Surgical History: right knee surgery, b/l foot surgery several years ago. Right great toe removal od ingrown toenail. foot surgery 09/2015 - Social History Smoking Status: Former Smoker Substance Use Type: Alcohol - Medications Home Medications: Home Medications Medication Instructions Recorded Confirmed Last Taken Type Famotidine [Pepcid] 20 mg PO BID #30 tablet 11/04/18 04/04/19 Unknown Rx levETIRAcetam [Keppra] 1,000 mg PO Q12H #60 tablet 11/21/18 04/04/19 Unknown Rx amLODIPine 10 mg PO DAILY 04/04/19 04/04/19 Unknown History AtorvaSTATin [Lipitor] 20 mg PO QHS #30 tab 11/18/20 Unknown Rx Cetirizine HCl [ZyrTEC 10mg rapdis] 10 mg PO DAILY PRN #14 tab.rapdis 11/18/20 Unknown Rx Gabapentin 100 mg PO Q8HR #30 capsule 11/18/20 Unknown Rx Nicotine [Habitrol] 21 mg TD QDAY@2100 #30 patch 11/18/20 Unknown Rx Bacitracin Zinc/Polymyxin B 1 applic TP BID #30 gm 02/10/21 Unknown Rx [Double Antibiotic Ointment] Promethazine HCl/Codeine 5 ml PO QID PRN #110 ml 07/24/21 Unknown Rx [Promethazine-Codeine Solution] Albuterol Sulfate [Proventil Hfa] 6.7 gm IH QID #1 hfa.aer.ad 10/05/21 Unknown Rx Benzonatate [Tessalon Perles] 100 mg PO Q8HR PRN #30 capsule 10/05/21 Unknown Rx Metaxalone [Skelaxin] 800 mg PO TID #10 tablet 10/05/21 Unknown Rx predniSONE [Deltasone] 50 mg PO QDAY #5 tab 10/05/21 Unknown Rx Acetaminophen/Codeine [Tylenol 1 tab PO Q6H PRN #10 tab 10/15/21 Unknown Rx /Codeine # 3 tab] ED Physical Exam - General Limitations: No Limitations General appearance: alert, in no apparent distress - Head Head exam: Present: atraumatic, normocephalic - Eye Eye exam: Present: normal appearance. Absent: conjunctival injection - Neck Neck exam: Present: normal inspection. Absent: tenderness - Respiratory Respiratory exam: Absent: respiratory distress - Cardiovascular Cardiovascular Exam: Present: tachycardia - GI/Abdominal GI/Abdominal exam: Absent: distended - Expanded Lower Extremity Exam Right Knee exam: Present: tenderness, swelling. Absent: deformity, dislocation, erythema, effusion Neuro vascular tendon exam: Absent: no vascular compromise, pulse deficit, abnormal cap refill, extremity cold to touch Gait: Positive: observed and limited by pain - Back Exam Back exam: Present: normal inspection. Absent: CVA tenderness (R), CVA tenderness (L) - Neurological Exam Neurological exam: Present: alert, oriented X3 - Psychiatric Psychiatric exam: Present: normal affect, normal mood - Skin Skin exam: Present: warm, dry, intact, normal color ED Course Vital Signs 10/15/21 10/15/21 19:37 20:55 Temperature 97.7 F Pulse Rate 107 H 90 Respiratory 18 20 Rate Blood Pressure 193/105 180/100 [Right] O2 Sat by Pulse 98 100 Oximetry ED Medical Decision Making - Medical Decision Making 40-year-old female presents to the emergency department for evaluation of right knee pain and swelling. She states that she injured her knee on 10/05 while attempting to crawl out of the backseat of her daughters to do her car. She states that she was seen here on 224 and had a negative x-ray but is still h aving pain and swelling to that knee. She denies any other injuries. Patient states that she has been evaluated and bear any weight on the right lower extremity and crawled on the floor at home but was noted ambulating around the room without a problem. Patient denies any new injury. She was noted to have a negative x-ray on initial visit on October 05, 2021. She was advised that she should follow-up with orthopedics for more advanced imaging. She was advised to take medications as needed for pain, rest knee, use cold therapy. She verbalized understanding of and agreement with the plan of care. Critical care attestation.: If time is entered above; I have spent that time in minutes in the direct care of this critically ill patient, excluding procedure time. ED Disposition Clinical Impression: Right knee pain Qualifiers: Chronicity: acute Qualified Code(s): M25.561 - Pain in right knee Disposition: HOME / SELF CARE / HOMELESS Is pt being admited?: No Does the pt Need Aspirin: No Condition: Stable Instructions: How to Use Cold Therapy, [id number], Pain Without a Known Cause, Acute Knee Pain, Adult, [id number] Additional Instructions: Take medications as prescribed. Follow-up with orthopedics for further evaluation. Prescriptions: Acetaminophen/Codeine [Tylenol /Codeine # 3 tab] 1 tab PO Q6H PRN #10 tab PRN Reason: Pain , Severe (7-10) Referrals: VALERIY MAURO MD [Staff Physician] - 3-5 Days Time of Disposition: 20:23
[2021-10-15 21:02] VITALS: BP 180/100
== END 2021-10-15 20:55 | disposition home or self-care (01) ==
LOC: ED 17:32
DX: M25.561 Pain in right knee (principal); Z87.891 Personal history of nicotine dependence; F10.20 Alcohol dependence, uncomplicated; I10 Essential (primary) hypertension; J45.909 Unspecified asthma, uncomplicated; Z88.6 Allergy status to analgesic agent; Z88.0 Allergy status to penicillin; Z88.5 Allergy status to narcotic agent; Z91.013 Allergy to seafood
CPT/HCPCS: 99282

== ENCOUNTER 2021-11-03 23:03 | Emergency (ER) | payer MEDICAID ==
[2021-11-03 23:17] VITALS: BP 146/78
--- NOTE | 2021-11-04 00:08 | XRay Report ---
LEFT ANKLE 3 VIEW(S) INDICATION / CLINICAL INFORMATION: left ankle and heel pain. COMPARISON: Left ankle 05/02/2020 FINDINGS: BONES / JOINT(S): No acute fracture. The cannulated lag screws demonstrate lucency which is increased around the threaded component. The more superior may have retracted slightly since comparison imagin g. No significant arthritis. SOFT TISSUES: No significant abnormality. ADDITIONAL FINDINGS: None. IMPRESSION: Interval loosening of surgical hardware with mild retraction of the more cephalad screw since compari son radiograph. Signer Name: Mian Wu II, MD Signed: 11/04/2021 12:04 AM Workstation Name: [id number]
[2021-11-04] MEDS ORDERED: predniSONE 20 MG TAB PO ONE (00:48)
[2021-11-04] MEDS ORDERED: GABAPENTIN 300 MG CAP PO ONE (00:48)
[2021-11-04] MEDS ORDERED: ACETAMINOPHEN 500 MG TAB PO ONE (00:48)
--- NOTE | 2021-11-04 01:21 | Emergency Department Report ---
ED Lower Extremity HPI - General Chief Complaint: Extremity Injury, Lower Stated Complaint: lEFT ANKLE pAIN Source: patient, EMS Mode of arrival: Stretcher Limitations: No Limitations - History of Present Illness Initial Comments: Patient is a 40-year-old -[place] female with a history of migraine headaches, hypertension, seizures, HIV, asthma, anxiety and depression who presents to the ED with complaint of acute onset persistent severe left heel pain after playing basketball about 5 hours ago. Patient states that the pain has been constant and persistent especially when she walks. Patient denies fall, traumatic injury, dizziness, syncope, numbness and tingling or weakness of left leg, back pain, chest pain or shortness of breath. MD Complaint: ankle injury, foot injury -: Sudden, hour(s) (5) Injury: Foot: Left (Left heel pain) Type of Injury: blunt Place: street/outdoors Severity: severe Severity scale (0 -10): 8 Improves With: nothing Worsens With: weight bearing, movement, palpation Context: other (Jumping) Associated Symptoms: able to partially bear weight. denies: snap/pop sensation, swelling, numbness, tingling, unable to bear weight, ambulatory - Related Data Home Medications Medication Instructions Recorded Confirmed Last Taken amLODIPine 10 mg PO DAILY 04/04/19 04/04/19 Unknown Previous Rx's Medication Instructions Recorded Last Taken Type Famotidine [Pepcid] 20 mg PO BID #30 tablet 11/04/18 Unknown Rx levETIRAcetam [Keppra] 1,000 mg PO Q12H #60 tablet 11/21/18 Unknown Rx AtorvaSTATin [Lipitor] 20 mg PO QHS #30 tab 11/18/20 Unknown Rx Cetirizine HCl [ZyrTEC 10mg rapdis] 10 mg PO DAILY PRN #14 tab.rapdis 11/18/20 Unknown Rx Gabapentin 100 mg PO Q8HR #30 capsule 11/18/20 Unknown Rx Nicotine [Habitrol] 21 mg TD QDAY@2100 #30 patch 11/18/20 Unknown Rx Bacitracin Zinc/Polymyxin B 1 applic TP BID #30 gm 02/10/21 Unknown Rx [Double Antibiotic Ointment] Promethazine HCl/Codeine 5 ml PO QID PRN #110 ml 07/24/21 Unknown Rx [Promethazine-Codeine Solution] Albuterol Sulfate [Proventil Hfa] 6.7 gm IH QID #1 hfa.aer.ad 10/05/21 Unknown Rx Benzonatate [Tessalon Perles] 100 mg PO Q8HR PRN #30 capsule 10/05/21 Unknown Rx Metaxalone [Skelaxin] 800 mg PO TID #10 tablet 10/05/21 Unknown Rx predniSONE [Deltasone] 50 mg PO QDAY #5 tab 10/05/21 Unknown Rx Acetaminophen/Codeine [Tylenol 1 tab PO Q6H PRN #10 tab 10/15/21 Unknown Rx /Codeine # 3 tab] Acetaminophen with Codeine 1 each PO Q6HR PRN #12 tab 11/04/21 Unknown Rx [Acetaminophen-Codeine #2 TAB] Gabapentin 300 mg PO BID #30 cap 11/04/21 Unknown Rx predniSONE [Deltasone] 60 mg PO QDAY #15 tab 11/04/21 Unknown Rx Allergies Allergy/AdvReac Type Severity Reaction Status Date / Time aspirin Allergy Hives Verified 07/24/21 11:20 ibuprofen [From Motrin] Allergy Hives Verified 07/24/21 11:20 ketorolac [From Toradol] Allergy Unknown Verified 07/24/21 11:20 Penicillins Allergy Hives Verified 07/24/21 11:20 shellfish derived Allergy Hives Verified 07/24/21 11:20 tramadol Allergy Hives Verified 07/24/21 11:20 ED Review of Systems ROS: Stated complaint: lEFT ANKLE pAIN Other details as noted in HPI Constitutional: denies: chills, fever Eyes: denies: eye pain, eye discharge, vision change ENT: denies: ear pain, throat pain Respiratory: denies: cough, shortness of breath, wheezing Cardiovascular: denies: chest pain, palpitations Endocrine: no symptoms reported Gastrointestinal: denies: abdominal pain, nausea, diarrhea Genitourinary: denies: urgency, dysuria, discharge Musculoskeletal: arthralgia (Left heel pain). denies: back pain, joint swelling Skin: denies: rash, lesions Neurological: denies: headache, weakness, paresthesias Psychiatric: denies: anxiety, depression Hematological/Lymphatic: denies: easy bleeding, easy bruising ED Past Medical Hx - Past Medical History Previous Medical History?: Yes Hx Hypertension: Yes Hx CVA: No Hx Congestive Heart Failure: No Hx Diabetes: No Hx Headaches / Migraines: Yes (hx migraines) Hx Seizures: Yes Hx Psychiatric Treatment: Yes (depression, Anxiety) Hx Asthma: Yes Hx COPD: No Hx HIV: Yes Additional medical history: Anemia - Surgical History Past Surgical History?: Yes Additional Surgical History: right knee surgery, b/l foot surgery several years ago. Right great toe removal od ingrown toenail. foot surgery 09/2015 - Social History Smoking Status: Current Every Day Smoker Substance Use Type: None - Medications Home Medications: Home Medications Medication Instructions Recorded Confirmed Last Taken Type Famotidine [Pepcid] 20 mg PO BID #30 tablet 11/04/18 04/04/19 Unknown Rx levETIRAcetam [Keppra] 1,000 mg PO Q12H #60 tablet 11/21/18 04/04/19 Unknown Rx amLODIPine 10 mg PO DAILY 04/04/19 04/04/19 Unknown History AtorvaSTATin [Lipitor] 20 mg PO QHS #30 tab 11/18/20 Unknown Rx Cetirizine HCl [ZyrTEC 10mg rapdis] 10 mg PO DAILY PRN #14 tab.rapdis 11/18/20 Unknown Rx Gabapentin 100 mg PO Q8HR #30 capsule 11/18/20 Unknown Rx Nicotine [Habitrol] 21 mg TD QDAY@2100 #30 patch 11/18/20 Unknown Rx Bacitracin Zinc/Polymyxin B 1 applic TP BID #30 gm 02/10/21 Unknown Rx [Double Antibiotic Ointment] Promethazine HCl/Codeine 5 ml PO QID PRN #110 ml 07/24/21 Unknown Rx [Promethazine-Codeine Solution] Albuterol Sulfate [Proventil Hfa] 6.7 gm IH QID #1 hfa.aer.ad 10/05/21 Unknown Rx Benzonatate [Tessalon Perles] 100 mg PO Q8HR PRN #30 capsule 10/05/21 Unknown Rx Metaxalone [Skelaxin] 800 mg PO TID #10 tablet 10/05/21 Unknown Rx predniSONE [Deltasone] 50 mg PO QDAY #5 tab 10/05/21 Unknown Rx Acetaminophen/Codeine [Tylenol 1 tab PO Q6H PRN #10 tab 10/15/21 Unknown Rx /Codeine # 3 tab] Acetaminophen with Codeine 1 each PO Q6HR PRN #12 tab 11/04/21 Unknown Rx [Acetaminophen-Codeine #2 TAB] Gabapentin 300 mg PO BID #30 cap 11/04/21 Unknown Rx predniSONE [Deltasone] 60 mg PO QDAY #15 tab 11/04/21 Unknown Rx ED Physical Exam - General Limitations: No Limitations General appearance: alert, in no apparent distress - Head Head exam: Present: atraumatic, normocephalic, normal inspection - Eye Eye exam: Present: normal appearance, PERRL, EOMI Pupils: Present: normal accommodation - ENT ENT exam: Present: normal exam, normal orophraynx, mucous membranes moist, TM's normal bilaterally, normal external ear exam - Neck Neck exam: Present: normal inspection, full ROM. Absent: tenderness - Respiratory Respiratory exam: Present: normal lung sounds bilaterally. Absent: respiratory distress, rhonchi, stridor, chest wall tenderness, accessory muscle use, decreased breath sounds, prolonged expiratory - Cardiovascular Cardiovascular Exam: Present: regular rate, normal rhythm, normal heart sounds. Absent: systolic murmur, diastolic murmur, rubs, gallop - GI/Abdominal GI/Abdominal exam: Present: soft, normal bowel sounds. Absent: tenderness, guarding, rebound, hyperactive bowel sounds, hypoactive bowel sounds, o rganomegaly - Extremities Exam Extremities exam: Present: normal inspection, full ROM, tenderness (Palpable left heel tenderness on the plantar aspect), normal capillary refill. Absent: pedal edema, joint swelling, calf tenderness - Back Exam Back exam: Present: normal inspection, full ROM. Absent: tenderness, CVA tend erness (R), CVA tenderness (L), muscle spasm, paraspinal tenderness, vertebral tenderness - Neurological Exam Neurological exam: Present: alert, oriented X3, CN II-XII intact, normal gait, reflexes normal - Psychiatric Psychiatric exam: Present: normal affect, normal mood - Skin Skin exam: Present: warm, dry, intact, normal color. Absent: rash ED Course Vital Signs 11/03/21 23:10 Temperature 98 F Pulse Rate 82 Respiratory 18 Rate Blood Pressure 146/78 O2 Sat by Pulse 100 Oximetry ED Lower Extremity MDM - Radiology Data Radiology results: report reviewed, image reviewed [facility] [address] [place] [address] XRay Report Signed Patient: KATE ZHENG MR #: [id number] : 1980 Acct:[id number] Age/Sex: 40 / F ADM Date: 11/03/21 Loc: ED Attending Dr: Ordering Physician: AL SARABIA MD Date of Service: 11/03/21 Procedure(s): XR ankle 3+V LT Accession Number(s): [id number] cc: AL SARABIA MD Fluoro Time In Minutes: LEFT ANKLE 3 VIEW(S) INDICATION / CLINICAL INFORMATION: left ankle and heel pain. COMPARISON: Left ankle 05/02/2020 FINDINGS: BONES / JOINT(S): No acute fracture. The cannulated lag screws demonstrate lucency which is increased around the threaded component. The more superior may have retracted slightly since comparison imaging. No significant arthritis. SOFT TISSUES: No significant abnormality. ADDITIONAL FINDINGS: None. IMPRESSION: Interval loosening of surgical hardware with mild retraction of the more cephalad screw since comparison radiograph. Signer Name: Ninfa Clarke II, MD Signed: 11/04/2021 12:04 AM Workstation Name: [id number] Transcribed By: TASNEEM Dictated By: NINFA CLARKE II, MD Electronically Authenticated By: NINFA CLARKE II, MD Signed Date/Time: 11/04/21 0004 DD/ 0001 TD/TT: - Medical Decision Making This is a 40-year-old -[place] female with a history of migraine headaches, hypertension, seizures, HIV, asthma, anxiety and depression who presents to the ED with complaint of acute onset persistent severe left heel pain after playing basketball about 5 hours ago. Patient states that the pain has been constant and persistent especially when she walks. In the ED, patient is alert and oriented x3 and is not in any distress. Patient was treated for pain in the ED. Left ankle x-ray showed interval loosening of surgical hardware with mild retraction of the more cephalad screw since comparison radiograph. Physical exam revealed significant tenderness on the plantar aspect of the left foot but the left ankle is unremarkable. Patient symptoms are likely due to contusion of the foot, plantar fasciitis following extensive physical activity playing basketball. Patient left foot was therefore splinted with postop shoe and the patient was discharged home on pain medications and given a referral to the orthopedic surgeon on-call Dr. Mauro for evaluation. Patient was advised to contact Dr. Mauro's office first thing in the morning on Friday, November 05, 2021 to schedule a follow-up appointment. Patient was otherwise advised return to the ED immediately if symptoms get worse. - Differential Diagnosis Foot fracture; foot contusion; plantar fasciitis; ankle sprain; Critical care attestation.: If time is entered above; I have spent that time in minutes in the direct care of this critically ill patient, excluding procedure time. ED Disposition Clinical Impression: Plantar fasciitis of left foot Contusion of left foot Qualifiers: Encounter type: initial encounter Qualified Code(s): S90.32XA - Contusion of left foot, initial encounter Disposition: HOME / SELF CARE / HOMELESS Is pt being admited?: No Does the pt Need Aspirin: No Condition: Stable Instructions: Foot Contusion, [id number], Crush Injury of the Foot, [id number], Plantar Fasciitis Additional Instructions: The left ankle x-ray showed no acute fractures or subluxations of the left ankle and foot but loosening of prior screws and hardware from previous surgery. Therefore take pain medication as needed with food, drink plenty of fluids follow-up with your primary care physician in 7 to 10 days for reevaluation. Consider following up with the orthopedic surgeon Dr. Mauro in 5 to 7 days for reevaluation. Return to the ED immediately if symptoms get worse. Prescriptions: Acetaminophen with Codeine [Acetaminophen-Codeine #2 TAB] 1 each PO Q6HR PRN #12 tab PRN Reason: Pain predniSONE [Deltasone] 60 mg PO QDAY #15 tab Gabapentin 300 mg PO BID #30 cap Referrals: ALEX DE LA CRUZ MD [Primary Care Provider] - 3-5 Days VALERIY MAURO MD [Staff Physician] - 3-5 Days Time of Disposition: 01:21 Print Language: CHINESE
== END 2021-11-04 02:31 | disposition home or self-care (01) ==
LOC: ED 23:03
DX: S90.32XA Contusion of left foot, initial encounter (principal); M72.2 Plantar fascial fibromatosis; Z88.6 Allergy status to analgesic agent; Z88.0 Allergy status to penicillin; Z88.8 Allergy status to other drugs, medicaments and biological substances; Z90.13 Acquired absence of bilateral breasts and nipples; X58.XXXA Exposure to other specified factors, initial encounter; Y93.89 Activity, other specified; Y92.89 Other specified places as the place of occurrence of the external cause; Y99.8 Other external cause status
CPT/HCPCS: 99284

== ENCOUNTER 2021-11-08 09:37 | Emergency (ER) | payer MEDICAID ==
[2021-11-08 10:29] VITALS: BP 145/81
[2021-11-08] MEDS ORDERED: ACETAMINOPHEN 500 MG TAB PO ONE (11:25)
--- NOTE | 2021-11-08 11:25 | Emergency Department Report ---
ED General Adult HPI - General Chief complaint: Chest Pain Stated complaint: RASH FACE/CHEST HURTS/RT LEG PAIN Time Seen by Provider: 11/08/21 11:09 Source: patient Mode of arrival: Ambulatory Limitations: No Limitations - History of Present Illness Initial comments: Chief complaint: Rash leg pain headache HPI: This is a 40-year-old female with history of seizure, GERD, hypertension, asthma who presents with rash on the right neck, tension headache, calf pain. -: Gradual, days(s) (4 ) Location: neck Severity scale (0 -10): 10 Quality: aching Consistency: constant Improves with: none Worsens with: none Associated Symptoms: headaches - Related Data Home Medications Medication Instructions Recorded Confirmed Last Taken amLODIPine 10 mg PO DAILY 04/04/19 04/04/19 Unknown Previous Rx's Medication Instructions Recorded Last Taken Type Famotidine [Pepcid] 20 mg PO BID #30 tablet 11/04/18 Unknown Rx levETIRAcetam [Keppra] 1,000 mg PO Q12H #60 tablet 11/21/18 Unknown Rx AtorvaSTATin [Lipitor] 20 mg PO QHS #30 tab 11/18/20 Unknown Rx Cetirizine HCl [ZyrTEC 10mg rapdis] 10 mg PO DAILY PRN #14 tab.rapdis 11/18/20 Unknown Rx Gabapentin 100 mg PO Q8HR #30 capsule 11/18/20 Unknown Rx Nicotine [Habitrol] 21 mg TD QDAY@2100 #30 patch 11/18/20 Unknown Rx Bacitracin Zinc/Polymyxin B 1 applic TP BID #30 gm 02/10/21 Unknown Rx [Double Antibiotic Ointment] Promethazine HCl/Codeine 5 ml PO QID PRN #110 ml 07/24/21 Unknown Rx [Promethazine-Codeine Solution] Albuterol Sulfate [Proventil Hfa] 6.7 gm IH QID #1 hfa.aer.ad 10/05/21 Unknown Rx Benzonatate [Tessalon Perles] 100 mg PO Q8HR PRN #30 capsule 10/05/21 Unknown Rx Metaxalone [Skelaxin] 800 mg PO TID #10 tablet 10/05/21 Unknown Rx predniSONE [Deltasone] 50 mg PO QDAY #5 tab 10/05/21 Unknown Rx Acetaminophen/Codeine [Tylenol 1 tab PO Q6H PRN #10 tab 10/15/21 Unknown Rx /Codeine # 3 tab] Acetaminophen with Codeine 1 each PO Q6HR PRN #12 tab 11/04/21 Unknown Rx [Acetaminophen-Codeine #2 TAB] Gabapentin 300 mg PO BID #30 cap 11/04/21 Unknown Rx predniSONE [Deltasone] 60 mg PO QDAY #15 tab 11/04/21 Unknown Rx Hydrocortisone 1% [Hydrocortisone 1 applicatio TP TID 14 Days #1 tube 11/08/21 Unknown Rx 1% CREAM] Prednisone [predniSONE 10 mg 10 mg PO .TAPER #1 11/08/21 Unknown Rx (6-Day Pack, 21 Tabs)] Allergies Allergy/AdvReac Type Severity Reaction Status Date / Time aspirin Allergy Hives Verified 07/24/21 11:20 ibuprofen [From Motrin] Allergy Hives Verified 07/24/21 11:20 ketorolac [From Toradol] Allergy Unknown Verified 07/24/21 11:20 Penicillins Allergy Hives Verified 07/24/21 11:20 shellfish derived Allergy Hives Verified 07/24/21 11:20 tramadol Allergy Hives Verified 07/24/21 11:20 ED Review of Systems ROS: Stated complaint: RASH FACE/CHEST HURTS/RT LEG PAIN Other details as noted in HPI Comment: All other systems reviewed and negative Constitutional: denies: chills, fever, malaise Respiratory: denies: cough, shortness of breath Cardiovascular: denies: chest pain Gastrointestinal: denies: abdominal pain, nausea, vomiting Skin: rash, lesions Neurological: headache ED Past Medical Hx - Past Medical History Previous Medical History?: Yes Hx Hypertension: Yes Hx CVA: No Hx Congestive Heart Failure: No Hx Diabetes: No Hx Headaches / Migraines: Yes (hx migraines) Hx Seizures: Yes Hx Psychiatric Treatment: Yes (depression, Anxiety) Hx Asthma: Yes Hx COPD: No Hx HIV: Yes Additional medical history: Anemia - Surgical History Past Surgical History?: Yes Additional Surgical History: right knee surgery, b/l foot surgery several years ago. Right great toe removal od ingrown toenail. foot surgery 09/2015 - Social History Smoking Status: Current Every Day Smoker Substance Use Type: None - Medications Home Medications: Home Medications Medication Instructions Recorded Confirmed Last Taken Type Famotidine [Pepcid] 20 mg PO BID #30 tablet 11/04/18 04/04/19 Unknown Rx levETIRAcetam [Keppra] 1,000 mg PO Q12H #60 tablet 11/21/18 04/04/19 Unknown Rx amLODIPine 10 mg PO DAILY 04/04/19 04/04/19 Unknown History AtorvaSTATin [Lipitor] 20 mg PO QHS #30 tab 11/18/20 Unknown Rx Cetirizine HCl [ZyrTEC 10mg rapdis] 10 mg PO DAILY PRN #14 tab.rapdis 11/18/20 Unknown Rx Gabapentin 100 mg PO Q8HR #30 capsule 11/18/20 Unknown Rx Nicotine [Habitrol] 21 mg TD QDAY@2100 #30 patch 11/18/20 Unknown Rx Bacitracin Zinc/Polymyxin B 1 applic TP BID #30 gm 02/10/21 Unknown Rx [Double Antibiotic Ointment] Promethazine HCl/Codeine 5 ml PO QID PRN #110 ml 07/24/21 Unknown Rx [Promethazine-Codeine Solution] Albuterol Sulfate [Proventil Hfa] 6.7 gm IH QID #1 hfa.aer.ad 10/05/21 Unknown Rx Benzonatate [Tessalon Perles] 100 mg PO Q8HR PRN #30 capsule 10/05/21 Unknown Rx Metaxalone [Skelaxin] 800 mg PO TID #10 tablet 10/05/21 Unknown Rx predniSONE [Deltasone] 50 mg PO QDAY #5 tab 10/05/21 Unknown Rx Acetaminophen/Codeine [Tylenol 1 tab PO Q6H PRN #10 tab 10/15/21 Unknown Rx /Codeine # 3 tab] Acetaminophen with Codeine 1 each PO Q6HR PRN #12 tab 11/04/21 Unknown Rx [Acetaminophen-Codeine #2 TAB] Gabapentin 300 mg PO BID #30 cap 11/04/21 Unknown Rx predniSONE [Deltasone] 60 mg PO QDAY #15 tab 11/04/21 Unknown Rx Hydrocortisone 1% [Hydrocortisone 1 applicatio TP TID 14 Days #1 tube 11/08/21 Unknown Rx 1% CREAM] Prednisone [predniSONE 10 mg 10 mg PO .TAPER #1 11/08/21 Unknown Rx (6-Day Pack, 21 Tabs)] ED Physical Exam - General Limitations: No Limitations General appearance: alert, in no apparent distress - Head Head exam: Present: atraumatic, normocephalic - Eye Eye exam: Present: normal appearance - ENT ENT exam: Present: mucous membranes moist - Neck Neck exam: Present: normal inspection, full ROM - Respiratory Respiratory exam: Present: normal lung sounds bilaterally. Absent: respiratory distress, wheezes, rales, rhonchi - Cardiovascular Cardiovascular Exam: Present: regular rate, normal rhythm, normal heart sounds. Absent: systolic murmur, diastolic murmur, rubs, gallop - GI/Abdominal GI/Abdominal exam: Present: soft, normal bowel sounds. Absent: distended, tenderness, guarding, rebound - Extremities Exam Extremities exam: Present: normal inspection - Neurological Exam Neurological exam: Present: alert, oriented X3 - Psychiatric Psychiatric exam: Present: normal affect, normal mood - Skin Skin exam: Present: warm, dry, erythema, vesicles, other (Patchy vesicular erythematous rash right neck). Absent: rash ED Course Vital Signs 11/08/21 11/08/21 10:27 10:30 Temperature 98.4 F 98.4 F Pulse Rate 98 H 94 H Respiratory 18 18 Rate Blood Pressure 145/81 Blood Pressure 145/81 [Right] O2 Sat by Pulse 98 98 Oximetry ED Medical Decision Making - EKG Data -: EKG Interpreted by Me EKG shows normal: sinus rhythm Rate: normal - EKG Data 11/08/21 11:42 EKG obtained 1039 EKG interpreted by me Normal sinus rhythm rate 95 bpm normal axis normal intervals no ST-T sign ischemia - Medical Decision Making 1. Allergic contact dermatitis: Hydrocortisone cream, prednisone prescribed 2. Tension headache: Patient given Tylenol in the ED. No red flags such as sudden onset neurological deficit. 3. Right calf pain: Normal size leg. Do not suspect DVT. Critical care attestation.: If time is entered above; I have spent that time in minutes in the direct care of this critically ill patient, excluding procedure time. ED Disposition Clinical Impression: Allergic contact dermatitis, Right calf pain, Tension headache Disposition: 01 HOME / SELF CARE / HOMELESS Is pt being admited?: No Does the pt Need Aspirin: No Condition: Stable Instructions: Contact Dermatitis, [id number] Prescriptions: Hydrocortisone 1% [Hydrocortisone 1% CREAM] 1 applicatio TP TID 14 Days #1 tube Prednisone [predniSONE 10 mg (6-Day Pack, 21 Tabs)] 10 mg PO .TAPER #1 Referrals: ALEX DE LA CRUZ MD [Staff Physician] - 3-5 Days
--- NOTE | 2021-11-09 18:01 | Electrocardiograph Report ---
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
== END 2021-11-08 12:07 | disposition home or self-care (01) ==
LOC: ED 09:37
DX: L23.9 Allergic contact dermatitis, unspecified cause (principal); M79.661 Pain in right lower leg; G44.209 Tension-type headache, unspecified, not intractable; F17.200 Nicotine dependence, unspecified, uncomplicated; I10 Essential (primary) hypertension; J45.909 Unspecified asthma, uncomplicated
CPT/HCPCS: 93005; 99282

== ENCOUNTER 2021-12-10 14:40 | Emergency (ER) | payer MEDICAID ==
[2021-12-10 15:07] VITALS: BP 135/74
[2021-12-10 16:07] LABS: Basophils % (Auto) 0.5 % (0.0-1.8); Eosinophils % (Auto) 1.6 % (0.0-4.3); Hematocrit 29.7 % (30.3-42.9); Hemoglobin 9.4 gm/dl (10.1-14.3); Lymphocytes # (Auto) 0.4 K/mm3 (1.2-5.4); Lymphocytes % (Auto) 14.7 % (13.4-35.0); Mean Corpuscular HGB Conc 32 % (30-34); Mean Corpuscular Volume 106 fl (79-97); Monocytes # (Auto) 0.3 K/mm3 (0.0-0.8); Monocytes % (Auto) 10.5 % (0.0-7.3); Platelet Count 168 K/mm3 (140-440); Red Cell Distribution Width 20.9 % (13.2-15.2)
[2021-12-10 16:23] LABS: Alanine Aminotransferase 11 units/L (7-56); Albumin 3.9 g/dL (3.9-5); BUN/Creatinine Ratio 18; Bilirubin,Direct 0.3 mg/dL (0-0.2); Blood Urea Nitrogen 7 mg/dL (7-17); Calcium 8.2 mg/dL (8.4-10.2); Hemolysis Index 6
== END 2021-12-11 07:00 | disposition left against medical advice (07) ==
LOC: ED 14:40
DX: R10.9 Unspecified abdominal pain (principal); Z53.21 Procedure and treatment not carried out due to patient leaving prior to being seen by health care provider
CPT/HCPCS: 36415; 80048; 80076; 82962; 83690; 85025

== ENCOUNTER 2022-01-23 17:06 | Emergency (ER) | payer MEDICAID ==
[2022-01-23] MEDS ORDERED: LORazepam 2 MG/ML VIAL ONE (17:28)
[2022-01-23] MEDS ORDERED: BUTALB/ACETAMINOPHEN/CAFFEINE TAB PO ONE (17:39)
[2022-01-23] MEDS ORDERED: LORazepam 2 MG/ML VIAL IM ONE (17:39)
[2022-01-23] MEDS ORDERED: levETIRAcetam 1000 MG/NS 0.75% 1,000 MG/100 ML BAG IV ONE (17:39)
--- NOTE | 2022-01-23 17:42 | Emergency Department Report ---
HPI - General Chief Complaint: Seizure Time Seen by Provider: 01/23/22 17:34 - HPI HPI: Room 19 Patient is a 41-year-old female present with chief complaint of seizure. [place] was reportedly [place] bus stop when she had 2 seizures witnessed by bystanders. EMS was called and upon their arrival the patient was ANO x4. Patient was waiting with EMS on the wall in the ED here when she reportedly had another "seizure". Patient was administered Ativan and immediately stopped" seizing" and became A&O x4. Patient now complains of a headache. Patient states she has been compliant with her Keppra ED Past Medical Hx - Past Medical History Hx Hypertension: Yes Hx Headaches / Migraines: Yes (hx migraines) Hx Seizures: Yes Hx Psychiatric Treatment: Yes (depression, Anxiety) Hx Asthma: Yes Hx HIV: Yes Additional medical history: Anemia - Surgical History Additional Surgical History: right knee surgery, b/l foot surgery several years ago. Right great toe removal od ingrown toenail. foot surgery 09/2015 - Family History Family history: no significant - Social History Smoking Status: Current Every Day Smoker Substance Use Type: None - Medications Home Medications: Home Medications Medication Instructions Recorded Confirmed Last Taken Type Famotidine [Pepcid] 20 mg PO BID #30 tablet 11/04/18 04/04/19 Unknown Rx levETIRAcetam [Keppra] 1,000 mg PO Q12H #60 tablet 11/21/18 04/04/19 Unknown Rx amLODIPine 10 mg PO DAILY 04/04/19 04/04/19 Unknown History AtorvaSTATin [Lipitor] 20 mg PO QHS #30 tab 11/18/20 Unknown Rx Cetirizine HCl [ZyrTEC 10mg rapdis] 10 mg PO DAILY PRN #14 tab.rapdis 11/18/20 Unknown Rx Gabapentin 100 mg PO Q8HR #30 capsule 11/18/20 Unknown Rx Nicotine [Habitrol] 21 mg TD QDAY@2100 #30 patch 11/18/20 Unknown Rx Bacitracin Zinc/Polymyxin B 1 applic TP BID #30 gm 02/10/21 Unknown Rx [Double Antibiotic Ointment] Promethazine HCl/Codeine 5 ml PO QID PRN #110 ml 07/24/21 Unknown Rx [Promethazine-Codeine Solution] Albuterol Sulfate [Proventil Hfa] 6.7 gm IH QID #1 hfa.aer.ad 10/05/21 Unknown Rx Benzonatate [Tessalon Perles] 100 mg PO Q8HR PRN #30 capsule 10/05/21 Unknown Rx Metaxalone [Skelaxin] 800 mg PO TID #10 tablet 10/05/21 Unknown Rx predniSONE [Deltasone] 50 mg PO QDAY #5 tab 10/05/21 Unknown Rx Acetaminophen/Codeine [Tylenol 1 tab PO Q6H PRN #10 tab 10/15/21 Unknown Rx /Codeine # 3 tab] Acetaminophen with Codeine 1 each PO Q6HR PRN #12 tab 11/04/21 Unknown Rx [Acetaminophen-Codeine #2 TAB] Gabapentin 300 mg PO BID #30 cap 11/04/21 Unknown Rx predniSONE [Deltasone] 60 mg PO QDAY #15 tab 11/04/21 Unknown Rx Hydrocortisone 1% [Hydrocortisone 1 applicatio TP TID 14 Days #1 tube 11/08/21 Unknown Rx 1% CREAM] Prednisone [predniSONE 10 mg 10 mg PO .TAPER #1 11/08/21 Unknown Rx (6-Day Pack, 21 Tabs)] levETIRAcetam [Keppra TAB] 500 mg PO BID #60 tablet 01/23/22 Unknown Rx ED Review of Systems ROS: Stated complaint: SEIZURE Other details as noted in HPI Constitutional: no symptoms reported Eyes: denies: eye pain ENT: denies: throat pain Respiratory: no symptoms reported Cardiovascular: denies: chest pain Endocrine: no symptoms reported Gastrointestinal: denies: abdominal pain Musculoskeletal: denies: back pain Neurological: headache Physical Exam - Physical Exam Vital Signs: Vital Signs 01/23/22 17:10 Pulse Rate 100 H Blood Pressure 120/90 [Left] O2 Sat by Pulse 96 Oximetry Physical Exam: GENERAL: The patient is well-developed well-nourished female lying on stretcher not appearing to be in acute distress. [] HEENT: Normocephalic. Atraumatic. Extraocular motions are intact. Patient has moist mucous membranes. NECK: Supple. No meningitic signs are noted. Trachea midline CHEST/LUNGS: Clear to auscultation. There is no respiratory distress noted. HEART/CARDIOVASCULAR: Regular. There is no tachycardia. There is no gallop rub or murmur. ABDOMEN: Abdomen is soft, nontender. Patient has normal bowel sounds. There is no abdominal distention. SKIN: There is no rash. There is no edema. There is no diaphoresis. NEURO: The patient is awake, alert, and oriented. The patient is cooperative. The patient has no focal neurologic deficits. The patient has normal speech. Cranial nerves II through XII grossly intact. GCS 15 MUSCULOSKELETAL: There is no evidence of acute injury. ED Course Vital Signs 01/23/22 17:10 Pulse Rate 100 H Blood Pressure 120/90 [Left] O2 Sat by Pulse 96 Oximetry ED Medical Decision Making - Medical Decision Making Patient refused blood draws - Differential Diagnosis Seizure Critical care attestation.: If time is entered above; I have spent that time in minutes in the direct care of this critically ill patient, excluding procedure time. ED Disposition Clinical Impression: Seizure Disposition: 01 HOME / SELF CARE / HOMELESS Is pt being admited?: No Does the pt Need Aspirin: No Condition: Undetermined Additional Instructions: Return to the emergency department should you develop worsening symptoms, inability to tolerate food or liquids, high fever or any other concerns Prescriptions: levETIRAcetam [Keppra TAB] 500 mg PO BID #60 tablet Referrals: CRUZ PRESTON MD [Staff Physician] - 3-5 Days (Dr. Preston is a neurologist. Please follow-up with him for further evaluation) Time of Disposition: 21:20
[2022-01-23] MEDS ORDERED: AMMONIA INHALANT IH ONE ×2 (18:14→18:50)
[2022-01-23 21:20] LABS: HCG Qualitative,Urine Negative (Negative)
[2022-01-23 21:38] VITALS: BP 163/96
== END 2022-01-23 22:03 | disposition home or self-care (01) ==
LOC: ED 17:06
DX: R56.9 Unspecified convulsions (principal); I10 Essential (primary) hypertension; G43.909 Migraine, unspecified, not intractable, without status migrainosus; F41.9 Anxiety disorder, unspecified; F32.9 Major depressive disorder, single episode, unspecified; J45.909 Unspecified asthma, uncomplicated; Z21 Asymptomatic human immunodeficiency virus [HIV] infection status; D64.9 Anemia, unspecified; Z98.890 Other specified postprocedural states; F17.290 Nicotine dependence, other tobacco product, uncomplicated
CPT/HCPCS: 36415; 81025; 96372; 99283; J1953; J2060

== ENCOUNTER 2022-01-27 14:50 | Emergency (ER) | payer MEDICAID ==
[2022-01-27] MEDS ORDERED: ASPIRIN 325 MG TAB PO ONE (15:51)
--- NOTE | 2022-01-27 16:28 | XRay Report ---
CHEST 2 VIEWS INDICATION: chest pain. COMPARISON: 10/05/2021 FINDINGS: SUPPORT DEVICES: None. HEART: Stable mild cardiomegaly. LUNGS/PLEURA: Mild interstitial edema. No consolidation or effusion. No pneumothorax. ADDITIONAL FINDINGS: None. IMPRESSION: 1. Mild edema. Signer Name: Patrick Petersen MD Signed: 01/27/2022 4:24 PM Workstation Name: [email or web address]
[2022-01-27 21:04] LABS: Hemoglobin 9.5 gm/dl (10.1-14.3); Mean Corpuscular HGB Conc 32 % (30-34); Mean Corpuscular Volume 105 fl (79-97); Platelet Count 142 K/mm3 (140-440); Red Blood Count 2.87 M/mm3 (3.65-5.03); Red Cell Distribution Width 19.2 % (13.2-15.2)
[2022-01-27 21:20] LABS: Alanine Aminotransferase 10 units/L (7-56); Blood Urea Nitrogen 9 mg/dL (7-17); Calcium 8.2 mg/dL (8.4-10.2); Hemolysis Index 5
[2022-01-27 21:29] LABS: BUN/Creatinine Ratio 15
[2022-01-27 22:43] LABS: Basophils % (Manual) 0 % (0.0-1.8); Eosinophils % (Manual) 0 % (0.0-4.3); Total Cells Counted 100
[2022-01-27 22:44] LABS: Anisocytosis 1+; Macrocytosis 1+; Platelet Estimate Consistent w Auto
[2022-01-28 09:21] LABS: Hematocrit 29.8 % (30.3-42.9); Hemoglobin 9.7 gm/dl (10.1-14.3); Mean Corpuscular HGB Conc 33 % (30-34); Mean Corpuscular Volume 104 fl (79-97); Platelet Count 160 K/mm3 (140-440); Red Blood Count 2.87 M/mm3 (3.65-5.03); Red Cell Distribution Width 19.4 % (13.2-15.2)
[2022-01-28] MEDS ORDERED: HYDROcodone/ACETAMINOPHEN 5-325 MG TAB PO ONE (09:34)
--- NOTE | 2022-01-28 09:34 | Electrocardiograph Report ---
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
[2022-01-28 09:38] LABS: Blood Urea Nitrogen 6 mg/dL (7-17); Calcium 8.7 mg/dL (8.4-10.2); Hemolysis Index 6
--- NOTE | 2022-01-28 09:39 | Emergency Department Report ---
HPI - General Chief Complaint: Chest Pain Time Seen by Provider: 01/28/22 09:25 - HPI HPI: Room 3 The patient is a 41-year-old female present with chief complaint of chest pain shortness of breath. The patient states for the past 3 days she has had a c onstant pressure substernal chest radiating to the left shoulder. Patient also complains of left foot pain and swelling from when she believes she twisted her ankle. ED Past Medical Hx - Past Medical History Hx Hypertension: Yes Hx Headaches / Migraines: Yes (hx migraines) Hx Seizures: Yes Hx Psychiatric Treatment: Yes (depression, Anxiety) Hx Asthma: Yes Hx HIV: Yes Additional medical history: Anemia - Surgical History Additional Surgical History: right knee surgery, b/l foot surgery several years ago. Right great toe removal od ingrown toenail. foot surgery 09/2015 - Family History Family history: no significant - Social History Smoking Status: Current Every Day Smoker Substance Use Type: None - Medications Home Medications: Home Medications Medication Instructions Recorded Confirmed Last Taken Type Famotidine [Pepcid] 20 mg PO BID #30 tablet 11/04/18 04/04/19 Unknown Rx levETIRAcetam [Keppra] 1,000 mg PO Q12H #60 tablet 11/21/18 04/04/19 Unknown Rx amLODIPine 10 mg PO DAILY 04/04/19 04/04/19 Unknown History AtorvaSTATin [Lipitor] 20 mg PO QHS #30 tab 11/18/20 Unknown Rx Cetirizine HCl [ZyrTEC 10mg rapdis] 10 mg PO DAILY PRN #14 tab.rapdis 11/18/20 Unknown Rx Gabapentin 100 mg PO Q8HR #30 capsule 11/18/20 Unknown Rx Nicotine [Habitrol] 21 mg TD QDAY@2100 #30 patch 11/18/20 Unknown Rx Bacitracin Zinc/Polymyxin B 1 applic TP BID #30 gm 02/10/21 Unknown Rx [Double Antibiotic Ointment] Promethazine HCl/Codeine 5 ml PO QID PRN #110 ml 07/24/21 Unknown Rx [Promethazine-Codeine Solution] Albuterol Sulfate [Proventil Hfa] 6.7 gm IH QID #1 hfa.aer.ad 10/05/21 Unknown Rx Benzonatate [Tessalon Perles] 100 mg PO Q8HR PRN #30 capsule 10/05/21 Unknown Rx Metaxalone [Skelaxin] 800 mg PO TID #10 tablet 10/05/21 Unknown Rx predniSONE [Deltasone] 50 mg PO QDAY #5 tab 10/05/21 Unknown Rx Acetaminophen/Codeine [Tylenol 1 tab PO Q6H PRN #10 tab 10/15/21 Unknown Rx /Codeine # 3 tab] Acetaminophen with Codeine 1 each PO Q6HR PRN #12 tab 11/04/21 Unknown Rx [Acetaminophen-Codeine #2 TAB] Gabapentin 300 mg PO BID #30 cap 11/04/21 Unknown Rx predniSONE [Deltasone] 60 mg PO QDAY #15 tab 11/04/21 Unknown Rx Hydrocortisone 1% [Hydrocortisone 1 applicatio TP TID 14 Days #1 tube 11/08/21 Unknown Rx 1% CREAM] Prednisone [predniSONE 10 mg 10 mg PO .TAPER #1 11/08/21 Unknown Rx (6-Day Pack, 21 Tabs)] levETIRAcetam [Keppra TAB] 500 mg PO BID #60 tablet 01/23/22 Unknown Rx Cyclobenzaprine [Flexeril] 10 mg PO TID PRN #10 01/28/22 Unknown Rx Famotidine [Pepcid] 20 mg PO BID #20 tablet 01/28/22 Unknown Rx ED Review of Systems ROS: Stated complaint: CHEST PAIN Other details as noted in HPI Constitutional: no symptoms reported Eyes: denies: eye pain ENT: denies: throat pain Respiratory: shortness of breath Cardiovascular: chest pain Endocrine: no symptoms reported Gastrointestinal: denies: abdominal pain Genitourinary: denies: dysuria Musculoskeletal: arthralgia Neurological: headache Physical Exam - Physical Exam Vital Signs: Vital Signs 01/27/22 15:14 Pulse Rate 98 H Blood Pressure 159/97 [Left] O2 Sat by Pulse 97 Oximetry Physical Exam: GENERAL: The patient is well-developed well-nourished female lying on stretcher not appearing to be in acute distress. [] HEENT: Normocephalic. Atraumatic. Extraocular motions are intact. Patient has moist mucous membranes. NECK: Supple. Trachea midline CHEST/LUNGS: Clear to auscultation. There is no respiratory distress noted. HEART/CARDIOVASCULAR: Regular. There is no tachycardia. There is no gallop rub or murmur. ABDOMEN: Abdomen is soft, nontender. Patient has normal bowel sounds. There is no abdominal distention. SKIN: There is no rash. There is no edema. There is no diaphoresis. NEURO: The patient is awake, alert, and oriented. The patient is cooperative. The patient has no focal neurologic deficits. The patient has normal speech. GCS 15 MUSCULOSKELETAL: There is no evidence of acute injury. ED Course Vital Signs 01/27/22 15:14 Pulse Rate 98 H Blood Pressure 159/97 [Left] O2 Sat by Pulse 97 Oximetry ED Medical Decision Making - Lab Data Result diagrams: 01/28/22 08:38 01/28/22 08:38 Laboratory Tests 01/27/22 01/27/22 01/27/22 20:35 20:35 23:41 WBC 2.3 L RBC 2.87 L Hgb 9.5 L Hct 30.0 L MCV 105 H MCH 33 H MCHC 32 RDW 19.2 H Plt Count 142 Add Manual Diff Complete Total Counted 100 Seg Neuts % (Manual) 71.0 H Band Neutrophils % 0 Lymphocytes % (Manual) 20.0 Reactive Lymphs % (Man) 0 Monocytes % (Manual) 9.0 H Eosinophils % (Manual) 0 Basophils % (Manual) 0 Metamyelocytes % 0 Myelocytes % 0 Promyelocytes % 0 Blast Cells % 0 Nucleated RBC % Not Reportable Seg Neutrophils # Man 1.6 L Band Neutrophils # 0.0 Lymphocytes # (Manual) 0.5 L Abs React Lymphs (Man) 0.0 Monocytes # (Manual) 0.2 Eosinophils # (Manual) 0.0 Basophils # (Manual) 0.0 Metamyelocytes # 0.0 Myelocytes # 0.0 Promyelocytes # 0.0 Blast Cells # 0.0 WBC Morphology Not Reportable Hypersegmented Neuts Not Reportable Hyposegmented Neuts Not Reportable Hypogranular Neuts Not Reportable Smudge Cells Not Reportable Toxic Granulation Not Reportable Toxic Vacuolation Not Reportable Dohle Bodies Not Reportable Pelger-Huet Anomaly Not Reportable Benny Rods Not Reportable Platelet Estimate Consistent w auto Clumped Platelets Not Reportable Plt Clumps, EDTA Not Reportable Large Platelets Not Reportable Giant Platelets Not Reportable Platelet Satelliting Not Reportable Plt Morphology Comment Not Reportable RBC Morphology Not Reportable Dimorphic RBCs Not Reportable Polychromasia Not Reportable Hypochromasia Not Reportable Poikilocytosis Not Reportable Anisocytosis 1+ Microcytosis Not Reportable Macrocytosis 1+ Spherocytes Not Reportable Pappenheimer Bodies Not Reportable Sickle Cells Not Reportable Target Cells Not Reportable Tear Drop Cells Not Reportable Ovalocytes Not Reportable Helmet Cells Not Reportable Purcell-Woden Bodies Not Reportable [place] Rings Not Reportable Ricardo Cells Not Reportable Bite Cells Not Reportable Crenated Cell Not Reportable Elliptocytes Not Reportable Acanthocytes (Spur) Not Reportable Rouleaux Not Reportable Hemoglobin C Crystals Not Reportable Schistocytes Not Reportable Malaria parasites Not Reportable Giancarlo Bodies Not Reportable Hem Pathologist Commnt No D-Dimer Sodium 140 Potassium 3.5 L Chloride 104.2 Carbon Dioxide 25 Anion Gap 14 BUN 9 Creatinine 0.6 Estimated GFR > 60 BUN/Creatinine Ratio 15 Glucose 105 H Calcium 8.2 L Phosphorus Magnesium Total Bilirubin 1.20 AST 33 ALT 10 Alkaline Phosphatase 76 Troponin T < 0.010 < 0.010 NT-Pro-B Natriuret Pep Total Protein 7.5 Albumin 4.0 Albumin/Globulin Ratio 1.1 01/28/22 01/28/22 01/28/22 03:00 08:38 08:38 WBC 2.1 L RBC 2.87 L Hgb 9.7 L Hct 29.8 L MCV 104 H MCH 34 H MCHC 33 RDW 19.4 H Plt Count 160 Add Manual Diff Total Counted Seg Neuts % (Manual) Band Neutrophils % Lymphocytes % (Manual) Reactive Lymphs % (Man) Monocytes % (Manual) Eosinophils % (Manual) Basophils % (Manual) Metamyelocytes % Myelocytes % Promyelocytes % Blast Cells % Nucleated RBC % Seg Neutrophils # Man Band Neutrophils # Lymphocytes # (Manual) Abs React Lymphs (Man) Monocytes # (Manual) Eosinophils # (Manual) Basophils # (Manual) Metamyelocytes # Myelocytes # Promyelocytes # Blast Cells # WBC Morphology Hypersegmented Neuts Hyposegmented Neuts Hypogranular Neuts Smudge Cells Toxic Granulation Toxic Vacuolation Dohle Bodies Pelger-Huet Anomaly Benny Rods Platelet Estimate Clumped Platelets Plt Clumps, EDTA Large Platelets Giant Platelets Platelet Satelliting Plt Morphology Comment RBC Morphology Dimorphic RBCs Polychromasia Hypochromasia Poikilocytosis Anisocytosis Microcytosis Macrocytosis Spherocytes Pappenheimer Bodies Sickle Cells Target Cells Tear Drop Cells Ovalocytes Helmet Cells Purcell-Woden Bodies [place] Rings Badger Cells Bite Cells Crenated Cell Elliptocytes Acanthocytes (Spur) Rouleaux Hemoglobin C Crystals Schistocytes Malaria parasites Giancarlo Bodies Hem Pathologist Commnt D-Dimer Sodium 141 Potassium 3.3 L Chloride 106.0 Carbon Dioxide 25 Anion Gap 13 BUN 6 L Creatinine 0.4 L Estimated GFR > 60 BUN/Creatinine Ratio 15 Glucose 78 Calcium 8.7 Phosphorus Magnesium 1.80 Total Bilirubin AST ALT Alkaline Phosphatase Troponin T < 0.010 NT-Pro-B Natriuret Pep Total Protein Albumin Albumin/Globulin Ratio 01/28/22 01/28/22 08:38 09:57 WBC RBC Hgb Hct MCV MCH MCHC RDW Plt Count Add Manual Diff Total Counted Seg Neuts % (Manual) Band Neutrophils % Lymphocytes % (Manual) Reactive Lymphs % (Man) Monocytes % (Manual) Eosinophils % (Manual) Basophils % (Manual) Metamyelocytes % Myelocytes % Promyelocytes % Blast Cells % Nucleated RBC % Seg Neutrophils # Man Band Neutrophils # Lymphocytes # (Manual) Abs React Lymphs (Man) Monocytes # (Manual) Eosinophils # (Manual) Basophils # (Manual) Metamyelocytes # Myelocytes # Promyelocytes # Blast Cells # WBC Morphology Hypersegmented Neuts Hyposegmented Neuts Hypogranular Neuts Smudge Cells Toxic Granulation Toxic Vacuolation Dohle Bodies Pelger-Huet Anomaly Benny Rods Platelet Estimate Clumped Platelets Plt Clumps, EDTA Large Platelets Giant Platelets Platelet Satelliting Plt Morphology Comment RBC Morphology Dimorphic RBCs Polychromasia Hypochromasia Poikilocytosis Anisocytosis Microcytosis Macrocytosis Spherocytes Pappenheimer Bodies Sickle Cells Target Cells Tear Drop Cells Ovalocytes Helmet Cells Purcell-Woden Bodies [place] Rings Badger Cells Bite Cells Crenated Cell Elliptocytes Acanthocytes (Spur) Rouleaux Hemoglobin C Crystals Schistocytes Malaria parasites Giancarlo Bodies Hem Pathologist Commnt D-Dimer 595.05 H Sodium Potassium Chloride Carbon Dioxide Anion Gap BUN Creatinine Estimated GFR BUN/Creatinine Ratio Glucose Calcium Phosphorus 4.20 Magnesium Total Bilirubin AST ALT Alkaline Phosphatase Troponin T NT-Pro-B Natriuret Pep 144.9 Total Protein Albumin Albumin/Globulin Ratio - EKG Data -: EKG Interpreted by Me EKG shows normal: sinus rhythm, axis Rate: normal - EKG Data When compared to previous EKG there are: previous EKG unavailable - Radiology Data Radiology results: report reviewed (Chest x-ray, left ankle x-ray, VQ scan), image reviewed (Chest x-ray, left ankle x-ray, VQ scan) interpreted by me: Chest x-ray-no focal infiltrates, no pneumothorax Left ankle x-ray-no acute fracture seen. Hardware in place [address] [address] XRay Report Signed Patient: KATE ZHENG MR #: [id number] : 1980 Acct:[id number] Age/Sex: 41 / F ADM Date: 01/27/22 Loc: ED Attending Dr: Ordering Physician: HERMINIA STRATTON MD Date of Service: 01/28/22 Procedure(s): XR chest 1V ap Accession Number(s): [id number] cc: HERMINIA STRATTON MD Fluoro Time In Minutes: CHEST 1 VIEW 01/28/2022 8:54 AM INDICATION / CLINICAL INFORMATION: chest pain. COMPARISON: 01/27/2022 FINDINGS: SUPPORT DEVICES: None. HEART / MEDIASTINUM: No significant abnormality. LUNGS / PLEURA: No significant pulmonary or pleural abnormality. No pneumothor ax. ADDITIONAL FINDINGS: No significant additional findings. IMPRESSION: 1. No acute findings. Signer Name: Delonte Lind MD Signed: 01/28/2022 9:57 AM Workstation Name: [id number] Transcribed By: FANTASMA Dictated By: Delonte Lind MD Electronically Authenticated By: Delonte Lind MD Signed Date/Time: 01/28/22956 DD/ 6 TD/TT: [address] [address] XRay Report Signed Patient: KATE ZHENG MR #: [id number] : 1980 Acct:[id number] Age/Sex: 41 / F ADM Date: 01/27/22 Loc: ED Attending Dr: Ordering Physician: HERMINIA STRATTON MD Date of Service: 01/28/22 Procedure(s): XR ankle 3+V LT Accession Number(s): [id number] cc: HERMINIA STRATTON MD Fluoro Time In Minutes: LEFT ANKLE 3 VIEW INDICATION / CLINICAL INFORMATION: Pain after twisting ankle. COMPARISON: 05/02/2020 FINDINGS: BONES / JOINT(S): No acute fracture or subluxation. Unchanged previous hindfoot arthrodesis without acute fracture. SOFT TISSUES: Mild generalized soft tissue swelling. ADDITIONAL FINDINGS: None. Signer Name: Delonte Lind MD Signed: 01/28/2022 9:59 AM Workstation Name: [id number] Transcribed By: FANTASMA Dictated By: Delonte Lind MD Electronically Authenticated By: Delonte Lind MD Signed Date/Time: 01/28/22958 DD/ 7 TD/TT: [address] [address] Nuclear Medicine Report Signed Patient: KATE ZHENG MR #: [id number] : 1980 Acct:[id number] Age/Sex: 41 / F ADM Date: 01/27/22 Loc: ED Attending Dr: Ordering Physician: HERMINIA STRATTON MD Date of Service: 01/28/22 Procedure(s): NM perfusion only lung scan Accession Number(s): [id number] cc: HERMINIA STRATTON MD NUCLEAR MEDICINE PERFUSION LUNG SCAN INDICATION / CLINICAL INFORMATION: Chest pain. TECHNIQUE: 5.4 mCi of Tc-99m MAA were given by IV. COMPARISON: Chest radiograph dated 01/28/2022. Prior nuclear medicine perfusion scan from 07/10/2018. FINDINGS: PERFUSION: No significant perfusion defects. ADDITIONAL FINDINGS: None. IMPRESSION: 1. Low probability for pulmonary embolism. Signer Name: Cooper Denson MD Signed: 01/28/2022 11:51 AM Workstation Name: [id number] Transcribed By: GENESIS Dictated By: COOPER DENSON MD Electronically Authenticated By: COOPER DENSON MD Signed Date/Time: 01/28/22 1151 DD/ 1150 TD/TT: Print Cancel - Differential Diagnosis ACS, PE, pericarditis, GERD, anxiety Critical care attestation.: If time is entered above; I have spent that time in minutes in the direct care of this critically ill patient, excluding procedure time. ED Disposition Clinical Impression: Chest pain, Ankle sprain Disposition: HOME / SELF CARE / HOMELESS Is pt being admited?: No Does the pt Need Aspirin: No Condition: Stable Instructions: Nonspecific Chest Pain, Adult Additional Instructions: Return to the emergency department should you develop worsening symptoms, inability to tolerate food or liquids, high fever or any other concerns Prescriptions: Cyclobenzaprine [Flexeril] 10 mg PO TID PRN #10 PRN Reason: Muscle Spasm Famotidine [Pepcid] 20 mg PO BID #20 tablet Referrals: ALEX DE LA CRUZ MD [Primary Care Provider] - 3-5 Days Time of Disposition: 12:09
--- NOTE | 2022-01-28 10:02 | XRay Report ---
CHEST 1 VIEW 01/28/2022 8:54 AM INDICATION / CLINICAL INFORMATION: chest pain. COMPARISON: 01/27/2022 FINDINGS: SUPPORT DEVICES: None. HEART / MEDIASTINUM: No significant abnormality. LUNGS / PLEURA: No significant pulmonary or pleural abnormality. No pneumothorax. ADDITIONAL FINDINGS: No significant additional findings. IMPRESSION: 1. No acute findings. Signer Name: Delonte Lind MD Signed: 01/28/2022 9:57 AM Workstation Name: [id number]
[2022-01-28 10:04] LABS: BUN/Creatinine Ratio 15
--- NOTE | 2022-01-28 10:04 | XRay Report ---
LEFT ANKLE 3 VIEW INDICATION / CLINICAL INFORMATION: Pain after twisting ankle. COMPARISON: 05/02/2020 FINDINGS: BONES / JOINT(S): No acute fracture or subluxation. Unchanged previous hindfoot arthrodesis without a cute fracture. SOFT TISSUES: Mild generalized soft tissue swelling. ADDITIONAL FINDINGS: None. Signer Name: Delonte Lind MD Signed: 01/28/2022 9:59 AM Workstation Name: [id number]
--- NOTE | 2022-01-28 11:56 | Nuclear Medicine Report ---
NUCLEAR MEDICINE PERFUSION LUNG SCAN INDICATION / CLINICAL INFORMATION: Chest pain. TECHNIQUE: 5.4 mCi of Tc-99m MAA were given by IV. COMPARISON: Chest radiograph dated 01/28/2022. Prior nuclear medicine perfusion scan from 07/10/2018. FINDINGS: PERFUSION: No significant perfusion defects. ADDITIONAL FINDINGS: None. IMPRESSION: 1. Low probability for pulmonary embolism. Signer Name: Evgeny Denson MD Signed: 01/28/2022 11:51 AM Workstation Name: [id number]
[2022-01-28 12:28] VITALS: BP 124/63
== END 2022-01-28 12:28 | disposition home or self-care (01) ==
LOC: ED 14:50
DX: S93.402A Sprain of unspecified ligament of left ankle, initial encounter (principal); R07.9 Chest pain, unspecified; I10 Essential (primary) hypertension; G43.909 Migraine, unspecified, not intractable, without status migrainosus; R56.9 Unspecified convulsions; J45.909 Unspecified asthma, uncomplicated; Z21 Asymptomatic human immunodeficiency virus [HIV] infection status; D64.9 Anemia, unspecified; Z98.890 Other specified postprocedural states; F17.290 Nicotine dependence, other tobacco product, uncomplicated; X58.XXXA Exposure to other specified factors, initial encounter; Y93.89 Activity, other specified; Y92.89 Other specified places as the place of occurrence of the external cause; Y99.8 Other external cause status
CPT/HCPCS: 36415; 71045; 71046; 73610; 78580; 80048; 80053; 83735; 83880; 84100; 84484; 85007; 85025; 85027; 85379; 93005; 99285; A9540

== ENCOUNTER 2022-04-16 15:54 | Emergency (ER) | payer MEDICAID ==
[2022-04-16 16:37] VITALS: BP 171/119
== END 2022-04-16 22:25 | disposition left against medical advice (07) ==
LOC: ED 15:54
DX: R06.02 Shortness of breath (principal); Z53.21 Procedure and treatment not carried out due to patient leaving prior to being seen by health care provider

== ENCOUNTER 2022-05-02 00:36 | Emergency (ER) | payer MEDICAID ==
[2022-05-02] MEDS ORDERED: ONDANSETRON 4 MG ODT TAB PO ONE (07:58)
[2022-05-02] MEDS ORDERED: MORPHINE 4 MG/1 ML INJ IM ONE (07:58)
[2022-05-02 08:38] LABS: Hematocrit 29.5 % (30.3-42.9); Hemoglobin 9.2 gm/dl (10.1-14.3); Mean Corpuscular HGB Conc 31 % (30-34); Mean Corpuscular Volume 106 fl (79-97); Platelet Count 178 K/mm3 (140-440); Red Blood Count 2.79 M/mm3 (3.65-5.03); Red Cell Distribution Width 19.4 % (13.2-15.2)
[2022-05-02 08:55] LABS: Alanine Aminotransferase 19 units/L (7-56); Blood Urea Nitrogen 8 mg/dL (7-17); Calcium 8.5 mg/dL (8.4-10.2); Hemolysis Index 7
[2022-05-02 08:56] LABS: BUN/Creatinine Ratio 20
--- NOTE | 2022-05-02 09:14 | Cat Scan Report ---
CT ABDOMEN AND PELVIS WITHOUT CONTRAST INDICATION / CLINICAL INFORMATION: abdominal pain. TECHNIQUE: Axial CT images were obtained through the abdomen and pelvis without IV contrast. All CT scans at this location are performed using CT dose reduction for ALARA by means of automated exposure control. COMPARISON: None available. FINDINGS: LOWER CHEST: No significant abnormality. LIVER: Mild thyromegaly. Normal attenuation. GALLBLADDER: Cholecystectomy. BILE DUCTS: No significant abnormality. PANCREAS: No significant abnormality. SPLEEN: No significant abnormality. ADRENALS: Right adrenal 2.8 cm intermediate density (HU 35) nodule. Left adrenal is unremarkable. RIGHT KIDNEY / URETER: No significant abnormality. LEFT KIDNEY / URETER: No significant abnormality. STOMACH / SMALL BOWEL: No significant abnormality. COLON: No significant abnormality. APPENDIX: No significant abnormality. PERITONEUM: No free fluid. No free air. No fluid collection. LYMPH NODES: No significant adenopathy. AORTA / ARTERIES: No significant abnormality. IVC / VEINS: No significant abnormality. URINARY BLADDER: No significant abnormality. Urachal remnant. REPRODUCTIVE ORGANS: Intrauterine device ADDITIONAL FINDINGS: None. SKELETAL SYSTEM: No significant abnormality. IMPRESSION: 1. Hepatosplenomegaly without additional related abnormality appreciated. 2. Intermediate right adrenal nodule. While likely benign, a routine dedicated adrenal protocol CT wa rranted. 3. Other observations as above. Signer Name: Adam Swenson MD Signed: 05/02/2022 9:10 AM Workstation Name: [email or web address]
[2022-05-02] MEDS ORDERED: DICYCLOMINE 10 MG/5 ML ORAL LIQD PO ONE (09:46)
[2022-05-02] MEDS ORDERED: ALUM-MAG HYDROXIDE-SIMETHICONE 200-200-20MG/5ML ORAL LIQD 30 ML PO ONE (09:46)
[2022-05-02] MEDS ORDERED: LIDOCAINE VISCOUS 2% 15 ML ORAL LIQD PO ONE (09:46)
--- NOTE | 2022-05-02 10:06 | Emergency Department Report ---
ED Abdominal Pain HPI - General Chief Complaint: Abdominal Pain Stated Complaint: ABD PAIN Time Seen by Provider: 05/02/22 07:56 Source: patient, EMS Mode of arrival: Ambulatory Limitations: No Limitations - History of Present Illness Initial Comments: 41-year-old black female with a past medical history of hypertension, HIV, asthma, anemia, depression, and anxiety presents to the emergency department for evaluation of 6-day history of epigastric pain. She states that on Friday, she noticed pain to her epigastric area along with a knot. She states that since then pain has been getting progressively worse. She states that pain is worse whenever she ambulates, moves, or coughs. She states that pain is associated with some nausea and vomiting but she denies diarrhea, fever, dysuria, and vaginal discharge. MD Complaint: abdominal pain -: Gradual, days(s) (6) Location: epigastric Radiation: none Migration to: no migration Severity scale (0 -10): 10 Quality: aching Consistency: constant Worsens With: movement, other (Ambulation and cough) Associated Symptoms: nausea, vomiting. denies: diarrhea, fever, chills, dysuria, hematemesis, hematochezia, melena, hematuria, anorexia, syncope - Related Data Home Medications Medication Instructions Recorded Confirmed Last Taken amLODIPine 10 mg PO DAILY 04/04/19 04/04/19 Unknown Previous Rx's Medication Instructions Recorded Last Taken Type Famotidine [Pepcid] 20 mg PO BID #30 tablet 11/04/18 Unknown Rx levETIRAcetam [Keppra] 1,000 mg PO Q12H #60 tablet 11/21/18 Unknown Rx AtorvaSTATin [Lipitor] 20 mg PO QHS #30 tab 11/18/20 Unknown Rx Cetirizine HCl [ZyrTEC 10mg rapdis] 10 mg PO DAILY PRN #14 tab.rapdis 11/18/20 Unknown Rx Gabapentin 100 mg PO Q8HR #30 capsule 11/18/20 Unknown Rx Nicotine [Habitrol] 21 mg TD QDAY@2100 #30 patch 11/18/20 Unknown Rx Bacitracin Zinc/Polymyxin B 1 applic TP BID #30 gm 02/10/21 Unknown Rx [Double Antibiotic Ointment] Promethazine HCl/Codeine 5 ml PO QID PRN #110 ml 07/24/21 Unknown Rx [Promethazine-Codeine Solution] Albuterol Sulfate [Proventil Hfa] 6.7 gm IH QID #1 hfa.aer.ad 10/05/21 Unknown Rx Benzonatate [Tessalon Perles] 100 mg PO Q8HR PRN #30 capsule 10/05/21 Unknown Rx Metaxalone [Skelaxin] 800 mg PO TID #10 tablet 10/05/21 Unknown Rx predniSONE [Deltasone] 50 mg PO QDAY #5 tab 10/05/21 Unknown Rx Acetaminophen/Codeine [Tylenol 1 tab PO Q6H PRN #10 tab 10/15/21 Unknown Rx /Codeine # 3 tab] Acetaminophen with Codeine 1 each PO Q6HR PRN #12 tab 11/04/21 Unknown Rx [Acetaminophen-Codeine #2 TAB] Gabapentin 300 mg PO BID #30 cap 11/04/21 Unknown Rx predniSONE [Deltasone] 60 mg PO QDAY #15 tab 11/04/21 Unknown Rx Hydrocortisone 1% [Hydrocortisone 1 applicatio TP TID 14 Days #1 tube 11/08/21 Unknown Rx 1% CREAM] Prednisone [predniSONE 10 mg 10 mg PO .TAPER #1 11/08/21 Unknown Rx (6-Day Pack, 21 Tabs)] levETIRAcetam [Keppra TAB] 500 mg PO BID #60 tablet 01/23/22 Unknown Rx Cyclobenzaprine [Flexeril] 10 mg PO TID PRN #10 01/28/22 Unknown Rx Famotidine [Pepcid] 20 mg PO BID #20 tablet 01/28/22 Unknown Rx Pantoprazole [Protonix] 40 mg PO QDAY #30 tablet 05/02/22 Unknown Rx Allergies Allergy/AdvReac Type Severity Reaction Status Date / Time aspirin Allergy Hives Verified 04/16/22 16:38 ibuprofen [From Motrin] Allergy Hives Verified 04/16/22 16:38 ketorolac [From Toradol] Allergy Unknown Verified 04/16/22 16:38 Penicillins Allergy Hives Verified 04/16/22 16:38 shellfish derived Allergy Hives Verified 04/16/22 16:38 tramadol Allergy Hives Verified 04/16/22 16:38 NSAIDS (Non-Steroidal AdvReac Hives Verified 04/16/22 16:38 Anti-Inflamma ED Review of Systems ROS: Stated complaint: ABD PAIN Other details as noted in HPI Comment: All other systems reviewed and negative Constitutional: denies: chills, fever Respiratory: denies: shortness of breath Cardiovascular: denies: chest pain, palpitations Gastrointestinal: abdominal pain, nausea, vomiting. denies: diarrhea, hematemesis, melena, hematochezia Genitourinary: denies: urgency, dysuria, frequency, hematuria, discharge Musculoskeletal: denies: back pain Skin: denies: rash, lesions Neurological: denies: headache, weakness ED Past Medical Hx - Past Medical History Hx Hypertension: Yes Hx Headaches / Migraines: Yes (hx migraines) Hx Seizures: Yes Hx Psychiatric Treatment: Yes (depression, Anxiety) Hx Asthma: Yes Hx HIV: Yes Additional medical history: Anemia,cva - Surgical History Additional Surgical History: right knee surgery, b/l foot surgery several years ago. Right great toe removal od ingrown toenail. foot surgery 09/2015 - Social History Smoking Status: Current Every Day Smoker Substance Use Type: None - Medications Home Medications: Home Medications Medication Instructions Recorded Confirmed Last Taken Type Famotidine [Pepcid] 20 mg PO BID #30 tablet 11/04/18 04/04/19 Unknown Rx levETIRAcetam [Keppra] 1,000 mg PO Q12H #60 tablet 11/21/18 04/04/19 Unknown Rx amLODIPine 10 mg PO DAILY 04/04/19 04/04/19 Unknown History AtorvaSTATin [Lipitor] 20 mg PO QHS #30 tab 11/18/20 Unknown Rx Cetirizine HCl [ZyrTEC 10mg rapdis] 10 mg PO DAILY PRN #14 tab.rapdis 11/18/20 Unknown Rx Gabapentin 100 mg PO Q8HR #30 capsule 11/18/20 Unknown Rx Nicotine [Habitrol] 21 mg TD QDAY@2100 #30 patch 11/18/20 Unknown Rx Bacitracin Zinc/Polymyxin B 1 applic TP BID #30 gm 02/10/21 Unknown Rx [Double Antibiotic Ointment] Promethazine HCl/Codeine 5 ml PO QID PRN #110 ml 07/24/21 Unknown Rx [Promethazine-Codeine Solution] Albuterol Sulfate [Proventil Hfa] 6.7 gm IH QID #1 hfa.aer.ad 10/05/21 Unknown Rx Benzonatate [Tessalon Perles] 100 mg PO Q8HR PRN #30 capsule 10/05/21 Unknown Rx Metaxalone [Skelaxin] 800 mg PO TID #10 tablet 10/05/21 Unknown Rx predniSONE [Deltasone] 50 mg PO QDAY #5 tab 10/05/21 Unknown Rx Acetaminophen/Codeine [Tylenol 1 tab PO Q6H PRN #10 tab 10/15/21 Unknown Rx /Codeine # 3 tab] Acetaminophen with Codeine 1 each PO Q6HR PRN #12 tab 11/04/21 Unknown Rx [Acetaminophen-Codeine #2 TAB] Gabapentin 300 mg PO BID #30 cap 11/04/21 Unknown Rx predniSONE [Deltasone] 60 mg PO QDAY #15 tab 11/04/21 Unknown Rx Hydrocortisone 1% [Hydrocortisone 1 applicatio TP TID 14 Days #1 tube 11/08/21 Unknown Rx 1% CREAM] Prednisone [predniSONE 10 mg 10 mg PO .TAPER #1 11/08/21 Unknown Rx (6-Day Pack, 21 Tabs)] levETIRAcetam [Keppra TAB] 500 mg PO BID #60 tablet 01/23/22 Unknown Rx Cyclobenzaprine [Flexeril] 10 mg PO TID PRN #10 01/28/22 Unknown Rx Famotidine [Pepcid] 20 mg PO BID #20 tablet 01/28/22 Unknown Rx Pantoprazole [Protonix] 40 mg PO QDAY #30 tablet 05/02/22 Unknown Rx ED Physical Exam - General Limitations: No Limitations General appearance: alert, in no apparent distress - Head Head exam: Present: atraumatic, normocephalic - Eye Eye exam: Present: normal appearance - Neck Neck exam: Present: normal inspection, full ROM. Absent: tenderness, lymphadenopathy - Respiratory Respiratory exam: Present: normal lung sounds bilaterally. Absent: respiratory distress, wheezes, rales, rhonchi, stridor, chest wall tenderness - Cardiovascular Cardiovascular Exam: Present: tachycardia, normal heart sounds - GI/Abdominal GI/Abdominal exam: Present: soft, normal bowel sounds. Absent: distended, tenderness, guarding, rebound, rigid - Extremities Exam Extremities exam: Present: normal inspection, full ROM, normal capillary refill. Absent: tenderness, pedal edema, joint swelling, calf tenderness - Back Exam Back exam: Present: normal inspection. Absent: CVA tenderness (R), CVA tenderness (L) - Neurological Exam Neurological exam: Present: alert, oriented X3, CN II-XII intact, normal gait. Absent: altered, abnormal gait, motor sensory deficit - Psychiatric Psychiatric exam: Present: normal affect, normal mood - Skin Skin exam: Present: warm, dry, intact, normal color ED Course Vital Signs 05/02/22 01:22 Temperature 98.1 F Pulse Rate 102 H Respiratory 16 Rate Blood Pressure 160/100 [Right] O2 Sat by Pulse 96 Oximetry ED Medical Decision Making - Lab Data Result diagrams: 05/02/22 08:14 05/02/22 08:14 - Radiology Data Radiology results: report reviewed, image reviewed CT abdomen and pelvis without contrast: FINDINGS: LOWER CHEST: No significant abnormality. LIVER: Mild thyromegaly. Normal attenuation. GALLBLADDER: Cholecystectomy. BILE DUCTS: No significant abnormality. PANCREAS: No significant abnormality. SPLEEN: No significant abnormality. ADRENALS: Right adrenal 2.8 cm intermediate density (HU 35) nodule. Left adrenal is unremarkable. RIGHT KIDNEY / URETER: No significant abnormality. LEFT KIDNEY / URETER: No significant abnormality. STOMACH / SMALL BOWEL: No significant abnormality. COLON: No significant abnormality. APPENDIX: No significant abnormality. PERITONEUM: No free fluid. No free air. No fluid collection. LYMPH NODES: No significant adenopathy. AORTA / ARTERIES: No significant abnormality. IVC / VEINS: No significant abnormality. URINARY BLADDER: No significant abnormality. Urachal remnant. REPRODUCTIVE ORGANS: Intrauterine device ADDITIONAL FINDINGS: None. SKELETAL SYSTEM: No significant abnormality. IMPRESSION: 1. Hepatosplenomegaly without additional related abnormality appreciated. 2. Intermediate right adrenal nodule. While likely benign, a routine dedicated adrenal protocol CT warranted. 3. Other observations as above. - Medical Decision Making 41-year-old black female with a past medical history of hypertension, HIV, asthma, anemia, depression, and anxiety presents to the emergency department for evaluation of 6-day history of epigastric pain. She states that on Friday, she noticed pain to her epigastric area along with a knot. She states that since then pain has been getting progressively worse. She states that pain is worse whenever she ambulates, moves, or coughs. She states that pain is associated with some nausea and vomiting but she denies diarrhea, fever, dysuria, and vaginal discharge. Critical care attestation.: If time is entered above; I have spent that time in minutes in the direct care of this critically ill patient, excluding procedure time. ED Disposition Clinical Impression: Epigastric abdominal pain Disposition: 01 HOME / SELF CARE / HOMELESS Is pt being admited?: No Does the pt Need Aspirin: No Condition: Stable Instructions: Abdominal Pain (ED), Abdominal Pain During , [id number], Food Choices for Gastroesophageal Reflux Disease, Adult, [id number] Additional Instructions: Take medications as prescribed. Follow-up with cytopathologist (stomach doctor) for further evaluation and management. Return to the emergency department as needed. Prescriptions: Pantoprazole [Protonix] 40 mg PO QDAY #30 tablet Referrals: PRIMARY CARE, [Primary Care Provider] - 3-5 Days Forms: Work/School Release Form(ED) Time of Disposition: 11:33
[2022-05-02 11:04] LABS: Bacteria,Urine 1+ /HPF (Negative); Color,Urine Yellow (Yellow); Mucus,Urine FEW /HPF
[2022-05-02] MEDS ORDERED: oxyCODONE /ACETAMINOPHEN 5-325MG TAB PO ONE (11:37)
[2022-05-02 11:54] VITALS: BP 138/78
== END 2022-05-02 11:52 | disposition home or self-care (01) ==
LOC: ED 00:36
DX: R10.13 Epigastric pain (principal); I10 Essential (primary) hypertension; R56.9 Unspecified convulsions; G43.909 Migraine, unspecified, not intractable, without status migrainosus; J45.909 Unspecified asthma, uncomplicated; F32.A Depression, unspecified; Z21 Asymptomatic human immunodeficiency virus [HIV] infection status; F17.200 Nicotine dependence, unspecified, uncomplicated; Z88.6 Allergy status to analgesic agent; Z88.1 Allergy status to other antibiotic agents; Z88.0 Allergy status to penicillin; Z91.013 Allergy to seafood; Z91.09 Other allergy status, other than to drugs and biological substances
CPT/HCPCS: 36415; 74176; 80053; 81001; 83690; 84703; 85027; 96372; 99284; J2270; J3490; Q0162

== ENCOUNTER 2022-05-10 18:21 | Emergency (ER) | payer MEDICAID ==
[2022-05-10] MEDS ORDERED: LORazepam 2 MG/ML VIAL ONE (18:28)
[2022-05-10] MEDS: LORazepam 2 MG/ML VIAL IV ONE ×2 (18:34→18:35)
[2022-05-10] MEDS: levETIRAcetam 1000 MG/NS 0.75% 1,000 MG/100 ML BAG IV ONE (18:46)
--- NOTE | 2022-05-10 19:41 | Emergency Department Report ---
ED General Adult HPI - General Chief complaint: Seizure Stated complaint: SEIZURES Time Seen by Provider: 05/10/22 18:31 Source: EMS Mode of arrival: Stretcher Limitations: Altered Mental Status - History of Present Illness Initial comments: The patient presents to the emergency department with a chief complaint of seizure activity. Patient has a history of seizures and today EMS was called for seizure activity. In route the patient received 2.5 mg of Versed and was actively seizing on arrival to ED. Due to the patient's condition they were not able to add to the history -: Sudden Severity scale (0 -10): 0 Consistency: constant Improves with: none Worsens with: none Associated Symptoms: denies other symptoms Treatments Prior to Arrival: none - Related Data Home Medications Medication Instructions Recorded Confirmed Last Taken amLODIPine 10 mg PO DAILY 04/04/19 04/04/19 Unknown Previous Rx's Medication Instructions Recorded Last Taken Type Famotidine [Pepcid] 20 mg PO BID #30 tablet 11/04/18 Unknown Rx levETIRAcetam [Keppra] 1,000 mg PO Q12H #60 tablet 11/21/18 Unknown Rx AtorvaSTATin [Lipitor] 20 mg PO QHS #30 tab 11/18/20 Unknown Rx Cetirizine HCl [ZyrTEC 10mg rapdis] 10 mg PO DAILY PRN #14 tab.rapdis 11/18/20 Unknown Rx Gabapentin 100 mg PO Q8HR #30 capsule 11/18/20 Unknown Rx Nicotine [Habitrol] 21 mg TD QDAY@2100 #30 patch 11/18/20 Unknown Rx Bacitracin Zinc/Polymyxin B 1 applic TP BID #30 gm 02/10/21 Unknown Rx [Double Antibiotic Ointment] Promethazine HCl/Codeine 5 ml PO QID PRN #110 ml 07/24/21 Unknown Rx [Promethazine-Codeine Solution] Albuterol Sulfate [Proventil Hfa] 6.7 gm IH QID #1 hfa.aer.ad 10/05/21 Unknown Rx Benzonatate [Tessalon Perles] 100 mg PO Q8HR PRN #30 capsule 10/05/21 Unknown Rx Metaxalone [Skelaxin] 800 mg PO TID #10 tablet 10/05/21 Unknown Rx predniSONE [Deltasone] 50 mg PO QDAY #5 tab 10/05/21 Unknown Rx Acetaminophen/Codeine [Tylenol 1 tab PO Q6H PRN #10 tab 10/15/21 Unknown Rx /Codeine # 3 tab] Acetaminophen with Codeine 1 each PO Q6HR PRN #12 tab 11/04/21 Unknown Rx [Acetaminophen-Codeine #2 TAB] Gabapentin 300 mg PO BID #30 cap 11/04/21 Unknown Rx predniSONE [Deltasone] 60 mg PO QDAY #15 tab 11/04/21 Unknown Rx Hydrocortisone 1% [Hydrocortisone 1 applicatio TP TID 14 Days #1 tube 11/08/21 Unknown Rx 1% CREAM] Prednisone [predniSONE 10 mg 10 mg PO .TAPER #1 11/08/21 Unknown Rx (6-Day Pack, 21 Tabs)] levETIRAcetam [Keppra TAB] 500 mg PO BID #60 tablet 01/23/22 Unknown Rx Cyclobenzaprine [Flexeril] 10 mg PO TID PRN #10 01/28/22 Unknown Rx Famotidine [Pepcid] 20 mg PO BID #20 tablet 01/28/22 Unknown Rx Pantoprazole [Protonix] 40 mg PO QDAY #30 tablet 05/02/22 Unknown Rx Allergies Allergy/AdvReac Type Severity Reaction Status Date / Time aspirin Allergy Hives Verified 04/16/22 16:38 ibuprofen [From Motrin] Allergy Hives Verified 04/16/22 16:38 ketorolac [From Toradol] Allergy Unknown Verified 04/16/22 16:38 Penicillins Allergy Hives Verified 04/16/22 16:38 shellfish derived Allergy Hives Verified 04/16/22 16:38 tramadol Allergy Hives Verified 04/16/22 16:38 NSAIDS (Non-Steroidal AdvReac Hives Verified 04/16/22 16:38 Anti-Inflamma ED Review of Systems ROS: Stated complaint: SEIZURES Other details as noted in HPI Comment: Unobtainable due to pts medical conditions ED Past Medical Hx - Past Medical History Previous Medical History?: Yes Hx Hypertension: Yes Hx Headaches / Migraines: Yes (hx migraines) Hx Seizures: Yes Hx Psychiatric Treatment: Yes (depression, Anxiety) Hx Asthma: Yes Hx HIV: Yes Additional medical history: Anemia,cva - Surgical History Additional Surgical History: right knee surgery, b/l foot surgery several years ago. Right great toe removal od ingrown toenail. foot surgery 09/2015 - Social History Smoking Status: Current Every Day Smoker Substance Use Type: None - Medications Home Medications: Home Medications Medication Instructions Recorded Confirmed Last Taken Type Famotidine [Pepcid] 20 mg PO BID #30 tablet 11/04/18 04/04/19 Unknown Rx levETIRAcetam [Keppra] 1,000 mg PO Q12H #60 tablet 11/21/18 04/04/19 Unknown Rx amLODIPine 10 mg PO DAILY 04/04/19 04/04/19 Unknown History AtorvaSTATin [Lipitor] 20 mg PO QHS #30 tab 11/18/20 Unknown Rx Cetirizine HCl [ZyrTEC 10mg rapdis] 10 mg PO DAILY PRN #14 tab.rapdis 11/18/20 Unknown Rx Gabapentin 100 mg PO Q8HR #30 capsule 11/18/20 Unknown Rx Nicotine [Habitrol] 21 mg TD QDAY@2100 #30 patch 11/18/20 Unknown Rx Bacitracin Zinc/Polymyxin B 1 applic TP BID #30 gm 02/10/21 Unknown Rx [Double Antibiotic Ointment] Promethazine HCl/Codeine 5 ml PO QID PRN #110 ml 07/24/21 Unknown Rx [Promethazine-Codeine Solution] Albuterol Sulfate [Proventil Hfa] 6.7 gm IH QID #1 hfa.aer.ad 10/05/21 Unknown Rx Benzonatate [Tessalon Perles] 100 mg PO Q8HR PRN #30 capsule 10/05/21 Unknown Rx Metaxalone [Skelaxin] 800 mg PO TID #10 tablet 10/05/21 Unknown Rx predniSONE [Deltasone] 50 mg PO QDAY #5 tab 10/05/21 Unknown Rx Acetaminophen/Codeine [Tylenol 1 tab PO Q6H PRN #10 tab 10/15/21 Unknown Rx /Codeine # 3 tab] Acetaminophen with Codeine 1 each PO Q6HR PRN #12 tab 11/04/21 Unknown Rx [Acetaminophen-Codeine #2 TAB] Gabapentin 300 mg PO BID #30 cap 11/04/21 Unknown Rx predniSONE [Deltasone] 60 mg PO QDAY #15 tab 11/04/21 Unknown Rx Hydrocortisone 1% [Hydrocortisone 1 applicatio TP TID 14 Days #1 tube 11/08/21 Unknown Rx 1% CREAM] Prednisone [predniSONE 10 mg 10 mg PO .TAPER #1 11/08/21 Unknown Rx (6-Day Pack, 21 Tabs)] levETIRAcetam [Keppra TAB] 500 mg PO BID #60 tablet 01/23/22 Unknown Rx Cyclobenzaprine [Flexeril] 10 mg PO TID PRN #10 01/28/22 Unknown Rx Famotidine [Pepcid] 20 mg PO BID #20 tablet 01/28/22 Unknown Rx Pantoprazole [Protonix] 40 mg PO QDAY #30 tablet 05/02/22 Unknown Rx ED Physical Exam - General Limitations: Altered Mental Status General appearance: other (Actively seizing and unresponsive) - Head Head exam: Present: atraumatic, normocephalic - Eye Eye exam: Present: normal appearance, PERRL, EOMI - ENT ENT exam: Present: normal exam, mucous membranes moist - Respiratory Respiratory exam: Present: normal lung sounds bilaterally. Absent: respiratory distress - Cardiovascular Cardiovascular Exam: Present: normal rhythm, tachycardia - GI/Abdominal GI/Abdominal exam: Present: soft, normal bowel sounds. Absent: distended, tenderness - Extremities Exam Extremities exam: Present: normal inspection - Neurological Exam Neurological exam: Present: other (Not able to assess due to the patient's seizure activity) - Psychiatric Psychiatric exam: Present: other (Not able to assess due to the patient's medical condition) - Skin Skin exam: Present: warm, dry, intact, normal color. Absent: rash ED Course Vital Signs 05/10/22 05/10/22 18:37 18:46 Temperature 98.6 F Pulse Rate 100 H 80 Respiratory 22 18 Rate Blood Pressure 137/77 131/65 [Left] O2 Sat by Pulse 97 99 Oximetry Critical care attestation.: If time is entered above; I have spent that time in minutes in the direct care of this critically ill patient, excluding procedure time. ED Disposition Condition: Stable
[2022-05-10 20:05] VITALS: BP 127/81
== END 2022-05-10 23:59 | disposition home or self-care (01) ==
LOC: ED 18:21
DX: R56.9 Unspecified convulsions (principal); F17.200 Nicotine dependence, unspecified, uncomplicated; I10 Essential (primary) hypertension; J45.909 Unspecified asthma, uncomplicated
CPT/HCPCS: 96374; 96375; 96376; 99283; J1953; J2060; 99282